=== PATIENT | male | born 1965 | race Caucasian/White ===

== ENCOUNTER 2017-04-18 23:50 | Observation (INO) | payer OTHER ==
[~2017-04-18] VITALS: Ht 180.3 cm; Wt 86.5 kg
[~2017-04-18 23:50] MED LIST: ATEN-173 PO; ATOR-54 PO; BUSPAR PO; CLON1TAB3 PO; CYCL10TA6 PO; FERR325T51 PO; FLUO40CA8 PO; LAMO100T PO; LDDP5 TD; MRP15 PO; MRPSR15 PO; NRN/600 PO; RST/30 PO
[2017-04-19] VITALS (13 sets, daily range): BP systolic 116–189; BP diastolic 71–126; PULSE 64–81; TEMP 36.4–36.6; O2SAT 97–99; Ht 180.3 cm; Wt 86.5 kg
--- NOTE | 2017-04-19 00:30 | EMERGENCY ROOM VISIT NOTE ---
History Report prepared by Ronibren: Nieves Gonzales Under the Supervision of: Dr. Jett Benson M.D. First contact with patient: 00:09 Chief Complaint: CHEST PAIN Stated Complaint: CHEST PAIN/ [facility] Nursing Triage Summary: Pt arrives via ALS litter from [place] for eval of substernal cp into right arm that began at 2030. Pt states he initially thought it was an anxiety attack. Pt reports he was sob, lightheaded and nauseated. Pt given 3 NTG by staff at [place] Pt given 2 additional NTG by EMS, along with 4mg Morphine and 324 ASA. Pt reports that he is at [place] because he recently OD by taking 90 Atenolol. History of Present Illness The patient is a 51 year old male who presents to the Emergency Room from the [facility] via EMS with complaints of persistent mid-chest pain starting about 7 hours ago. He has pain radiation to the right arm. The patient initially thought he was having a panic attack. He has a history of panic attacks. He was given 3 Nitro at the [facility] and 2 Nitro in route to the Emergency Room by EMS without relief. He was also given 4 mg Morphine which brought his pain down to 5 /10. He currently rates a pain intensity of 6/10. He reports that his Klonopin was stopped today. He has a recent history of overdose by Atenolol. The patient also has a history of 2 heart catheterizations but did not have any stent placement. He denies fevers, chills, or any other complaints. Source of History: patient Onset: 7 hours ago Position: chest (mid) Symptom Intensity: 6/10 currently Timing: other (persistent) Modifying Factors (Relieving): other (Nitro without relief; Morphine with some relief) Associated Symptoms: No fevers, No chills Review of Systems See HPI for pertinent positives & negatives. A total of 10 systems reviewed and were otherwise negative. Past Medical & Surgical Medical Problems: (1) Anxiety (2) Cervical stenosis of spinal canal (3) Chest pain (4) Depression (5) Emphysema lung (6) Hypertension (7) Intractable pain (8) Neck pain (9) Osteoarthritis (10) Overdose Family History Patient reports no known family medical history. Social History Smoking Status: Current Every Day Smoker Marital Status: Occupation Status: disabled Current/Historical Medications Scheduled Atenolol (Tenormin), 50 MG PO QAM Atenolol (Tenormin), 25 MG PO HS Buspirone Hcl (Buspar), 15 MG PO QID Clonazepam (Klonopin), 0.5 MG PO QAM ON Clonazepam (Klonopin), 1 MG PO QAM ON 04/19/17 Divalproex Sodium (Depakote Delay Rel), 250 MG PO QAM Divalproex Sodium (Depakote Delay Rel), 500 MG PO HS Gabapentin (Neurontin), 800 MG PO TID Lamotrigine (Lamictal), 100 MG PO BID Nicotine (Hm Nicotine Transdermal S), 21 MG TD QAM Nitroglycerin (Nitrostat), 0.4 MG UT PRN Scheduled PRN Alum & Mag Hydrox-Simethicone (Mylanta), 30 ML PO QID PRN for GI Upset Ibuprofen (Motrin), 600 MG PO TID PRN for BACK PAIN Magnesium Hydroxide (Milk Of Magnesia), 30 ML PO DAILY PRN for Constipation Allergies Coded Allergies: Paroxetine (Verified Allergy, Mild, UNSURE, 05/25/14) Risperidone (Verified Allergy, Unknown, 05/25/14) Influenza Vaccines (Verified Adverse Reaction, Unknown, UNKNOWN, 05/25/14) Pneumococcal Vaccine (Verified Adverse Reaction, Unknown, 05/25/14) Physical Exam Vital Signs Date Time Temp Pulse Resp B/P (MAP) Pulse Ox O2 Delivery O2 Flow Rate FiO2 04/19/17 02:46 157/107 04/19/17 02:45 63 18 99 04/19/17 02:27 62 18 149/97 98 Room Air 04/19/17 01:45 60 18 149/101 95 Room Air 04/19/17 01:27 65 16 129/80 97 Room Air 04/19/17 01:22 63 16 147/101 97 Room Air 04/19/17 00:10 64 04/19/17 00:00 36.9 62 18 158/95 97 Room Air 04/19/17 00:00 99 Room Air Physical Exam GENERAL: Patient is well appearing and in no acute distress. HEENT: No acute trauma, normocephalic atraumatic, mucous membranes moist, no nasal congestion, no scleral icterus. NECK: No stridor, no adenopathy, no meningismus, trachea is midline. LUNGS: No dyspnea. Clear to auscultation and equal bilaterally. No wheeze, no rhonchi. HEART: Regular rate and rhythm. No murmurs, rubs, gallops appreciated. ABDOMEN: Soft, nontender, bowel sounds positive, no masses appreciated, no peritonitis. BACK: No midline tenderness, no CVA tenderness EXTREMITIES: Normal motion all extremities, no cyanosis, no edema. NEUROLOGIC: Alert and oriented, no acute motor or sensory deficits, no focal weakness, cranial nerves grossly intact. SKIN: No rash, no jaundice, no diaphoresis. Medical Decision & Procedures ER Provider Diagnostic Interpretation: X ray results are stated below per my interpretation: Chest: 1 view: No infiltrate, no effusion, normal cardiac border. Laboratory Results 04/18/17 23:40 Red Blood Count 4.02, Mean Corpuscular Volume 94.8, Mean Corpuscular Hemoglobin 32.8, Mean Corpuscular Hemoglobin Concent 34.6, Mean Platelet Volume 10.1, Neutrophils (%) (Auto) 54.1, Lymphocytes (%) (Auto) 33.1, Monocytes (%) (Auto) 7.0, Eosinophils (%) (Auto) 5.1, Basophils (%) (Auto) 0.6, Neutrophils # (Auto) 3.62, Lymphocytes # (Auto) 2.22, Monocytes # (Auto) 0.47, Eosinophils # (Auto) 0.34, Basophils # (Auto) 0.04 04/18/17 23:40 Test 04/18/17 23:40 White Blood Count 6.70 K/uL (4.8-10.8) Red Blood Count 4.02 M/uL (4.7-6.1) Hemoglobin 13.2 g/dL (14.0-18.0) Hematocrit 38.1 % (42-52) Mean Corpuscular Volume 94.8 fL (80-100) Mean Corpuscular Hemoglobin 32.8 pg (25-34) Mean Corpuscular Hemoglobin Concent 34.6 g/dl (32-36) Platelet Count 300 K/uL (130-400) Mean Platelet Volume 10.1 fL (7.4-10.4) Neutrophils (%) (Auto) 54.1 % Lymphocytes (%) (Auto) 33.1 % Monocytes (%) (Auto) 7.0 % Eosinophils (%) (Auto) 5.1 % Basophils (%) (Auto) 0.6 % Neutrophils # (Auto) 3.62 K/uL (1.4-6.5) Lymphocytes # (Auto) 2.22 K/uL (1.2-3.4) Monocytes # (Auto) 0.47 K/uL (0.11-0.59) Eosinophils # (Auto) 0.34 K/uL (0-0.5) Basophils # (Auto) 0.04 K/uL (0-0.2) RDW Standard Deviation 42.5 fL (36.4-46.3) RDW Coefficient of Variation 12.4 % (11.5-14.5) Immature Granulocyte % (Auto) 0.1 % Immature Granulocyte # (Auto) 0.01 K/uL (0.00-0.02) D-Dimer 220 ug/L FEU (0-500) Anion Gap 5.0 mmol/L (3-11) Est Creatinine Clear Calc Drug Dose 118.3 ml/min Estimated GFR () 117.2 Estimated GFR (Non- 101.1 BUN/Creatinine Ratio 12.2 (10-20) Calcium Level 8.8 mg/dl (8.5-10.1) Total Creatine Kinase 89 U/L (39-308) Creatine Kinase MB 1.2 ng/ml (0.5-3.6) Creatine Kinase MB Ratio 1.3 (0-3.0) Troponin I < 0.015 ng/ml (0-0.045) Laboratory results as reviewed by me. Medications Administered Medications (Trade) Dose Ordered Sig/Ngoc Route Start Time Stop Time Status Last Admin Dose Admin Nitroglycerin (Nitrostat Tab) 0.4 mg Q5M PRN SL 04/19/17 01:15 05/19/17 01:14 04/19/17 01:22 0.4 MG ECG Indication: chest pain Rate (beats per minute): 61 Rhythm: normal sinus Findings: no acute ischemic change, no ectopy ED Course 0009: The patient was evaluated in room A03. A complete history and physical exam was performed. 0114: Upon reevaluation, the patient is complaining of increasing chest pain which is now located on the left side. Discussed results and treatment plan with the patient. He verbalized understanding and agreement with the treatment plan. The patient will be evaluated for further management. 0115: Nitroglycerin 0.4 mg SL 0147: I discussed the patient's case with Dr. Berger[facility] Medical Decision Differential: Cardiac Ischemia (STEMI, NSTEMI, Unstable Angina, etc), Aortic Dissection, Arrhythmia, Pulmonary Embolism, Pneumonia, Pneumothorax, MSK, Infectious, Pericarditis/Myocarditis, Esophageal Rupture, Gastrointestinal, amongst other pathologies entertained. 51 yr old male arrives with complaint of substernal CP radiating to right shoulder. 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 EKG, Trop, CXR unremarkable. Labs otherwise unremarkable. Given ASA by EMS. He developed substernal CP now with radiation to left chest while in department. EKG repeat negative. With reported history felt that hospitalist evaluation warranted. Stable throughout ED stay. Medication Reconcilliation Current Medication List: was personally reviewed by me Blood Pressure Screening Patient's blood pressure: Elevated blood pressure Blood pressure disposition: Did not require urgent referral (Will be monitored by hospitalist) Consults Time Called: 0124 Consulting Physician: Dr. Berger, resident physician with [facility] Returned Call: [phone] I discussed the patient's case with Dr. Berger, resident physician with [facility]. Impression Primary Impression: Substernal chest pain Scribe Attestation The scribe's documentation has been prepared under my direction and personally reviewed by me in its entirety. I confirm that the note above accurately reflects all work, treatment, procedures, and medical decision making performed by me. Departure Information Dispostion Being Evaluated By Hospitalist Referrals No Doctor, Assigned (PCP) Patient Instructions My [facility]
[2017-04-19 00:39] LABS: BASO % 0.6 %; BASO ABS # 0.04 K/uL (0-0.2); COMPLETE YES; EOS % 5.1 %; HEMATOCRIT 38.1 % (42-52); IG% 0.1 %; LYMPH % 33.1 %; LYMPH ABS # 2.22 K/uL (1.2-3.4); MEAN CELL VOLUME 94.8 fL (80-100); MEAN CORPUSCULAR HEMOGLOBIN 32.8 pg (25-34); MEAN CORPUSCULAR HGB CONC 34.6 g/dl (32-36); MEAN PLATELET VOLUME 10.1 fL (7.4-10.4); NEUT % 54.1 %; PLATELET COUNT 300 K/uL (130-400); RED BLOOD COUNT 4.02 M/uL (4.7-6.1)
[2017-04-19 00:57] LABS: BLOOD UREA NITROGEN 11 mg/dl (7-18); BUN/CREATININE RATIO 12.2 (10-20); CALCIUM 8.8 mg/dl (8.5-10.1); CARBON DIOXIDE 29 mmol/L (21-32); CHLORIDE 110 mmol/L (98-107); CREATININE 0.86 mg/dl (0.60-1.40); GLUCOSE 108 mg/dl (70-99); SODIUM 144 mmol/L (136-145)
[2017-04-19 01:02] LABS: CKMB/CK RATIO 1.3 (0-3.0)
[2017-04-19] MEDS ORDERED: NITROGLYCERIN 0.4 MG SL PER TAB CHARGE SL PRN (01:15)
[2017-04-19] MEDS ORDERED: LAMO200T PO (01:20)
[2017-04-19] MEDS ORDERED: BUSP15TA70 PO (01:21)
[2017-04-19] MEDS ORDERED: GABA800T PO (01:22)
[2017-04-19] MEDS ORDERED: LAMO100T16 PO (01:27)
[2017-04-19] MEDS ORDERED: CLON0.5T3 PO ×2 (01:29→01:32)
[2017-04-19] MEDS ORDERED: DIVA250T4 PO (01:35)
[2017-04-19] MEDS ORDERED: DIVA500T5 PO (01:36)
[2017-04-19] MEDS ORDERED: NICO1DIS TD (01:38)
[2017-04-19] MEDS ORDERED: ATEN-173 PO (01:42)
[2017-04-19] MEDS ORDERED: IBUP600T44 PO (01:43)
[2017-04-19] MEDS ORDERED: MOML PO (01:44)
[2017-04-19] MEDS ORDERED: NTRGSL/4 UT (01:46)
[2017-04-19] MEDS ORDERED: ALUM-30 PO (01:46)
[2017-04-19] MEDS ORDERED: CLON1TAB3 PO (01:50)
[2017-04-19] MEDS ORDERED: ALUMINUM/MAGNESIUM/SIMETH (MAALOX MAX) 30 ML UDC PO PRN ×2 (02:45)
[2017-04-19] MEDS ORDERED: IBUPROFEN 600 MG TAB PO PRN (02:45)
[2017-04-19] MEDS ORDERED: NITROGLYCERIN 0.4 MG SL PER TAB CHARGE UT SCH (02:45)
[2017-04-19] MEDS ORDERED: MAGNESIUM HYDROXIDE SUSP 30 ML UDC PO PRN ×2 (02:45)
[2017-04-19] MEDS ORDERED: ONDANSETRON INJ 2 MG/ML 2 ML VIAL IV PRN (02:45)
[2017-04-19] MEDS ORDERED: ONDANSETRON INJ 2 MG/ML 2 ML VIAL ONE (02:59)
[2017-04-19] MEDS ORDERED: MoRPHine SULFATE 2 MG/ML CARP ONE (02:59)
--- NOTE | 2017-04-19 03:23 | History and Physical ---
History & Physical Date & Time of Service: Apr 19, 2017 at 02:32 Chief Complaint: Chest Pain/ [place] Primary Care Physician: Jass Madrigal M.D. History of Present Illness Source: patient chest pain -notes onset around 5p today - was after dinner. started with feeling numbness and tingling all over head and then down body. after that got chest pain. chest pain substernal. doesn't define quality. lasted for a long time, then when the numbness went away but chest pain persisted he decided he should come to ER for further eval. pain gone now. not clear what made it go away, but gone and feels OK now. thinks it was probably all anxiety - has bad anxiety and [place] to help take care of something with his mom - but notes that generally that is a bad experience. manuel lost all his luggage and he notes without being at his mom's he's relatively homeless, thinks this whole situation prompted the [place] that [place] [facility] [place] notes though that he's feeling better now. notes that he's got steady income from [employer] so he will be alright, [place] things [place]. relates that in his 30's (during a time when he was working 17hrs a day, only sleeping 2, eating terribly, and not taking care of himself at all) he had chest pain, was taken to cath (not clear where) and was told that he had stenoses - they ballooned them open per his hx, then he had no troubles. several years later had cath again (he thought it was [place] or [place], no records available here) that showed blockages but nothing tight enough to need intervention. Past Medical/Surgical History Medical Problems: (1) Anxiety Status: Chronic (2) Cervical stenosis of spinal canal Status: Resolved (3) Depression Status: Chronic (4) Emphysema lung Status: Chronic (5) Hypertension Status: Chronic (6) Intractable pain Status: Resolved (7) Neck pain Status: Resolved (8) Osteoarthritis Status: Chronic (9) Overdose Status: Resolved Family History Patient reports no known family medical history. notes no fam hx of early CAD Social History Smoking Status: Current Every Day Smoker (2ppd, wants to quit eventually) Alcohol Use: rarely, used to drink heavily but now maybe a few beers once a month Marital Status: Occupational Status: disabled Immunizations History of Influenza Vaccine: N/A History of Tetanus Vaccine?: yes approx 2 years ago History of Pneumococcal: No History of Hepatitis B Vaccine: No Multi-Drug Resistant Organisms History of MDRO: No Allergies Coded Allergies: Paroxetine (Verified Allergy, Mild, UNSURE, 05/25/14) Risperidone (Verified Allergy, Unknown, 05/25/14) Influenza Vaccines (Verified Adverse Reaction, Unknown, UNKNOWN, 05/25/14) Pneumococcal Vaccine (Verified Adverse Reaction, Unknown, 05/25/14) Home Medications Scheduled Atenolol (Tenormin), 50 MG PO QAM Atenolol (Tenormin), 25 MG PO HS Buspirone Hcl (Buspar), 15 MG PO QID Clonazepam (Klonopin), 0.5 MG PO QAM ON Clonazepam (Klonopin), 1 MG PO QAM ON 04/19/17 Divalproex Sodium (Depakote Delay Rel), 250 MG PO QAM Divalproex Sodium (Depakote Delay Rel), 500 MG PO HS Gabapentin (Neurontin), 800 MG PO TID Lamotrigine (Lamictal), 100 MG PO BID Nicotine (Hm Nicotine Transdermal S), 21 MG TD QAM Nitroglycerin (Nitrostat), 0.4 MG UT PRN Scheduled PRN Alum & Mag Hydrox-Simethicone (Mylanta), 30 ML PO QID PRN for GI Upset Ibuprofen (Motrin), 600 MG PO TID PRN for BACK PAIN Magnesium Hydroxide (Milk Of Magnesia), 30 ML PO DAILY PRN for Constipation Review of Systems all other ROS otherwise negative except for as above Physical Exam Vital Signs Date Time Temp Pulse Resp B/P (MAP) Pulse Ox O2 Delivery O2 Flow Rate FiO2 04/19/17 02:27 62 18 149/97 98 Room Air 04/19/17 01:45 60 18 149/101 95 Room Air 04/19/17 01:27 65 16 129/80 97 Room Air 04/19/17 01:22 63 16 147/101 97 Room Air 04/19/17 00:10 64 04/19/17 00:00 36.9 62 18 158/95 97 Room Air 04/19/17 00:00 99 Room Air General Appearance: no apparent distress Head: atraumatic Eyes: EOMI ENT: hearing grossly normal Neck: trachea midline Respiratory/Chest: lungs clear, normal breath sounds, no respiratory distress, no accessory muscle use Abdomen/GI: non tender, soft, no organomegaly Extremities/Musculoskelatal: normal inspection, no calf tenderness, normal capillary refill, no pedal edema, normal range of motion 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, no motor/sensory deficits, alert, normal mood/affect, oriented x 3 Skin: normal color, warm/dry Diagnostics Laboratory Results Results Past 24 Hours Test 04/18/17 23:40 Range/Units White Blood Count 6.70 4.8-10.8 K/uL Red Blood Count 4.02 4.7-6.1 M/uL Hemoglobin 13.2 14.0-18.0 g/dL Hematocrit 38.1 42-52 % Mean Corpuscular Volume 94.8 80-100 fL Mean Corpuscular Hemoglobin 32.8 25-34 pg Mean Corpuscular Hemoglobin Concent 34.6 32-36 g/dl Platelet Count 300 130-400 K/uL Mean Platelet Volume 10.1 7.4-10.4 fL Neutrophils (%) (Auto) 54.1 % Lymphocytes (%) (Auto) 33.1 % Monocytes (%) (Auto) 7.0 % Eosinophils (%) (Auto) 5.1 % Basophils (%) (Auto) 0.6 % Neutrophils # (Auto) 3.62 1.4-6.5 K/uL Lymphocytes # (Auto) 2.22 1.2-3.4 K/uL Monocytes # (Auto) 0.47 0.11-0.59 K/uL Eosinophils # (Auto) 0.34 0-0.5 K/uL Basophils # (Auto) 0.04 0-0.2 K/uL RDW Standard Deviation 42.5 36.4-46.3 fL RDW Coefficient of Variation 12.4 11.5-14.5 % Immature Granulocyte % (Auto) 0.1 % Immature Granulocyte # (Auto) 0.01 0.00-0.02 K/uL D-Dimer 220 0-500 ug/L FEU Sodium Level 144 136-145 mmol/L Potassium Level 4.0 3.5-5.1 mmol/L Chloride Level 110 98-107 mmol/L Carbon Dioxide Level 29 21-32 mmol/L Anion Gap 5.0 3-11 mmol/L Blood Urea Nitrogen 11 7-18 mg/dl Creatinine 0.86 0.60-1.40 mg/dl Est Creatinine Clear Calc Drug Dose 118.3 ml/min Estimated GFR () 117.2 Estimated GFR (Non- 101.1 BUN/Creatinine Ratio 12.2 10-20 Random Glucose 108 70-99 mg/dl Calcium Level 8.8 8.5-10.1 mg/dl Total Creatine Kinase 89 39-308 U/L Creatine Kinase MB 1.2 0.5-3.6 ng/ml Creatine Kinase MB Ratio 1.3 0-3.0 Troponin I < 0.015 0-0.045 ng/ml Diagnostic Radiology EKG NSR no ischemia Impression Assessment and Plan chest pain -very likely was anxiety, but with concerning prior cardiac hx - r/o ACS -serial cardiac enzymes, if negative then stress echo -check lipids and A1c to further risk stratify anxiety -[place] [facility] [place] weaning benzos, he wonders if this contributed to panic -continue meds per psych -he relates he was thinking about [place] [facility] [place] and just following with his primary psychiatrist (will have aids social worker aware in case he's under restriction) chronic neck pain -notes that he stopped narcotics and ibuprofen does well -continue HTN -continue atenolol DVT proph -lovenox
[2017-04-19] MEDS: NITROGLYCERIN 0.4 MG SL PER TAB CHARGE SL PRN ×5 (05:55→17:15)
[2017-04-19] MEDS ORDERED: IV FLUIDS COMPLETED PRN (06:00)
[2017-04-19] MEDS: MoRPHine SULFATE 2 MG/ML CARP IV PRN ×2 (06:20→13:11)
[2017-04-19 06:23] LABS: CHOLESTEROL/HDL RATIO 2.7
[2017-04-19 08:01] LABS: PROTHROMBIN TIME (PATIENT) 10.7 SECONDS (9.0-12.0)
--- NOTE | 2017-04-19 08:15 | DIAGNOSTIC IMAGING REPORT ---
CHEST ONE VIEW PORTABLE CLINICAL HISTORY: Chest pain. COMPARISON STUDY: Chest radiograph January 25, [address] February 01, 2014. FINDINGS: Incidental note is made of an anterior cervical spine fusion. No pneumothorax or pleural effusion is present. There is no consolidation or evidence of pulmonary edema. Cardiomediastinal silhouette is normal. An old left-sided rib fracture is noted. IMPRESSION: No acute cardiopulmonary findings. Electronically signed by: Keith Guzman M.D. 04/19/2017 8:13 AM Dictated Date/Time: 04/19/2017 8:13 AM
[2017-04-19 08:19] LABS: ESTIMATED AVERAGE GLUCOSE 88 mg/dl; HA1C FLAG Normal (Normal)
[2017-04-19] MEDS: ENOXAPARIN 40 MG/0.4 ML SYR SC SCH (08:47)
[2017-04-19] MEDS: GABAPENTIN 800 MG TAB PO SCH ×3 (08:49→20:49)
[2017-04-19] MEDS: NICOTINE 21 MG/24 HR TDSY TD SCH (08:49)
[2017-04-19] MEDS: DIVALPROEX SODIUM 250 MG DELAY REL TAB PO SCH (08:49)
[2017-04-19] MEDS: ASPIRIN 81 MG ECTAB PO SCH (08:49)
[2017-04-19] MEDS: BusPIRone 15 MG TAB PO SCH ×4 (08:50→20:48)
[2017-04-19] MEDS: ACETAMINOPHEN 325 MG TAB PO PRN (08:54)
[2017-04-19] MEDS ORDERED: CLONAZEPAM 1 MG TAB PO SCH (09:00)
--- NOTE | 2017-04-19 11:06 | DIAGNOSTIC IMAGING REPORT ---
CHEST ONE VIEW PORTABLE CLINICAL HISTORY: Chest Pain COMPARISON STUDY: Chest radiograph April 19, 2017 at 12:21 AM. FINDINGS: Incidental note is made of an anterior cervical spine fusion. There is no pneumothorax or pleural effusion. There are old bilateral rib fractures. There is no evidence of pulmonary edema. Cardiomediastinal silhouette is normal. No consolidation is identified to suggest pneumonia. IMPRESSION: No acute cardiopulmonary findings. Electronically signed by: Keith Guzman M.D. 04/19/2017 11:04 AM Dictated Date/Time: 04/19/2017 11:04 AM
[2017-04-19] MEDS ORDERED: LISINOPRIL 5 MG TAB PO ONE (15:00)
--- NOTE | 2017-04-19 15:11 | Progress Note ---
Subjective Date of Service: Apr 19, 2017. Subjective Pt evaluation today including: conversation w/ patient, physical exam, chart review, lab review, review of studies, conversation w/ health and safety consultant, review of inpatient medication list Per nurse, patient has been requesting pain medicine and Klonopin, there was several episodes of chest pain per pt since admission, which was help by nitroglycerin or morphine, EKG and lab were checked were not remarkable, Patient is conversational, a little hyper, active/a little speech Problem List Medical Problems: (1) Substernal chest pain Status: Acute Review of Systems Constitutional: No fever, No chills, No sweats, No weight loss, No weakness, No fatigue, No problem reported Eyes: No worsening of vision, No eye pain, No redness, No discharge, No diplopia ENT: No hearing loss, No unusual epistaxis, No nasal symptoms, No sore throat, No tinnitus, No dental problems, No trouble swallowing Respiratory: No cough, No sputum, No wheezing, No shortness of breath, No dyspnea on exertion, No dyspnea at rest, No hemoptysis Cardiac: No chest pain, No orthopnea, No PND, No edema, No claudication, No palpitations Abdomen: No pain, No nausea, No vomiting, No diarrhea, No constipation Musculoskeletal: + joint pain, + problem reported (neck pain because history of neck surgery), No muscle pain, No swelling, No calf pain Male : No dysuria, No urinary frequency, No incontinence, No nocturia more than once/night, No slowing stream, No hematuria Neurologic: No memory loss, No paralysis, No weakness, No numbness/tingling, No vertigo, No balance problems Psychiatric: No depression symptoms, No anhedonism, No anxiety, No insomnia, No substance abuse Heme: No abnormal bleeding/bruising, No clotting problems, No swollen lymph nodes, No night sweats Endo: No fatigue, No excessive thirst, No excessive urination Skin: No rash, No itch, No new/changing skin lesions, No color change, No bleeding Objective Vital Signs Date Time Temp Pulse Resp B/P (MAP) Pulse Ox O2 Delivery O2 Flow Rate FiO2 04/19/17 13:03 36.5 68 20 165/101 (122) 99 Room Air 04/19/17 12:00 Room Air 04/19/17 09:52 69 143/81 (101) 04/19/17 09:39 36.5 68 177/107 (130) 98 Room Air 04/19/17 08:04 36.4 65 18 159/100 (119) 98 04/19/17 08:00 Room Air 04/19/17 06:06 65 171/113 (132) 04/19/17 06:05 64 167/112 (130) 04/19/17 03:49 Room Air 04/19/17 03:02 56 18 166/104 98 Room Air 04/19/17 03:02 166/104 04/19/17 03:01 175/112 04/19/17 03:00 59 18 99 04/19/17 02:46 157/107 04/19/17 02:45 63 18 99 04/19/17 02:27 62 18 149/97 98 Room Air 04/19/17 01:45 60 18 149/101 95 Room Air 04/19/17 01:27 65 16 129/80 97 Room Air 04/19/17 01:22 63 16 147/101 97 Room Air 04/19/17 00:10 64 04/19/17 00:00 36.9 62 18 158/95 97 Room Air 04/19/17 00:00 99 Room Air Physical Exam General Appearance: WD/WN, no apparent distress, + pertinent finding (looks older than his age, awake and alert and conversational) Eyes: normal inspection, PERRL, EOMI, sclerae normal ENT: normal ENT inspection, hearing grossly normal, pharynx normal Neck: supple, no adenopathy, thyroid normal, no JVD, no carotid bruits, trachea midline Respiratory/Chest: chest non-tender, lungs clear, normal breath sounds, no respiratory distress, no accessory muscle use Cardiovascular: regular rate, rhythm, no edema, no gallop, no JVD, no murmur Abdomen: normal bowel sounds, non tender, soft, no organomegaly, no pulsatile mass Extremities: normal range of motion, non-tender, normal inspection, no pedal edema, no calf tenderness, normal capillary refill, pelvis stable Neurologic/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, no motor/sensory deficits, alert, normal mood/affect, oriented x 3 Skin: normal color, warm/dry, no rash Lymphatic: no adenopathy Laboratory Results Last 24 Hours Test 04/18/17 23:40 7/22/17 05:25 04/19/17 07:14 04/19/17 10:02 White Blood Count 6.70 K/uL Red Blood Count 4.02 M/uL Hemoglobin 13.2 g/dL Hematocrit 38.1 % Mean Corpuscular Volume 94.8 fL Mean Corpuscular Hemoglobin 32.8 pg Mean Corpuscular Hemoglobin Concent 34.6 g/dl Platelet Count 300 K/uL Mean Platelet Volume 10.1 fL Neutrophils (%) (Auto) 54.1 % Lymphocytes (%) (Auto) 33.1 % Monocytes (%) (Auto) 7.0 % Eosinophils (%) (Auto) 5.1 % Basophils (%) (Auto) 0.6 % Neutrophils # (Auto) 3.62 K/uL Lymphocytes # (Auto) 2.22 K/uL Monocytes # (Auto) 0.47 K/uL Eosinophils # (Auto) 0.34 K/uL Basophils # (Auto) 0.04 K/uL RDW Standard Deviation 42.5 fL RDW Coefficient of Variation 12.4 % Immature Granulocyte % (Auto) 0.1 % Immature Granulocyte # (Auto) 0.01 K/uL D-Dimer 220 ug/L FEU Sodium Level 144 mmol/L Potassium Level 4.0 mmol/L Chloride Level 110 mmol/L Carbon Dioxide Level 29 mmol/L Anion Gap 5.0 mmol/L Blood Urea Nitrogen 11 mg/dl Creatinine 0.86 mg/dl Est Creatinine Clear Calc Drug Dose 118.3 ml/min Estimated GFR () 117.2 Estimated GFR (Non- 101.1 BUN/Creatinine Ratio 12.2 Random Glucose 108 mg/dl Calcium Level 8.8 mg/dl Total Creatine Kinase 89 U/L Creatine Kinase MB 1.2 ng/ml Creatine Kinase MB Ratio 1.3 Troponin I < 0.015 ng/ml Estimated Average Glucose 88 mg/dl Hemoglobin A1c 4.7 % Triglycerides Level 60 mg/dl Cholesterol Level 171 mg/dl HDL Cholesterol 64 mg/dl LDL Cholesterol, Calculated 95 mg/dl VLDL Cholesterol, Calculated 12 mg/dl Cholesterol/HDL Ratio 2.7 Prothrombin Time 10.7 SECONDS Prothromb Time International Ratio 1.0 Test 04/19/17 10:20 04/19/17 14:32 Creatine Kinase MB 0.8 ng/ml Troponin I < 0.015 ng/ml Assessment and Plan 51-year-old In the observation because of chest pain on 04/18/2017 Per H&P , chest pain -notes onset around 5p yesterday - was after dinner. started with feeling numbness and tingling all over head and then down body. after that got chest pain. chest pain substernal. pt has bad anxiety and [place] from [place] about 4 months ago to help take care of something with his mom, he overdosed blood pressure medicine was in the [facility] prior to this admission. Per report , patient relates that in his 30's (during a time when he was working 17hrs a day, only sleeping 2, eating terribly, and not taking care of himself at all) he had chest pain, was taken to cath (not clear where) and was told that he had stenoses - they ballooned them open per his hx, then he had no troubles. several years later had cath again (he thought it was here or [facility] , no records available here) that showed blockages but nothing tight enough to need intervention. chest pain, very likely was anxiety, but with concerning prior cardiac hx, associated with tobacco abuse disorder - r/o ACS serial cardiac enzymes, tress echo planned for tomorrow, HbA1c 5.6 and LDL 97 Continue aspirin, pain management, stress test tomorrow anxiety -continue meds as ordered per the [facility] -was weaning benzos, he wonders if this contributed to panic -continue meds per psych chronic neck pain continue current care -lovenox for DVT prophylaxis Discussed with patient about a care plan answer all questions Continued [facility] stay due to: multiple IV medications needed Discharge planning: home
[2017-04-19] MEDS ORDERED: NURSING VERBAL MED ORDER ONE (17:30)
[2017-04-19 17:31] LABS: CKMB/CK RATIO 1.4 (0-3.0)
[2017-04-19] MEDS ORDERED: OPTIRAY 320 IV PRN (17:45)
[2017-04-19] MEDS ORDERED: MoRPHine SULFATE 4 MG/ML 1 ML CARP\\VIAL IV ONE (17:45)
[2017-04-19] MEDS ORDERED: HydrALAZINE HCL 20 MG/ML VIAL IV. PRN (17:45)
[2017-04-19 18:44] LABS: BENZODIAZEPINE, URINE NEG (NEG); COCAINE,URINE NEG (NEG); PHENCYCLIDINE, URINE NEG (NEG)
--- NOTE | 2017-04-19 20:43 | DIAGNOSTIC IMAGING REPORT ---
CHEST COMBO ANGIO DISSECTION CLINICAL HISTORY: Chest pain. Evaluate for dissection. COMPARISON STUDY: Chest radiograph performed earlier today and chest CT in February 01, 2014. TECHNIQUE: Unenhanced and arterial phase imaging of the chest was performed. Injection of 94 cc Optiray 320 IV was uneventful. Sagittal and coronal reconstructions were viewed as well as maximal intensity projections on an independent 3-D workstation. FINDINGS: The caliber of the thoracic aorta is normal. There is no evidence of dissection or intramural hematoma. The size of the heart is normal. There is no pericardial effusion. A few mildly enlarged thoracic lymph nodes are noted, including a right hilar lymph node that measures 1.4 cm in short axis diameter and a subcarinal lymph node that measures 1.2 cm. These are unchanged since chest CT of February 01, 2014. There is no consolidation to suggest pneumonia. There is mild upper lobe predominant paraseptal emphysema. Central airways are patent. There are a few tiny low suspicion pulmonary nodules, including a 5 mm left lower lobe nodule shown image 229 of 336, a 4 mm left lower lobe nodule shown image 210. Unchanged since chest CT February 01, 2014. There are several healing left-sided rib fractures. There is no pneumothorax. Upper abdomen is unremarkable. IMPRESSION: 1. No evidence of thoracic aortic dissection. 2. No acute intrathoracic findings. 3. Mild upper lobe predominant paraseptal emphysema. 4. Several small pulmonary nodules which are unchanged since CT of February 01, 2014 and are therefore benign. 5. Mild mediastinal and right hilar lymphadenopathy which is unchanged since prior exam. These nodes are likely benign. Electronically signed by: Keith Guzman M.D. 04/19/2017 7:05 PM Dictated Date/Time: 04/19/2017 6:49 PM
[2017-04-19] MEDS: CLONAZEPAM 0.5 MG TAB PO PRN (20:47)
[2017-04-19] MEDS: DIVALPROEX SODIUM 500 MG DELAY RELEASE TAB PO SCH (20:48)
[2017-04-20] VITALS (10 sets, daily range): BP systolic 124–153; BP diastolic 80–97; PULSE 65–77; TEMP 36.3–36.7; O2SAT 97–99
[2017-04-20] MEDS: MoRPHine SULFATE 2 MG/ML CARP IV PRN (02:34)
[2017-04-20] MEDS: NITROGLYCERIN 0.4 MG SL PER TAB CHARGE SL PRN ×2 (04:17→09:59)
[2017-04-20 07:09] LABS: BUN/CREATININE RATIO 10.4 (10-20); CALCIUM 9.3 mg/dl (8.5-10.1); CREATININE 0.9 mg/dl (0.60-1.40); MAGNESIUM 2.1 mg/dl (1.8-2.4); POTASSIUM 3.9 mmol/L (3.5-5.1)
[2017-04-20] MEDS: CLONAZEPAM 0.5 MG TAB PO PRN (08:00)
[2017-04-20] MEDS: ASPIRIN 81 MG ECTAB PO SCH (08:01)
[2017-04-20] MEDS: GABAPENTIN 800 MG TAB PO SCH ×3 (08:01→21:16)
[2017-04-20] MEDS: LISINOPRIL 5 MG TAB PO SCH (08:01)
[2017-04-20] MEDS: BusPIRone 15 MG TAB PO SCH ×4 (08:02→21:16)
[2017-04-20] MEDS: ENOXAPARIN 40 MG/0.4 ML SYR SC SCH (08:02)
[2017-04-20] MEDS: NICOTINE 21 MG/24 HR TDSY TD SCH (08:02)
[2017-04-20] MEDS: DIVALPROEX SODIUM 250 MG DELAY REL TAB PO SCH (08:02)
--- NOTE | 2017-04-20 08:25 | DIAGNOSTIC IMAGING REPORT ---
RENAL ARTERY DUPLEX EVALUATION CLINICAL HISTORY: Severe hypertension. Possible renal artery stenosis. COMPARISON STUDY: No previous studies for comparison. FINDINGS: Grayscale, color scale, and spectral analysis was performed. The right kidney measures 11.6 cm in length. The left kidney measures 13.2 cm in length. The lower pole the left kidney was not well demonstrated on the current images. There is lower pole right renal cortical scarring. The peak systolic velocity within the aorta was 153 cm/s. The peak systolic velocity within the right renal artery was 147 cm/s. Peak systolic velocity within the left renal artery was 130 cm/s. IMPRESSION: 1. No evidence of renal artery stenosis by velocity criteria 2. Lower pole right renal cortical scarring Electronically signed by: Graham Torres M.D. 04/20/2017 8:24 AM Dictated Date/Time: 04/20/2017 8:21 AM
[2017-04-20] MEDS ORDERED: CLONAZEPAM 0.5 MG TAB PO SCH (09:00)
[2017-04-20] MEDS: ACETAMINOPHEN 325 MG TAB PO PRN (09:18)
--- NOTE | 2017-04-20 12:14 | Psychiatric Progress Notes ---
Psychiatric Progress Note Date of Service Apr 20, 2017. Notes consult dictated. Dx: BPAD 2, MRE mixed; h/o PTSD; h/o poly substance abuse Plan - will resume klonopin at 0.5mg qid and [facility] or outpatient psychiatrist can more slowly taper from that point - psychotropics otherwise reviewed and no changes indicated at present - pt should be dispositioned back to [facility] when medically cleared
[2017-04-20] MEDS: CLONAZEPAM 0.5 MG TAB PO SCH ×3 (13:34→21:14)
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
--- NOTE | 2017-04-20 14:26 | Progress Note ---
Subjective Date of Service: Apr 20, 2017. Subjective Pt evaluation today including: conversation w/ patient, physical exam, chart review, lab review, review of studies, conversation w/ case consultant, review of inpatient medication list Cardiology report, patient not able to do any exercise during exercise stress echo studies He continued reported chest pain when I walk into the room, and he reported a lot of anxiety Problem List Medical Problems: (1) Substernal chest pain Status: Acute Review of Systems Constitutional: No fever, No chills, No sweats, No weight loss, No weakness, No fatigue, No problem reported Eyes: No worsening of vision, No eye pain, No redness, No discharge, No diplopia ENT: No hearing loss, No unusual epistaxis, No nasal symptoms, No sore throat, No tinnitus, No dental problems, No trouble swallowing Respiratory: No cough, No sputum, No wheezing, No shortness of breath, No dyspnea on exertion, No dyspnea at rest, No hemoptysis Cardiac: + chest pain, No orthopnea, No PND, No edema, No claudication, No palpitations Abdomen: No pain, No nausea, No vomiting, No diarrhea, No constipation Musculoskeletal: No joint pain, No muscle pain, No swelling, No calf pain Male : No dysuria, No urinary frequency, No incontinence, No nocturia more than once/night, No slowing stream, No hematuria Neurologic: No memory loss, No paralysis, No weakness, No numbness/tingling, No vertigo, No balance problems Psychiatric: No depression symptoms, No anhedonism, No anxiety, No insomnia, No substance abuse Heme: No abnormal bleeding/bruising, No clotting problems, No swollen lymph nodes, No night sweats Endo: No fatigue, No excessive thirst, No excessive urination Skin: No rash, No itch, No new/changing skin lesions, No color change, No bleeding Objective Vital Signs Date Time Temp Pulse Resp B/P (MAP) Pulse Ox O2 Delivery O2 Flow Rate FiO2 04/20/17 12:32 36.7 72 18 137/97 (110) 99 Room Air 04/20/17 12:00 Room Air 04/20/17 09:58 69 153/87 (109) 04/20/17 09:19 68 139/90 (106) 04/20/17 08:00 Room Air 04/20/17 07:21 36.4 71 18 136/87 (103) 97 Room Air 04/20/17 04:00 Room Air 04/20/17 03:00 36.3 65 16 150/91 (110) 97 Room Air 04/20/17 00:00 Room Air 04/19/17 23:17 36.6 81 20 116/71 (86) 97 Room Air 04/19/17 21:20 163/82 (109) 04/19/17 20:05 99 Room Air 04/19/17 19:58 36.5 71 20 189/110 (136) 98 Room Air 04/19/17 17:17 71 189/105 (133) 04/19/17 16:12 99 Room Air 04/19/17 15:50 36.4 66 18 169/126 (140) 99 Room Air 167/104 (125) Physical Exam General Appearance: WD/WN, no apparent distress, + thin Eyes: normal inspection, PERRL, EOMI, sclerae normal ENT: normal ENT inspection, hearing grossly normal, pharynx normal Neck: supple, no adenopathy, thyroid normal, no JVD, no carotid bruits, trachea midline Respiratory/Chest: chest non-tender, lungs clear, normal breath sounds, no respiratory distress, no accessory muscle use Cardiovascular: regular rate, rhythm, no edema, no gallop, no JVD, no murmur Abdomen: normal bowel sounds, non tender, soft, no organomegaly, no pulsatile mass Extremities: normal range of motion, non-tender, normal inspection, no pedal edema, no calf tenderness, normal capillary refill, pelvis stable Neurologic/Psychiatric: production sanitizer II-XII nml as tested, no motor/sensory deficits, alert, normal mood/affect, oriented x 3, + pertinent finding (anxious) Skin: normal color, warm/dry, no rash Lymphatic: no adenopathy Laboratory Results Last 24 Hours Test 04/19/17 15:19 04/19/17 16:35 04/19/17 18:05 04/19/17 18:41 Thyroid Stimulating Hormone (TSH) 3.640 uIu/ml Random Cortisol 4.75 mcg/dl Total Creatine Kinase 80 U/L Creatine Kinase MB 1.1 ng/ml Creatine Kinase MB Ratio 1.4 Troponin I < 0.015 ng/ml Urine Opiates Screen POS Urine Methadone, Qualitative NEG Urine Barbiturates NEG Urine Phencyclidine (PCP) Level NEG Ur Amphetamine/Methamphetamine NEG MDMA (Ecstasy) Screen NEG Urine Benzodiazepines Screen NEG Urine Cocaine Metabolite NEG Urine Marijuana (THC) NEG Test 04/20/17 05:55 Sodium Level 141 mmol/L Potassium Level 3.9 mmol/L Chloride Level 106 mmol/L Carbon Dioxide Level 29 mmol/L Anion Gap 6.0 mmol/L Blood Urea Nitrogen 9 mg/dl Creatinine 0.90 mg/dl Est Creatinine Clear Calc Drug Dose 104.5 ml/min Estimated GFR () 115.0 Estimated GFR (Non- 99.2 BUN/Creatinine Ratio 10.4 Random Glucose 90 mg/dl Calcium Level 9.3 mg/dl Magnesium Level 2.1 mg/dl Total Bilirubin 0.3 mg/dl Direct Bilirubin 0.1 mg/dl Aspartate Amino Transf (AST/SGOT) 12 U/L Alanine Aminotransferase (ALT/SGPT) 16 U/L Alkaline Phosphatase 69 U/L Total Protein 7.2 gm/dl Albumin 3.5 gm/dl Assessment and Plan 51-year-old In the observation because of chest pain on 04/18/2017 Per H&P , chest pain -notes onset around 5p yesterday - was after dinner. started with feeling numbness and tingling all over head and then down body. after that got chest pain. chest pain substernal. pt has bad anxiety and came back north from [place] about 4 months ago to help take care of something with his mom, he overdosed blood pressure medicine was [facility] prior to this admission. Per report , patient relates that in his 30's (during a time when he was working 17hrs a day, only sleeping 2, eating terribly, and not taking care of himself at all) he had chest pain, was taken to cath (not clear where) and was told that he had stenoses - they ballooned them open per his hx, then he had no troubles. several years later had cath again (he thought it was [facility] , no records available here) that showed blockages but nothing tight enough to need intervention. chest pain, very likely was anxiety, or possible drug-seeking behavior but missed to rule out ACS because concerning prior cardiac hx, associated with tobacco abuse disorder, and substance abuse disorder serial cardiac enzymes has been negative stress echo not able to complete because not able to do any exercise HbA1c 5.6 and LDL 97 Order nuclear medicine stress test tomorrow Continue aspirin, pain management, stress test tomorrow anxiety or may be some drug related, he has a history of using illicit drug -continue meds as ordered per the [facility] -was weaning benzos, -continue meds per psych - Klonopin 0.5 mg by mouth 4 times a day , which can be more slowly taper - psychotropics otherwise reviewed and no changes indicated at present - pt should be dispositioned back to [facility] when medically cleared Accelerated hypertension, has add lisinopril to beta galileo yesterday, is better controlled chronic neck pain continue current care -lovenox for DVT prophylaxis Discussed with patient about a care plan answer all questions Discharge from [facility] if medically. Continued [facility] stay due to: multiple IV medications needed Discharge planning: home
[2017-04-20 15:52] LABS: BUN/CREATININE RATIO 8.8 (10-20); CREATININE 1.1 mg/dl (0.60-1.40); POTASSIUM 4.1 mmol/L (3.5-5.1)
[2017-04-20] MEDS: DIVALPROEX SODIUM 500 MG DELAY RELEASE TAB PO SCH (21:16)
[2017-04-21 04:03] VITALS: BP 133/85; PULSE 69; TEMP 36.5; O2SAT 94
[2017-04-21 07:24] VITALS: BP 142/89; PULSE 86; TEMP 36.7; O2SAT 94
[2017-04-21] MEDS: NICOTINE 21 MG/24 HR TDSY TD SCH (08:01)
[2017-04-21] MEDS: ENOXAPARIN 40 MG/0.4 ML SYR SC SCH (08:01)
[2017-04-21] MEDS: GABAPENTIN 800 MG TAB PO SCH ×2 (08:02→13:25)
[2017-04-21] MEDS: ASPIRIN 81 MG ECTAB PO SCH (08:02)
[2017-04-21] MEDS: LISINOPRIL 5 MG TAB PO SCH (08:02)
[2017-04-21] MEDS: CLONAZEPAM 0.5 MG TAB PO SCH ×2 (08:02→13:25)
[2017-04-21] MEDS: BusPIRone 15 MG TAB PO SCH ×2 (08:02→13:25)
[2017-04-21] MEDS: DIVALPROEX SODIUM 250 MG DELAY REL TAB PO SCH (08:03)
[2017-04-21] MEDS ORDERED: ATROPINE SULFATE 0.1 MG/ML 5ML SYR ONE (08:25)
[2017-04-21] MEDS ORDERED: DOBUTamine HCL 12.5 MG/ML 20 ML VIAL ONE (08:26)
[2017-04-21] MEDS ORDERED: METOPROLOL TARTRATE 1 MG/ML VIAL ONE ×2 (08:26→09:05)
--- NOTE | 2017-04-21 08:47 | Psych Management Progress Note ---
Psychiatry Miscellaneous Date of Service: Apr 21, 2017. Patient reviewed with liaison nurse. Initial consult by Dr. Chairez reviewed. Patient currently out of room for stress test. Should return to [facility] when medically cleared even if denying SI as patient has significant history and ongoing med cross tapers.
[2017-04-21 11:06] VITALS: BP 102/64; PULSE 79; TEMP 36.5; O2SAT 99
[2017-04-21] MEDS ORDERED: LISI-461 PO (12:19)
--- NOTE | 2017-04-21 12:23 | Discharge Instructions ---
Discharge Instructions Date of Service Apr 21, 2017. Admission Reason for Admission: Chest Pain Discharge Discharge Diagnosis / Problem: Chest pain, non-cardiac, likely related to anxiety Discharge Goals Goal(s): Improve function, Improve disease control Activity Recommendations Activity Level: Up Ad Joanna Lifting Limitations: none Exercise/Sports Limitations: as tolerated Shower/Bathe: no limitations . Additional Information Patient informed of condition: Yes Advance Directives: No DNR: No Level of Care: Other (inpatient mental health) Communicable Disease: No Prognosis: Stable Oxygen at (LPM): no Cornejo Catheter: No Instructions / Follow-Up Instructions / Follow-Up Medications: LISINOPRIL: added for better blood pressure control, started at 10mg daily, tolerating well KLONOPIN: defer Klonopin dosing to psychiatry at [place], patient would like to continue taking, he was previously on a taper to plan to stop Chest pain: EKG normal and cardiac enzymes negative, he underwent a dobutamine stress echocardiogram on 04/21 that was negative for cardiac ischemia, cleared by cardiology for discharge back to the [facility] FOLLOW UP - physician at [place] this week Current Hospital Diet Patient's current hospital diet: Regular Diet Discharge Diet Recommended Diet: Regular Diet Procedures Procedures Performed: Dobutamine stress echocardiogram, normal Pending Studies Studies pending at discharge: no Physician Orders On Transfer POLST Discussion: Not Applicable Laboratory Results Hemoglobin A1c Test 04/19/17 05:25 Range/Units Estimated Average Glucose 88 mg/dl Hemoglobin A1c 4.7 4.5-5.6 % Lipid Panel Test 04/19/17 05:25 Range/Units Triglycerides Level 60 0-150 mg/dl Cholesterol Level 171 0-200 mg/dl HDL Cholesterol 64 mg/dl Cholesterol/HDL Ratio 2.7 LDL Cholesterol, Calculated 95 mg/dl Medical Emergencies . Who to Call and When: Medical Emergencies: If at any time you feel your situation is an emergency, please call 911 immediately. . Non-Emergent Contact Non-Emergency issues call your: Primary Care Provider Call Non-Emergent contact if: you have any medication questions . . "Provider Documentation" section prepared by Merrill Zapata. . Core Measure Problem Core Measures: None [place] Drug Monitoring Program Search Results: no issues identified
[2017-04-21 13:08] VITALS: BP 102/64; PULSE 79; TEMP 36.5; O2SAT 99
--- NOTE | 2017-04-21 14:42 | DOBUTAMINE ECHO ---
*NOTICE TO RECEIVING CONSTITUTION PARTY AGENCY This information is strictly Confidential and protected under [place] law. [place] law prohibits you from making any further disclosure of this information unless further disclosure is expressly permitted by the written consent of the person to whom it pertains or is authorized by law. A general authorization for the release of medical or other information is not sufficient for this purpose. Hospital accepts no responsibility if the information is made available to any other person, INCLUDING THE PATIENT. Interpretation Summary * Name: OMARI MORRIS Study Date: 04/21/2017 07:53 AM BP: 138/87 mmHg * Patient Location: [facility]\S\N283\S\2 HR: 72 * : 1965 (M/d/yyyy) Gender: Male Height: 71 in * Age: 51 yrs Ethnicity: CA Weight: 189 lb * Ordering Physician: Jett Landa * Referring Physician: Laura, [facility] * Performed By: Mariana Aguilar RDCS * * Reason For Study: Chest pain * BSA: 2.1 m2 * -- Conclusions -- * Negative dobutamine stress echocardiogram for myocardial ischemia at 75% of the maximum predicted heart rate. * No dobutamine induced chest pain. * No EKG changes * Baseline echocardiogram notes normal left ventricular systolic function with been no significant valvular pathology. Procedure Details * DOBUTAMINE ECHO, CPT#[id number] * ECHO DOPPLER, CPT #[id number] * ECHO COLOR FLOW, CPT #[id number] Left Ventricle * The left ventricle is normal in size. * There is borderline concentric left ventricular hypertrophy. * Ejection Fraction = 60-65%. * Left ventricular systolic function is normal. * Resting wall motion: Normal. Stress wall motion: Appropriate increase in Left ventricular systolic function and decrease in cavity size. No stress induced segmental wall motion abnormalities. Right Ventricle * The right ventricle is grossly normal size. * The right ventricular systolic function is normal as assessed by tricuspid annular plane systolic excursion (TAPSE) (normal >1.5 cm). Atria * The left atrial size is normal. * Right atrial size is normal. * There is no evidence of atrial septal defect, but resolution does not allow assessment for a patent foramen ovale. Mitral Valve * The mitral valve is normal in structure and function. * There is no mitral valve stenosis. * There is trace mitral regurgitation. Tricuspid Valve * The tricuspid valve is normal in structure and function. * There is no tricuspid stenosis. * Significant tricuspid regurgitation is absent. Aortic Valve * The aortic valve is normal in structure and function. * Aortic stenosis is absent. * No aortic regurgitation is present. Pulmonic Valve * The pulmonary valve is not well seen, but the Doppler examination is normal without significant regurgitation or stenosis. Great Vessels * The aortic root is normal size. * The pulmonary is not well visualized. Pericardium * There is no pericardial effusion. Stress Parameters * The baseline ECG displays normal sinus rhythm. * Stress ECG: No ST changes. No arrhythmias. * The stress portion of this study was personally supervised by the undersigned interpreting physician. * Rest heart rate was '72' BPM. * Rest blood pressure was '138/87' * Maximum heart rate achieved was 126 bpm. * Maximum heart rate was 74 % of maximum age-predicted heart rate. * Maximum blood pressure was '220/118' * Maximum Dobutamine infusion rate was '50' mcg/kg/min. * A total of 1 mg of intravenous Atropine was used to supplement Dobutamine for heart rate response. * Dobutamine infusion was terminated due to symptoms * A total of 15 mg of IV Metoprolol was administered to reverse Dobutamine-induced tachycardia. * The patient exhibited chest pain during the drug infusion. MMode 2D Measurements and Calculations IVSd 0.91 cm LVIDd 4.3 cm LVIDs 2.7 cm LVPWd 1.1 cm IVS/LVPW 0.85 FS 36.3 % EDV(Teich) 82.7 ml ESV(Teich) 27.9 ml EF(Teich) 66.3 % EDV(cubed) 79.1 ml ESV(cubed) 20.5 ml EF(cubed) 74.1 % LV mass(C)d 139.9 grams LV mass(C)dI 68.0 grams/m\S\2 SV(Teich) 54.8 ml SI(Teich) 26.6 ml/m\S\2 SV(cubed) 58.6 ml SI(cubed) 28.5 ml/m\S\2 Ao root diam 3.1 cm Ao root area 7.6 cm\S\2 ACS 2.0 cm LA dimension 2.9 cm asc Aorta Diam 3.1 cm LA/Ao 0.92 LVOT diam 2.0 cm LVOT area 3.2 cm\S\2 LVAd ap4 24.7 cm\S\2 LVLd ap4 6.8 cm EDV(MOD-sp4) 73.2 ml EDV(sp4-el) 75.5 ml LVAs ap4 13.3 cm\S\2 LVLs ap4 4.9 cm ESV(MOD-sp4) 30.3 ml ESV(sp4-el) 30.3 ml EF(MOD-sp4) 58.5 % EF(sp4-el) 59.9 % LVAd ap2 28.6 cm\S\2 LVLd ap2 8.1 cm EDV(MOD-sp2) 83.3 ml EDV(sp2-el) 85.6 ml LVAs ap2 15.7 cm\S\2 LVLs ap2 6.7 cm ESV(MOD-sp2) 33.4 ml ESV(sp2-el) 31.3 ml EF(MOD-sp2) 60.0 % EF(sp2-el) 63.4 % LVLd %diff 15.7 % EDV(MOD-bp) 84.9 ml LVLs %diff 26.7 % ESV(MOD-bp) 36.8 ml EF(MOD-bp) 56.7 % SV(MOD-sp4) 42.8 ml SI(MOD-sp4) 20.8 ml/m\S\2 SV(MOD-sp2) 50.0 ml SI(MOD-sp2) 24.3 ml/m\S\2 SV(MOD-bp) 48.1 ml SI(MOD-bp) 23.4 ml/m\S\2 SV(sp4-el) 45.2 ml SI(sp4-el) 22.0 ml/m\S\2 SV(sp2-el) 54.3 ml SI(sp2-el) 26.4 ml/m\S\2 Doppler Measurements and Calculations MV E max jag 99.9 cm/sec MV A max jag 82.0 cm/sec MV E/A 1.2 MV dec time 0.14 sec Ao V2 max 122.2 cm/sec Ao max PG 6.0 mmHg Ao max PG (full) 2.4 mmHg MANSI(V,A) 2.5 cm\S\2 MANSI(V,D) 2.5 cm\S\2 LV V1 max PG 3.6 mmHg LV V1 max 94.6 cm/sec PA V2 max 103.2 cm/sec PA max PG 4.3 mmHg PA acc slope 312.6 cm/sec\S\2 PA acc time 0.18 sec PA pr(Accel) -3.39 mmHg
--- NOTE | 2017-04-22 07:17 | Discharge Summary ---
Discharge Summary Date of Service Apr 21, 2017. Discharge Summary Admission Date: Apr 19, 2017 at 02:46 Discharge Date: Apr 21, 2017 Discharge Disposition: Acute care mental health Principal Diagnosis: Chest pain Problems/Secondary Diagnoses: Generalized anxiety disorder Immunizations: Have You Had Influenza Vaccine: N/A History of Tetanus Vaccine?: yes approx 2 years ago History of Pneumococcal: No History of Hepatitis B Vaccine: No Procedures: Dobutamine stress echocardiogram Consultations: Psychiatry Medication Reconciliation New Medications: Lisinopril (Lisinopril) 10 Mg Tab 10 MG PO DAILY for 30 Days, #30 TABS 2 Refills Continued Medications: Alum & Mag Hydrox-Simethicone (Mylanta) 1 Carmenza Carmenza 30 ML PO QID PRN for GI Upset Atenolol (Tenormin) 25 Mg Tab 50 MG PO QAM, TAB TWO TABLET DOSE Atenolol (Tenormin) 25 Mg Tab 25 MG PO HS, TAB Buspirone Hcl (Buspar) 15 Mg Tab 15 MG PO QID, TAB Clonazepam (Klonopin) 0.5 Mg Tab 0.5 MG PO QAM ON , TAB ONE DAY ONLY -04/20/17, THEN DC. Clonazepam (Klonopin) 1 Mg Tab 1 MG PO QAM ON 04/19/17, TAB ONE DAY ONLY- 04/19/17. Divalproex Sodium (Depakote Delay Rel) 250 Mg Tab 250 MG PO QAM, TAB Divalproex Sodium (Depakote Delay Rel) 500 Mg Tab 500 MG PO HS, TAB Gabapentin (Neurontin) 800 Mg Tab 800 MG PO TID, TAB Ibuprofen (Motrin) 600 Mg Tab 600 MG PO TID PRN for BACK PAIN, #15 TAB PRN Lamotrigine (Lamictal) 100 Mg Tab 100 MG PO BID, TAB Magnesium Hydroxide (Milk Of Magnesia) 30 Ml Susp 30 ML PO DAILY PRN for Constipation, ML Nicotine (Hm Nicotine Transdermal S) 21 Mg/24 Hr Dis 21 MG TD QAM ON IN AM , OFF IN PM Nitroglycerin (Nitrostat) 0.4 Mg Tab 0.4 MG UT PRN, BTL NEEDED FOR CHEST PAIN : ONE TABLET UNDER THE TONGUE EVERY 5 MINUTES UP TO 3 DOSES. Discharge Exam Patient tolerated dobutamine stress echo in the morning, had some mild chest pain but no EKG changes. Normal echo findings. Patient was feeling anxious during the test, described his pain as similar to what he experiences during panic attacks. Review of Systems: Constitutional: No fever, No chills, No sweats, No weight loss, No weakness , No fatigue, No problem reported Eyes: No worsening of vision, No eye pain, No redness, No discharge, No diplopia, No problem reported ENT: No hearing loss, No unusual epistaxis, No nasal symptoms, No sore throat, No tinnitus, No dental problems, No trouble swallowing, No problem reported Respiratory: No cough, No sputum, No wheezing, No shortness of breath, No dyspnea on exertion, No dyspnea at rest, No hemoptysis, No problem reported Cardiovascular: No chest pain, No orthopnea, No PND, No edema, No claudication, No palpitations, No problem reported Abdomen: No pain, No nausea, No vomiting, No diarrhea, No constipation, No GI bleeding, No problem reported Musculoskeletal: No joint pain, No muscle pain, No swelling, No calf pain, No problem reported Genitourinary - Male: No hematuria, No dysuria, No urinary frequency, No urinary urgency Neurologic: No memory loss, No paralysis, No weakness, No numbness/tingling , No vertigo, No balance problems, No problem reported Psychiatric: + depression symptoms, + anxiety, No anhedonism, No insomnia, No substance abuse, No problem reported Endocrine: No fatigue, No excessive thirst, No excessive urination, No problem reported Hematologic / Lymphatic: No abnormal bleeding/bruising, No clotting problems , No swollen lymph nodes, No night sweats, No problem reported Integumentary: No rash, No itch, No new/changing skin lesions, No color change, No bleeding, No problem reported Physical Exam: General Appearance: no apparent distress, + thin Eyes: normal inspection, EOMI, sclerae normal ENT: normal ENT inspection, hearing grossly normal, pharynx normal Neck: supple, no adenopathy, no JVD, trachea midline Respiratory/Chest: chest non-tender, lungs clear, normal breath sounds, no respiratory distress, no accessory muscle use Cardiovascular: regular rate, rhythm, no edema, no gallop, no JVD, no murmur , normal peripheral pulses Abdomen / GI: normal bowel sounds, non tender, soft, no organomegaly Extremities: normal inspection, no calf tenderness, normal capillary refill , no pedal edema, normal range of motion, pelvis stable Neurologic/Psychiatric: planning aide II-XII nml as tested, no motor/sensory deficits , alert, normal reflexes, oriented x 3, + pertinent finding (visibly anxious) Skin: normal color, warm/dry, no rash Hospital Course 51-year-old In the observation because of chest pain on 04/18/2017 Per H&P , chest pain -notes onset around 5pm the day prior to admissiojn - was after dinner. started with feeling numbness and tingling all over head and then down body. after that got chest pain. chest pain substernal. pt has bad anxiety and came [place] north from [place] about 4 months ago to help take care of something with his mom, he overdosed blood pressure medicine was in the [facility] prior to this admission. Per report , patient relates that in his 30's (during a time when he was working 17hrs a day, only sleeping 2, eating terribly, and not taking care of himself at all) he had chest pain, was taken to cath (not clear where) and was told that he had stenoses - they ballooned them open per his hx, then he had no troubles. several years later had cath again (he thought it was [facility] , no records available [facility]) that showed blockages but nothing tight enough to need intervention. - Chest pain: enzymes negative, normal EKG dobutamine stress echo on 04/21, achieved only 75% of max HR due to elevated BP no EKG changes, normal echo results minimal chest pain but occurred after the test and he attributed to anxiety cleared by cardiology for discharge, felt chest pain more likely anxiety related HbA1c 5.6 and LDL 97 continue aspirin - HTN: poorly controlled BP, Lisinopril 10mg PO daily added during hospitalization, tolerated well will d/c on Lisinopril in addition to his Atenolol that he was taking previously - Anxiety disorder: will d/c back to [place] patient very concerned because he wants to continue taking Klonopin told him to discuss with psychiatry at the [facility] because there had been plans to taper him off benzodiazepines chronic neck pain continue current care, ibuprofen -lovenox for DVT prophylaxis d/c back to [place] Total Time Spent: Greater than 30 minutes This includes examination of the patient, discharge planning, medication reconciliation, and communication with other providers. Discharge Instructions Please refer to the electronic Patient Visit Report (Discharge Instructions) for additional information. Follow-Up Psychiatry at [place] [facility]
[2017-04-23 10:36] LABS: COD UR NEGATIVE NG/ML (CUTOFF=50); HYDROCOD UR NEGATIVE NG/ML (CUTOFF=50); HYDROMOR UR NEGATIVE NG/ML (CUTOFF=50); MORPHINE UR 575 NG/ML (CUTOFF=50); NORHYDROCODONE CONF UR NEGATIVE NG/ML (CUTOFF=50); OXYMORPH UR NEGATIVE NG/ML (CUTOFF=50)
[2017-04-24 10:52] LABS: METANEPHRINE 216 mcg/24 h (90-315); NORMETANEPHRINE UR 316 mcg/24 h (122-676); TOTAL METANEPHRINE 532 mcg/24 h (224-832)
[2017-04-26 02:18] LABS: NORMETANEPHRINE PLASMA 78 pg/mL (<=148); TOTAL METANEPHRINE PLASMA 78 pg/mL (<=205)
[2017-04-27 18:50] LABS: ALDOSTERONE 24 HR URINE <4.0 mcg/24 h
== END 2017-04-21 14:27 ==
LOC: EDBD 23:50 → C.EDA 23:52 → C.MED 04-19 02:46 → ENRESERV 04-19 03:03
PROVIDERS: ADMIT Family Medicine; ATTEND Internal Medicine
DX: R07.89 Other chest pain (principal); F41.1 Generalized anxiety disorder; I10 Essential (primary) hypertension; J43.9 Emphysema, unspecified; M48.02 Spinal stenosis, cervical region; F32.9 Major depressive disorder, single episode, unspecified; M19.90 Unspecified osteoarthritis, unspecified site; F17.210 Nicotine dependence, cigarettes, uncomplicated; Z79.899 Other long term (current) drug therapy

== ENCOUNTER 2022-01-09 20:24 | Inpatient (IN) ==
[2022-01-09 21:01] LABS: iSTAT Creatinine 1.2 mg/dl (0.6-1.3); iSTAT Hemoglobin 13.6 g/dl (14.0-18.0); iSTAT Ionized Calcium 1.23 mmol/l (1.12-1.32); iSTAT Potassium 4.3 mmol/L (3.3-5.0)
--- NOTE | 2022-01-09 21:22 | Emergency Department Note ---
Impression & Plan Weakness of right lower extremity, Multiple falls, CHI (closed head injury) ED Provider Note NAME: OMARI MORRIS AGE: 56 SEX: M : 1965 ARRIVES VIA: Ambulance INFORMANT: Patient, ED PROVIDER(S): Marck Newsome MD Chief Complaint: Falls, leg weakness HPI: Patient does present due to concern for right lower extremity weakness which began yesterday. The patient denies any fevers or chills. The patient h as related his had 2 recent falls where he struck the top of his head as well as the left jainism. The patient has tried ibuprofen as well as Tylenol. The patient denies any prior history of stroke. The patient does not take any blood thinning medications. The patient does have a chronic back pain but does not think that this has been an issue contributing to his right lower extremity weakness. Patient denies any urinary symptoms. Patient does have some mild neck discomfort. ROS: See HPI for pertinent positives and negatives. A total of 10 systems were reviewed and otherwise negative. Past medical history: See below Surgical history: See below Social history: See below Physical Exam: GENERAL: NAD, wearing a mask, non-toxic. C-collar in place. EYE EXAM: Normal conjunctiva. PERRL, no anisocoria and EOM's grossly intact w/o pain. OROPHARYNX: Moist mucus membranes. Grossly normal dentition. NECK: Supple, no nuchal rigidity, no adenopathy. Mild midline neck discomfort. LUNGS: Clear to auscultation. Normal chest wall mechanics. HEART: NSR, no MRG. ABDOMEN: Abdomen soft, non-tender, normo-active bowel sounds, no masses, no rebound or guarding. BACK: No CVA TTP. SKIN: No rashes and no bruising. UPPER EXTREMITIES: Upper extremities are grossly normal. No TTP or obvious deformity. LOWER EXTREMITIES: Grossly normal, no edema. No TTP or obvious deformity NEURO EXAM: A&O x3, cranial nerves II-XII grossly intact, normal speech, or lower extremity weakness compared to left lower extremity. Normal 5 out of 5 strength in the bilateral upper extremities, no sensory deficits. Differential diagnoses: Infection, dehydration, metabolic abnormality, hypo/hyperglycemia, electrolyte disturbance, anemia, hypoxia, cardiac sources, intracerebral event, toxicologic, neurologic, as well as other pathologies. Course: Patient was seen and evaluated the bedside. Full history physical exam was performed. Imaging Studies: See Below Cardiac monitoring: An order was placed for continuous cardiac monitoring. The monitor shows a rate of 85 with sinus rhythm. MDM: Patient does present with concern for right lower extremity weakness. Patient did have a stroke work-up initiated with CT of the head CT cervical spine given the fall as well as CT angiography of the head neck. Blood work also obtained. The patient's blood work fairly unremarkable with a normal white count. The patient's hemoglobin of 13.8 and normal platelet count. Kidney function is unremarkable. The patient's LFTs unremarkable. Patient CT head CT cervical spine CT angiography of the head and neck do not show any acute findings. Given the patient's persistent right lower extremity weakness believe the patient would benefit from inpatient treatment and further monitoring and evaluation. Patient is well outside any window for TPA. I did speak with the on-call hospitalist Dr. Zuñiga and the patient was admitted to the medicine service. MR brain and MR lumbar spine ordered and pending at the time of admission. Past Med/Surg History Medical History Anxiety with depression Degenerative joint disease (DJD) of lumbar spine Peripheral arterial disease Social History Smoking Status: Current every day smoker Cigarettes Per Day: 1/2 pack per day; Do You Dip or Chew Tobacco: No; Hx Alcohol Use: Yes Alcohol type: hard liquor Hx Substance Use: Yes Last Used Substance: Hours (ago) Preferred Language: Cameroonian Communication Ability: Effective Inward Toll Operator Required: No Beliefs That Will Affect Care: None marital status: Current Living Situation: Significant Other Other Information That Helps Us Care for You: No Feels Safe at Home: Yes Assistive Devices: Cane Allergies Allergies Allergy/AdvReac Type Severity Reaction Status Date / Time paroxetine Allergy Mild UNSURE Verified 01/09/22 22:29 risperidone Allergy Unknown Unknown Verified 01/09/22 22:29 Influenza Virus Vaccines AdvReac Unknown UNKNOWN Verified 01/09/22 22:29 pneumococcal vaccine AdvReac Unknown Unknown Verified 01/09/22 22:29 Home Meds Home Medications Medication Instructions Recorded Confirmed ibuprofen 200 mg tablet 800 mg PO TID PRN 01/09/22 01/09/22 Results & Data (ED) Vital Signs Vital Signs - 24 hr 01/09/22 20:31 01/09/22 20:36 01/09/22 20:40 Temperature 37.0 C Temperature Source Oral Pulse Rate 74 76 74 Pulse Rate [Left Radial] 73 Pulse Rate from SpO2 Sensor 74 74 Pulse Rhythm [Left Radial] Regular Respiratory Rate 19 20 21 Respiratory Effort / Characteristics Non-Labored Respiratory Depth Normal Respiratory Pattern Regular Blood Pressure 136/90 Blood Pressure [Left Arm] 136/90 Blood Pressure Mean 105 Blood Pressure Mean [Left Arm] 105 Blood Pressure Position Lying Blood Pressure Position [Left Arm] Lying Pulse Oximetry 100 100 100 Pulse Oximetry [Left Index Finger] Oxygen Delivery Method Room Air Oxygen Delivery Method [Left Index Finger] Sepsis Recent Fever Within 48 Hours No Sepsis New/Unexplained Change in Mental Status No Sepsis Action Taken by Nursing No Action Required 01/09/22 20:50 01/09/22 20:56 01/09/22 21:00 Temperature Temperature Source Pulse Rate 70 71 Pulse Rate [Left Radial] Pulse Rate from SpO2 Sensor 70 Pulse Rhythm [Left Radial] Respiratory Rate 16 20 16 Respiratory Effort / Characteristics Respiratory Depth Respiratory Pattern Blood Pressure Blood Pressure [Left Arm] Blood Pressure Mean Blood Pressure Mean [Left Arm] Blood Pressure Position Blood Pressure Position [Left Arm] Pulse Oximetry 99 99 Pulse Oximetry [Left Index Finger] Oxygen Delivery Method Room Air Oxygen Delivery Method [Left Index Finger] Sepsis Recent Fever Within 48 Hours Sepsis New/Unexplained Change in Mental Status Sepsis Action Taken by Nursing 01/09/22 21:10 01/09/22 21:20 01/09/22 21:30 Temperature Temperature Source Pulse Rate 68 65 73 Pulse Rate [Left Radial] Pulse Rate from SpO2 Sensor Pulse Rhythm [Left Radial] Respiratory Rate 15 13 18 Respiratory Effort / Characteristics Respiratory Depth Respiratory Pattern Blood Pressure Blood Pressure [Left Arm] Blood Pressure Mean Blood Pressure Mean [Left Arm] Blood Pressure Position Blood Pressure Position [Left Arm] Pulse Oximetry Pulse Oximetry [Left Index Finger] Oxygen Delivery Method Oxygen Delivery Method [Left Index Finger] Sepsis Recent Fever Within 48 Hours Sepsis New/Unexplained Change in Mental Status Sepsis Action Taken by Nursing 01/09/22 21:40 01/09/22 21:50 01/09/22 22:00 Temperature Temperature Source Pulse Rate 69 69 67 Pulse Rate [Left Radial] Pulse Rate from SpO2 Sensor Pulse Rhythm [Left Radial] Respiratory Rate 20 23 16 Respiratory Effort / Characteristics Respiratory Depth Respiratory Pattern Blood Pressure Blood Pressure [Left Arm] Blood Pressure Mean Blood Pressure Mean [Left Arm] Blood Pressure Position Blood Pressure Position [Left Arm] Pulse Oximetry Pulse Oximetry [Left Index Finger] Oxygen Delivery Method Oxygen Delivery Method [Left Index Finger] Sepsis Recent Fever Within 48 Hours Sepsis New/Unexplained Change in Mental Status Sepsis Action Taken by Nursing 01/09/22 22:10 01/09/22 22:23 01/09/22 22:30 Temperature Temperature Source Pulse Rate 67 68 65 Pulse Rate [Left Radial] Pulse Rate from SpO2 Sensor 68 65 Pulse Rhythm [Left Radial] Respiratory Rate 15 16 15 Respiratory Effort / Characteristics Respiratory Depth Respiratory Pattern Blood Pressure 150/99 H 141/96 H Blood Pressure [Left Arm] Blood Pressure Mean 116 111 Blood Pressure Mean [Left Arm] Blood Pressure Position Blood Pressure Position [Left Arm] Pulse Oximetry 100 100 Pulse Oximetry [Left Index Finger] Oxygen Delivery Method Oxygen Delivery Method [Left Index Finger] Sepsis Recent Fever Within 48 Hours Sepsis New/Unexplained Change in Mental Status Sepsis Action Taken by Nursing 01/09/22 22:36 01/09/22 22:40 01/10/22 00:00 Temperature Temperature Source Pulse Rate 65 Pulse Rate [Left Radial] 64 Pulse Rate from SpO2 Sensor 65 Pulse Rhythm [Left Radial] Regular Respiratory Rate 20 12 Respiratory Effort / Characteristics Non-Labored Non-Labored Respiratory Depth Normal Normal Respiratory Pattern Blood Pressure Blood Pressure [Left Arm] 141/96 H Blood Pressure Mean Blood Pressure Mean [Left Arm] 111 Blood Pressure Position Blood Pressure Position [Left Arm] Lying Pulse Oximetry 97 100 Pulse Oximetry [Left Index Finger] Oxygen Delivery Method Room Air Oxygen Delivery Method [Left Index Finger] Sepsis Recent Fever Within 48 Hours Sepsis New/Unexplained Change in Mental Status Sepsis Action Taken by Nursing 01/10/22 03:31 01/10/22 03:52 01/10/22 04:01 Temperature 36.4 C L 36.4 C L Temperature Source Oral Oral Pulse Rate Pulse Rate [Left Radial] 68 68 Pulse Rate from SpO2 Sensor Pulse Rhythm [Left Radial] Regular Respiratory Rate 18 18 Respiratory Effort / Characteristics Non-Labored Non-Labored Respiratory Depth Normal Normal Respiratory Pattern Blood Pressure Blood Pressure [Left Arm] 152/94 H 152/94 H Blood Pressure Mean Blood Pressure Mean [Left Arm] 113 113 Blood Pressure Position Blood Pressure Position [Left Arm] Sitting Sitting Pulse Oximetry 100 100 Pulse Oximetry [Left Index Finger] 100 Oxygen Delivery Method Room Air Room Air Room Air Oxygen Delivery Method [Left Index Finger] Room Air Sepsis Recent Fever Within 48 Hours Sepsis New/Unexplained Change in Mental Status Sepsis Action Taken by Nursing 01/10/22 07:15 01/10/22 07:23 01/10/22 11:05 Temperature 36.7 C 36.4 C L Temperature Source Oral Oral Pulse Rate 81 Pulse Rate [Left Radial] 84 59 L Pulse Rate from SpO2 Sensor Pulse Rhythm [Left Radial] Respiratory Rate 21 18 Respiratory Effort / Characteristics Respiratory Depth Respiratory Pattern Blood Pressure Blood Pressure [Left Arm] 107/68 148/90 H Blood Pressure Mean Blood Pressure Mean [Left Arm] 81 109 Blood Pressure Position Blood Pressure Position [Left Arm] Lying Lying Pulse Oximetry 99 96 Pulse Oximetry [Left Index Finger] Oxygen Delivery Method Room Air Room Air Oxygen Delivery Method [Left Index Finger] Sepsis Recent Fever Within 48 Hours Sepsis New/Unexplained Change in Mental Status Sepsis Action Taken by Residential Medications Current Medication List: was personally reviewed by me Laboratory Data Attestation: I reviewed the patient's lab results. Result diagrams: 01/09/22 Unknown 01/09/22 Unknown Lab Results 01/09/22 01/09/22 01/09/22 Range/Units 20:49 21:55 22:58 WBC (4.8-10.8) K/uL RBC (4.7-6.1) M/uL Hgb (14.0-18.0) g/dL POC Hgb 13.6 L (14.0-18.0) g/dl Hct (42-52) % POC Hct 40 L (42-52) % MCV (80-100) fL MCH (25-34) pg MCHC (32-36) g/dL RDW Std Deviation (36.4-46.3) fL RDW Coeff of Artemio (11.5-14.5) % Plt Count (130-400) K/uL MPV (7.4-10.4) fL Immature Gran % (Auto) % Neut % (Auto) % Lymph % (Auto) % Bradford % (Auto) % Eos % (Auto) % Baso % (Auto) % Neut # (Auto) (1.4-6.5) K/uL Lymph # (Auto) (1.2-3.4) K/uL Bradford # (Auto) (0.11-0.59) K/uL Eos # (Auto) (0-0.5) K/uL Baso # (Auto) (0-0.2) K/uL Immature Gran # (Auto) (0.00-0.02) K/uL PT (9.0-12.0) Seconds INR (0.9-1.1) APTT (21.0-31.0) Seconds PTT Ratio POC Sodium 138 (135-144) mmol/L Sodium POC Potassium 4.3 (3.3-5.0) mmol/L Potassium POC Chloride 100 L (101-112) mmol/L Chloride Carbon Dioxide POC Total CO2 25 (24-31) mmol/L Anion Gap POC Anion Gap 18.0 (16-25) mmol/L POC BUN 20 H (7-18) mg/dl BUN Creatinine POC Creatinine 1.2 (0.6-1.3) mg/dl Est Cr Clr Drug Dosing Est GFR ( Amer) Est GFR (Non-Af Amer) BUN/Creatinine Ratio Glucose POC Glucose (other) 95 (70-99) mg/dl Calcium POC Ioniz Calcium Mark 1.23 (1.12-1.32) mmol/l Magnesium (1.7-2.4) mg/dl Total Bilirubin AST ALT Alkaline Phosphatase Troponin I High Sens (0-20) pg/ml Total Protein Albumin Globulin Albumin/Globulin Ratio TSH 2.073 (0.300-4.500) uIu/ml Urine Color Urine Appearance (Clear) Urine pH (4.5-7.5) Ur Specific Giltner (1.000-1.030) Urine Protein (Negative) Urine Glucose (UA) (Negative) Urine Ketones (Negative) Urine Blood (Negative) Urine Nitrite (Negative) Urine Bilirubin (Negative) Urine Urobilinogen (Negative) Ur Leukocyte Esterase (Negative) Urine WBC (Auto) (0-5) /hpf Urine RBC (Auto) (0-4) /hpf U Hyaline Cast (Auto) (0-5) /lpf U Epithel Cells (Auto) (0-5) /lpf Urine Bacteria (Auto) (Negative) Salicylates (3.0-30) mg/dl Urine Opiates Screen (Neg) Ur Methadone, Qual (Neg) Acetaminophen (10-30) ug/ml Urine Barbiturates (Neg) Ur Phencyclidine (PCP) (Neg) U Amphetamin/Meth Scrn (Neg) MDMA (Ecstasy) Screen (Neg) U Benzodiazepines Scrn (Neg) Ur Cocaine Metabolite (Neg) U Marijuana (THC) Screen (Neg) Ethyl Alcohol mg/dL (<10.0) mg/dl SARS-CoV-2, RNA, NAAT NEGATIVE (NEGATIVE) 01/09/22 01/09/22 01/09/22 Range/Units 22:58 22:58 22:58 WBC (4.8-10.8) K/uL RBC (4.7-6.1) M/uL Hgb (14.0-18.0) g/dL POC Hgb (14.0-18.0) g/dl Hct (42-52) % POC Hct (42-52) % MCV (80-100) fL MCH (25-34) pg MCHC (32-36) g/dL RDW Std Deviation (36.4-46.3) fL RDW Coeff of Artemio (11.5-14.5) % Plt Count (130-400) K/uL MPV (7.4-10.4) fL Immature Gran % (Auto) % Neut % (Auto) % Lymph % (Auto) % Bradford % (Auto) % Eos % (Auto) % Baso % (Auto) % Neut # (Auto) (1.4-6.5) K/uL Lymph # (Auto) (1.2-3.4) K/uL Bradford # (Auto) (0.11-0.59) K/uL Eos # (Auto) (0-0.5) K/uL Baso # (Auto) (0-0.2) K/uL Immature Gran # (Auto) (0.00-0.02) K/uL PT 10.9 (9.0-12.0) Seconds INR 1.0 (0.9-1.1) APTT 28.7 (21.0-31.0) Seconds PTT Ratio 1.0 POC Sodium (135-144) mmol/L Sodium POC Potassium (3.3-5.0) mmol/L Potassium POC Chloride (101-112) mmol/L Chloride Carbon Dioxide POC Total CO2 (24-31) mmol/L Anion Gap POC Anion Gap (16-25) mmol/L POC BUN (7-18) mg/dl BUN Creatinine POC Creatinine (0.6-1.3) mg/dl Est Cr Clr Drug Dosing Est GFR ( Amer) Est GFR (Non-Af Amer) BUN/Creatinine Ratio Glucose POC Glucose (other) (70-99) mg/dl Calcium POC Ioniz Calcium Mark (1.12-1.32) mmol/l Magnesium (1.7-2.4) mg/dl Total Bilirubin AST ALT Alkaline Phosphatase Troponin I High Sens (0-20) pg/ml Total Protein Albumin Globulin Albumin/Globulin Ratio TSH (0.300-4.500) uIu/ml Urine Color Urine Appearance (Clear) Urine pH (4.5-7.5) Ur Specific Giltner (1.000-1.030) Urine Protein (Negative) Urine Glucose (UA) (Negative) Urine Ketones (Negative) Urine Blood (Negative) Urine Nitrite (Negative) Urine Bilirubin (Negative) Urine Urobilinogen (Negative) Ur Leukocyte Esterase (Negative) Urine WBC (Auto) (0-5) /hpf Urine RBC (Auto) (0-4) /hpf U Hyaline Cast (Auto) (0-5) /lpf U Epithel Cells (Auto) (0-5) /lpf Urine Bacteria (Auto) (Negative) Salicylates < 3.0 L (3.0-30) mg/dl Urine Opiates Screen (Neg) Ur Methadone, Qual (Neg) Acetaminophen < 3 L (10-30) ug/ml Urine Barbiturates (Neg) Ur Phencyclidine (PCP) (Neg) U Amphetamin/Meth Scrn (Neg) MDMA (Ecstasy) Screen (Neg) U Benzodiazepines Scrn (Neg) Ur Cocaine Metabolite (Neg) U Marijuana (THC) Screen (Neg) Ethyl Alcohol mg/dL < 10.0 (<10.0) mg/dl SARS-CoV-2, RNA, NAAT (NEGATIVE) 01/09/22 01/09/22 01/09/22 Range/Units Unknown Unknown Unknown WBC 5.11 (4.8-10.8) K/uL RBC 4.15 L (4.7-6.1) M/uL Hgb 13.8 L (14.0-18.0) g/dL POC Hgb (14.0-18.0) g/dl Hct 39.1 L (42-52) % POC Hct (42-52) % MCV 94.2 (80-100) fL MCH 33.3 (25-34) pg MCHC 35.3 (32-36) g/dL RDW Std Deviation 45.8 (36.4-46.3) fL RDW Coeff of Artemio 13.5 (11.5-14.5) % Plt Count 284 (130-400) K/uL MPV 10.3 (7.4-10.4) fL Immature Gran % (Auto) 0.2 % Neut % (Auto) 54.8 % Lymph % (Auto) 31.1 % Bradford % (Auto) 11.0 % Eos % (Auto) 2.3 % Baso % (Auto) 0.6 % Neut # (Auto) 2.80 (1.4-6.5) K/uL Lymph # (Auto) 1.59 (1.2-3.4) K/uL Bradford # (Auto) 0.56 (0.11-0.59) K/uL Eos # (Auto) 0.12 (0-0.5) K/uL Baso # (Auto) 0.03 (0-0.2) K/uL Immature Gran # (Auto) 0.01 (0.00-0.02) K/uL PT (9.0-12.0) Seconds INR (0.9-1.1) APTT (21.0-31.0) Seconds PTT Ratio POC Sodium (135-144) mmol/L Sodium Cancelled 135 L POC Potassium (3.3-5.0) mmol/L Potassium Cancelled 4.2 POC Chloride (101-112) mmol/L Chloride Cancelled 102 Carbon Dioxide Cancelled 27 POC Total CO2 (24-31) mmol/L Anion Gap Cancelled 6 POC Anion Gap (16-25) mmol/L POC BUN (7-18) mg/dl BUN Cancelled 18 Creatinine Cancelled 1.09 POC Creatinine (0.6-1.3) mg/dl Est Cr Clr Drug Dosing Cancelled 95.9 Est GFR ( Amer) Cancelled 88.1 Est GFR (Non-Af Amer) Cancelled 76.0 BUN/Creatinine Ratio Cancelled 16.5 Glucose Cancelled 90 POC Glucose (other) (70-99) mg/dl Calcium Cancelled 9.1 POC Ioniz Calcium Mark (1.12-1.32) mmol/l Magnesium 1.8 (1.7-2.4) mg/dl Total Bilirubin Cancelled 0.4 AST Cancelled 17 ALT Cancelled 16 Alkaline Phosphatase Cancelled 62 Troponin I High Sens 8.7 (0-20) pg/ml Total Protein Cancelled 7.1 Albumin Cancelled 4.0 Globulin Cancelled 3.1 Albumin/Globulin Ratio Cancelled 1.3 TSH (0.300-4.500) uIu/ml Urine Color Urine Appearance (Clear) Urine pH (4.5-7.5) Ur Specific Giltner (1.000-1.030) Urine Protein (Negative) Urine Glucose (UA) (Negative) Urine Ketones (Negative) Urine Blood (Negative) Urine Nitrite (Negative) Urine Bilirubin (Negative) Urine Urobilinogen (Negative) Ur Leukocyte Esterase (Negative) Urine WBC (Auto) (0-5) /hpf Urine RBC (Auto) (0-4) /hpf U Hyaline Cast (Auto) (0-5) /lpf U Epithel Cells (Auto) (0-5) /lpf Urine Bacteria (Auto) (Negative) Salicylates (3.0-30) mg/dl Urine Opiates Screen (Neg) Ur Methadone, Qual (Neg) Acetaminophen (10-30) ug/ml Urine Barbiturates (Neg) Ur Phencyclidine (PCP) (Neg) U Amphetamin/Meth Scrn (Neg) MDMA (Ecstasy) Screen (Neg) U Benzodiazepines Scrn (Neg) Ur Cocaine Metabolite (Neg) U Marijuana (THC) Screen (Neg) Ethyl Alcohol mg/dL (<10.0) mg/dl SARS-CoV-2, RNA, NAAT (NEGATIVE) 01/10/22 01/10/22 Range/Units 01:10 01:10 WBC (4.8-10.8) K/uL RBC (4.7-6.1) M/uL Hgb (14.0-18.0) g/dL POC Hgb (14.0-18.0) g/dl Hct (42-52) % POC Hct (42-52) % MCV (80-100) fL MCH (25-34) pg MCHC (32-36) g/dL RDW Std Deviation (36.4-46.3) fL RDW Coeff of Artemio (11.5-14.5) % Plt Count (130-400) K/uL MPV (7.4-10.4) fL Immature Gran % (Auto) % Neut % (Auto) % Lymph % (Auto) % Bradford % (Auto) % Eos % (Auto) % Baso % (Auto) % Neut # (Auto) (1.4-6.5) K/uL Lymph # (Auto) (1.2-3.4) K/uL Bradford # (Auto) (0.11-0.59) K/uL Eos # (Auto) (0-0.5) K/uL Baso # (Auto) (0-0.2) K/uL Immature Gran # (Auto) (0.00-0.02) K/uL PT (9.0-12.0) Seconds INR (0.9-1.1) APTT (21.0-31.0) Seconds PTT Ratio POC Sodium (135-144) mmol/L Sodium POC Potassium (3.3-5.0) mmol/L Potassium POC Chloride (101-112) mmol/L Chloride Carbon Dioxide POC Total CO2 (24-31) mmol/L Anion Gap POC Anion Gap (16-25) mmol/L POC BUN (7-18) mg/dl BUN Creatinine POC Creatinine (0.6-1.3) mg/dl Est Cr Clr Drug Dosing Est GFR ( Amer) Est GFR (Non-Af Amer) BUN/Creatinine Ratio Glucose POC Glucose (other) (70-99) mg/dl Calcium POC Ioniz Calcium Mark (1.12-1.32) mmol/l Magnesium (1.7-2.4) mg/dl Total Bilirubin AST ALT Alkaline Phosphatase Troponin I High Sens (0-20) pg/ml Total Protein Albumin Globulin Albumin/Globulin Ratio TSH (0.300-4.500) uIu/ml Urine Color Yellow Urine Appearance Clear (Clear) Urine pH 7.5 (4.5-7.5) Ur Specific Giltner 1.042 H (1.000-1.030) Urine Protein Negative (Negative) Urine Glucose (UA) Negative (Negative) Urine Ketones Negative (Negative) Urine Blood Negative (Negative) Urine Nitrite Positive A (Negative) Urine Bilirubin Negative (Negative) Urine Urobilinogen Negative (Negative) Ur Leukocyte Esterase 1+ H (Negative) Urine WBC (Auto) 10-30 H (0-5) /hpf Urine RBC (Auto) 0-4 (0-4) /hpf U Hyaline Cast (Auto) 1-5 (0-5) /lpf U Epithel Cells (Auto) 5-10 H (0-5) /lpf Urine Bacteria (Auto) 1+ H (Negative) Salicylates (3.0-30) mg/dl Urine Opiates Screen Neg (Neg) Ur Methadone, Qual Neg (Neg) Acetaminophen (10-30) ug/ml Urine Barbiturates Neg (Neg) Ur Phencyclidine (PCP) Neg (Neg) U Amphetamin/Meth Scrn Neg (Neg) MDMA (Ecstasy) Screen Neg (Neg) U Benzodiazepines Scrn Neg (Neg) Ur Cocaine Metabolite Neg (Neg) U Marijuana (THC) Screen Pos H (Neg) Ethyl Alcohol mg/dL (<10.0) mg/dl SARS-CoV-2, RNA, NAAT (NEGATIVE) Administered Medications Acetaminophen (Acetaminophen 325 Mg Tab) 650 mg PO Q4H PRN PRN Reason: Pain or Fever Stop: 02/09/22 03:51 Last Admin: 01/10/22 20:04 Dose: 650 mg Documented by: [id number] Admin: 01/10/22 10:44 Dose: 650 mg Documented by: [id number] Admin: 01/10/22 04:17 Dose: 650 mg Documented by: [id number] Tramadol HCl (Tramadol Hcl 50 Mg Tablet) 50 mg PO Q4H PRN PRN Reason: Pain Stop: 02/09/22 14:36 Last Admin: 01/10/22 19:07 Dose: 50 mg Documented by: [id number] Admin: 01/10/22 14:51 Dose: 50 mg Documented by: [id number] Discontinued Medications Acetaminophen (Acetaminophen 500 Mg Tab) 1,000 mg PO NOW STA Stop: 01/09/22 22:33 Last Admin: 01/09/22 22:36 Dose: 1,000 mg Documented by: [id number] Potassium Chloride/Sodium Chloride (Normal Saline W/20 Meq Kcl) 20 meq in 1,000 mls @ 80 mls/hr IV .[id number] SHANA Stop: 01/10/22 16:21 Last Infusion: 01/10/22 16:22 Dose: 0 mls/hr Documented by: [id number] Admin: 01/10/22 04:59 Dose: 80 mls/hr Documented by: [id number] Ibuprofen (Ibuprofen 600 Mg Tab) 600 mg PO NOW STA Stop: 01/10/22 11:26 Last Admin: 01/10/22 11:29 Dose: 600 mg Documented by: [id number] Ioversol (Optiray 320 125ml) 119 ml IV ONCE ONE Stop: 01/09/22 22:19 Last Admin: 01/09/22 22:19 Dose: 119 ml Documented by: [id number] Ioversol (Optiray 320 125ml) 120 ml IV ONCE ONE Stop: 01/10/22 13:47 Last Admin: 01/10/22 13:47 Dose: 120 ml Documented by: [id number] Imaging Data Radiologist's Impression: Lumbar Spine MRI 01/10/22 01:00 MR lumbar spine wo con CLINICAL HISTORY: 56 years-old Male with chronic back pain; leg weakness. Chronic low back pain with lower extremity weakness COMPARISON: Lumbar spine radiographs of same day and also 10/22/2006 TECHNIQUE: Multiplanar, multi sequence MRI of the lumbar spine was performed without intravenous contrast. FINDINGS: The log hooker localizer images demonstrate no gross extra spinal abnormality. The urinary bladder is distended. No lymphadenopathy. 1.4 cm synovial cyst posterior to the right L4-L5 facet. Mild to moderate adjacent deep tissue edema. Mild Modic Type II endplate degeneration at L4-L5. Mild marrow edema of the L4-L5 pedicles bilaterally is likely reactive. No acute fracture, subluxation or endplate erosion. Conus medullaris terminates at L1. Signal within the imaged thoracic spinal cord appears normal. Unremarkable cauda equina. Mild multilevel spondylitic spurring. T12-L1: Mild facet arthrosis. No central canal or neural foraminal stenosis. L1-L2: Mild facet arthrosis. No central canal or neural foraminal stenosis. L2-L3: Tiny posterior annular disc bulge with mild facet arthrosis. No central canal or neural foraminal stenosis. L3-L4: Tiny circumferential annular disc bulge with mild facet arthrosis. Ligamentum flavum thickening with mild to moderate facet arthrosis. The central canal and left neural foramen are patent. Mild right foraminal narrowing. L4-L5: Moderate intervertebral disc space narrowing with spondylitic spurring and circumferential annular disc bulge. There is a posterior annular fissure with central/left paracentral disc extrusion measuring up to 1.4 cm in cran iocaudal dimension extending superiorly to the level of the mid L4 vertebral body (image 11 series 5). Ligamentum flavum thickening with severe facet arthrosis and moderate facet effusions. Mild to moderate central canal stenosis, AP dimension of the thecal sac measuring 8.5 mm. Moderate narrowing of the lateral recesses. Moderate bilateral foraminal stenosis. L5-S1: Mild to moderate intervertebral disc space narrowing with small circumferential annular disc bulge and spondylitic spurring. Ligamentum flavum thickening with moderate facet arthrosis and trace facet effusions. The central canal is patent. Mild to moderate right with mild left foraminal stenosis. IMPRESSION: 1. Moderate intervertebral disc space narrowing at L4-L5 with severe facet arthrosis. There is a circumferential annular disc bulge with acute versus subacute appearing central/left paracentral disc extrusion. Findings result in mild to moderate central canal stenosis with moderate bilateral foraminal narrowing. 2. Additional degenerative changes as above. 3. No acute fracture. 4. Distended urinary bladder. ACT 112: Negative or not required by law. The above report was generated using voice recognition software. It may contain grammatical, syntax or spelling errors. Dictated: 01/10/2022 10:22 AM Transcribed: 01/10/2022 10:36 AM Alisha [id number] [email or web address] Electronically signed by: Stef Hanks M.D. 01/10/2022 10:47 AM Duplex Scan Lower Extremity Artery 01/10/22 01:07 arterial duplex lower extremity CLINICAL HISTORY: history right arterial occlusion, frequent falls COMPARISON STUDY: None. FINDINGS: Ankle-brachial indices were not performed. There are normal biphasic to triphasic waveforms and velocities seen throughout the left lower extremity arterial system. Monophasic low velocity waveforms seen throughout the right low er extremity arterial system. The right intervertebral artery is difficult to visualize and may be occluded with an associated collateral. No elevated peak systolic velocities to suggest significant stenosis. IMPRESSION: 1. Monophasic low velocity waveforms seen throughout the right lower extremity arterial system. This suggests proximal stenosis. 2. The right anterior tibial artery is not well visualized and could be occluded. 3. No significant stenosis or occlusion within the left lower extremity. ACT 112: Negative or not required by law. Electronically signed by: Tim So M.D. 01/10/2022 11:30 AM Cervical Spine MRI 01/10/22 07:48 MRI OF THE CERVICAL SPINE WITHOUT IV CONTRAST CLINICAL HISTORY: Neck pain. COMPARISON STUDY: MRI of the cervical spine dated 05/25/2014. CT of the cervical spine dated 01/09/2022. TECHNIQUE: MRI of the cervical spine is performed utilizing various T1 and T2- weighted sequences in the axial and sagittal planes. IV contrast was not admin istered for this examination. The examination is compromised by motion artifact and susceptibility artifact from extensive metallic spinal hardware. Cervical spine: Vertebral body height appears maintained throughout the cervical spine. There is straightening of the cervical lordosis. There is minimal anterolisthesis at C7-T1. Alignment is otherwise preserved. There has been corpectomy at C5 with anterior spinal fusion seen at C4-C7. Susceptibility artifact from metallic hardware degrades evaluation of these levels. The atlantodental articulation appears maintained noting productive degenerative change. The spinous processes are intact. No destructive bony lesion is seen. Intervertebral discs: The C4-C5 through C6-C7 discs are not evaluated. Disc desiccation is seen at the remaining cervical levels. There is severe loss of height at C3-C4 and C7-T1. Moderate loss of height is noted at T1-T2. Spinal cord: The cervical spinal cord is normal in morphology. There is a small focus of myelomalacia within the cervical cord at C6. This was also seen in 2013. The remainder of the cervical cord is normal in signal intensity. C2-C3: The central canal is clear. Uncovertebral facet arthropathy contribute to at least mild bilateral neural foraminal stenosis. C3-C4: A posterior disc osteophyte complex effaces the ventral cord. Uncovertebral and facet arthropathy contribute to severe bilateral neural foraminal narrowing. This may impinge on the exiting bilateral C4 nerve roots. C4-C5: The central canal is grossly clear. Uncovertebral and facet arthropathy contribute to at least mild bilateral neural foraminal stenosis. This is not w ell assessed. C5-C6: The central canal is grossly clear. Uncovertebral and facet arthropathy contribute to at least mild bilateral neural foraminal stenosis. This is not well assessed. C6-C7: The central canal appears clear. Uncovertebral and facet arthropathy contribute to at least moderate bilateral neural foraminal stenosis. This is not well assessed. C7-T1: The central canal appears clear. The neural foramina are not well assessed. Soft tissues: The prevertebral soft tissues are not well-visualized due to metallic susceptibility artifact. The paraspinous soft tissues are normal as imaged. Brain parenchyma: The visualized brain parenchyma at the skull base is normal as imaged. IMPRESSION: 1. The examination is severely degraded by motion artifact and by metallic susceptibility artifact from extensive spinal hardware. 2. A small focus of myelomalacia of the cervical cord at C6 is unchanged from 2014. 3. Spondylotic change as above. See discussion for detailed [id number] analysis. Note that several levels are not well-visualized. 4. No destructive bony process is identified. Dictated: 01/10/2022 2:04 PM Transcribed: 01/10/2022 2:45 PM Brittney [id number] [email or web address] Electronically signed by: Ankit Juarez M.D. 01/10/2022 3:28 PM Lumbar Spine X-Ray 01/10/22 07:50 XR lumbar spine min 4V routine HISTORY: 56 years-old Male lbp; stenosis acute severe low back pain with lower extremity weakness COMPARISON: MRI lumbar spine 01/10/2022 TECHNIQUE: 4 views of the lumbar spine FINDINGS: Mild dextroscoliosis of the thoracolumbar junction. 5 lumbar type vertebral segments are present. Minimal spondylitic spurring with mostly mild multilevel intervertebral disc space narrowing and facet arthrosis. Moderate L4-L5 facet arthrosis. There is no acute fracture, subluxation or endplate erosion. 3 mm a nterolisthesis L4 on L5 is likely secondary to chronic facet arthrosis. Atherosclerosis of the aorta. Contrast noted within the urinary bladder. Moderate fecal retention. IMPRESSION: 1. No acute fracture. 2. Degenerative changes at L4-L5 and L5-S1 are better appreciated on the MRI lumbar spine study of same day ACT 112: Negative or not required by law. The above report was generated using voice recognition software. It may contain grammatical, syntax or spelling errors. Electronically signed by: Stef Hanks M.D. 01/10/2022 9:52 AM Aorta w/Runoff CTA 01/10/22 12:56 CT ANGIOGRAM OF THE ABDOMEN AND PELVIS WITH BILATERAL LOWER EXTREMITY RUNOFF CLINICAL HISTORY: Right lower extremity weakness. COMPARISON STUDY: Right lower extremity arterial ultrasound dated 01/10/2022. TECHNIQUE: Following the IV administration of 120 cc of Optiray 320, CT angiogram of the abdomen and pelvis with bilateral lower externally runoff was performed from the lung bases to the feet. Images are reviewed in the axial, sagittal, and coronal planes. 3-D MIPS images are created and assessed. IV c ontrast was administered without complication. A dose lowering technique was utilized adhering to the principles of ALARA. CT DOSE: 1359.84 mGy.cm FINDINGS: Lower chest: The heart is mildly enlarged and without pericardial effusion. Endplate edematous change is suggested. Scarring/atelectasis is noted at the lung bases. There is a small hiatal hernia. A tiny hiatal hernia is noted. Liver: The contrast-enhanced liver is normal in size, contour, and attenuation. There is no intrahepatic biliary ductal dilatation. Gallbladder: Unremarkable. Spleen: Normal in size and attenuation noting heterogeneous arterial phase enhancement. Pancreas: Unremarkable. Adrenal glands: There is mild nodular thickening of the adrenal glands. Kidneys: The contrast since kidneys are normal in size and without hydronephrosis. The kidneys enhance symmetrically. Foci of cortical scarring are noted in both kidneys. Abdominal aorta and iliac arteries: There is advanced atherosclerotic calcification of the abdominal aorta which is normal in caliber. No dissection is seen. The abdominal aorta is widely patent. There is advanced atherosclerotic calcification of the iliac arteries. The left common iliac artery is widely patent, as are the left internal and external iliac arteries. 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 This is reconstituted after approximately 1.5 cm. The right internal and external iliac arteries are patent. 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 There is poststenotic dilatation of the celiac artery which measures up to 9 mm in diameter. The superior mesenteric artery and inferior mesenteric artery are widely patent. An accessory left hepatic artery arises from the left gastric artery. The splenic artery is patent. Single bilateral renal arteries are widely patent. Right lower extremity runoff: Advanced atherosclerotic plaque and irregularity seen throughout the arteries of the right lower extremity. The right common femoral artery is patent, as is the right profunda femoris artery. The right superficial femoral artery and the right popliteal artery are widely patent. There is two-vessel runoff to the foot. The proximal anterior tibial artery is diminutive and there is a large peroneal artery. The intervertebral arteries occluded versus absent in the mid to distal calf, and the peroneal artery supplies the dorsalis pedis. Left lower extremity runoff: Atherosclerotic plaque and irregularity seen throughout the arteries of the left lower extremity. The common femoral artery and the profunda femoris artery are patent. The left superficial femoral artery and the left popliteal artery patent. There is three-vessel runoff to the foot. The calf arteries are patent., As is the dorsalis pedis Bowel: There is moderate constipation. No bowel obstruction is identified. The appendix is well-visualized and normal. Peritoneum: There is trace free fluid in the pelvis. No intraperitoneal free air is identified. There is a fat-containing umbilical hernia. Lymphadenopathy: None. Pelvic viscera: The prostate gland is enlarged and heterogeneous noting median lobe hypertrophy. The bladder is distended and filled with excreted IV contrast. Skeletal structures: No destructive bony lesions are seen. There are numerous healed bilateral rib fractures. Postoperative and mild spondylotic change is noted in the lumbar spine. Lower extremity soft tissues: Lower extremity soft tissues are normal as visualized. A small popliteal cyst is seen on the right. IMPRESSION: 1. Cardiomegaly and suspect emphysema. 2. Advanced atherosclerotic change is noted throughout the abdominal aorta, its major branches, and the lower extremities 3. The abdominal aorta is normal in caliber and widely patent. No dissection is seen. 4. 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 5. The superior mesenteric artery, the inferior mesenteric artery, and the renal arteries are widely patent. 6. 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 7. There is two-vessel runoff to the right foot. The anterior tibial artery is diminutive and terminates in the mid calf. A large peroneal artery courses anter iorly and supplies the dorsalis pedis, and this may represent an anatomic variant. 8. Otherwise normal bilateral lower extremity runoff. 9. Moderate constipation. 10. Trace free fluid in the pelvis is a nonspecific but abnormal finding. 11. Additional findings as above. ACT 112: Negative or not required by law. Electronically signed by: Ankit Juarez M.D. 01/10/2022 3:09 PM Chest X-Ray 01/09/22 20:56 XR chest 1V portable HISTORY: weakness COMPARISON: Chest 04/19/2017. FINDINGS: The lungs are hyperexpanded with apical predominant emphysematous changes. Increased markings at the lung bases persists and favors vascular crowding from the emphysema. Otherwise, no new focal lung consolidations to suggest pneumonia. No evidence for pulmonary edema. Cervical spinal fusion hardware is again noted. The cardiac silhouette is top normal in size. There are old, healed bilateral rib fractures. IMPRESSION: No significant change compared to the prior study. No acute process. Emphysema again noted. ACT 112: Negative or not required by law. Electronically signed by: Tim So M.D. 01/10/2022 7:[address] 01/09/22 21:35 CT cervical spine wo con CLINICAL HISTORY: 56 years-old Male with fall, [facility]. Acute head and neck injury status post fall COMPARISON: CTA neck same day, CT cervical spine 05/25/2014. TECHNIQUE: Multiple axial CT images of the cervical spine were obtained without contrast. A dose lowering technique was utilized adhering to the principles of ALARA. FINDINGS: Anterior plate and screw fusion and discectomy redemonstrated at C4-C7 with C5 corpectomy. There is mild lucency surrounding the C4 screws which is new from the prior study. No evidence of hardware fracture. Severe intervertebral disc space narrowing at C7-T1 with 5 mm anterolisthesis is new from prior. There is severe C7-T1 facet arthrosis. Severe T1-T2 and C3-C4 intervertebral disc space narrowing with spondylitic spurring is also new. There is no acute fracture or subluxation. The central canal and neuroforamina are better assessed by MRI. Multilevel Central canal and foraminal stenosis is noted. The cervical soft tissues appear unremarkable. Mild subpleural bleb formation. No pneumothorax. No prevertebral edema. Calcified plaque of the carotid bulbs. IMPRESSION: 1. No acute fracture or subluxation. 2. Anterior plate and screw fusion with discectomy at C4-C7 with C5 corpectomy. Mild lucency surrounding the C4 screws suggests hardware loosening. 3. Progressively worsened intervertebral disc space narrowing with grade 1 anterolisthesis C7 on T1, likely secondary to associated severe facet arthrosis. ACT 112: Negative or not required by law. The above report was generated using voice recognition software. It may contain grammatical, syntax or spelling errors. Electronically signed by: Setf Hanks M.D. 01/10/2022 6:[address] 01/09/22 21:36 CT head/brain wo con CLINICAL HISTORY: 56 years-old Male with Stroke Like Symptoms, R leg weak. Acute strokelike symptoms TECHNIQUE: Multiple axial CT images of the head were obtained without contrast. A dose lowering technique was utilized adhering to the principles of ALARA. COMPARISON: CTA head and neck of same day, brain MRI 01/10/2022 FINDINGS: No acute intracranial hemorrhage, midline shift, intracranial mass, hydrocephalus, territorial ischemia or abnormal extra-axial collection. Mild white matter hypodensities suggest chronic microvascular ischemic disease. Chronic appearing lacunar infarct of the left caudate nucleus. The calvarium is intact. The paranasal sinuses, mastoid air cells, and middle ear cavities are clear. IMPRESSION: No acute intracranial abnormality. ACT 112: Negative or not required by law. The above report was generated using voice recognition software. It may contain grammatical, syntax or spelling errors. Electronically signed by: Stef Hanks M.D. 01/10/2022 6:39 AM Head CTA 01/09/22 21:36 CT angio head w con CLINICAL HISTORY: 56 years-old Male with Stroke Like Symptoms, R leg weak. Acute strokelike symptoms COMPARISON STUDY: Head CT of same day TECHNIQUE: Following the IV administration of 119 cc of Optiray, CT angiogram of the brain was performed from the skull base to the vertex. Images are reviewed in the axial, sagittal, and coronal planes. 3-D MIPS images are created and assessed. IV contrast was administered without complication. All measurements were obtained according to NASCET criteria. A dose lowering technique was utilized adhering to the principles of ALARA. CT DOSE: 1918.45 mGy.cm FINDINGS: CT ANGIOGRAM OF THE BRAIN: The imaged bilateral internal carotid arteries are patent. Atherosclerosis of the cavernous and supraclinoid segments. The bilateral anterior and middle cerebral arteries are also patent. The vertebrobasilar system and posterior cerebral arteries are patent. Fenestrated basilar artery. Mild luminal narrowing of the P1 segment of the left posterior cerebral artery. There is no aneurysm, high-grade stenosis, or proximal branch occlusion identified. Dural sinuses appear patent. IMPRESSION: 1. No aneurysm, dissection, high-grade stenosis or arterial occlusion. 2. Fenestrated basilar artery. ACT 112: Negative or not required by law. The above report was generated using voice recognition software. It may contain grammatical, syntax or spelling errors. Electronically signed by: Stef Hanks M.D. 01/10/2022 7:37 AM Neck CTA 01/09/22 21:36 NECK CTA HISTORY: Stroke Like Symptoms, R leg weak TECHNIQUE: Multiaxial CT images of the neck were performed following the intravenous administration of contrast to evaluate the major cervical vessels. Maximum intensity projection images were also obtained. All measurements were calculated based on NASCET criteria. A dose lowering technique was utilized adhering to the principles of ALARA. COMPARISON STUDY: None. FINDINGS: The aortic arch and proximal great vessels are widely patent. Mild focal narrowing within the mid right common carotid artery of approximately 40% due to the noncalcified atherosclerotic plaque. There is moderate calcified plaque within the right carotid bifurcation and mild calcified plaque within the left carotid bifurcation without significant stenosis. No occlusion or dissection identified within the carotid or vertebral arteries. The bilateral vertebral arteries are widely patent. Cervical spinal fusion hardware is noted. IMPRESSION: 1. Approximately 40% focal stenosis within the mid right common carotid artery due to the noncalcified atherosclerotic plaque. 2. No significant stenosis, occlusion, or dissection within the bilateral internal carotid arteries or vertebral arteries. ACT 112: Negative or not required by law. Electronically signed by: Tim So M.D. 01/10/2022 7:47 AM Brain MRI 01/10/22 00:38 Brain MRI WITHOUT CONTRAST HISTORY: Right lower extremity weakness. TECHNIQUE: Multiplanar multisequence MRI of the brain was performed without the use of contrast. COMPARISON STUDY: Head CT 01/09/2022. FINDINGS: There is no mass, hematoma, midline shift, or acute infarct. The paranasal sinuses are clear. The mastoid air cells are clear. The ventricles and sulci demonstrate mild age-related involutional changes. Scattered foci of T2 hyperintensity seen within the periventricular and subcortical white matter are nonspecific but suggestive of mild microvascular ischemic changes. The major vascular flow voids at the skull base are well-maintained. IMPRESSION: No acute intracranial abnormality. Scattered foci of T2 hyperintensity seen within the periventricular and subcortical white matter are nonspecific but favor microvascular ischemic change. A demyelinating disease, Lyme disease, or migraines can also have a similar appearance in the appropriate clinical setting. ACT 112: Negative or not required by law. Electronically signed by: Tim So M.D. 01/10/2022 7:44 AM Lumbar Spine MRI 01/10/22 01:00 MR lumbar spine wo con CLINICAL HISTORY: 56 years-old Male with chronic back pain; leg weakness. Chronic low back pain with lower extremity weakness COMPARISON: Lumbar spine radiographs of same day and also 10/22/2006 TECHNIQUE: Multiplanar, multi sequence MRI of the lumbar spine was performed without intravenous contrast. FINDINGS: The log hooker localizer images demonstrate no gross extra spinal abnormality. The urinary bladder is distended. No lymphadenopathy. 1.4 cm synovial cyst posterior to the right L4-L5 facet. Mild to moderate adjacent deep tissue edema. Mild Modic Type II endplate degeneration at L4-L5. Mild marrow edema of the L4-L5 pedicles bilaterally is likely reactive. No acute fracture, subluxation or endplate erosion. Conus medullaris terminates at L1. Signal within the imaged thoracic spinal cord appears normal. Unremarkable cauda equina. Mild multilevel spondylitic spurring. T12-L1: Mild facet arthrosis. No central canal or neural foraminal stenosis. L1-L2: Mild facet arthrosis. No central canal or neural foraminal stenosis. L2-L3: Tiny posterior annular disc bulge with mild facet arthrosis. No central canal or neural foraminal stenosis. L3-L4: Tiny circumferential annular disc bulge with mild facet arthrosis. Ligamentum flavum thickening with mild to moderate facet arthrosis. The central canal and left neural foramen are patent. Mild right foraminal narrowing. L4-L5: Moderate intervertebral disc space narrowing with spondylitic spurring and circumferential annular disc bulge. There is a posterior annular fissure with central/left paracentral disc extrusion measuring up to 1.4 cm in crani ocaudal dimension extending superiorly to the level of the mid L4 vertebral body (image 11 series 5). Ligamentum flavum thickening with severe facet arthrosis and moderate facet effusions. Mild to moderate central canal stenosis, AP dimension of the thecal sac measuring 8.5 mm. Moderate narrowing of the lateral recesses. Moderate bilateral foraminal stenosis. L5-S1: Mild to moderate intervertebral disc space narrowing with small circumferential annular disc bulge and spondylitic spurring. Ligamentum flavum thickening with moderate facet arthrosis and trace facet effusions. The central canal is patent. Mild to moderate right with mild left foraminal stenosis. IMPRESSION: 1. Moderate intervertebral disc space narrowing at L4-L5 with severe facet arthrosis. There is a circumferential annular disc bulge with acute versus subacute appearing central/left paracentral disc extrusion. Findings result in mild to moderate central canal stenosis with moderate bilateral foraminal narrowing. 2. Additional degenerative changes as above. 3. No acute fracture. 4. Distended urinary bladder. ACT 112: Negative or not required by law. The above report was generated using voice recognition software. It may contain grammatical, syntax or spelling errors. Dictated: 01/10/2022 10:22 AM Transcribed: 01/10/2022 10:36 AM Alisha [id number] [email or web address] Electronically signed by: Stef Hanks M.D. 01/10/2022 10:47 AM Duplex Scan Lower Extremity Artery 01/10/22 01:07 arterial duplex lower extremity CLINICAL HISTORY: history right arterial occlusion, frequent falls COMPARISON STUDY: None. FINDINGS: Ankle-brachial indices were not performed. There are normal biphasic to triphasic waveforms and velocities seen throughout the left lower extremity arterial system. Monophasic low velocity waveforms seen throughout the right lower extremity arterial system. The right intervertebral artery is difficult to visualize and may be occluded with an associated collateral. No elevated peak systolic velocities to suggest significant stenosis. IMPRESSION: 1. Monophasic low velocity waveforms seen throughout the right lower extremity arterial system. This suggests proximal stenosis. 2. The right anterior tibial artery is not well visualized and could be occluded. 3. No significant stenosis or occlusion within the left lower extremity. ACT 112: Negative or not required by law. Electronically signed by: Tim So M.D. 01/10/2022 11:30 AM Cervical Spine MRI 01/10/22 07:48 MRI OF THE CERVICAL SPINE WITHOUT IV CONTRAST CLINICAL HISTORY: Neck pain. COMPARISON STUDY: MRI of the cervical spine dated 05/25/2014. CT of the cervical spine dated 01/09/2022. TECHNIQUE: MRI of the cervical spine is performed utilizing various T1 and T2- weighted sequences in the axial and sagittal planes. IV contrast was not administered for this examination. The examination is compromised by motion artifact and susceptibility artifact from extensive metallic spinal hardware. Cervical spine: Vertebral body height appears maintained throughout the cervical spine. There is straightening of the cervical lordosis. There is minimal anterolisthesis at C7-T1. Alignment is otherwise preserved. There has been corpectomy at C5 with anterior spinal fusion seen at C4-C7. Susceptibility artifact from metallic hardware degrades evaluation of these levels. The atlantodental articulation appears maintained noting productive degenerative change. The spinous processes are intact. No destructive bony lesion is seen. Intervertebral discs: The C4-C5 through C6-C7 discs are not evaluated. Disc desiccation is seen at the remaining cervical levels. There is severe loss of height at C3-C4 and C7-T1. Moderate loss of height is noted at T1-T2. Spinal cord: The cervical spinal cord is normal in morphology. There is a small focus of myelomalacia within the cervical cord at C6. This was also seen in 2014 . The remainder of the cervical cord is normal in signal intensity. C2-C3: The central canal is clear. Uncovertebral facet arthropathy contribute to at least mild bilateral neural foraminal stenosis. C3-C4: A posterior disc osteophyte complex effaces the ventral cord. Uncovertebral and facet arthropathy contribute to severe bilateral neural foraminal narrowing. This may impinge on the exiting bilateral C4 nerve roots. C4-C5: The central canal is grossly clear. Uncovertebral and facet arthropathy contribute to at least mild bilateral neural foraminal stenosis. This is not well assessed. C5-C6: The central canal is grossly clear. Uncovertebral and facet arthropathy contribute to at least mild bilateral neural foraminal stenosis. This is not well assessed. C6-C7: The central canal appears clear. Uncovertebral and facet arthropathy contribute to at least moderate bilateral neural foraminal stenosis. This is not well assessed. C7-T1: The central canal appears clear. The neural foramina are not well assessed. Soft tissues: The prevertebral soft tissues are not well-visualized due to metallic susceptibility artifact. The paraspinous soft tissues are normal as imaged. Brain parenchyma: The visualized brain parenchyma at the skull base is normal as imaged. IMPRESSION: 1. The examination is severely degraded by motion artifact and by metallic susceptibility artifact from extensive spinal hardware. 2. A small focus of myelomalacia of the cervical cord at C6 is unchanged from 2014. 3. Spondylotic change as above. See discussion for detailed [id number] anal ysis. Note that several levels are not well-visualized. 4. No destructive bony process is identified. Dictated: 01/10/2022 2:04 PM Transcribed: 01/10/2022 2:45 PM Brittney [id number] [email or web address] Electronically signed by: Ankit Juarez M.D. 01/10/2022 3:28 PM Lumbar Spine X-Ray 01/10/22 07:50 XR lumbar spine min 4V routine HISTORY: 56 years-old Male lbp; stenosis acute severe low back pain with lower extremity weakness COMPARISON: MRI lumbar spine 01/10/2022 TECHNIQUE: 4 views of the lumbar spine FINDINGS: Mild dextroscoliosis of the thoracolumbar junction. 5 lumbar type vertebral segments are present. Minimal spondylitic spurring with mostly mild multilevel intervertebral disc space narrowing and facet arthrosis. Moderate L4-L5 facet arthrosis. There is no acute fracture, subluxation or endplate erosion. 3 mm anterolisthesis L4 on L5 is likely secondary to chronic facet arthrosis. Atherosclerosis of the aorta. Contrast noted within the urinary bladder. Moderate fecal retention. IMPRESSION: 1. No acute fracture. 2. Degenerative changes at L4-L5 and L5-S1 are better appreciated on the MRI lumbar spine study of same day ACT 112: Negative or not required by law. The above report was generated using voice recognition software. It may contain grammatical, syntax or spelling errors. Electronically signed by: Stef Hanks M.D. 01/10/2022 9:52 AM Aorta w/Runoff CTA 01/10/22 12:56 CT ANGIOGRAM OF THE ABDOMEN AND PELVIS WITH BILATERAL LOWER EXTREMITY RUNOFF CLINICAL HISTORY: Right lower extremity weakness. COMPARISON STUDY: Right lower extremity arterial ultrasound dated 01/10/2022. TECHNIQUE: Following the IV administration of 120 cc of Optiray 320, CT angiogram of the abdomen and pelvis with bilateral lower externally runoff was performed from the lung bases to the feet. Images are reviewed in the axial, sagittal, and coronal planes. 3-D MIPS images are created and assessed. IV contrast was administered without complication. A dose lowering technique was utilized adhering to the principles of ALARA. CT DOSE: 1359.84 mGy.cm FINDINGS: Lower chest: The heart is mildly enlarged and without pericardial effusion. Endplate edematous change is suggested. Scarring/atelectasis is noted at the lung bases. There is a small hiatal hernia. A tiny hiatal hernia is noted. Liver: The contrast-enhanced liver is normal in size, contour, and attenuation. There is no intrahepatic biliary ductal dilatation. Gallbladder: Unremarkable. Spleen: Normal in size and attenuation noting heterogeneous arterial phase enhancement. Pancreas: Unremarkable. Adrenal glands: There is mild nodular thickening of the adrenal glands. Kidneys: The contrast since kidneys are normal in size and without hydronephrosis. The kidneys enhance symmetrically. Foci of cortical scarring are noted in both kidneys. Abdominal aorta and iliac arteries: There is advanced atherosclerotic ca lcification of the abdominal aorta which is normal in caliber. No dissection is seen. The abdominal aorta is widely patent. There is advanced atherosclerotic calcification of the iliac arteries. The left common iliac artery is widely patent, as are the left internal and external iliac arteries. 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 This is reconstituted after approximately 1.5 cm. The right internal and external iliac arteries are patent. 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 There is poststenotic dilatation of the celiac artery which measures up to 9 mm in diameter. The superior mesenteric artery and inferior mesenteric artery are widely patent. An accessory left hepatic artery arises from the left gastric artery. The splenic artery is patent. Single bilateral renal arteries are widely patent. Right lower extremity runoff: Advanced atherosclerotic plaque and irregularity seen throughout the arteries of the right lower extremity. The right common femoral artery is patent, as is the right profunda femoris artery. The right superficial femoral artery and the right popliteal artery are widely patent. There is two-vessel runoff to the foot. The proximal anterior tibial artery is diminutive and there is a large peroneal artery. The intervertebral arteries occluded versus absent in the mid to distal calf, and the peroneal artery supplies the dorsalis pedis. Left lower extremity runoff: Atherosclerotic plaque and irregularity seen throughout the arteries of the left lower extremity. The common femoral artery and the profunda femoris artery are patent. The left superficial femoral artery and the left popliteal artery patent. There is three-vessel runoff to the foot. The calf arteries are patent., As is the dorsalis pedis Bowel: There is moderate constipation. No bowel obstruction is identified. The appendix is well-visualized and normal. Peritoneum: There is trace free fluid in the pelvis. No intraperitoneal free air is identified. There is a fat-containing umbilical hernia. Lymphadenopathy: None. Pelvic viscera: The prostate gland is enlarged and heterogeneous noting median lobe hypertrophy. The bladder is distended and filled with excreted IV contrast. Skeletal structures: No destructive bony lesions are seen. There are numerous healed bilateral rib fractures. Postoperative and mild spondylotic change is noted in the lumbar spine. Lower extremity soft tissues: Lower extremity soft tissues are normal as visualized. A small popliteal cyst is seen on the right. IMPRESSION: 1. Cardiomegaly and suspect emphysema. 2. Advanced atherosclerotic change is noted throughout the abdominal aorta, its major branches, and the lower extremities 3. The abdominal aorta is normal in caliber and widely patent. No dissection is seen. 4. 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 5. The superior mesenteric artery, the inferior mesenteric artery, and the renal arteries are widely patent. 6. 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 7. There is two-vessel runoff to the right foot. The anterior tibial artery is diminutive and terminates in the mid calf. A large peroneal artery courses anteriorly and supplies the dorsalis pedis, and this may represent an anatomic variant. 8. Otherwise normal bilateral lower extremity runoff. 9. Moderate constipation. 10. Trace free fluid in the pelvis is a nonspecific but abnormal finding. 11. Additional findings as above. ACT 112: Negative or not required by law. Electronically signed by: Ankit Juarez M.D. 01/10/2022 3:09 PM Discharge Plan Visit Data Chief Complaint: Weakness Stated Complaint: Neck Pain, Back Pain, Weakness, Fall ED Provider: Marck Newsome Discharge Problem: Weakness of right lower extremity, Multiple falls, CHI (closed head injury) Patient Disposition: Admitted As Inpatient Discharge Instructions Interventions: ED Discharge Assessment Last Done: 01/10/22 03:31
[2022-01-09 21:50] LABS: Basophils # (auto) 0.03 K/uL (0-0.2); Basophils % (auto) 0.6 %; Eosinophils # (auto) 0.12 K/uL (0-0.5); Eosinophils % (auto) 2.3 %; Hematocrit (blood only) 39.1 % (42-52); Hemoglobin 13.8 g/dL (14.0-18.0); Immature Granulocytes # (auto) 0.01 K/uL (0.00-0.02); Immature Granulocytes % (auto) 0.2 %; Lymphocytes # (auto) 1.59 K/uL (1.2-3.4); Lymphocytes % (auto) 31.1 %; Mean Corpuscular Hemoglobin 33.3 pg (25-34); Mean Corpuscular Hgb Conc 35.3 g/dL (32-36); Mean Corpuscular Volume 94.2 fL (80-100); Mean Platelet Volume 10.3 fL (7.4-10.4); Monocytes # (auto) 0.56 K/uL (0.11-0.59); Neutrophils % (auto) 54.8 %; Platelet Count 284 K/uL (130-400); RDW Coefficient of Variation 13.5 % (11.5-14.5); RDW Standard Deviation 45.8 fL (36.4-46.3); Red Blood Count 4.15 M/uL (4.7-6.1); White Blood Count 5.11 K/uL (4.8-10.8)
[2022-01-09 22:08] LABS: Albumin Globulin Ratio 1.3 (0.9-2); BUN Creatinine Ratio 16.5 (10-20); Bilirubin,Total 0.4 mg/dl (0.2-1.0); Calcium 9.1 mg/dl (8.5-10.1); Creatinine Clr Calc Pharmacy 95.9 ml/min; Est GFR (African American) 88.1 ml/min; Globulin 3.1 gm/dl (2.5-4.0); Magnesium 1.8 mg/dl (1.7-2.4); Potassium 4.2 mmol/L (3.5-5.1); Total Protein 7.1 gm/dl (6.0-8.3)
[2022-01-09 22:11] LABS: Troponin I High Sensitivity 8.7 pg/ml (0-20)
[2022-01-09] MEDS ORDERED: OPTIRAY 320 125ml IV ONE (22:18)
[2022-01-09] MEDS ORDERED: ACETAMINOPHEN 500 MG TAB PO STA (22:32)
[2022-01-09 23:24] LABS: Partial Thromboplastin Time 28.7 Seconds (21.0-31.0); Prothrombin Time 10.9 Seconds (9.0-12.0)
[2022-01-09 23:46] LABS: Acetaminophen < 3 ug/ml (10-30); Salicylate < 3.0 mg/dl (3.0-30)
[2022-01-10 01:33] LABS: Appearance Urine Clear (Clear); Bacteria Urine Automated 1+ (Negative); Bilirubin Urine Negative (Negative); Blood Urine Negative (Negative); Color Urine Yellow; Glucose Urine UA Negative (Negative); Ketones Urine Negative (Negative); Leukocyte Esterase Urine 1+ (Negative); Nitrite Urine Positive (Negative); Protein Urine Negative (Negative); RBC Urine Automated 0-4 /hpf (0-4); Specific Gravity Urine 1.042 (1.000-1.030); Urobilinogen Urine Negative (Negative); pH Urine 7.5 (4.5-7.5)
--- NOTE | 2022-01-10 02:00 | History & Physical Report ---
Date of Service January 10, 2022 Assessment & Plan (1) Weakness of right lower extremity: Plan: Weakness of right lower extremity- Initial concerns were regarding stroke, per family concerns. Thorough work-up including, CT head negative, CTA head neck negative, CT cervi suma spine showing previously stable surgery, MRI brain negative, MRI lumbar spine showing mild to moderate degenerative joint disease. Most significant finding is that of monophasic flow in the right lower extremity suggesting peripheral arterial disease Patient did already receive IV dye during the CTA studies We will order aortogram with bilateral runoff to further assess after 24 hours (2) Cervical stenosis of spinal canal: Plan: Patient underwent surgery with Dr. Herron in 2013, does complain of chronic neck pain. Consult Dr. 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 Herron, however, I could not find any records of such (5) Hypertension: Plan: Monitor on telemetry for now, no medications needed (6) Emphysema lung: Plan: Reports history of emphysema, however, he is 100% on room air (7) Anxiety with depression: Plan: On no specific treatment at this time History of Present Illness Chief Complaint: The patient presents to the emergency department due to concerns of his girlfriend regarding the possibility of a stroke, with symptoms of right lower extremity weakness and generalized fatigue that began about 5 days ago Primary Care Provider: Jass Madrigal The patient is a 56-year-old male with a past medical history including anxiety with depression, hypertension, COPD, cervical spine stenosis status post surgery 05/18/2014, low back pain and neck pain. He initially presented with concerns that he had a stroke, due to right lower extremity weakness, however, he later reported that he did have significant issues with low back pain, and describes surgery 10 years or so ago that cleaned out his lumbar spine. He has been having worse lower back pain recently as well, and noted the gradual onset of right lower extremity weakness that began about 5 days ago. He reports having fallen approximately 5 times in the last 5 days, having hit his head at least 1 time, but no discernible injury. He does walk with a cane at home. Allergies Allergy/AdvReac Type Severity Reaction Status Date / Time paroxetine Allergy Mild UNSURE Verified 01/09/22 22:29 risperidone Allergy Unknown Unknown Verified 01/09/22 22:29 Influenza Virus Vaccines AdvReac Unknown UNKNOWN Verified 01/09/22 22:29 pneumococcal vaccine AdvReac Unknown Unknown Verified 01/09/22 22:29 Home Medications Medication Instructions Recorded Confirmed Type ibuprofen 200 mg tablet 800 mg PO TID PRN 01/09/22 01/09/22 History Past Med/Surg History Medical History (Updated 01/10/22 @ 05:25 by Beau Torres MD) Anxiety with depression Degenerative joint disease (DJD) of lumbar spine Peripheral arterial disease Social History Smoking Status: Current every day smoker Cigarettes Per Day: 1/2 pack per day; Do You Dip or Chew Tobacco: No; Hx Alcohol Use: Yes Alcohol type: hard liquor Hx Substance Use: Yes Last Used Substance: Hours (ago) Preferred Language: Chadian Communication Ability: Effective Card Player Required: No Beliefs That Will Affect Care: None Current Living Situation: Significant Other Other Information That Helps Us Care for You: No Feels Safe at Home: Yes Assistive Devices: Cane Review of Systems Review of Systems: The patient denies chest pain, palpitations, shortness of breath, dyspnea on exertion, cough, lower extremity swelling, sore throat, fevers, chills, sweats, nausea, vomiting, diarrhea , constipation, abdominal pain, pelvic pain, blood in urine or stool, dysuria, urinary frequency or urgency, lightheadedness, dizziness, headache, memory loss, loss of consciousness, rash, abnormal bruising or bleeding, focal or generalized weakness, numbness or tingling in arms, or night sweats. The review of systems is otherwise negative other than for that already noted above, and at least 10 systems have been reviewed. Physical Exam Physical Exam: The patient is awake, alert and oriented 3, well developed and well nourished, normocephalic and atraumatic, lying in bed and in no acute distress. HEENT--PERRL, EOMI, mucous membranes and oropharynx dry. Neck--supple. No JVD. No bruits. Thyroid normal, trachea midline, no adenopathy. Heart--normal S1 and S2. No murmurs, rubs or gallops. Lungs--clear bilaterally, no respiratory distress, no accessory muscle use. Abdomen--normal bowel sounds and soft. Nontender. Nondistended. Extremities--no cyanosis or clubbing. No edema. Dermatologic--normal skin turgor, normal color, no abnormal lymph nodes, no rash. Neurologic--cranial nerves II through XII grossly intact. Rheumatologic--examination with normal strength bilaterally, upper and lower extremities Psychiatric--normal affect. Results & Data Results & Data ([facility]) Vital Signs (Past 12 Hours) Vital Signs Temp Pulse Pulse Resp BP BP Pulse Ox 01/09/22 22:40 65 12 100 01/09/22 22:36 64 20 141/96 H 97 01/09/22 22:30 65 15 141/96 H 100 01/09/22 22:23 68 16 150/99 H 100 01/09/22 22:10 67 15 01/09/22 22:00 67 16 01/09/22 21:50 69 23 01/09/22 21:40 69 20 01/09/22 21:30 73 18 01/09/22 21:20 65 13 01/09/22 21:10 68 15 01/09/22 21:00 71 16 01/09/22 20:56 20 99 01/09/22 20:50 70 16 99 01/09/22 20:40 74 21 100 01/09/22 20:36 37.0 C 76 73 20 136/90 136/90 100 01/09/22 20:31 74 19 100 Laboratory Results Laboratory Results WBC 5.11 K/uL (4.8-10.8) 01/09/22 Unknown RBC 4.15 M/uL (4.7-6.1) L 01/09/22 Unknown Hgb 13.8 g/dL (14.0-18.0) L 01/09/22 Unknown POC Hgb 13.6 g/dl (14.0-18.0) L 01/09/22 20:49 Hct 39.1 % (42-52) L 01/09/22 Unknown POC Hct 40 % (42-52) L 01/09/22 20:49 MCV 94.2 fL (80-100) 01/09/22 Unknown MCH 33.3 pg (25-34) 01/09/22 Unknown MCHC 35.3 g/dL (32-36) 01/09/22 Unknown RDW Std Deviation 45.8 fL (36.4-46.3) 01/09/22 Unknown RDW Coeff of Artemio 13.5 % (11.5-14.5) 01/09/22 Unknown Plt Count 284 K/uL (130-400) 01/09/22 Unknown MPV 10.3 fL (7.4-10.4) 01/09/22 Unknown Immature Gran % (Auto) 0.2 % 01/09/22 Unknown Neut % (Auto) 54.8 % 01/09/22 Unknown Lymph % (Auto) 31.1 % 01/09/22 Unknown Rabun % (Auto) 11.0 % 01/09/22 Unknown Eos % (Auto) 2.3 % 01/09/22 Unknown Baso % (Auto) 0.6 % 01/09/22 Unknown Neut # (Auto) 2.80 K/uL (1.4-6.5) 01/09/22 Unknown Lymph # (Auto) 1.59 K/uL (1.2-3.4) 01/09/22 Unknown Rabun # (Auto) 0.56 K/uL (0.11-0.59) 01/09/22 Unknown Eos # (Auto) 0.12 K/uL (0-0.5) 01/09/22 Unknown Baso # (Auto) 0.03 K/uL (0-0.2) 01/09/22 Unknown Immature Gran # (Auto) 0.01 K/uL (0.00-0.02) 01/09/22 Unknown PT 10.9 Seconds (9.0-12.0) 01/09/22 22:58 INR 1.0 (0.9-1.1) 01/09/22 22:58 APTT 28.7 Seconds (21.0-31.0) 01/09/22 22:58 PTT Ratio 1.0 01/09/22:58 POC Sodium 138 mmol/L (135-144) 01/09/22 20:49 Sodium 135 mmol/L (136-145) L 01/09/22 Unknown Sodium Cancelled 01/09/22 Unknown POC Potassium 4.3 mmol/L (3.3-5.0) 01/09/22 20:49 Potassium 4.2 mmol/L (3.5-5.1) 01/09/22 Unknown Potassium Cancelled 01/09/22 Unknown POC Chloride 100 mmol/L (101-112) L 01/09/22 20:49 Chloride 102 mmol/L (98-107) 01/09/22 Unknown Chloride Cancelled 01/09/22 Unknown Carbon Dioxide 27 mmol/L (21-32) 01/09/22 Unknown Carbon Dioxide Cancelled 01/09/22 Unknown POC Total CO2 25 mmol/L (24-31) 01/09/22 20:49 Anion Gap 6 (3-11) 01/09/22 Unknown Anion Gap Cancelled 01/09/22 Unknown POC Anion Gap 18.0 mmol/L (16-25) 01/09/22 20:49 POC BUN 20 mg/dl (7-18) H 01/09/22 20:49 BUN 18 mg/dl (6-23) 01/09/22 Unknown BUN Cancelled 01/09/22 Unknown Creatinine 1.09 mg/dl (0.6-1.4) 01/09/22 Unknown Creatinine Cancelled 01/09/22 Unknown POC Creatinine 1.2 mg/dl (0.6-1.3) 01/09/22 20:49 Est Cr Clr Drug Dosing 95.9 ml/min 01/09/22 Unknown Est Cr Clr Drug Dosing Cancelled 01/09/22 Unknown Est GFR ( Amer) 88.1 ml/min 01/09/22 Unknown Est GFR ( Amer) Cancelled 01/09/22 Unknown Est GFR (Non-Af Amer) 76.0 ml/min 01/09/22 Unknown Est GFR (Non-Af Amer) Cancelled 01/09/22 Unknown BUN/Creatinine Ratio 16.5 (10-20) 01/09/22 Unknown BUN/Creatinine Ratio Cancelled 01/09/22 Unknown Glucose 90 mg/dl (70-99(Fasting)) 01/09/22 Unknown Glucose Cancelled 01/09/22 Unknown POC Glucose (other) 95 mg/dl (70-99) 01/09/22 20:49 Calcium 9.1 mg/dl (8.5-10.1) 01/09/22 Unknown Calcium Cancelled 01/09/22 Unknown POC Ioniz Calcium Mark 1.23 mmol/l (1.12-1.32) 01/09/22 20:49 Magnesium 1.8 mg/dl (1.7-2.4) 01/09/22 Unknown Total Bilirubin 0.4 mg/dl (0.2-1.0) 01/09/22 Unknown Total Bilirubin Cancelled 01/09/22 Unknown AST 17 U/L (13-39) 01/09/22 Unknown AST Cancelled 01/09/22 Unknown ALT 16 U/L (7-52) 01/09/22 Unknown ALT Cancelled 01/09/22 Unknown Alkaline Phosphatase 62 U/L (34-104) 01/09/22 Unknown Alkaline Phosphatase Cancelled 01/09/22 Unknown Troponin I High Sens 8.7 pg/ml (0-20) 01/09/22 Unknown Total Protein 7.1 gm/dl (6.0-8.3) 01/09/22 Unknown Total Protein Cancelled 01/09/22 Unknown Albumin 4.0 gm/dl (3.4-5.0) 01/09/22 Unknown Albumin Cancelled 01/09/22 Unknown Globulin 3.1 gm/dl (2.5-4.0) 01/09/22 Unknown Globulin Cancelled 01/09/22 Unknown Albumin/Globulin Ratio 1.3 (0.9-2) 01/09/22 Unknown Albumin/Globulin Ratio Cancelled 01/09/22 Unknown TSH 2.073 uIu/ml (0.300-4.500) 01/09/22 22:58 Urine Color Yellow 01/10/22 01:10 Urine Appearance Clear (Clear) 01/10/22 01:10 Urine pH 7.5 (4.5-7.5) 01/10/22 01:10 Ur Specific [place] 1.042 (1.000-1.030) H 01/10/22 01:10 Urine Protein Negative (Negative) 01/10/22 01:10 Urine Glucose (UA) Negative (Negative) 01/10/22 01:10 Urine Ketones Negative (Negative) 01/10/22 01:10 Urine Blood Negative (Negative) 01/10/22 01:10 Urine Nitrite Positive (Negative) A 01/10/22 01:10 Urine Bilirubin Negative (Negative) 01/10/22 01:10 Urine Urobilinogen Negative (Negative) 01/10/22 01:10 Ur Leukocyte Esterase 1+ (Negative) H 01/10/22 01:10 Urine WBC (Auto) 10-30 /hpf (0-5) H 01/10/22 01:10 Urine RBC (Auto) 0-4 /hpf (0-4) 01/10/22 01:10 U Hyaline Cast (Auto) 1-5 /lpf (0-5) 01/10/22 01:10 U Epithel Cells (Auto) 5-10 /lpf (0-5) H 01/10/22 01:10 Urine Bacteria (Auto) 1+ (Negative) H 01/10/22 01:10 Salicylates < 3.0 mg/dl (3.0-30) L 01/09/22 22:58 Urine Opiates Screen Neg (Neg) 01/10/22 01:10 Ur Methadone, Qual Neg (Neg) 01/10/22 01:10 Acetaminophen < 3 ug/ml (10-30) L 01/09/22 22:58 Urine Barbiturates Neg (Neg) 01/10/22 01:10 Ur Phencyclidine (PCP) Neg (Neg) 01/10/22 01:10 U Amphetamin/Meth Scrn Neg (Neg) 01/10/22 01:10 MDMA (Ecstasy) Screen Neg (Neg) 01/10/22 01:10 U Benzodiazepines Scrn Neg (Neg) 01/10/22 01:10 Ur Cocaine Metabolite Neg (Neg) 01/10/22 01:10 U Marijuana (THC) Screen Pos (Neg) H 01/10/22 01:10 Ethyl Alcohol mg/dL < 10.0 mg/dl (<10.0) 01/09/22 22:58 SARS-CoV-2, RNA, NAAT NEGATIVE (NEGATIVE) 01/09/22 21:55 Diagnostic Findings [facility] Patient: OMARI MORRIS (Male) : 67 Status: ER Date: 01/09/22 22:29 Room #: History: fall chi Slices: 67 Priors: Souleymane: Ambrosio Veronica @ [phone] Exams: CT HEAD Contrast: Accession Numbers: [id number] Referring Physician: REFERRED SELF Preliminary Findings Only See Final Report For Complete Findings CT HEAD: No ICH, mass-effect, or edema. Involutional and chronic small vessel ischemic changes. No skull fracture. Sinuses and mastoid air cells are clear. Radiologist: Ave Caceres M.D. Study ready at 22:30 and initial results transmitted at 23:26 *This report constitutes a preliminary interpretation only. Non-acute findings felt to be unrelated to the clinical presentation may not be discussed in this report. The study will be interpreted and a final report will be generated by the local Radiologist the following shift. To reach the [facility] radiology department call [phone]. If a discrepancy is found between the preliminary and final interpretations of this study, please notify us via our Client Portal at [email or web address], under QA Exams. You can also fax this report with a description of the discrepancy, or include the final report, to our daytime fax number [phone]. If faxing, please indicate the severity of discrepancy using one of the following categories: [ ] 1 - Agree/Informational [ ] 2 - Unlikely to Affect Management [ ] 3 - Possible Eventual Change of Management [ ] 4 - Probable Immediate Change of Management For all other patient related information, please fax us at [phone]. [id number] [facility] Patient: OMARI MORRIS (Male) : 67 Status: ER Date: 01/09/22 22:29 Room #: History: FALL CHI Slices: 923 Priors: Souleymane: Ambrosio Veronica @ [phone] Exams: CT C SPINE Contrast: Accession Numbers: [id number] Referring Physician: REFERRED SELF Preliminary Findings Only See Final Report For Complete Findings CT C SPINE: ACDF C4-C7 with C5 corpectomy. Hardware intact. No acute fracture or subluxation. Degenerative changes. Radiologist: Ave Caceres M.D. Study ready at 22:32 and initial results transmitted at 23:28 *This report constitutes a preliminary interpretation only. Non-acute findings felt to be unrelated to the clinical presentation may not be discussed in this report. The study will be interpreted and a final report will be generated by the local Radiologist the following shift. To reach the [facility] radiology department call [phone]. If a discrepancy is found between the preliminary and final interpretations of this study, please notify us via our Client Portal at [email or web address], under QA Exams. You can also fax this report with a description of the discrepancy, or include the final report, to our daytime fax number [phone]. If faxing, please indicate the severity of discrepancy using one of the following categories: [ ] 1 - Agree/Informational [ ] 2 - Unlikely to Affect Management [ ] 3 - Possible Eventual Change of Management [ ] 4 - Probable Immediate Change of Management For all other patient related information, please fax us at [phone]. [id number] [facility] Patient: OMARI MORRIS (Male) : 67 Status: ER Date: 01/09/22 22:29 Room #: History: Stroke Like Symptoms, R leg weak Slices: 655 Priors: Souleymane: Ambrosio Veronica @ [phone] Exams: CTA HEAD Contrast: IV Amt: 119 Accession Numbers: [id number] Referring Physician: REFERRED SELF Preliminary Findings Only See Final Report For Complete Findings CTA HEAD: Intracranial atherosclerosis. Patent intracranial circulation. No large vessel occlusion. No aneurysm. Radiologist: Ave Caceres M.D. Study ready at 22:32 and initial results transmitted at 23:30 *This report constitutes a preliminary interpretation only. Non-acute findings felt to be unrelated to the clinical presentation may not be discussed in this report. The study will be interpreted and a final report will be generated by the local Radiologist the following shift. To reach the [facility] radiology department call [phone]. If a discrepancy is found between the preliminary and final interpreta tions of this study, please notify us via our Client Portal at [email or web address], under QA Exams. You can also fax this report with a description of the discrepancy, or include the final report, to our daytime fax number [phone]. If faxing, please indicate the severity of discrepancy using one of the following categories: [ ] 1 - Agree/Informational [ ] 2 - Unlikely to Affect Management [ ] 3 - Possible Eventual Change of Management [ ] 4 - Probable Immediate Change of Management For all other patient related information, please fax us at [phone]. [id number] [facility] Patient: OMARI MORRIS (Male) : 67 Status: ER Date: 01/09/22 22:35 Room #: History: Stroke Like Symptoms, R leg weak Slices: 804 Priors: Tech: mAbrosio Veronica @ [phone] Exams: CTA NECK Contrast: IV Amt: 119 Accession Numbers: [id number] Referring Physician: REFERRED SELF Preliminary Findings Only See Final Report For Complete Findings CTA NECK: Calcifications of the bilateral carotid bifurcations. Less than 50% stenosis in the proximal right ICA. No significant left ICA stenosis. Bilateral common carotid arteries and vertebral arteries are adequately patent. No dissection. Radiologist: Ave Caceres M.D. Study ready at 22:37 and initial results transmitted at 23:39 *This report constitutes a preliminary interpretation only. Non-acute findings felt to be unrelated to the clinical presentation may not be discussed in this report. The study will be interpreted and a final report will be generated by the local Radiologist the following shift. To reach the [facility] radiology department call [phone]. If a discrepancy is found between the preliminary and final interpretations of this study, please notify us via our Client Portal at [email or web address], under QA Exams. You can also fax this report with a description of the discrepancy, or include the final report, to our daytime fax number [phone]. If faxing, please indicate the severity of discrepancy using one of the following categories: [ ] 1 - Agree/Informational [ ] 2 - Unlikely to Affect Management [ ] 3 - Possible Eventual Change of Management [ ] 4 - Probable Immediate Change of Management For all other patient related information, please fax us at [phone]. [id number] [facility] Patient: OMARI MORRIS (Male) : 67 Status: ER Date: 01/10/22 01:57 Room #: A11B History: 2 weeks ago over dosed on lamictal. sinc e then confusion. right sided weakness. hallucinating. Slices: 272 Priors: CT HEAD. CTA HEAD AND NECK Tech: KeenanVickey @ [phone] Exams: MRI HEAD Contrast: Accession Numbers: [id number] Referring Physician: REFERRED SELF Preliminary Findings Only See Final Report For Complete Findings MRI HEAD : Mild brain volume loss. Mild chronic ischemic changes. No mass, hemorrhage or acute infarct. No extra-axial collections. The ventricles are intact. Impression: No acute findings. Radiologist: Julio Cesar Thompson M.D. Study ready at 02:02 and initial results transmitted at 02:34 *This report constitutes a preliminary interpretation only. Non-acute findings felt to be unrelated to the clinical presentation may not be discussed in this report. The study will be interpreted and a final report will be generated by the local Radiologist the following shift. To reach the [facility] radiology department call [phone]. If a discrepancy is found between the preliminary and final interpretations of this study, please notify us via our Client Portal at [email or web address], under QA Exams. You can also fax this report with a description of the discrepancy, or include the final report, to our daytime fax number [phone]. If faxing, please indicate the severity of discrepancy using one of the following categories: [ ] 1 - Agree/Informational [ ] 2 - Unlikely to Affect Management [ ] 3 - Possible Eventual Change of Management [ ] 4 - Probable Immediate Change of Management For all other patient related information, please fax us at [phone]. [id number] [facility] Patient: OMARI MORRIS (Male) : 67 MRN:[id number] Status: ER Date: 01/10/22 02:10 Room #: A11B History: 2 weeks ago over dosed on lamictal. sinc e then confusion. right sided weakness. hallucinating. chronic low back pain Slices: 119 Priors: Tech: Vickey Hussein @ [phone] Exams: MRI L SPINE Contrast: Accession Numbers: [id number] Referring Physician: REFERRED SELF Preliminary Findings Only See Final Report For Complete Findings MRI L SPINE : Mild to moderate degenerative changes of the spine. Osteophytes and facet arthropathy. Multilevel disc desiccation and disc space narrowing most prominent at L4-L5 and L5-S1. Conus intact. Moderate spinal canal narrowing at L4-L5. Small disc bulge at this level. Small disc bulge at L5-S1 with borderline canal stenosis. Soft tissue structures intact. Impression: DJD. Radiologist: Julio Cesar Thompson M.D. N Study ready at 02:21 and initial results transmitted at 02:44 *This report constitutes a preliminary interpretation only. Non-acute findings felt to be unrelated to the clinical presentation may not be discussed in this report. The study will be interpreted and a final report will be generated by the local Radiologist the following shift. To reach the hospital radiology department call [phone]. If a discrepancy is found between the preliminary and final interpretations of this study, please notify us via our Client Portal at [email or web address], under QA Exams. You can also fax this report with a description of the discrepancy, or include the final report, to our daytime fax number [phone]. If faxing, please indicate the severity of discrepancy using one of the following categories: [ ] 1 - Agree/Informational [ ] 2 - Unlikely to Affect Management [ ] 3 - Possible Eventual Change of Management [ ] 4 - Probable Immediate Change of Management For all other patient related information, please fax us at [phone]. [id number] [facility] Patient: OMARI MORRIS (Male) : 67 Status: ER Date: 01/10/22 03:03 Room #: History: hx of right arterial occlusion per pt. frequent falls Slices: 72 Priors: Tech: Carmina Vaughan @ [phone] Exams: US ARTERIAL BILATERAL LOWER EXTREMITIES Contrast: Accession Numbers: [id number] Referring Physician: REFERRED SELF Preliminary Findings Only See Final Report For Complete Findings US ARTERIAL BILATERAL LOWER EXTREMITIES: Within the left lower extremity there is triphasic flow seen from the common femoral artery through the popliteal artery. Biphasic flow in the trifurcation vessels. Within the right lower extremity there is diffuse monophasic flow with poor visualization of flow in the anterior tibial artery. Bilateral atherosclerotic disease. Impression: Atherosclerotic disease right greater than left. Poor visualization of flow in the anterior tibial artery which may be acute or chronic finding. Recommend clinical correlation and consider CT angiogram for further evaluation. Radiologist: Julio Cesar Thompson M.D. Study ready at 03:06 and initial results transmitted at 03:52 L *This report constitutes a preliminary interpretation only. Non-acute findings felt to be unrelated to the clinical presentation may not be discussed in this report. The study will be interpreted and a final report will be generated by the local Radiologist the following shift. To reach the hospital radiology department call [phone]. If a discrepancy is found between the preliminary and final interpretations of this study, please notify us via our Client Portal at [email or web address], under QA Exams. You can also fax this report with a description of the discrepancy, or include the final report, to our daytime fax number [phone]. If faxing, please indicate the severity of discrepancy using one of the following categories: G [ ] 1 - Agree/Informational [ ] 2 - Unlikely to Affect Management [ ] 3 - Possible Eventual Change of Management [ ] 4 - Probable Immediate Change of Management For all other patient related information, please fax us at [phone]. [id number] Code Status & VTE Plan Code Status Full code VTE Prophylaxis Plan VTE Prophylaxis will be ordered: Yes PG Care Time/CCT Total # of Minutes Spent Total Time Spent with Patient: Total time spent is greater than 50% in coordination of care (as documented) at patient's floor/unit and/or counseling patient: Coding Level of Care Code INT OBSERVATION CARE 70M LVL 3 Diagnoses Weakness of right lower extremity R29.898 Anxiety with depression F41.8 Hypertension I10 Emphysema lung J43.9 Cervical stenosis of spinal canal M48.02 Peripheral arterial disease I73.9 Degenerative joint disease (DJD) of lumbar spine M47.816
[2022-01-10 02:04] LABS: Amphetamines+Metham, Urine Neg (Neg); Barbiturates, Urine Neg (Neg); Benzodiazepine, Urine Neg (Neg); Cocaine, Urine Neg (Neg); MDMA (Ecstacy), Urine Neg (Neg); Methadone, Urine Neg (Neg); Opiate, Urine Neg (Neg); Phencyclidine, Urine Neg (Neg)
[2022-01-10] MEDS ORDERED: NSS + 20MEQ KCL 20 MEQ/1,000 ML BAG IV SCH (03:52)
[2022-01-10] MEDS ORDERED: ONDANSETRON INJ 2 MG/ML 2 ML VIAL IV PRN (03:52)
[2022-01-10] MEDS: ACETAMINOPHEN 325 MG TAB PO PRN ×3 (04:17→20:04)
--- NOTE | 2022-01-10 06:41 | CT Scan Report ---
CT head/brain wo con CLINICAL HISTORY: 56 years-old Male with Stroke Like Symptoms, R leg weak. Acute strokelike symptoms TECHNIQUE: Multiple axial CT images of the head were obtained without contrast. A dose lowering tech nique was utilized adhering to the principles of ALARA. COMPARISON: CTA head and neck of same day, brain MRI 01/10/2022 FINDINGS: No acute intracranial hemorrhage, midline shift, intracranial mass, hydrocephalus, territorial ischem ia or abnormal extra-axial collection. Mild white matter hypodensities suggest chronic microvascular ischemic disease. Chronic appearing lacunar infarct of the left caudate nucleus. The calvarium is intact. The paranasal sinuses, mastoid air cells, and middle ear cavities are clear . IMPRESSION: No acute intracranial abnormality. ACT 112: Negative or not required by law. The above report was generated using voice recognition software. It may contain grammatical, syntax o r spelling errors. Electronically signed by: Stef Hanks M.D. 01/10/2022 6:39 AM
--- NOTE | 2022-01-10 07:01 | CT Scan Report ---
CT cervical spine wo con CLINICAL HISTORY: 56 years-old Male with fall, [facility]. Acute head and neck injury status post fall COMPARISON: CTA neck same day, CT cervical spine 05/25/2014. TECHNIQUE: Multiple axial CT images of the cervical spine were obtained without contrast. A dose low ering technique was utilized adhering to the principles of ALARA. FINDINGS: Anterior plate and screw fusion and discectomy redemonstrated at C4-C7 with C5 corpectomy. There is mild lucency surrounding the C4 screws which is new from the prior study. No evidence of lasha dware fracture. Severe intervertebral disc space narrowing at C7-T1 with 5 mm anterolisthesis is new from prior. There is severe C7-T1 facet arthrosis. Severe T1-T2 and C3-C4 intervertebral disc space n arrowing with spondylitic spurring is also new. There is no acute fracture or subluxation. The centra l canal and neuroforamina are better assessed by MRI. Multilevel Central canal and foraminal stenosis is noted. The cervical soft tissues appear unremarkable. Mild subpleural bleb formation. No pneumothorax. No p revertebral edema. Calcified plaque of the carotid bulbs. IMPRESSION: 1. No acute fracture or subluxation. 2. Anterior plate and screw fusion with discectomy at C4-C7 with C5 corpectomy. Mild lucency surround ing the C4 screws suggests hardware loosening. 3. Progressively worsened intervertebral disc space narrowing with grade 1 anterolisthesis C7 on T1, likely secondary to associated severe facet arthrosis. ACT 112: Negative or not required by law. The above report was generated using voice recognition software. It may contain grammatical, syntax o r spelling errors. Electronically signed by: Stef Hanks M.D. 01/10/2022 6:59 AM
--- NOTE | 2022-01-10 07:40 | CT Scan Report ---
CT angio head w con CLINICAL HISTORY: 56 years-old Male with Stroke Like Symptoms, R leg weak. Acute strokelike sympto ms COMPARISON STUDY: Head CT of same day TECHNIQUE: Following the IV administration of 119 cc of Optiray, CT angiogram of the brain was perfor med from the skull base to the vertex. Images are reviewed in the axial, sagittal, and coronal planes . 3-D MIPS images are created and assessed. IV contrast was administered without complication. All me asurements were obtained according to NASCET criteria. A dose lowering technique was utilized adherin g to the principles of ALARA. CT DOSE: 1918.45 mGy.cm FINDINGS: CT ANGIOGRAM OF THE BRAIN: The imaged bilateral internal carotid arteries are patent. Atherosclerosis of the cavernous and supra clinoid segments. The bilateral anterior and middle cerebral arteries are also patent. The vertebroba silar system and posterior cerebral arteries are patent. Fenestrated basilar artery. Mild luminal farzad rowing of the P1 segment of the left posterior cerebral artery. There is no aneurysm, high-grade sten osis, or proximal branch occlusion identified. Dural sinuses appear patent. IMPRESSION: 1. No aneurysm, dissection, high-grade stenosis or arterial occlusion. 2. Fenestrated basilar artery. ACT 112: Negative or not required by law. The above report was generated using voice recognition software. It may contain grammatical, syntax o r spelling errors. Electronically signed by: Stef Hanks M.D. 01/10/2022 7:37 AM
--- NOTE | 2022-01-10 07:45 | Magnetic Resonance Report ---
Brain MRI WITHOUT CONTRAST HISTORY: Right lower extremity weakness. TECHNIQUE: Multiplanar multisequence MRI of the brain was performed without the use of contrast. COMPARISON STUDY: Head CT 01/09/2022. FINDINGS: There is no mass, hematoma, midline shift, or acute infarct. The paranasal sinuses are kari r. The mastoid air cells are clear. The ventricles and sulci demonstrate mild age-related involutiona l changes. Scattered foci of T2 hyperintensity seen within the periventricular and subcortical white matter are nonspecific but suggestive of mild microvascular ischemic changes. The major vascular flow voids at the skull base are well-maintained. IMPRESSION: No acute intracranial abnormality. Scattered foci of T2 hyperintensity seen within the periventricula r and subcortical white matter are nonspecific but favor microvascular ischemic change. A demyelinati ng disease, Lyme disease, or migraines can also have a similar appearance in the appropriate clinical setting. ACT 112: Negative or not required by law. Electronically signed by: Tim So M.D. 01/10/2022 7:44 AM
--- NOTE | 2022-01-10 07:49 | CT Scan Report ---
NECK CTA HISTORY: Stroke Like Symptoms, R leg weak TECHNIQUE: Multiaxial CT images of the neck were performed following the intravenous administration o f contrast to evaluate the major cervical vessels. Maximum intensity projection images were also obta ined. All measurements were calculated based on NASCET criteria. A dose lowering technique was utili zed adhering to the principles of ALARA. COMPARISON STUDY: None. FINDINGS: The aortic arch and proximal great vessels are widely patent. Mild focal narrowing within the mid right common carotid artery of approximately 40% due to the noncalcified atherosclerotic plaq ue. There is moderate calcified plaque within the right carotid bifurcation and mild calcified plaque within the left carotid bifurcation without significant stenosis. No occlusion or dissection identif ied within the carotid or vertebral arteries. The bilateral vertebral arteries are widely patent. Cer vical spinal fusion hardware is noted. IMPRESSION: 1. Approximately 40% focal stenosis within the mid right common carotid artery due to the noncalcifie d atherosclerotic plaque. 2. No significant stenosis, occlusion, or dissection within the bilateral internal carotid arteries o r vertebral arteries. ACT 112: Negative or not required by law. Electronically signed by: Tim So M.D. 01/10/2022 7:47 AM
--- NOTE | 2022-01-10 07:55 | XRay Report ---
XR chest 1V portable HISTORY: weakness COMPARISON: Chest 04/19/2017. FINDINGS: The lungs are hyperexpanded with apical predominant emphysematous changes. Increased markin gs at the lung bases persists and favors vascular crowding from the emphysema. Otherwise, no new foca l lung consolidations to suggest pneumonia. No evidence for pulmonary edema. Cervical spinal fusion h ardware is again noted. The cardiac silhouette is top normal in size. There are old, healed bilateral rib fractures. IMPRESSION: No significant change compared to the prior study. No acute process. Emphysema again noted. ACT 112: Negative or not required by law. Electronically signed by: Tim So M.D. 01/10/2022 7:53 AM
--- NOTE | 2022-01-10 08:01 | Communication Note ---
Date of Service: January 10, 2022 Seen at bedside rounds. Patient reporting continued LBP and BLE pain for years that has been worsening as of the past year. He has had multiple falls at home, especially over the last few days/week. He now notices right leg weakness and inability to lift much off the ground, leading to falls. Vitals stable, no hemodynamic instability. Exam shows RLE weakness to 3/5 with extension + flexion as compared to left. Sensation somewhat diminished. RLE weakness/LBP - Ortho c/s: consistent with L4-L5 stenosis -- plans to perform decompression when medically stable - At this point no concerns for medical instability otherwise so from our standpoint can proceed with surgical intervention - Patient did have BLE arterial duplex showing some proximal stenosis on right side, no stenosis on left - CTA aorta w/ bilateral runoff ordered and pending - If significant PAD identified would proceed with workup for secondary risk reduction of vasculopathy, i.e. lipid panel, A1c, smoking cessation education CODE: FULL Dispo: MedSurg Diet: DVT ppx: SCDs at this time seen in f/u from early AM admit. pain in leg c/w lumbar radiculopathy vitals noted nad heent nc at mmm breathing unlabored no accessory muscles good effort skin no rashes no pallor or icterus lumbar radiculopathy -L4-5 pattern -Germaine will operate soon -pain control for now PVD -no acute symptoms -vascular will see since tight -plan risk reduction otherwise as above Resident Activity Tracking Resident Involvement: Resident Care Provided Care Provided: Adult Hospital Medicine
--- NOTE | 2022-01-10 09:55 | XRay Report ---
XR lumbar spine min 4V routine HISTORY: 56 years-old Male lbp; stenosis acute severe low back pain with lower extremity weakness COMPARISON: MRI lumbar spine 01/10/2022 TECHNIQUE: 4 views of the lumbar spine FINDINGS: Mild dextroscoliosis of the thoracolumbar junction. 5 lumbar type vertebral segments are present. Min imal spondylitic spurring with mostly mild multilevel intervertebral disc space narrowing and facet a rthrosis. Moderate L4-L5 facet arthrosis. There is no acute fracture, subluxation or endplate erosion . 3 mm anterolisthesis L4 on L5 is likely secondary to chronic facet arthrosis. Atherosclerosis of th e aorta. Contrast noted within the urinary bladder. Moderate fecal retention. IMPRESSION: 1. No acute fracture. 2. Degenerative changes at L4-L5 and L5-S1 are better appreciated on the MRI lumbar spine study of ACT 112: Negative or not required by law. The above report was generated using voice recognition software. It may contain grammatical, syntax o r spelling errors. Electronically signed by: Stef Hanks M.D. 01/10/2022 9:52 AM
--- NOTE | 2022-01-10 10:49 | Magnetic Resonance Report ---
MR lumbar spine wo con CLINICAL HISTORY: 56 years-old Male with chronic back pain; leg weakness. Chronic low back pain with lower extremity weakness COMPARISON: Lumbar spine radiographs of same day and also 10/22/2006 TECHNIQUE: Multiplanar, multi sequence MRI of the lumbar spine was performed without intravenous cont rast. FINDINGS: The channel opener outsoles localizer images demonstrate no gross extra spinal abnormality. The urinary bladder is dist ended. No lymphadenopathy. 1.4 cm synovial cyst posterior to the right L4-L5 facet. Mild to moderate adjacent deep tissue edema. Mild Modic Type II endplate degeneration at L4-L5. Mild marrow edema of t he L4-L5 pedicles bilaterally is likely reactive. No acute fracture, subluxation or endplate erosion. Conus medullaris terminates at L1. Signal within the imaged thoracic spinal cord appears normal. Unr emarkable cauda equina. Mild multilevel spondylitic spurring. T12-L1: Mild facet arthrosis. No central canal or neural foraminal stenosis. L1-L2: Mild facet arthrosis. No central canal or neural foraminal stenosis. L2-L3: Tiny posterior annular disc bulge with mild facet arthrosis. No central canal or neural mery inal stenosis. L3-L4: Tiny circumferential annular disc bulge with mild facet arthrosis. Ligamentum flavum thickeni ng with mild to moderate facet arthrosis. The central canal and left neural foramen are patent. Mild right foraminal narrowing. L4-L5: Moderate intervertebral disc space narrowing with spondylitic spurring and circumferential an nular disc bulge. There is a posterior annular fissure with central/left paracentral disc extrusion m easuring up to 1.4 cm in craniocaudal dimension extending superiorly to the level of the mid L4 verte bral body (image 11 series 5). Ligamentum flavum thickening with severe facet arthrosis and moderate facet effusions. Mild to moderate central canal stenosis, AP dimension of the thecal sac measuring 8. 5 mm. Moderate narrowing of the lateral recesses. Moderate bilateral foraminal stenosis. L5-S1: Mild to moderate intervertebral disc space narrowing with small circumferential annular disc bulge and spondylitic spurring. Ligamentum flavum thickening with moderate facet arthrosis and trace facet effusions. The central canal is patent. Mild to moderate right with mild left foraminal stenosi s. IMPRESSION: 1. Moderate intervertebral disc space narrowing at L4-L5 with severe facet arthrosis. There is a circ umferential annular disc bulge with acute versus subacute appearing central/left paracentral disc ext rusion. Findings result in mild to moderate central canal stenosis with moderate bilateral foraminal narrowing. 2. Additional degenerative changes as above. 3. No acute fracture. 4. Distended urinary bladder. ACT 112: Negative or not required by law. The above report was generated using voice recognition software. It may contain grammatical, syntax o r spelling errors. Dictated: 01/10/2022 10:22 AM Transcribed: 01/10/2022 10:36 AM Alisha [id number] [email or web address] Electronically signed by: Stef Hanks M.D. 01/10/2022 10:47 AM
[2022-01-10] MEDS ORDERED: IBUPROFEN 600 MG TAB PO STA (11:25)
--- NOTE | 2022-01-10 11:31 | Ultrasound Report ---
US arterial duplex lower extremity CLINICAL HISTORY: history right arterial occlusion, frequent falls COMPARISON STUDY: None. FINDINGS: Ankle-brachial indices were not performed. There are normal biphasic to triphasic waveforms and velocities seen throughout the left lower extremity arterial system. Monophasic low velocity wav eforms seen throughout the right lower extremity arterial system. The right intervertebral artery is difficult to visualize and may be occluded with an associated collateral. No elevated peak systolic v elocities to suggest significant stenosis. IMPRESSION: 1. Monophasic low velocity waveforms seen throughout the right lower extremity arterial system. This suggests proximal stenosis. 2. The right anterior tibial artery is not well visualized and could be occluded. 3. No significant stenosis or occlusion within the left lower extremity. ACT 112: Negative or not required by law. Electronically signed by: Tim So M.D. 01/10/2022 11:30 AM
--- NOTE | 2022-01-10 12:40 | Orthopedic Consultation ---
Date of Consultation January 10, 2022 Assessment & Plan (1) Neurogenic claudication due to lumbar spinal stenosis: An opportunity review the patient's cervical and lumbar imaging. Regarding the cervical spine there is clearly adjacent level disease from the previous fusion with stenosis most impressive at C3-C4. I do not appreciate myelomalacia in the cord. There is however hence of motion artifact compromising the study. The lumbar spine however demonstrates severe spinal stenosis L4-5 with gross evidence of instability. There is previous decompression at L5-S1. Plan at length yesterday with this patient reviewing symptoms complex clinical presentation and treatment plan. At this time would recommend a lumbar decompression and fusion L4-L5 to address the severe spinal stenosis and stability. We may also have to address his cervical spine at a future date. We would be able to do this is soon as he is cleared medically. He understands and agrees. Risk-benefit pros cons of turns out in detail. History of Present Illness Reason for Consultation: Right leg weakness Attending Physician: Aramis Hanley DO History of Present Illness This is a 56-year-old male well-known to me from a surgery many years ago involving the cervical spine. He now presents with significant right leg weakness. Describes history of back and bilateral leg pain for the past year. It is been progressive in nature. He has been using oral cane to ambulate. Is quite debilitating. That is recently evolved over the past week to significant weakness in the right leg with developing foot drop and hip flexion quadricep limitations. He also describes numbness involving the bilateral upper extremities into his hands. Denies any loss of bowel bladder control. He tries avoid any pain medication other than anti-inflammatories. Allergies Allergy/AdvReac Type Severity Reaction Status Date / Time paroxetine Allergy Mild UNSURE Verified 01/09/22 22:29 risperidone Allergy Unknown Unknown Verified 01/09/22 22:29 Influenza Virus Vaccines AdvReac Unknown UNKNOWN Verified 01/09/22 22:29 pneumococcal vaccine AdvReac Unknown Unknown Verified 01/09/22 22:29 Home Medications Medication Instructions Recorded Confirmed Type ibuprofen 200 mg tablet 800 mg PO TID PRN 01/09/22 01/09/22 History Patient History Medical History (Updated 01/10/22 @ 12:38 by Michael Herron DO) Anxiety with depression Degenerative joint disease (DJD) of lumbar spine Peripheral arterial disease Social History Smoking Status: Current every day smoker Cigarettes Per Day: 1/2 pack per day; Do You Dip or Chew Tobacco: No; Hx Alcohol Use: Yes Alcohol type: hard liquor Hx Substance Use: Yes Last Used Substance: Hours (ago) Preferred Language: American Communication Ability: Effective Contact Center Specialist Required: No Beliefs That Will Affect Care: None Current Living Situation: Significant Other Other Information That Helps Us Care for You: No Feels Safe at Home: Yes Assistive Devices: Cane Physical Exam Physical Exam: On exam 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 There is evidence of a Lhermitte's phenomenon of cervical flexion. There is no clear Spurling sign. Biceps triceps deltoids are 4+/5. Right lower extremity demonstrates deficits to quadriceps hip flexors and dorsiflexion compared to 5 5 on the left. Sensory is diminished. Results & Data ([facility]) Vital Signs (Past 12 Hours) Vital Signs Temp Pulse Pulse Resp BP Pulse Ox Pulse Ox 01/10/22 11:05 36.4 C L 59 L 18 148/90 H 96 01/10/22 07:23 36.7 C 84 21 107/68 99 01/10/22 07:15 81 01/10/22 04:01 36.4 C L 68 18 152/94 H 100 01/10/22 03:52 36.4 C L 68 18 152/94 H 100 100
[2022-01-10] MEDS ORDERED: OPTIRAY 320 125ml IV ONE (13:46)
[2022-01-10] MEDS: traMADol HCL 50 MG TABLET PO PRN ×3 (14:51→23:07)
--- NOTE | 2022-01-10 15:11 | CT Scan Report ---
CT ANGIOGRAM OF THE ABDOMEN AND PELVIS WITH BILATERAL LOWER EXTREMITY RUNOFF CLINICAL HISTORY: Right lower extremity weakness. COMPARISON STUDY: Right lower extremity arterial ultrasound dated 01/10/2022. TECHNIQUE: Following the IV administration of 120 cc of Optiray 320, CT angiogram of the abdomen and pelvis with bilateral lower externally runoff was performed from the lung bases to the feet. Images a re reviewed in the axial, sagittal, and coronal planes. 3-D MIPS images are created and assessed. IV contrast was administered without complication. A dose lowering technique was utilized adhering to t he principles of ALARA. CT DOSE: 1359.84 mGy.cm FINDINGS: Lower chest: The heart is mildly enlarged and without pericardial effusion. Endplate edematous change is suggested. Scarring/atelectasis is noted at the lung bases. There is a small hiatal hernia. A tin y hiatal hernia is noted. Liver: The contrast-enhanced liver is normal in size, contour, and attenuation. There is no intrahepa tic biliary ductal dilatation. Gallbladder: Unremarkable. Spleen: Normal in size and attenuation noting heterogeneous arterial phase enhancement. Pancreas: Unremarkable. Adrenal glands: There is mild nodular thickening of the adrenal glands. Kidneys: The contrast since kidneys are normal in size and without hydronephrosis. The kidneys enhanc e symmetrically. Foci of cortical scarring are noted in both kidneys. Abdominal aorta and iliac arteries: There is advanced atherosclerotic calcification of the abdominal aorta which is normal in caliber. No dissection is seen. The abdominal aorta is widely patent. There is advanced atherosclerotic calcification of the iliac arteries. The left common iliac artery is wide ly patent, as are the left internal and external iliac arteries. There is complete short segment thro mbosis of the proximal right common iliac artery seen on axial image #265. This is reconstituted afte r approximately 1.5 cm. The right internal and external iliac arteries are patent. 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 There is poststenotic dilatation of the celiac artery which measures up to 9 mm in diameter. The superior mesenteric artery and inferior mesenteric artery are widely patent. A n accessory left hepatic artery arises from the left gastric artery. The splenic artery is patent. Si ngle bilateral renal arteries are widely patent. Right lower extremity runoff: Advanced atherosclerotic plaque and irregularity seen throughout the ar teries of the right lower extremity. The right common femoral artery is patent, as is the right profu nda femoris artery. The right superficial femoral artery and the right popliteal artery are widely pa tent. There is two-vessel runoff to the foot. The proximal anterior tibial artery is diminutive and t here is a large peroneal artery. The intervertebral arteries occluded versus absent in the mid to dis bo calf, and the peroneal artery supplies the dorsalis pedis. Left lower extremity runoff: Atherosclerotic plaque and irregularity seen throughout the arteries of the left lower extremity. The common femoral artery and the profunda femoris artery are patent. The l eft superficial femoral artery and the left popliteal artery patent. There is three-vessel runoff to the foot. The calf arteries are patent., As is the dorsalis pedis Bowel: There is moderate constipation. No bowel obstruction is identified. The appendix is well-visu alized and normal. Peritoneum: There is trace free fluid in the pelvis. No intraperitoneal free air is identified. There is a fat-containing umbilical hernia. Lymphadenopathy: None. Pelvic viscera: The prostate gland is enlarged and heterogeneous noting median lobe hypertrophy. The bladder is distended and filled with excreted IV contrast. Skeletal structures: No destructive bony lesions are seen. There are numerous healed bilateral rib fr actures. Postoperative and mild spondylotic change is noted in the lumbar spine. Lower extremity soft tissues: Lower extremity soft tissues are normal as visualized. A small poplitea l cyst is seen on the right. IMPRESSION: 1. Cardiomegaly and suspect emphysema. 2. Advanced atherosclerotic change is noted throughout the abdominal aorta, its major branches, and t he lower extremities 3. The abdominal aorta is normal in caliber and widely patent. No dissection is seen. 4. 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 5. The superior mesenteric artery, the inferior mesenteric artery, and the renal arteries are widely patent. 6. 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 7. There is two-vessel runoff to the right foot. The anterior tibial artery is diminutive and termina carlo in the mid calf. A large peroneal artery courses anteriorly and supplies the dorsalis pedis, and this may represent an anatomic variant. 8. Otherwise normal bilateral lower extremity runoff. 9. Moderate constipation. 10. Trace free fluid in the pelvis is a nonspecific but abnormal finding. 11. Additional findings as above. ACT 112: Negative or not required by law. Electronically signed by: Ankit Juarez M.D. 01/10/2022 3:09 PM
--- NOTE | 2022-01-10 15:30 | Magnetic Resonance Report ---
MRI OF THE CERVICAL SPINE WITHOUT IV CONTRAST CLINICAL HISTORY: Neck pain. COMPARISON STUDY: MRI of the cervical spine dated 05/25/2014. CT of the cervical spine dated 01/09/2022 . TECHNIQUE: MRI of the cervical spine is performed utilizing various T1 and T2-weighted sequences in t he axial and sagittal planes. IV contrast was not administered for this examination. The examination is compromised by motion artifact and susceptibility artifact from extensive metallic spinal hardware . Cervical spine: Vertebral body height appears maintained throughout the cervical spine. There is stra ightening of the cervical lordosis. There is minimal anterolisthesis at C7-T1. Alignment is otherwise preserved. There has been corpectomy at C5 with anterior spinal fusion seen at C4-C7. Susceptibility artifact from metallic hardware degrades evaluation of these levels. The atlantodental articulation appears maintained noting productive degenerative change. The spinous processes are intact. No destru ctive bony lesion is seen. Intervertebral discs: The C4-C5 through C6-C7 discs are not evaluated. Disc desiccation is seen at th e remaining cervical levels. There is severe loss of height at C3-C4 and C7-T1. Moderate loss of heig ht is noted at T1-T2. Spinal cord: The cervical spinal cord is normal in morphology. There is a small focus of myelomalacia within the cervical cord at C6. This was also seen in 2013. The remainder of the cervical cord is no rmal in signal intensity. C2-C3: The central canal is clear. Uncovertebral facet arthropathy contribute to at least mild bilate ral neural foraminal stenosis. C3-C4: A posterior disc osteophyte complex effaces the ventral cord. Uncovertebral and facet arthropa thy contribute to severe bilateral neural foraminal narrowing. This may impinge on the exiting bilate ral C4 nerve roots. C4-C5: The central canal is grossly clear. Uncovertebral and facet arthropathy contribute to at least mild bilateral neural foraminal stenosis. This is not well assessed. C5-C6: The central canal is grossly clear. Uncovertebral and facet arthropathy contribute to at least mild bilateral neural foraminal stenosis. This is not well assessed. C6-C7: The central canal appears clear. Uncovertebral and facet arthropathy contribute to at least mo derate bilateral neural foraminal stenosis. This is not well assessed. C7-T1: The central canal appears clear. The neural foramina are not well assessed. Soft tissues: The prevertebral soft tissues are not well-visualized due to metallic susceptibility ar tifact. The paraspinous soft tissues are normal as imaged. Brain parenchyma: The visualized brain parenchyma at the skull base is normal as imaged. IMPRESSION: 1. The examination is severely degraded by motion artifact and by metallic susceptibility artifact fr om extensive spinal hardware. 2. A small focus of myelomalacia of the cervical cord at C6 is unchanged from 2014. 3. Spondylotic change as above. See discussion for detailed [id number] analysis. Note that severa l levels are not well-visualized. 4. No destructive bony process is identified. Dictated: 01/10/2022 2:04 PM Transcribed: 01/10/2022 2:45 PM Brittney [id number] [email or web address] Electronically signed by: Ankit Juarez M.D. 01/10/2022 3:28 PM
--- NOTE | 2022-01-11 06:10 | Electrocardiogram Report ---
Test Reason : Blood Pressure : / mmHG Vent. Rate : 073 BPM Atrial Rate : 073 BPM P-R Int : 116 ms QRS Dur : 086 ms QT Int : 380 ms P-R-T Axes : 000 178 090 degrees QTc Int : 418 ms Normal sinus rhythm Limb lead reversal Abnormal ECG When compared with ECG of 19-APR-2017 10:27, Limb lead reversal is now present Confirmed by Thomas Marlow ([id number]) on 01/11/2022 6:10:04 AM Referred By: REFERRED SELF Confirmed By:Thomas Marlow
[2022-01-11] MEDS ORDERED: traMADol HCL 50 MG TABLET PO PRN (07:02)
[2022-01-11 07:45] LABS: Basophils # (auto) 0.02 K/uL (0-0.2); Basophils % (auto) 0.4 %; Eosinophils # (auto) 0.15 K/uL (0-0.5); Hemoglobin 14.1 g/dL (14.0-18.0); Immature Granulocytes # (auto) 0.01 K/uL (0.00-0.02); Immature Granulocytes % (auto) 0.2 %; Lymphocytes # (auto) 1.47 K/uL (1.2-3.4); Lymphocytes % (auto) 29.3 %; Mean Corpuscular Hemoglobin 33.4 pg (25-34); Mean Corpuscular Hgb Conc 35.3 g/dL (32-36); Mean Corpuscular Volume 94.8 fL (80-100); Mean Platelet Volume 10.2 fL (7.4-10.4); Monocytes # (auto) 0.66 K/uL (0.11-0.59); Monocytes % (auto) 13.2 %; Neutrophils % (auto) 53.9 %; Platelet Count 240 K/uL (130-400); RDW Coefficient of Variation 13.3 % (11.5-14.5); RDW Standard Deviation 45.7 fL (36.4-46.3); Red Blood Count 4.22 M/uL (4.7-6.1); White Blood Count 5.01 K/uL (4.8-10.8)
[2022-01-11] MEDS: ACETAMINOPHEN 500 MG TAB PO SCH ×3 (07:49→22:32)
--- NOTE | 2022-01-11 08:05 | Hospitalist Progress Note ---
Date of Service January 11, 2022 Assessment & Plan (1) Neurogenic claudication due to lumbar spinal stenosis: Plan: 56 yo M Hx HTN, HLD, Hx Hep C, chronic back pain with previous L spine surgery in the past admitted with neurogenic claudication 2/2 lumbar spinal stenosis. Neurogenic claudication: Presented with <RLE strength and numbness as compared to baseline. With worsening sensation of pelvic area such that he has developed bowel incontinence. MRI L-spine revealed L4-5 severe facet arthrosis, disc bulge, and mild/moderate central canal stenosis / moderate bilateral foraminal narrowing. Dr. Herron consulted and appreciate recommendations; for lumbar decompression and fusion surgery on 01/14/2022. No indication per Ortho Spine to perform procedure emergently. Tramadol 100mg as needed for moderate back pain; morphine as needed for severe pain. Tylenol scheduled q8h. PAD: This admission on bilateral LE arterial duplex showing right sided proximal stenosis. CTA aortogram with bilateral runoff revealed R-sided aortoiliac occlusive disease. Vascular Surgery consulted and appreciate recommendations; symptoms inconsistent with arterial claudication, no evidence of RLE ischemia; therefore for follow up outpatient. Ultimately will benefit from NOLAN/ARB, aspirin, and statin therapy for decreased mortality benefit. Lipid panel ordered; will need statin therapy initiated with level of intensity based on results. A1c not ordered; patient's BSG have not been elevated this admission. Smoking cessation counseling will need to be started this admission and continued on discharge by PCP. HTN: With elevated BP since admission; not on chronic regimen at home. Will need NOLAN/ARB therapy prior to discharge both for BP control and for PAD. Lopressor as needed for BP >180/110. Emphysema, smoking history: Hx of smoking currently 1/2 PPD, unknown length of time. Smoking cessation as above. Defer COPD workup/treatment with inhalers if indicated to PCP. Patient without cough, SOB. Will need AAA screening at age 66 given >100 cigarettes in life. Anxiety, depression: Not on medications at home. PCP follow up for such. Code Status: FULL CODE FEN: Regular diet; heart healthy ordered however patient refuses despite counseling DVT ppx: Heparin 5000u SQ BID Dispo: Med/Surg; for lumbar decompression and fusion surgery Friday (2) Peripheral arterial disease: (3) Anxiety with depression: (4) Hypertension: (5) Emphysema lung: Admission and Anticipated Discharge Date Admission Date: January 10, 2022 Supervising Physician Co-Signing Physician Notes I personally examined the patient and verified all mcdowell points of history and exam, discussed case, and agree with decision making with Dr Yancey Had a little bit of fecal incontinence earlier todaybut notes that he runs chronically constipated and thought that probably the potassium pills created a little bit of GI irritation leading to urgency to have a stool that he was not able to get to the bathroom in time for. Has no other concerning complaints. Wonders about getting his hepatitis C treated Vitals noted, in general he is awake and alert pleasant no distress. HEENT normocephalic atraumatic mucous membranes moist. Breathing unlabored no accessory muscle use good effort. Skin no rashes, pallor, icterus. Lumbar radiculopathyfor surgery Friday Peripheral vascular diseasesecondary risk reductionmost of which will be safer to start postop (aspirin, NOLAN) can start statin. Hep Cwe will try to facilitate outpatient treatment Subjective Patient seen this AM without acute complaints, however nursing staff report several episodes of incontinence of bowel overnight. Patient is not on any stool softeners or laxatives. He denies feeling that he has to go before he does, which is new for him. He endorses bladder continence, however. No change from his perspective in his pain, otherwise feeling generally well. Review of Systems Review of Systems: All systems reviewed & are unremarkable except as noted in Subjective Physical Exam Constitutional: WD/WN, vitals as above + disheveled and cooperative; no acute distress ENMT: Ears: no hearing impairment Respiratory: normal respiratory effort Auscultation: lungs clear to auscultation bilaterally Cardiovascular: RRR, no murmur, no edema Vessels: + abnormal peripheral pulses Extremities: normal capillary refill; no edema Femoral pulses: LLE 2+, RLE nonpalpable PT pulses: LLE 2+, RLE nonpalpable DP pulses: LLE 2+, RLE nonpalpable Shanda Landrum in room during interview; able to doppler RLE PT and DP pulses Gastrointestinal (Abdomen): normal bowel sounds, soft, nontender, no hepatosplenomegaly Musculoskeletal: Extremities: extremities normal to inspection and + abnormal strength (RLE 2/5) Skin: no rashes, warm and dry Neurologic: decreased strength 2/5 of RLE, otherwise normal sensation noted on exam normal speech, appropriate affect with good eye contact Psychiatric: A+Ox3, euthymic affect Results & Data Results & Data ([facility]) Vital Signs (Past 12 Hours) Vital Signs Temp Pulse Pulse Resp BP BP Pulse Ox 01/11/22 07:43 36.7 C 77 20 175/115 H 98 01/11/22 07:38 77 01/11/22 04:13 37.1 C 92 H 18 153/98 H 91 01/11/22 03:52 01/11/22 02:47 81 01/11/22 00:00 36.6 C 84 18 145/89 H 98 Pulse Ox 01/11/22 07:43 01/11/22 07:38 01/11/22 04:13 01/11/22 03:52 94 01/11/22 02:47 01/11/22 00:00 Resident Activity Tracking Resident Involvement: Resident Care Provided Care Provided: Adult Hospital Medicine
[2022-01-11 08:10] LABS: Albumin Level 3.7 gm/dl (3.4-5.0); BUN Creatinine Ratio 15.3 (10-20); Calcium 8.8 mg/dl (8.5-10.1); Creatinine Clr Calc Pharmacy 89.6 ml/min; Est GFR (African American) 86.2 ml/min; Est GFR (Non-African American) 74.4 ml/min; Magnesium 1.9 mg/dl (1.7-2.4); Phosphorus 3.8 mg/dl (2.5-4.9); Potassium 4.1 mmol/L (3.5-5.1)
--- NOTE | 2022-01-11 09:36 | Consultation ---
Date of Consultation January 11, 2022 Assessment & Plan (1) Peripheral arterial disease: Pt does have aortoiliac occlusive disease, however, his sx are inconsistent with arterial claudication or rest pain. RLE is not ischemic. Pt discussed with Dr Sheikh. Recommend pt be seen in f/u as outpt to reeval in 3 months. History of Present Illness Reason for Consultation: PAD Attending Physician: Aramis Hanley DO History of Present Illness 56 yo m with hx of HTN, PAD, DJD of spine, depression/anxiety, emphysema, osteoarthritis, admitted with chronic RLE weakness and back and leg pain and numbness, seen in consultation today after CTA demonstrated R iliac art occlusion. Pt states he has a long hx of back and neck pain, and noted weakness in RLE about 2 yr ago. States he was told he had an artery blocked in R leg about 8 months ago when he was emergently transferred to [facility]. States he never had surgery on it or followed up for this. States he has frequent falls d/t his leg won't support him. States his R foot is numb most of the time and he has constant pain in low back which sometimes radiates to his legs. When ambulating, states he develops pain in R hip/thigh, but it improves if he rubs the area and he can walk farther. States the distance he is able to walk is not consistent, and typically takes a while for it to resolve after he stops ambulating. He also has some weakness and pain in LLE, but to lesser extent. Denies ulcerations to R foot/toes, discoloration of foot or toes, and rest pain in R foot at night. Denies TERRELL, fever, chest pain, SOB, abd pain, N/V, other complaints. CTA demonstrates R iliac artery occlusion. Arterial US demonstrates diffuse disease otherwise, no COLLINS was performed. Allergies Allergy/AdvReac Type Severity Reaction Status Date / Time paroxetine Allergy Mild UNSURE Verified 01/09/22 22:29 risperidone Allergy Unknown Unknown Verified 01/09/22 22:29 Influenza Virus Vaccines AdvReac Unknown UNKNOWN Verified 01/09/22 22:29 pneumococcal vaccine AdvReac Unknown Unknown Verified 01/09/22 22:29 Home Medications Medication Instructions Recorded Confirmed Type ibuprofen 200 mg tablet 800 mg PO TID PRN 01/09/22 01/09/22 History Patient History Medical History Anxiety with depression Degenerative joint disease (DJD) of lumbar spine Peripheral arterial disease Social History Smoking Status: Current every day smoker Cigarettes Per Day: 1/2 pack per day; Do You Dip or Chew Tobacco: No; Hx Alcohol Use: Yes Alcohol type: hard liquor Hx Substance Use: Yes Last Used Substance: Hours (ago) Preferred Language: Welsh Communication Ability: Effective 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 Beliefs That Will Affect Care: None marital status: Current Living Situation: Significant Other Other Information That Helps Us Care for You: No Feels Safe at Home: Yes Assistive Devices: Cane Review of Systems Review of Systems: All systems reviewed & are unremarkable except as noted in HPI & below Physical Exam Constitutional: WD/WN, vitals as above + disheveled and cooperative; + not well groomed and not in distress ENMT: Ears: no hearing impairment Neck: trachea midline Respiratory: normal respiratory effort Auscultation: lungs clear to auscultation bilaterally and + diminished lung sounds Cardiovascular: Vessels: femoral pulses present (LLE +2, RLE nonpalpable), posterior tibial pulses present (LLE +2, RLE dopplerable), dorsalis pedis pulses present (LLE +2, RLE dopplerable) and radial pulses present; no carotid bruit and + abnormal peripheral pulses Extremities: normal capillary refill; no edema Gastrointestinal (Abdomen): Inspection/Auscultation: abdomen normal to inspection and normal bowel sounds Percussion/Palpation: abdomen soft; abdomen nontender Musculoskeletal: Extremities: extremities normal to inspection and + abnormal strength (RLE 2/5) Skin: no rashes, warm and dry Neurologic: moves all extremities and awake; no focal motor deficits and not confused Psychiatric: A+Ox3, euthymic affect Eye Contact: good eye contact Results & Data ([facility]) Vital Signs (Past 12 Hours) Vital Signs Temp Pulse Pulse Resp BP BP Pulse Ox 01/11/22 07:43 36.7 C 77 20 175/115 H 98 01/11/22 07:38 77 01/11/22 04:13 37.1 C 92 H 18 153/98 H 91 01/11/22 03:52 04/15/22 02:47 81 01/11/22 00:00 36.6 C 84 18 145/89 H 98 Pulse Ox 01/11/22 07:43 01/11/22 07:38 01/11/22 04:13 01/11/22 03:52 94 01/11/22 02:47 01/11/22 00:00
[2022-01-11] MEDS: traMADol HCL 50 MG TABLET PO PRN ×2 (11:12→20:00)
[2022-01-11] MEDS ORDERED: LABETALOL HCL IV 5 MG/ML 20ML IV STA (11:36)
--- NOTE | 2022-01-11 12:21 | Orthopedic Progress Note ---
Date of Service January 11, 2022 Assessment & Plan (1) Neurogenic claudication due to lumbar spinal stenosis: Plan: At this time we plan for possible lumbar decompression fusion L4-5 on Friday. We will await final results regarding his iliac stenosis to the right leg. Patient understands agrees with this plan. Admission and Anticipated Discharge Date Admission Date: January 10, 2022 Subjective Patient states he is comfortable in bed at this time. He denies any numbness and tingling in the perineal area or bilateral extremities. Still strength deficits to the right lower extremity. He did have an episode where he felt he lost control of his bowels last evening but this is resolved at the time. Physical Exam Physical Exam: On exam he sitting up in bed he appears comfortable. There is deficits to dorsiflexion on the right foot. Sensory is intact in the perineal area and upper thighs. Results & Data ([facility]) Vital Signs (Past 12 Hours) Vital Signs Temp Pulse Pulse Resp BP Pulse Ox Pulse Ox 01/11/22 11:26 36.7 C 85 20 198/116 H 99 01/11/22 07:43 36.7 C 77 20 175/115 H 98 01/11/22 07:38 77 01/11/22 04:13 37.1 C 92 H 18 153/98 H 91 01/11/22 03:52 94 01/11/22 02:47 81
[2022-01-11] MEDS ORDERED: MoRPHine SULFATE 4 MG/ML 1 ML CARP\\VIAL ONE (13:46)
[2022-01-11] MEDS: MoRPHine SULFATE 4 MG/ML 1 ML CARP\\VIAL IV PRN ×2 (13:47→17:58)
[2022-01-11] MEDS: METOPROLOL TARTRATE 1 MG/ML VIAL IV PRN ×2 (15:45→20:01)
--- NOTE | 2022-01-11 16:42 | Billing Data ---
Date of Service January 11, 2022 Coding Level of Care Code 85856 Subseq Hosp Care Lvl 3
[2022-01-11] MEDS: amLODIPine BESYLATE 5 MG TAB PO SCH (17:50)
[2022-01-11] MEDS: HEPARIN SOD 5,000 UNIT/0.5 ML VIAL SQ SCH (20:01)
[2022-01-12 00:35] LABS: Marijuana Quant, GCMS Urine 39 ng/mL (<5)
[2022-01-12] MEDS: MoRPHine SULFATE 4 MG/ML 1 ML CARP\\VIAL IV PRN ×4 (02:50→21:02)
[2022-01-12] MEDS: METOPROLOL TARTRATE 1 MG/ML VIAL IV PRN ×3 (04:48→16:37)
[2022-01-12] MEDS ORDERED: hydrALAZINE HCL 20 MG/ML VIAL IV STA ×2 (05:33→17:11)
[2022-01-12] MEDS: ACETAMINOPHEN 500 MG TAB PO SCH ×3 (06:23→23:21)
[2022-01-12 07:03] LABS: Basophils # (auto) 0.04 K/uL (0-0.2); Basophils % (auto) 0.6 %; Eosinophils # (auto) 0.21 K/uL (0-0.5); Eosinophils % (auto) 3.4 %; Hematocrit (blood only) 43.2 % (42-52); Lymphocytes # (auto) 1.26 K/uL (1.2-3.4); Lymphocytes % (auto) 20.3 %; Mean Corpuscular Hgb Conc 34.7 g/dL (32-36); Mean Corpuscular Volume 95.2 fL (80-100); Mean Platelet Volume 9.9 fL (7.4-10.4); Monocytes % (auto) 11.3 %; Neutrophils % (auto) 64.4 %; Platelet Count 291 K/uL (130-400); RDW Coefficient of Variation 13.4 % (11.5-14.5); RDW Standard Deviation 46.3 fL (36.4-46.3); Red Blood Count 4.54 M/uL (4.7-6.1); White Blood Count 6.21 K/uL (4.8-10.8)
--- NOTE | 2022-01-12 07:21 | Hospitalist Progress Note ---
Date of Service January 12, 2022 Assessment & Plan (1) Neurogenic claudication due to lumbar spinal stenosis: Plan: 56 yo M Hx HTN, HLD, Hx Hep C, chronic back pain with previous L spine surgery in the past admitted with neurogenic claudication 2/2 lumbar spinal stenosis. Neurogenic claudication: Presented with <RLE strength and numbness as compared to baseline. MRI L-spine revealed L4-5 severe facet arthrosis, disc bulge, and mild/moderate central canal stenosis / moderate bilateral foraminal narrowing. Scheduled for lumbar decompression and fusion surgery on 01/14/[address] Herron. No indication per Ortho Spine to perform procedure emergently. Tramadol 100mg scheduled for basal pain control; morphine 4mg Q3h as needed for severe pain. Tylenol scheduled q8h. PAD: bilateral LE arterial duplex showing right sided proximal stenosis. CTA aortogram with bilateral runoff revealed R-sided aortoiliac occlusive disease. Vascular Surgery to follow up outpatient given lack of acute RLE ischemia Ultimately will benefit from NOLAN/ARB, aspirin, and statin therapy for decreased mortality benefit. A1c not ordered; patient's BSG have not been elevated this admission. Smoking cessation counseling will need to be started this admission and continued on discharge by PCP. HTN: With elevated BP since admission; not on chronic regimen at home. Will need NOLAN/ARB therapy prior to discharge both for BP control and for PAD. Lopressor as needed for BP >180/110. Emphysema, smoking history: Hx of smoking currently 1/2 PPD, unknown length of time, emphysematous changes noted on Aorta runoff study. Smoking cessation as above. Defer COPD workup/treatment with inhalers if indicated to PCP. Patient without cough, SOB. Will need AAA screening at age 66 given >100 cigarettes in life as well as annual low dose CT Chest for lung cancer screening. Anxiety, depression: Not on medications at home. PCP follow up for such. Code Status: FULL CODE FEN: Regular diet; heart healthy ordered however patient refuses despite counseling DVT ppx: Heparin 5000u SQ BID Dispo: Med/Surg; for lumbar decompression and fusion surgery 01/14 (2) Peripheral arterial disease: (3) Anxiety with depression: (4) Hypertension: (5) Emphysema lung: Admission and Anticipated Discharge Date Admission Date: January 10, 2022 Supervising Physician Co-Signing Physician Notes I personally examined the patient and verified all mcdowell points of history and exam, discussed case, and agree with decision making with Dr Spivey Morphine helped with pain control. Was able to sleep. Pleased with care. Vitals noted, in general he is awake and alert pleasant no distress. HEENT normocephalic atraumatic mucous membranes moist. Breathing unlabored no accessory muscle use good effort. Skin no rashes, pallor, icterus. Lumbar radiculopathyfor surgery Friday. Continue pain control until then Peripheral vascular diseasesecondary risk reductionmost of which will be safer to start postop (aspirin, NOLAN) can start statin. Blood pressure control now due to marked elevations. Hypertensionwhile the literature, of course, favors not "treating the number" in the inpatient setting, he appears calm and comfortable with marked elevations in blood pressuresuggesting strongly that he has a baseline of hypertension that he was unaware of. Titrating amlodipine. Continue to follow. Adjust meds. Postop add NOLAN Hep Ctrying to facilitate outpatient treatment Subjective continues to be in pain this AM. states his pain is approximately a 9/10 with the tramadol and morphine every 4 hours, which is better pain control than he's had in the last 2 years. States that he normally has a bowel movement every 2-3 days and thinks his bowel incontinence episode was just being 'full' and unable to get to the bathroom on time. Denies any urinary or bowel incontinence at this time. Has not had another bowel movement since but has passed gas. Denies nausea/vomiting/fevers/chills/abdominal pain. Denies any numbness or tingling in his legs. Review of Systems Review of Systems: All systems reviewed & are unremarkable except as noted in Subjective Physical Exam Physical Exam: Constitutional: in no apparent distress, laying in bed in visible discomfort Eyes: EOMI, pupils equal and reactive bilaterally, no scleral icterus Cardiac: RRR, no murmurs, gallops or rubs. Normal S1, S2 Pulm: CTA BL, no wheezes, rhonchi, crackles or rubs, moving air well throughout both lungs Abd: soft, nontender, nondistended, normal bowel sounds, no rebound or guarding Extremities: poor peripheral pulses bilaterally, decreased function/ROM of right toes compared to left, decreased sensation in S1, L5 dermatomes on right leg compared to left Results & Data Results & Data ([facility]) Vital Signs (Past 12 Hours) Vital Signs Temp Pulse Pulse Resp BP BP BP 01/12/22 05:26 196/102 H 01/12/22 04:48 77 215/127 H 01/12/22 04:35 36.5 C 77 18 215/127 H 198/120 H 01/12/22 03:00 01/12/22 01:23 78 01/11/22 22:42 36.5 C 72 18 174/96 H 01/11/22 20:12 36.5 C 75 18 183/101 H Pulse Ox Pulse Ox 01/12/22 05:26 01/12/22 04:48 01/12/22 04:35 96 01/12/22 03:00 94 01/12/22 01:23 01/11/22 22:42 96 01/11/22 20:12 97 Resident Activity Tracking Resident Involvement: Resident Care Provided Care Provided: Adult Hospital Medicine
[2022-01-12 07:32] LABS: BUN Creatinine Ratio 12.2 (10-20); Calcium 9.3 mg/dl (8.5-10.1); Creatinine Clr Calc Pharmacy 110.4 ml/min; Est GFR (Non-African American) 95.8 ml/min; Magnesium 1.8 mg/dl (1.7-2.4); Phosphorus 4.1 mg/dl (2.5-4.9); Potassium 4.4 mmol/L (3.5-5.1)
[2022-01-12] MEDS: HEPARIN SOD 5,000 UNIT/0.5 ML VIAL SQ SCH ×2 (08:00→20:57)
[2022-01-12] MEDS: amLODIPine BESYLATE 5 MG TAB PO SCH ×2 (08:00→10:31)
[2022-01-12] MEDS: traMADol HCL 50 MG TABLET PO PRN (08:03)
[2022-01-12] MEDS: POLYETHYLENE (MIRALAX) 17 GM PACK PO SCH (10:31)
[2022-01-12] MEDS: traMADol HCL 50 MG TABLET PO SCH ×3 (12:49→20:56)
--- NOTE | 2022-01-12 15:47 | Billing Data ---
Date of Service January 12, 2022 Coding Level of Care Code 96429 Subseq Hosp Care Lvl 3
[2022-01-13] MEDS: traMADol HCL 50 MG TABLET PO SCH ×7 (01:06→23:05)
[2022-01-13] MEDS: ACETAMINOPHEN 500 MG TAB PO SCH ×4 (06:29→22:03)
--- NOTE | 2022-01-13 07:11 | Hospitalist Progress Note ---
Date of Service January 13, 2022 Assessment & Plan (1) Neurogenic claudication due to lumbar spinal stenosis: Plan: 56 yo M Hx HTN, HLD, Hx Hep C, chronic back pain with previous L spine surgery in the past admitted with neurogenic claudication 2/2 lumbar spinal stenosis. Neurogenic claudication: Presented with <RLE strength and numbness as compared to baseline. MRI L-spine revealed L4-5 severe facet arthrosis, disc bulge, and mild/moderate central canal stenosis / moderate bilateral foraminal narrowing. Scheduled for lumbar decompression and fusion surgery on 01/14/[address] Herron. No indication per Ortho Spine to perform procedure emergently. Tramadol 100mg scheduled for basal pain control. morphine 4mg Q3h as needed for severe pain, has been utilizing ~ Q4-6. Tylenol scheduled q8h. PAD: bilateral LE arterial duplex showing right sided proximal stenosis. CTA aortogram with bilateral runoff revealed R-sided aortoiliac occlusive disease. Vascular Surgery to follow up outpatient given lack of acute RLE ischemia Fasting AM sugar of 93. Smoking cessation counseling, continue on discharge by PCP. HTN: With elevated BP since admission; not on chronic regimen at home. Will need NOLAN/ARB therapy prior to discharge both for BP control and for PAD. Holding initiation at this time prior to surgery. Lopressor as needed for BP >180/110. Outpatient follow ups Emphysema: PFTs, initiation of inhalers if necessary. Nicotine Dependence: Smoking cessation counseling, AAA screen, annual low dose Chest CT for lung cancer screening Hepatitis C: outpatient follow up/monitoring/treatment Anxiety/Depression: outpatient medication initiation PAD: ASA, Statin, NOLAN/ARB on discharge Code Status: FULL CODE FEN: Regular diet DVT ppx: Heparin 5000u SQ BID Dispo: Med/Surg; for lumbar decompression and fusion surgery 01/14 (2) Peripheral arterial disease: (3) Anxiety with depression: (4) Hypertension: (5) Emphysema lung: Admission and Anticipated Discharge Date Admission Date: January 10, 2022 Supervising Physician Co-Signing Physician Notes I personally examined the patient and verified all mcdowell points of history and exam, discussed case, and agree with decision making with Dr Patric Wick doing better. For surgery tomorrow. Appreciative of care. Vitals noted, in general he is awake and alert pleasant no distress. HEENT normocephalic atraumatic mucous membranes moist. Breathing unlabored no accessory muscle use good effort. Skin no rashes, pallor, icterus. Lumbar radiculopathyfor surgery Friday. Continue current pain control until then Peripheral vascular diseasesecondary risk reductionmost of which will be safer to start postop (aspirin, NOLAN) can start statin. started blood pressure control now due to marked elevations. Hypertensionwhile the literature, of course, favors not "treating the number" in the inpatient setting, he appears calm and comfortable with marked elevations in blood pressuresuggesting strongly that he has a baseline of hypertension that he was unaware of. Titrating amlodipine. Continue to follow. Adjust meds. Postop add NOLAN Hep C- asked RN mecca to assist w facilitate outpatient treatment Subjective Feeling considerably improved with pain control compared to yesterday. rates pain at 03/08 compared to yesterday's 06/08. was able to ambulate using cane and assistance. states his pain is better controlled than it has in years. scheduled for OR with Dr. Herron tomorrow 01/14. decreased appetite today and mild nausea. Review of Systems Review of Systems: All systems reviewed & are unremarkable except as noted in Subjective Physical Exam Physical Exam: Constitutional: in no apparent distress, laying in bed visibly more comfortable than yesterday. Eyes: EOMI, pupils equal and reactive bilaterally, no scleral icterus Cardiac: RRR, no murmurs, gallops or rubs. Normal S1, S2 Pulm: CTA BL, no wheezes, rhonchi, crackles or rubs, moving air well throughout both lungs Abd: soft, nontender, nondistended, normal bowel sounds, no rebound or guarding Extremities: poor peripheral pulses bilaterally, right foot continues to have decreased sensation and ROM than left Results & Data Results & Data ([facility]) Vital Signs (Past 12 Hours) Vital Signs Temp Pulse Pulse Resp BP Pulse Ox 01/13/22 06:28 36.5 C 86 18 171/98 H 97 01/13/22 02:39 36.4 C L 95 H 18 168/99 H 95 01/12/22 22:43 98 H 01/12/22 21:45 36.6 C 83 18 160/96 H 93 Resident Activity Tracking Resident Involvement: Resident Care Provided Care Provided: Adult [facility]
[2022-01-13] MEDS: POLYETHYLENE (MIRALAX) 17 GM PACK PO SCH (07:19)
[2022-01-13] MEDS: amLODIPine BESYLATE 5 MG TAB PO SCH (07:19)
[2022-01-13] MEDS: HEPARIN SOD 5,000 UNIT/0.5 ML VIAL SQ SCH ×2 (07:24→20:34)
--- NOTE | 2022-01-13 11:06 | Orthopedic Progress Note ---
Date of Service January 13, 2022 Assessment & Plan (1) Neurogenic claudication due to lumbar spinal stenosis: Plan: At this time we will make the patient n.p.o. after midnight plan for surgery in the morning. I reviewed the surgery in detail all questions were addressed. Admission and Anticipated Discharge Date Admission Date: January 10, 2022 Subjective Patient continues to have back and leg pain with activity. Physical Exam Physical Exam: Patient is seen in bed. Comfort this time. Still evidence of strength deficits to the right lower extremity. Results & Data ([facility]) Vital Signs (Past 12 Hours) Vital Signs Temp Pulse Pulse Resp BP Pulse Ox 01/13/22 08:17 93 H 01/13/22 06:28 36.5 C 86 18 171/98 H 97 01/13/22 02:39 36.4 C L 95 H 18 168/99 H 95
[2022-01-13] MEDS: MoRPHine SULFATE 4 MG/ML 1 ML CARP\\VIAL IV PRN (16:36)
--- NOTE | 2022-01-13 16:48 | Billing Data ---
Date of Service January 13, 2022 Coding Level of Care Code 71316 Subseq Hosp Care Lvl 2
[2022-01-13] MEDS ORDERED: CETIRIZINE HCL 10 MG TABLET PO ONE (18:19)
[2022-01-14] MEDS: MoRPHine SULFATE 4 MG/ML 1 ML CARP\\VIAL IV PRN ×2 (01:55→20:31)
[2022-01-14] MEDS: traMADol HCL 50 MG TABLET PO SCH ×5 (04:12→20:23)
[2022-01-14] MEDS: ACETAMINOPHEN 500 MG TAB PO SCH ×3 (06:11→22:36)
--- NOTE | 2022-01-14 06:47 | Hospitalist Progress Note ---
Date of Service January 14, 2022 Assessment & Plan (1) Neurogenic claudication due to lumbar spinal stenosis: Plan: 56yo male with HTN, HLD, history of hepatitis C, and chronic back pain (s/p previous lumbar spine surgery) presents with neurogenic claudication secondary to lumbar spinal stenosis, with a lumbar decompression/fusion scheduled for 01/14. Neurogenic claudication Presented with <RLE strength and numbness as compared to baseline MRI L-spine revealed L4-5 severe facet arthrosis, disc bulge, and mild/moderate central canal stenosis / moderate bilateral foraminal narrowing Scheduled for lumbar decompression and fusion surgery on 01/14/[address] Herron Pain control: APAP scheduled q8h, tramadol 100mg scheduled, morphine 4mg q3h prn severe pain PAD Bilateral LE arterial duplex showing right sided proximal stenosis CTA aortogram with bilateral runoff revealed R-sided aortoiliac occlusive disease Vascular Surgery to follow up outpatient given lack of acute RLE ischemia Smoking cessation counseling, continue on discharge by PCP HTN With elevated BP since admission; not on chronic regimen at home Will need NOLAN/ARB therapy prior to discharge both for BP control and for PAD (holding initiation until patient is post-op) Lopressor as needed for BP >180/110 Hepatitis C Hep C serology ordered Will have to arrange outpatient follow-up pending serology results Chronic conditions Emphysema: PFTs, initiation of inhalers if necessary Nicotine dependence: smoking cessation counseling, AAA screen, annual low dose Chest CT for lung cancer screening Hepatitis C: serology ordered, recommend outpatient follow up/monitoring/treatment Anxiety/depression: outpatient medication initiation FEN: NPO pending operation (01/14), regular diet afterward Code status: full code DVT ppx: heparin 5000u sq bid Consults: orthopedic surgery PT/OT: ordered Case management: following Dispo: med/surg for lumbar decompression/fusion (01/14) (2) Peripheral arterial disease: (3) Anxiety with depression: (4) Hypertension: (5) Emphysema lung: Admission and Anticipated Discharge Date Admission Date: January 10, 2022 Supervising Physician Co-Signing Physician Notes Patient seen and examined with PGY-2 Dr. Goins. Agree with history, exam findings, assessment and plan of care as outlined. In brief, Mr. Callaway is a 56 year old male admitted worsening neurogenic claudication due to lumbar spinal stenosis, right leg symptoms worse than left. Today, does have some lower back pain. No bowel or bladder dysfunction. Using a cane to ambulate. Well appearing. No mid-line lumbar spine tenderness. Significant muscle spasm of the right lumbar paraspinals, tenderness over the left lumbar paraspinal musculature. 5- hip flexion, 5- ankle dorsiflexion and great toe extension on the right; decreased sensation to light touch over the L4, L5 and S1 on the right compared to the left. +2 Patellar DTRs bilaterally. 1. Neurogenic claudication 2/2 spinal stenosis. Plans for decompression and fusion with Dr. Herron tomorrow. 2. PAD. Right Aortoiliac occlusive disease. Plan to start ASA and statin post-operatively. Can follow up with vascular surgery as an outpatient. 3. HTN. Continue amlodipine 10mg, with continued elevated blood pressure, would consider adding ARB. 4. Hepatitis C. Hx of positive hepatitis C screening. RUQ US normal a ppearingno mass. Check hepatitis C RNA viral load, genotype, fibrosure. If positive viral load, can follow up with PCP or GI for treatment of active hepatitis C. Dispo: pending surgical intervention. Subjective Patient seen and evaluated at bedside this morning. No acute events overnight. Patient feels well today, only complaining of mild lower back pain. Patient is eager for his operation today. No new symptoms or concerns today including CP, SOB, abdominal pain, nausea, vomiting, lightheadedness, dizziness, and diarrhea. Physical Exam Physical Exam: Constitutional: well-appearing, no acute distress CV: regular rhythm, no murmur appreciated, extremities well-perfused, no LE edema Resp: CTABL, no wheezes/rales/rhonchi appreciated, no increased work of breathing Neuro: alert, oriented, no focal neurologic deficit appreciated Results & Data Results & Data ([facility]) Vital Signs (Past 12 Hours) Vital Signs Temp Pulse Pulse Resp BP BP Pulse Ox 01/14/22 03:06 36.4 C L 95 H 18 160/88 H 95 01/13/22 23:48 98 H 01/13/22 23:14 36.6 C 87 18 173/97 H 96 01/13/22 19:22 36.5 C 90 18 168/99 H 96 Resident Activity Tracking Resident Involvement: Resident Care Provided Care Provided: Adult [facility]
[2022-01-14] MEDS: amLODIPine BESYLATE 5 MG TAB PO SCH (09:08)
[2022-01-14] MEDS: HEPARIN SOD 5,000 UNIT/0.5 ML VIAL SQ SCH ×2 (09:08→20:31)
[2022-01-14] MEDS: POLYETHYLENE (MIRALAX) 17 GM PACK PO SCH (09:08)
--- NOTE | 2022-01-14 11:30 | Ultrasound Report ---
ABDOMINAL ULTRASOUND, RIGHT UPPER QUADRANT HISTORY: Hepatitis C. Evaluate liver.. COMPARISON: Abdomen and pelvis CTA 01/10/2022 FINDINGS: Pancreas: The pancreatic head and tail are obscured by overlying bowel gas. The remaining portions of the pancreas are within normal limits. Liver: Unremarkable. Gallbladder: No gallbladder wall thickening. No gallstones. CBD: 5 mm. Right kidney: No hydronephrosis. IMPRESSION: No significant abnormality identified within the right upper quadrant. ACT 112: Negative or not required by law. Electronically signed by: Tim So M.D. 01/14/2022 11:28 AM
--- NOTE | 2022-01-14 16:14 | Anesthesiology Consultation ---
Date of Service January 14, 2022 Assessment & Plan (1) Encounter for pre-operative examination: Chart Review Chart Review: Acceptable Risk for Surgery and Patient NOT seen in Pre Admission Testing Consults Requested none History Surgery Operation Date: 01/14/22 07:00 Proposed Procedures p L4-L5 Decompression and Fusion, Spinal Cord Monitoring - Michael Herron DO Operation Date: 01/15/22 07:00 Proposed Procedures p L4-L5 Decompression and Fusion, Spinal Cord Monitoring - Michael Herron DO Height/Weight Height: 6 ft Weight: 91.3 kg Allergies Allergy/AdvReac Type Severity Reaction Status Date / Time paroxetine Allergy Mild UNSURE Verified 01/09/22 22:29 risperidone Allergy Unknown Unknown Verified 01/09/22 22:29 Influenza Virus Vaccines AdvReac Unknown UNKNOWN Verified 01/09/22 22:29 pneumococcal vaccine AdvReac Unknown Unknown Verified 01/09/22 22:29 Medications Home Medications Medication Instructions Recorded Confirmed Last Taken ibuprofen 200 mg tablet 800 mg PO TID PRN 01/09/22 01/09/22 Unknown Active Medications Generic Name Dose Route Start Last Admin Trade Name Freq PRN Reason Stop Dose Admin Acetaminophen 1,000 mg 01/11/22 07:00 01/14/22 06:11 Acetaminophen 500 Mg Tab PO 02/10/22 06:59 1,000 mg Q8H SHANA Administration Amlodipine Besylate 10 mg 01/12/22 09:00 01/14/22 09:08 Amlodipine Besylate 5 Mg Tab PO 02/11/22 08:59 10 mg QAM SHANA Administration Heparin Sodium (Porcine) 5,000 units 01/11/22 21:00 01/14/22 09:08 Heparin Sod 5,000 Unit/0.5 Ml Vial SQ 02/10/22 20:59 5,000 units Q12 SHANA Administration Metoprolol Tartrate 5 mg 01/11/22 15:20 01/12/22 16:37 Metoprolol Tartrate 1 Mg/Ml Vial IV 02/10/22 15:59 5 mg Q4 PRN Administration SBP >180, DBP > 110 Protocol Morphine Sulfate 4 mg 01/12/22 09:54 01/14/22 01:55 Morphine Sulfate 4 Mg/Ml 1 Ml Carp\Vial IV 01/25/22 13:29 4 mg Q3H PRN Administration severe pain Ondansetron HCl 4 mg 01/10/22 03:52 01/11/22 15:43 Ondansetron Inj 2 Mg/Ml 2 Ml Vial IV 02/09/22 03:51 4 mg Q6H PRN Administration Nausea Polyethylene Glycol 17 gm 01/12/22 10:00 01/14/22 09:08 Polyethylene (Miralax) 17 Gm Pack PO 02/11/22 09:59 17 gm DAILY SHANA Administration Tramadol HCl 100 mg 01/12/22 12:00 01/14/22 12:25 Tramadol Hcl 50 Mg Tablet PO 02/11/22 09:59 100 mg Q4H SHANA Administration NPO Date Last Intake of Fluids: 01/13/22 Time Last Intake of Fluids: 23:50 Date Last Intake of Solids: 01/13/22 Time Last Intake of Solids: 22:00 Past Medical History Medical History Anxiety with depression Cervical stenosis of spinal canal (05/18/14) CHI (closed head injury) Degenerative joint disease (DJD) of lumbar spine Emphysema lung Hepatitis C Hypertension Peripheral arterial disease Smoker Social History Smoking Status: Current every day smoker tobacco type: cigarettes Smoking cigarettes per day: 1/2 pack per day Do You Dip or Chew Tobacco: No Hx Alcohol Use: Yes Alcohol type: hard liquor alcohol intake frequency: a few times a week Hx Substance Use: Yes substance use type: former substance user and marijuana Last Used Substance: Hours (ago) Physical Exam Vital Signs Last Vital Signs Temp 36.9 C 01/14/22 15:09 Pulse 91 H 01/14/22 15:19 Resp 18 01/14/22 15:09 BP 110/75 01/14/22 15:09 Pulse Ox 96 01/14/22 15:09 Testing Laboratory Results 01/12/22 06:53 01/12/22 06:53 PT 10.9 Seconds (9.0-12.0) 01/09/22 22:58 INR 1.0 (0.9-1.1) 01/09/22 22:58 APTT 28.7 Seconds (21.0-31.0) 01/09/22 22:58 Urine Color Yellow 01/10/22 01:10 Urine Appearance Clear (Clear) 01/10/22 01:10 Urine pH 7.5 (4.5-7.5) 01/10/22 01:10 Ur Specific [place] 1.042 (1.000-1.030) H 01/10/22 01:10 Urine Protein Negative (Negative) 01/10/22 01:10 Urine Glucose (UA) Negative (Negative) 01/10/22 01:10 Urine Ketones Negative (Negative) 01/10/22 01:10 Urine Nitrite Positive (Negative) A 01/10/22 01:10 Ur Leukocyte Esterase 1+ (Negative) H 01/10/22 01:10 Urine WBC (Auto) 10-30 /hpf (0-5) H 01/10/22 01:10 Urine RBC (Auto) 0-4 /hpf (0-4) 01/10/22 01:10 U Hyaline Cast (Auto) 1-5 /lpf (0-5) 01/10/22 01:10 U Epithel Cells (Auto) 5-10 /lpf (0-5) H 01/10/22 01:10 Urine Bacteria (Auto) 1+ (Negative) H 01/10/22 01:10 Blood Type A Positive 01/13/22 16:12 Antibody Screen NEGATIVE 01/13/22 16:12 01/10/22 01:10 Urine Culture - Final Urine,Clean Catch Gardnerella-like bacilli Electrocardiogram Date: 01/09/22 Test Reason : Blood Pressure : / mmHG Vent. Rate : 073 BPM Atrial Rate : 073 BPM P-R Int : 116 ms QRS Dur : 086 ms QT Int : 380 ms P-R-T Axes : 000 178 090 degrees QTc Int : 418 ms Normal sinus rhythm Limb lead reversal Abnormal ECG When compared with ECG of 19-APR-2017 10:27, Limb lead reversal is now present Confirmed by Thomas Marlow ([id number]) on 01/11/2022 6:10:04 AM Referred By: REFERRED SELF Confirmed By:Thomas Marlow Chest X-Ray Date: 01/09/22 XR chest 1V portable HISTORY: weakness COMPARISON: Chest 04/19/2017. FINDINGS: The lungs are hyperexpanded with apical predominant emphysematous duarte ges. Increased markings at the lung bases persists and favors vascular crowding from the emphysema. Otherwise, no new focal lung consolidations to suggest pneumonia. No evidence for pulmonary edema. Cervical spinal fusion hardware is again noted. The cardiac silhouette is top normal in size. There are old, healed bilateral rib fractures. IMPRESSION: No significant change compared to the prior study. No acute process. Emphysema again noted. ACT 112: Negative or not required by law. Cervical Spine Date: 01/10/22 MRI OF THE CERVICAL SPINE WITHOUT IV CONTRAST CLINICAL HISTORY: Neck pain. COMPARISON STUDY: MRI of the cervical spine dated 05/25/2014. CT of the cervical spine dated 01/09/2022. TECHNIQUE: MRI of the cervical spine is performed utilizing various T1 and T2- weighted sequences in the axial and sagittal planes. IV contrast was not administered for this examination. The examination is compromised by motion artifact and susceptibility artifact from extensive metallic spinal hardware. Cervical spine: Vertebral body height appears maintained throughout the cervical spine. There is straightening of the cervical lordosis. There is minimal anterolisthesis at C7-T1. Alignment is otherwise preserved. There has been corpectomy at C5 with anterior spinal fusion seen at C4-C7. Susceptibility artifact from metallic hardware degrades evaluation of these levels. The atlantodental articulation appears maintained noting productive degenerative change. The spinous processes are intact. No destructive bony lesion is seen. Intervertebral discs: The C4-C5 through C6-C7 discs are not evaluated. Disc desiccation is seen at the remaining cervical levels. There is severe loss of height at C3-C4 and C7-T1. Moderate loss of height is noted at T1-T2. Spinal cord: The cervical spinal cord is normal in morphology. There is a small focus of myelomalacia within the cervical cord at C6. This was also seen in 2013. The remainder of the cervical cord is normal in signal intensity. C2-C3: The central canal is clear. Uncovertebral facet arthropathy contribute to at least mild bilateral neural foraminal stenosis. C3-C4: A posterior disc osteophyte complex effaces the ventral cord. Uncovertebral and facet arthropathy contribute to severe bilateral neural foraminal narrowing. This may impinge on the exiting bilateral C4 nerve roots. C4-C5: The central canal is grossly clear. Uncovertebral and facet arthropathy contribute to at least mild bilateral neural foraminal stenosis. This is not well assessed. C5-C6: The central canal is grossly clear. Uncovertebral and facet arthropathy contribute to at least mild bilateral neural foraminal stenosis. This is not well assessed. C6-C7: The central canal appears clear. Uncovertebral and facet arthropathy contribute to at least moderate bilateral neural foraminal stenosis. This is not well assessed. C7-T1: The central canal appears clear. The neural foramina are not well assessed. Soft tissues: The prevertebral soft tissues are not well-visualized due to metallic susceptibility artifact. The paraspinous soft tissues are normal as imaged. Brain parenchyma: The visualized brain parenchyma at the skull base is normal as imaged. IMPRESSION: 1. The examination is severely degraded by motion artifact and by metallic susceptibility artifact from extensive spinal hardware. 2. A small focus of myelomalacia of the cervical cord at C6 is unchanged from 2014. 3. Spondylotic change as above. See discussion for detailed [id number] analysis. Note that several levels are not well-visualized. 4. No destructive bony process is identified. Dictated: 01/10/2022 2:04 PM Transcribed: 01/10/2022 2:45 PM Brittney [id number] [email or web address] Electronically signed by: Ankit Juarez M.D. 01/10/2022 3:28 PM Other Testing Brain MRI WITHOUT CONTRAST HISTORY: Right lower extremity weakness. TECHNIQUE: Multiplanar multisequence MRI of the brain was performed without the use of contrast. COMPARISON STUDY: Head CT 01/09/2022. FINDINGS: There is no mass, hematoma, midline shift, or acute infarct. The paranasal sinuses are clear. The mastoid air cells are clear. The ventricles and sulci demonstrate mild age-related involutional changes. Scattered foci of T2 hyperintensity seen within the periventricular and subcortical white matter are nonspecific but suggestive of mild microvascular ischemic changes. The major vascular flow voids at the skull base are well-maintained. IMPRESSION: No acute intracranial abnormality. Scattered foci of T2 hyperintensity seen within the periventricular and subcortical white matter are nonspecific but favor microvascular ischemic change. A demyelinating disease, Lyme disease, or migraines can also have a similar appearance in the appropriate clinical setting. ACT 112: Negative or not required by law. Electronically signed by: Tim So M.D. 01/10/2022 7:44 AM Dictated:01/10/22 0741
[2022-01-15] MEDS: traMADol HCL 50 MG TABLET PO SCH ×5 (00:06→17:16)
[2022-01-15] MEDS: MoRPHine SULFATE 4 MG/ML 1 ML CARP\\VIAL IV PRN ×2 (02:01→13:07)
[2022-01-15] MEDS: ACETAMINOPHEN 500 MG TAB PO SCH ×3 (06:32→22:32)
[2022-01-15 08:04] LABS: Basophils # (auto) 0.06 K/uL (0-0.2); Eosinophils # (auto) 0.26 K/uL (0-0.5); Eosinophils % (auto) 4.4 %; Hematocrit (blood only) 44.9 % (42-52); Hemoglobin 15.9 g/dL (14.0-18.0); Immature Granulocytes # (auto) 0.01 K/uL (0.00-0.02); Immature Granulocytes % (auto) 0.2 %; Lymphocytes # (auto) 1.68 K/uL (1.2-3.4); Lymphocytes % (auto) 28.7 %; Mean Corpuscular Hemoglobin 33.2 pg (25-34); Mean Corpuscular Hgb Conc 35.4 g/dL (32-36); Mean Corpuscular Volume 93.7 fL (80-100); Mean Platelet Volume 9.9 fL (7.4-10.4); Monocytes # (auto) 0.64 K/uL (0.11-0.59); Monocytes % (auto) 10.9 %; Neutrophils % (auto) 54.8 %; Platelet Count 317 K/uL (130-400); RDW Coefficient of Variation 13.3 % (11.5-14.5); RDW Standard Deviation 46.2 fL (36.4-46.3); Red Blood Count 4.79 M/uL (4.7-6.1); White Blood Count 5.85 K/uL (4.8-10.8)
--- NOTE | 2022-01-15 08:05 | Hospitalist Progress Note ---
Date of Service January 15, 2022 Assessment & Plan (1) Neurogenic claudication due to lumbar spinal stenosis: Plan: 56yo male with HTN, HLD, history of hepatitis C, and chronic back pain (s/p previous lumbar spine surgery) presents with neurogenic claudication secondary to lumbar spinal stenosis. Neurogenic claudication Presented with <RLE strength and numbness as compared to baseline MRI L-spine revealed L4-5 severe facet arthrosis, disc bulge, and mild/moderate central canal stenosis / moderate bilateral foraminal narrowing Scheduled for lumbar decompression and fusion surgery on 01/15/[address] Herron Pain control: APAP scheduled q8h, tramadol 100mg scheduled, morphine 4mg q3h prn severe pain PAD Bilateral LE arterial duplex showing right sided proximal stenosis CTA aortogram with bilateral runoff revealed R-sided aortoiliac occlusive disease Vascular surgery to follow up outpatient given lack of acute RLE ischemia Smoking cessation counseling, continue on discharge by PCP HTN With elevated BP since admission; not on chronic regimen at home Will need NOLAN/ARB therapy prior to discharge both for BP control and for PAD (holding initiation until patient is post-op) Lopressor as needed for BP >180/110 Hepatitis C, transaminitis RUQ ultrasound without significant abnormality Hep C Ab, HCV RNA tests pending Will have to arrange outpatient follow-up pending serology results Chronic conditions Emphysema: PFTs, initiation of inhalers if necessary Nicotine dependence: smoking cessation counseling, AAA screen, annual low dose Chest CT for lung cancer screening Hepatitis C: serology ordered, recommend outpatient follow up/monitoring/treat ment Anxiety/depression: outpatient medication initiation FEN: NPO pending operation (01/15), regular diet afterward Code status: full code DVT ppx: heparin 5000u sq bid Consults: orthopedic surgery PT/OT: ordered Case management: following Dispo: med/surg for lumbar decompression/fusion (2) Peripheral arterial disease: (3) Anxiety with depression: (4) Hypertension: (5) Emphysema lung: Admission and Anticipated Discharge Date Admission Date: January 10, 2022 Supervising Physician Co-Signing Physician Notes Patient seen and examined independently of PGY-2 Dr. Goins. Agree with history, exam findings, assessment and plan of care as outlined. In brief, Mr. Callaway is a 56 year old male admitted worsening neurogenic claudication due to lumbar spinal stenosis, right leg symptoms worse than left. Today, does have some lower back pain. No bowel or bladder dysfunction. Using a cane to ambulate. Vital signs and nursing notes reviewed. Well appearing. Heart with regular rate and rhythm. Lungs are clear to auscultation bilaterally. No mid-line lumbar spine tenderness. Significant muscle spasm of the right lumbar paraspinals, tenderness over the left lumbar paraspinal musculature. 5- hip flexion, 5- ankle dorsiflexion and great toe extension on the right; decreased sensation to light touch over the L4, L5 and S1 on the right compared to the left. +2 Patellar DTRs bilaterally. 1. Neurogenic claudication 2/2 spinal stenosis. Plans for decompression and fusion with Dr. Herron this afternoon. 2. PAD. Right Aortoiliac occlusive disease. Plan to start ASA and statin post-operatively. Can follow up with vascular surgery as an outpatient. 3. HTN. Continue amlodipine 10mg, with continued elevated blood pressure, would consider adding ARB. 4. Hepatitis C. Hx of positive hepatitis C screening. RUQ US normal appearingno mass. Positive hepatitis C viral load; genotype pending; can have fibrosure done as an outpatient. If positive viral load, can follow up with PCP or GI for treatment of active hepatitis C. Dispo: pending surgical intervention. Subjective Patient seen and evaluated at bedside this morning. No acute events overnight. This morning, patient feels well overall, noting his back pain is relatively unchanged from yesterday. No new symptoms or concerns at this time. Denies CP, SOB, abdominal pain, nausea, vomiting, and diarrhea. No change in bowel/bladder habits. Physical Exam Physical Exam: Constitutional: well-appearing, no acute distress CV: regular rhythm, no murmur appreciated, extremities well-perfused, no LE edema Resp: CTABL, no wheezes/rales/rhonchi appreciated, no increased work of breathing MSK: lumbar paraspinal musculature tenderness appreciated L>R, LE strength 5/5 bilaterally, sensation decreased over right anterior thigh Neuro: alert, oriented, no focal neurologic deficit appreciated, patellar tendon reflex 2+ bilaterally Results & Data Results & Data ([facility]) Vital Signs (Past 12 Hours) Vital Signs Temp Pulse Pulse Resp BP Pulse Ox 01/15/22 07:24 36.6 C 77 18 157/98 H 97 01/15/22 03:04 36.5 C 92 H 18 145/87 H 96 04/18/22 23:04 36.5 C 90 18 136/92 94 01/14/22 22:37 97 H Resident Activity Tracking Resident Involvement: Resident Care Provided Care Provided: Adult [facility]
[2022-01-15] MEDS: HEPARIN SOD 5,000 UNIT/0.5 ML VIAL SQ SCH ×2 (08:16→20:42)
[2022-01-15] MEDS: amLODIPine BESYLATE 5 MG TAB PO SCH (08:16)
[2022-01-15] MEDS: POLYETHYLENE (MIRALAX) 17 GM PACK PO SCH (08:17)
[2022-01-15 08:32] LABS: BUN Creatinine Ratio 19.1 (10-20); Calcium 9.7 mg/dl (8.5-10.1); Creatinine Clr Calc Pharmacy 79.7 ml/min; Est GFR (African American) 82.6 ml/min; Est GFR (Non-African American) 71.2 ml/min; Potassium 4.3 mmol/L (3.5-5.1)
[2022-01-15] MEDS ORDERED: LACTATED RINGER'S 1,000 ML IV SCH (10:00)
[2022-01-15] MEDS: LACTATED RINGER'S 1,000 ML IV SCH ×3 (10:35→23:34)
[2022-01-15 13:49] LABS: Hepatitis C Vira RNA (Log) PCR 5.76 Log IU/mL (NOT DETECTED); Hepatitis C Viral RNA by PCR 573000 IU/mL (NOT DETECTED)
[2022-01-15] MEDS ORDERED: MIDAZOLAM HCL 1 MG/ML 2ML VIAL ONE (14:25)
[2022-01-15] MEDS ORDERED: fentaNYL citrate 100 MCG/2 ML VIAL ONE (14:25)
--- NOTE | 2022-01-15 15:02 | History & Physical Bridge Note ---
Date of Service January 15, 2022 History & Physical Bridge Note I have examined the patient, reviewed the History & Physical and in the interval since the performance of the History & Physical I have noted the following changes of clinical significance: no changes noted Decompression fusion L4-L5
[2022-01-15] MEDS ORDERED: BUPIVACAINE 0.5 % 5 MG/1 ML MPF 30ML VIAL ONE (15:10)
[2022-01-15] MEDS ORDERED: ceFAZolin 330 MG/ML 1 GM VIAL ONE (15:10)
[2022-01-15] MEDS ORDERED: EPINEPHrine INJ 1 MG/ML AMP ONE (15:10)
[2022-01-15] MEDS ORDERED: ceFAZolin 2,000 MG/15 ML IV PUSH IV ONE (15:11)
[2022-01-15] MEDS ORDERED: ceFAZolin 2000MG 2,000 MG/15 ML SYR IV ONE (15:16)
[2022-01-15] MEDS ORDERED: fentaNYL citrate 100 MCG/2 ML VIAL IV PRN (15:53)
[2022-01-15] MEDS ORDERED: ONDANSETRON INJ 2 MG/ML 2 ML VIAL IV PRN ×2 (15:53→18:30)
[2022-01-15] MEDS ORDERED: ATROPINE SULFATE 0.1 MG/ML 10ML SYR IV PRN (15:53)
[2022-01-15] MEDS ORDERED: ePHEDrine sulfate 50 MG/ML AMP IV PRN (15:53)
[2022-01-15] MEDS ORDERED: ALBUMIN HUMAN 5% 12.5 GM/250 ML VIAL IV ONE (16:24)
[2022-01-15] MEDS ORDERED: FLOSEAL HEMOSTATIC MATRIX 10ML TOP ONE (17:29)
--- NOTE | 2022-01-15 17:36 | Fluoroscopy Report ---
FL lumbar spine 2-3V CLINICAL HISTORY: L4-L5 DECOMPRESSION/FUSION COMPARISON STUDY: Lumbar spine radiographs January 10, 2022. FLUOROSCOPY TIME: 19 seconds. FLUOROSCOPIC IMAGES: 2 FINDINGS: Fluoroscopy was provided during L4-L5 discectomy, posterior decompression and bilateral ped icle screw fusion. Hardware is intact. IMPRESSION: Fluoroscopy provided during L4-L5 discectomy, posterior decompression and bilateral pedi desiree screw fusion. ACT 112: Negative or not required by law. Electronically signed by: Keith Guzman M.D. 01/15/2022 5:34 PM
--- NOTE | 2022-01-15 17:37 | Operative Report ---
Post Operative Report Pre & Post Diagnosis Operation Date: 01/14/22 07:00 <No data on this case meets the specified criteria> Operation Date: 01/15/22 07:00 Pre-Op Diagnosis: Neurogenic Claudication due to Lumbar Spinal Stenosis L4-L5 Post-Op Diagnosis: Neurogenic Claudication due to Lumbar Spinal Stenosis L4-L5 I identified the patient and participated in the time-out.: Yes Procedure Operation Date: 01/14/22 07:00 <No data on this case meets the specified criteria> Operation Date: 01/15/22 07:00 Actual Procedures #1 revision decompression with bilateral medial facetectomies and foraminotomies L3-L4 L4-L5. #2 posterior spinal fusion L4-5. #3 placement of posterior instrumentation L4-5 per #4 interbody fusion L4-5. #5 placement of Spira 13 x 26 mm cage at L4-L5. #6 placement of locally harvested morselized autograft in the posterior gutters. #7 placement infuse collagen sponge, master graft in the posterior lateral gutters and I factor interbody space. Surgeon Michael Herron, [employer] None Estimated Blood Loss 100 Findings Consistent with Post-Op Diagnosis Specimens None Indications This is a 56-year-old male presents with above-mentioned diagnosis after failing course of nonoperative care and demonstrating progressive neuro deficit he is here for urgent decompression fusion. Description of Procedure Patient was met with identified informed consent obtained. Patient was then taken to the operative suite underwent a patient placed in a prone position on the Jered table on top of the Keenan frame. All bony prominences well-padded eyes inspected to ensure no external pressure placed upon the. This point the lumbar spine was prepped and draped in normal sterile fashion. Sharp dissection with the assistance of Bovie cautery performed down to and exposing the remaining lamina and transverse processes of L4-L5 bilaterally. Obvious facet hypertrophy and facet cysts noted bilaterally. Revision complete laminectomy of L4 partial laminectomy of L3 was performed including bilateral medial fac etectomies and foraminotomies addressing severe spinal stenosis. Pedicle screws were then placed in L4 on L5 bilaterally with assistance of fluoroscopy and the proper sized freddie placed. By way of a transverse foraminal approach on the right a complete discectomy of L4-L5 was performed endplates curetted to subcortical bleeding bone and a 13 x 26 mm Spira cage filled I factor tapped in position. The rods were then compressed locked in final position bilaterally. The transverse processes of L4 and L5 burred to subcortical bleeding bone. Infuse collagen sponge master graft and local autograft was placed in the posterior gutters. 15 round MORRO drain inserted. The incision was then closed with 1 Vicryl the fascia 2-0 Vicryl subcutaneously and 4 Monocryl for final skin closure. Steri-Strips dressings placed. Patient waken taken to PACU stable condition. Please note spinal cord monitoring was utilized at the procedure no changes noted. I attest to the content of the Intraoperative Record and any orders documented therein. Any exceptions are noted below.
[2022-01-15] MEDS ORDERED: LIDOCAINE 2% 2 ML VIAL/AMP(20MG/ML) INFIL ONE (18:03)
[2022-01-15] MEDS ORDERED: ONDANSETRON INJ 2 MG/ML 2 ML VIAL ONE (18:03)
[2022-01-15] MEDS ORDERED: NEOSTIGMINE METHYLSULFATE 1 MG/ML 10ML VIAL ONE (18:03)
[2022-01-15] MEDS ORDERED: PHENYLEPHRINE HCL 10 MG/ML VIAL ONE (18:03)
[2022-01-15] MEDS ORDERED: DEXAMETHASONE SOD INJ 4 MG/ML VIAL ONE (18:03)
[2022-01-15] MEDS ORDERED: ePHEDrine sulfate 50 MG/ML AMP ONE (18:03)
[2022-01-15] MEDS ORDERED: PROPOFOL IV EMULSION 10 MG/ML 20 ML VIAL IV ONE (18:03)
[2022-01-15] MEDS ORDERED: GLYCOPYRROLATE 0.2 MG/ML VIAL ONE (18:03)
--- NOTE | 2022-01-15 18:18 | Anesthesiology Progress Note ---
Date of Service January 15, 2022 Anesthesia Post Procedure Vital Signs Vital Signs: Temp Pulse Pulse Pulse Resp BP BP 01/15/22 18:10 36.4 C L 91 H 14 156/89 H 01/15/22 18:00 91 H 14 154/94 H 01/15/22 17:50 36.3 C L 93 H 14 158/95 H 01/15/22 14:41 36.6 C 86 18 165/96 H 01/15/22 11:04 36.6 C 86 18 158/96 H 01/15/22 07:24 36.6 C 77 18 157/98 H 01/15/22 03:04 36.5 C 92 H 18 145/87 H 01/14/22 23:04 36.5 C 90 18 136/92 01/14/22 22:37 97 H 01/14/22 18:35 36.7 C 93 H 18 148/96 H Pulse Ox 01/15/22 18:10 98 01/15/22 18:00 98 01/15/22 17:50 100 01/15/22 14:41 97 01/15/22 11:04 97 01/15/22 07:24 97 01/15/22 03:04 96 01/14/22 23:04 94 01/14/22 22:37 01/14/22 18:35 97 Pain Intensity Bilateral Lumbar: Pain Intensity: 9 Transfer of Care Handoff Completed per policy Notes Mental Status: alert / awake / arousable and participated in evaluation Patient Amnestic to Procedure: Yes Nausea / Vomiting: adequately controlled Pain: adequately controlled Airway Patency, RR, SpO2: stable & adequate BP & HR: stable & adequate Hydration State: stable & adequate Anesthetic Complications: no major complications apparent and Pt Satisfied with anesthetic care
[2022-01-15] MEDS ORDERED: SOD PHOSPHATE/SOD BIPHOSPHATE ENEMA 132 ML BTL PR PRN (18:30)
[2022-01-15] MEDS ORDERED: DO NOT ADMINISTER PNEUMOCOCCAL VACCINE PRN (18:30)
[2022-01-15] MEDS ORDERED: LORazepam 2 MG/1 ML VIAL IV PRN (18:30)
[2022-01-15] MEDS ORDERED: ACETAMINOPHEN 500 MG TAB PO PRN (18:30)
[2022-01-15] MEDS ORDERED: ALUMINUM/MAGNESIUM SUSP 30 ML UDC PO PRN (18:30)
[2022-01-15] MEDS ORDERED: diphenhydrAMINE Capsule 25 MG CAP PO PRN (18:30)
[2022-01-15] MEDS ORDERED: ACETAMINOPHEN 1,000 MG/100 ML VIAL IV PRN (18:30)
[2022-01-15] MEDS ORDERED: bisacodyL 10 MG SUPP PR PRN (18:30)
[2022-01-15] MEDS ORDERED: NALOXONE HCL 0.4 MG/1 ML VIAL/CARP IV PRN (18:30)
[2022-01-15] MEDS ORDERED: HYDROmorphone INJ 0.5 MG/0.5 ML SYR IV PRN (18:30)
[2022-01-15] MEDS ORDERED: hydrOXYzine HCl 25 MG TAB PO PRN (18:30)
[2022-01-15] MEDS ORDERED: PROMETHAZINE HCL 12.5 MG in SODIUM CHLORIDE 0.9% 50 ML IV PRN (18:30)
[2022-01-15] MEDS ORDERED: LORazepam 0.5 MG TAB PO PRN (18:30)
[2022-01-15] MEDS ORDERED: FAMOTIDINE 20 MG TAB PO PRN (18:30)
[2022-01-15] MEDS ORDERED: MAGNESIUM HYDROXIDE SUSP 30 ML UDC PO PRN (18:30)
[2022-01-15] MEDS ORDERED: DO NOT ADMINISTER FLU VACCINE PRN (18:30)
[2022-01-15] MEDS ORDERED: ONDANSETRON 4 MG OD TAB PO PRN (18:30)
[2022-01-15] MEDS ORDERED: METOCLOPRAMIDE HCL INJ 5 MG/ML 2 ML VIAL IV PRN (18:30)
[2022-01-15] MEDS: HYDROmorphone INJ 1 MG/ML SYRINGE IV PRN ×2 (19:33→22:32)
[2022-01-15] MEDS: oxyCODONE HCL IR 5 MG TAB (IMMEDIATE RELEASE) PO PRN (20:41)
[2022-01-15] MEDS: DOCUSATE SODIUM/SENNA 50/8.6MG TAB PO SCH (20:47)
[2022-01-15] MEDS: traMADol HCL 50 MG TABLET PO PRN (23:26)
--- NOTE | 2022-01-15 23:29 | Communication Note ---
Date of Service: January 15, 2022 Messaged about elevated HRs 120s-140s x 1 hour and elevated bp 179/110. Ordered ekg showing sinus tach 110s. BP 158/91 while laying down. HR 111. No prn antihypertensive or rate control at this time. Ordered 1 gram of IV Mg
[2022-01-15] MEDS: ceFAZolin 2000MG 2,000 MG/15 ML SYR IV SCH (23:30)
[2022-01-16] MEDS: LACTATED RINGER'S 1,000 ML IV SCH (00:59)
[2022-01-16] MEDS ORDERED: MAGNESIUM SULFATE / D5W 1 GM/100 ML BAG IV ONE (01:00)
[2022-01-16] MEDS: oxyCODONE HCL IR 5 MG TAB (IMMEDIATE RELEASE) PO PRN ×4 (01:22→19:39)
[2022-01-16] MEDS: HYDROmorphone INJ 1 MG/ML SYRINGE IV PRN ×5 (02:10→23:13)
[2022-01-16] MEDS: traMADol HCL 50 MG TABLET PO PRN ×3 (03:22→17:06)
[2022-01-16] MEDS: POLYETHYLENE (MIRALAX) 17 GM PACK PO SCH ×3 (06:18→17:05)
[2022-01-16] MEDS: ACETAMINOPHEN 500 MG TAB PO SCH ×3 (06:19→22:06)
--- NOTE | 2022-01-16 07:37 | Hospitalist Progress Note ---
Date of Service January 16, 2022 Assessment & Plan (1) Neurogenic claudication due to lumbar spinal stenosis: Plan: 56yo male with HTN, HLD, history of hepatitis C, and chronic back pain (s/p previous lumbar spine surgery) presents with neurogenic claudication secondary to lumbar spinal stenosis. Neurogenic claudication Presented with <RLE strength and numbness as compared to baseline MRI L-spine revealed L4-5 severe facet arthrosis, disc bulge, and mild/moderate central canal stenosis / moderate bilateral foraminal narrowing 01/15: underwent lumbar decompression and fusion surgery with Dr. Herron Pain control: APAP scheduled q8h, tramadol 100mg scheduled, morphine 4mg q3h prn severe pain Tachycardia Patient with tachycardia to the 120s on post-op day 1, suspect secondary to postsurgical pain EKG showing some inferolateral T-wave inversion; however, patient is without chest pain, and troponin (high sensitivity x2) were negative Continue lopressor IV 5mg prn HR>110 (also for SBP>180 and DBP>110) EKG in AM PAD Bilateral LE arterial duplex showing right sided proximal stenosis CTA aortogram with bilateral runoff revealed R-sided aortoiliac occlusive disease Vascular surgery to follow up outpatient given lack of acute RLE ischemia Smoking cessation counseling, continue on discharge by PCP HTN With elevated BP since admission; not on chronic regimen at home Continue amlodipine 10mg qd Will need NOLAN/ARB therapy prior to discharge both for BP control and for PAD (holding initiation until patient is post-op) 01/16: continuing to hold off on NOLAN/ARB initiation given patient's slightly elevated potassium Lopressor as needed for BP >180/110 Hepatitis C, transaminitis RUQ ultrasound without significant abnormality Hep C Ab, HCV RNA tests pending Will have to arrange outpatient follow-up pending serology results Chronic conditions Emphysema: PFTs, initiation of inhalers if necessary Nicotine dependence: smoking cessation counseling, AAA screen, annual low dose Chest CT for lung cancer screening Hepatitis C: serology ordered, recommend outpatient follow up/monitoring/treatment Anxiety/depression: outpatient medication initiation FEN: regular diet afterward Code status: full code DVT ppx: heparin 5000u sq bid Consults: orthopedic surgery PT/OT: ordered Case management: following Dispo: med/surg for lumbar decompression/fusion (2) Peripheral arterial disease: (3) Anxiety with depression: (4) Hypertension: (5) Emphysema lung: Admission and Anticipated Discharge Date Admission Date: January 10, 2022 Supervising Physician Co-Signing Physician Notes Patient seen and examined independently of PGY-2 Dr. Goins. Agree with histo ry, exam findings, assessment and plan of care as outlined. In brief, Mr. Callaway is a 56 year old male admitted worsening neurogenic claudication due to lumbar spinal stenosis, right leg symptoms worse than left. Today, does have some lower back pain. No bowel or bladder dysfunction. Using a cane to ambulate. Did have tachycardia and elevated BPs overnight. No chest pain or shortness of breath. Vital signs and nursing notes reviewed. Well appearing. Heart with regular rate and rhythm. Lungs are clear to auscultation bilaterally. 1. Neurogenic claudication 2/2 spinal stenosis. s/p decompression/fusion on 01/15. 2. PAD. Right Aortoiliac occlusive disease. Plan to start ASA and statin post-operatively. Can follow up with vascular surgery as an outpatient. 3. HTN. Continue amlodipine 10mg, Repeat BMP pending, if K is normalized will start 20mg Olmesartan given his continued elevated blood pressures (suspect this may be related to post-operative steroids). 4. Tachycardia. EKG with biphasic t waves in lateral leads, but not V1 V3. Troponin negative. No chest pain. Although he is post-op, no other signs or symptoms of PE. Hold off on CTA for now. 5. Hepatitis C. Hx of positive hepatitis C screening. RUQ US normal appearingno mass. Positive hepatitis C viral load; genotype pending; can have fibrosure done as an outpatient. If positive viral load, can follow up with PCP or GI for treatment of active hepatitis C. Dispo: pending clinical improvement. Subjective Patient seen and evaluated at bedside this morning. No acute events overnight. Patient is on post-op day 1 s/p lumbar decompression. Patient notes his pain is decently controlled at this time. Patient is without other concerns or complaints at this time. Denies CP, SOB, abdominal pain, nausea, vomiting, lightheadedness, dizziness, and diarrhea. Physical Exam Physical Exam: Constitutional: well-appearing, no acute distress, laying in bed CV: regular rhythm, no murmur appreciated, extremities well-perfused, no LE edema Resp: CTABL, no wheezes/rales/rhonchi appreciated, no increased work of breathing MSK: surgical site dressing CDI, LE strength 5/5 bilaterally Neuro: alert, oriented, no focal neurologic deficit appreciated Results & Data Results & Data ([facility]) Vital Signs (Past 12 Hours) Vital Signs Temp Pulse Pulse Resp BP BP Pulse Ox 01/16/22 03:05 36.4 C L 110 H 18 159/95 H 96 01/15/22 23:18 36.5 C 115 H 18 174/102 H 95 01/15/22 22:26 112 H 01/15/22 21:46 36.4 C L 122 H 18 179/110 H 97 01/15/22 20:45 36.9 C 94 H 18 152/88 H 94 01/15/22 20:34 109 H 18 138/96 97 01/15/22 20:00 36.5 C 97 H 18 162/85 H 97 Resident Activity Tracking Resident Involvement: Resident Care Provided Care Provided: Adult [facility] Medicine
[2022-01-16 07:49] LABS: Basophils # (auto) 0.01 K/uL (0-0.2); Basophils % (auto) 0.1 %; Hematocrit (blood only) 42.4 % (42-52); Hemoglobin 14.9 g/dL (14.0-18.0); Immature Granulocytes # (auto) 0.04 K/uL (0.00-0.02); Immature Granulocytes % (auto) 0.3 %; Lymphocytes # (auto) 0.53 K/uL (1.2-3.4); Lymphocytes % (auto) 3.9 %; Mean Corpuscular Hgb Conc 35.1 g/dL (32-36); Mean Platelet Volume 9.9 fL (7.4-10.4); Monocytes % (auto) 4.4 %; Neutrophils # (auto) 12.49 K/uL (1.4-6.5); Neutrophils % (auto) 91.3 %; Platelet Count 342 K/uL (130-400); RDW Coefficient of Variation 13.4 % (11.5-14.5); RDW Standard Deviation 46.3 fL (36.4-46.3); Red Blood Count 4.51 M/uL (4.7-6.1); White Blood Count 13.67 K/uL (4.8-10.8)
[2022-01-16] MEDS: dexAMETHasone 6 MG in SYRINGE 0 ML IV SCH (08:34)
[2022-01-16] MEDS: amLODIPine BESYLATE 5 MG TAB PO SCH (08:34)
[2022-01-16] MEDS: HEPARIN SOD 5,000 UNIT/0.5 ML VIAL SQ SCH ×2 (08:36→21:20)
[2022-01-16] MEDS: ceFAZolin 2000MG 2,000 MG/15 ML SYR IV SCH (08:39)
[2022-01-16] MEDS: METOPROLOL TARTRATE 1 MG/ML VIAL IV PRN ×3 (08:41→18:15)
[2022-01-16 08:44] LABS: BUN Creatinine Ratio 20.6 (10-20); Calcium 10.1 mg/dl (8.5-10.1); Creatinine Clr Calc Pharmacy 93.4 ml/min; Est GFR (African American) 90.1 ml/min; Est GFR (Non-African American) 77.7 ml/min; Potassium 5.3 mmol/L (3.5-5.1)
[2022-01-16] MEDS ORDERED: SODIUM CHLORIDE 0.9% 1000ML 1,000 ML IV SCH (09:00)
--- NOTE | 2022-01-16 09:14 | Electrocardiogram Report ---
Test Reason : Blood Pressure : / mmHG Vent. Rate : 116 BPM Atrial Rate : 116 BPM P-R Int : 138 ms QRS Dur : 074 ms QT Int : 302 ms P-R-T Axes : 070 054 119 degrees QTc Int : 419 ms Sinus tachycardia Right atrial enlargement T wave abnormality, consider inferior ischemia T wave abnormality, consider anterolateral ischemia Abnormal ECG Confirmed by Ag Miller ([id number]) on 01/16/2022 9:13:50 AM Referred By: REFERRED SELF Confirmed By:Edward Miller
--- NOTE | 2022-01-16 15:42 | Electrocardiogram Report ---
Test Reason : Blood Pressure : / mmHG Vent. Rate : 094 BPM Atrial Rate : 094 BPM P-R Int : 138 ms QRS Dur : 074 ms QT Int : 324 ms P-R-T Axes : 064 049 175 degrees QTc Int : 405 ms Normal sinus rhythm Possible Left atrial enlargement Nonspecific ST abnormality Abnormal ECG When compared with ECG of 16-JAN-2022 09:45, (unconfirmed) No significant change was found Confirmed by Ag Miller ([id number]) on 01/16/2022 3:42:28 PM Referred By: REFERRED SELF Confirmed By:Edward Miller
[2022-01-16] MEDS: DOCUSATE SODIUM/SENNA 50/8.6MG TAB PO SCH (21:20)
[2022-01-16 22:20] LABS: Calcium 9.6 mg/dl (8.5-10.1); Creatinine Clr Calc Pharmacy 90.1 ml/min; Est GFR (African American) 86.2 ml/min; Est GFR (Non-African American) 74.4 ml/min; Potassium 4.5 mmol/L (3.5-5.1)
[2022-01-17] MEDS: POLYETHYLENE (MIRALAX) 17 GM PACK PO SCH ×3 (00:32→11:36)
[2022-01-17] MEDS: oxyCODONE HCL IR 5 MG TAB (IMMEDIATE RELEASE) PO PRN ×2 (00:32→15:24)
[2022-01-17] MEDS: HYDROmorphone INJ 1 MG/ML SYRINGE IV PRN ×3 (05:14→12:29)
[2022-01-17] MEDS: METOPROLOL TARTRATE 1 MG/ML VIAL IV PRN (06:46)
[2022-01-17 07:48] LABS: Basophils # (auto) 0.01 K/uL (0-0.2); Basophils % (auto) 0.1 %; Eosinophils # (auto) 0.02 K/uL (0-0.5); Eosinophils % (auto) 0.1 %; Hematocrit (blood only) 38.5 % (42-52); Hemoglobin 13.2 g/dL (14.0-18.0); Immature Granulocytes # (auto) 0.03 K/uL (0.00-0.02); Immature Granulocytes % (auto) 0.2 %; Lymphocytes # (auto) 1.34 K/uL (1.2-3.4); Lymphocytes % (auto) 7.2 %; Mean Corpuscular Hemoglobin 33.1 pg (25-34); Mean Corpuscular Hgb Conc 34.3 g/dL (32-36); Mean Corpuscular Volume 96.5 fL (80-100); Mean Platelet Volume 10.5 fL (7.4-10.4); Monocytes # (auto) 2.15 K/uL (0.11-0.59); Monocytes % (auto) 11.5 %; Neutrophils # (auto) 15.17 K/uL (1.4-6.5); Neutrophils % (auto) 80.9 %; Platelet Count 370 K/uL (130-400); RDW Coefficient of Variation 13.7 % (11.5-14.5); RDW Standard Deviation 48.1 fL (36.4-46.3); Red Blood Count 3.99 M/uL (4.7-6.1); White Blood Count 18.72 K/uL (4.8-10.8)
[2022-01-17] MEDS ORDERED: METOPROLOL TARTRATE 1 MG/ML VIAL IV PRN (07:49)
--- NOTE | 2022-01-17 08:07 | Hospitalist Progress Note ---
Date of Service January 17, 2022 Assessment & Plan (1) Neurogenic claudication due to lumbar spinal stenosis: Plan: 56yo male with HTN, HLD, history of hepatitis C, and chronic back pain (s/p previous lumbar spine surgery) presents with neurogenic claudication secondary to lumbar spinal stenosis. Neurogenic claudication Presented with <RLE strength and numbness as compared to baseline MRI L-spine revealed L4-5 severe facet arthrosis, disc bulge, and mild/moderate central canal stenosis / moderate bilateral foraminal narrowing 01/15: underwent lumbar decompression and fusion surgery with Dr. Herron Continue dexamethasone Pain control: APAP scheduled q8h, tramadol 100mg scheduled, morphine 4mg q3h prn severe pain Tachycardia Patient with tachycardia to the 120s on post-op day 1, suspect secondary to postsurgical pain EKG showing some inferolateral T-wave inversion; however, patient is without chest pain, and troponin (high sensitivity x2) were negative Continue lopressor IV 5mg prn HR>110 (also for SBP>180 and DBP>110) EKG in AM PAD Bilateral LE arterial duplex showing right sided proximal stenosis CTA aortogram with bilateral runoff revealed R-sided aortoiliac occlusive disease Vascular surgery to follow up outpatient given lack of acute RLE ischemia Started ASA, rosuvastatin 40mg qd Smoking cessation counseling, continue on discharge by PCP HTN With elevated BP since admission; not on chronic regimen at home Continue amlodipine 10mg qd 01/17: started olmesartan 20mg qd, as patient is post-op, and his mild hyperkalemia has resolved Lopressor as needed for BP >180/110 Hepatitis C, transaminitis RUQ ultrasound without significant abnormality Hep C Ab, HCV RNA tests pending Will have to arrange outpatient follow-up pending serology results Chronic conditions Emphysema: PFTs, initiation of inhalers if necessary Nicotine dependence: smoking cessation counseling, AAA screen, annual low dose Chest CT for lung cancer screening Hepatitis C: serology ordered, recommend outpatient follow up/monito ring/treatment Anxiety/depression: outpatient medication initiation FEN: regular diet afterward Code status: full code DVT ppx: heparin 5000u sq bid Consults: orthopedic surgery PT/OT: ordered Case management: following Dispo: med/surg for lumbar decompression/fusion (2) Peripheral arterial disease: (3) Anxiety with depression: (4) Hypertension: (5) Emphysema lung: Admission and Anticipated Discharge Date Admission Date: January 10, 2022 Results & Data Results & Data ([facility]) Vital Signs (Past 12 Hours) Vital Signs Temp Pulse Pulse Resp BP BP BP 01/17/22 07:24 100 H 01/17/22 06:53 36.7 C 107 H 20 183/100 H 175/101 H 01/17/22 06:46 100 H 183/92 H 01/17/22 03:20 36.6 C 100 H 20 183/92 H 01/17/22 03:00 01/17/22 01:10 101 H 01/16/22 22:18 117 H 01/16/22 22:15 36.7 C 98 H 20 168/88 H Pulse Ox Pulse Ox 01/17/22 07:24 01/17/22 06:53 97 01/17/22 06:46 01/17/22 03:20 97 01/17/22 03:00 97 01/17/22 01:10 01/16/22 22:18 01/16/22 22:15 98
[2022-01-17 08:20] LABS: BUN Creatinine Ratio 18.7 (10-20); Calcium 9.5 mg/dl (8.5-10.1); Creatinine Clr Calc Pharmacy 111.4 ml/min; Est GFR (African American) 109.6 ml/min; Est GFR (Non-African American) 94.5 ml/min; Potassium 4.3 mmol/L (3.5-5.1)
[2022-01-17] MEDS: ACETAMINOPHEN 500 MG TAB PO SCH ×2 (08:27→15:22)
[2022-01-17] MEDS: amLODIPine BESYLATE 5 MG TAB PO SCH (08:27)
[2022-01-17] MEDS: dexAMETHasone 6 MG in SYRINGE 0 ML IV SCH (08:28)
[2022-01-17] MEDS: HEPARIN SOD 5,000 UNIT/0.5 ML VIAL SQ SCH (08:28)
--- NOTE | 2022-01-17 08:49 | Orthopedic Progress Note ---
Date of Service January 17, 2022 Assessment & Plan (1) Neurogenic claudication due to lumbar spinal stenosis: Plan: At this time patient will continue physical therapy. From a orthopedic standpoint I am comfortable with him being discharged home today. I did have him go home with his drain. We will follow-up tomorrow in our office for dressing change and removal. Admission and Anticipated Discharge Date Admission Date: January 10, 2022 Subjective Patient's back pain is controlled leg pain markedly improved Physical Exam Physical Exam: On exam he sitting up at bedside. Is good strength testing. Appears comfortable. Results & Data ([facility]) Vital Signs (Past 12 Hours) Vital Signs Temp Pulse Pulse Pulse Resp BP BP 01/17/22 08:38 99 H 177/98 H 01/17/22 08:36 99 H 01/17/22 07:24 100 H 01/17/22 06:53 36.7 C 107 H 20 183/100 H 01/17/22 06:46 100 H 183/92 H 01/17/22 03:20 36.6 C 100 H 20 183/92 H 01/17/22 03:00 01/17/22 01:10 101 H 01/16/22 22:18 117 H 01/16/22 22:15 36.7 C 98 H 20 168/88 H BP Pulse Ox Pulse Ox 01/17/22 08:38 01/17/22 08:36 177/98 H 01/17/22 07:24 01/17/22 06:53 175/101 H 97 01/17/22 06:46 01/17/22 03:20 97 01/17/22 03:00 97 01/17/22 01:10 01/16/22 22:18 01/16/22 22:15 98
[2022-01-17] MEDS ORDERED: OLMESARTAN MEDOXOMIL 20 MG TAB PO SCH (09:00)
[2022-01-17] MEDS ORDERED: ROSUVASTATIN CALCIUM 20 MG TAB PO SCH (09:00)
--- NOTE | 2022-01-17 14:40 | Discharge Summary ---
Date of Service January 17, 2022 Admission HPI Per Admitting Provider The patient is a 56-year-old male with a past medical history including anxiety with depression, hypertension, COPD, cervical spine stenosis status post surgery 05/18/2014, low back pain and neck pain. He initially presented with concerns that he had a stroke, due to right lower extremity weakness, however, he later reported that he did have significant issues with low back pain, and describes surgery 10 years or so ago that cleaned out his lumbar spine. He has been having worse lower back pain recently as well, and noted the gradual onset of right lower extremity weakness that began about 5 days ago. He reports having fallen approximately 5 times in the last 5 days, having hit his head at least 1 time, but no discernible injury. He does walk with a cane at home. Admission Exam Per Admitting Provider The patient is awake, alert and oriented 3, well developed and well nourished, normocephalic and atraumatic, lying in bed and in no acute distress. HEENT--PERRL, EOMI, mucous membranes and oropharynx dry. Neck--supple. No JVD. No bruits. Thyroid normal, trachea midline, no adenopathy. Heart--normal S1 and S2. No murmurs, rubs or gallops. Lungs--clear bilaterally, no respiratory distress, no accessory muscle use. Abdomen--normal bowel sounds and soft. Nontender. Nondistended. Extremities--no cyanosis or clubbing. No edema. Dermatologic--normal skin turgor, normal color, no abnormal lymph nodes, no rash. Neurologic--cranial nerves II through XII grossly intact. Rheumatologic--examination with normal strength bilaterally, upper and lower extremities Psychiatric--normal affect. Principal Diagnosis Neurogenic claudication, lumbar spinal stenosis, lumbar decompression and fusion Discharge Exam Constitutional: well-appearing, no acute distress, laying in bed CV: regular rhythm, no murmur appreciated, extremities well-perfused, no LE edema Resp: CTABL, no wheezes/rales/rhonchi appreciated, no increased work of breathing MSK: surgical site gauze soaked in dry blood, overlying dressing CDI, LE strength 5/5 bilaterally Neuro: alert, oriented, no focal neurologic deficit appreciated Discharge Data Allergies Allergy/AdvReac Type Severity Reaction Status Date / Time paroxetine Allergy Mild UNSURE Verified 01/09/22 22:29 risperidone Allergy Unknown Unknown Verified 01/09/22 22:29 Influenza Virus Vaccines AdvReac Unknown UNKNOWN Verified 01/09/22 22:29 pneumococcal vaccine AdvReac Unknown Unknown Verified 01/09/22 22:29 Consultations 01/10/22 00:38 ED Decision to Admit Stat 01/10/22 05:23 Consult Orthopedic Surgery Routine 01/11/22 06:00 Consult Vascular Surgery Routine 01/11/22 16:42 Consult [facility] hewer Routine Procedures Performed Operation Date: 01/14/22 07:00 <No data on this case meets the specified criteria> Operation Date: 01/15/22 07:00 Actual Procedures p L4-L5 Decompression and Fusion, Spinal Cord Monitoring(Not Applicable) - Michael Herron, Ordered Studies 01/09/22 21:35 CT cervical spine wo con Urgent 01/09/22 21:36 CT angio head w con Urgent CT angio neck with con Urgent CT head/brain wo con Urgent 01/10/22 00:38 MR brain wo con Stat 01/10/22 01:00 MR lumbar spine wo con Stat 01/10/22 01:07 US arterial duplex LE BI Urgent 01/10/22 07:48 MR cervical spine wo con Routine 01/10/22 12:56 CT ang AA runof w inc wo ifdon Routine 01/14/22 09:54 US liver Routine 01/15/22 13:00 FL lumbar spine 2-3V Routine Hospital Course (1) Neurogenic claudication due to lumbar spinal stenosis: Neurogenic claudication Presented with <RLE strength and numbness as compared to baseline MRI L-spine revealed L4-5 severe facet arthrosis, disc bulge, and mild/moderate central canal stenosis / moderate bilateral foraminal narrowing 01/15: underwent lumbar decompression and fusion surgery with Dr. Herron Dexamethasone administered while in hospital, discontinued upon discharge Patient discharged with tramadol 50mg q4h prn mild pain and oxycodone 5mg 1-2 tabs q4h prn moderate pain Patient also discharged with bowel regimen due to opioid analgesia requirement HTN With elevated BP since admission; not on chronic regimen at home While in hospital, patient was started on amlodipine 10mg and olemsartan 20mg; both were continued upon discharge PCP follow-up recommended Tachycardia Patient with tachycardia to the 120s on post-op day 1, suspect secondary to postsurgical pain EKG showing some inferolateral T-wave inversion; however, patient is without chest pain, and troponin (high sensitivity x2) were negative Tachycardia over 110 was treated in hospital with metoprolol IV; HR improved to the 90s prior to discharge PAD Bilateral LE arterial duplex showing right sided proximal stenosis CTA aortogram with bilateral runoff revealed R-sided aortoiliac occlusive disease Vascular surgery to follow up outpatient given lack of acute RLE ischemia Started ASA 81mg daily, rosuvastatin 40mg qd Smoking cessation counseling, continue on discharge by PCP Hepatitis C, transaminitis RUQ ultrasound without significant abnormality Hep C Ab, HCV RNA tests pending Will have to arrange outpatient follow-up pending serology results Chronic conditions Emphysema: PFTs, initiation of inhalers if deemed appropriate by PCP Nicotine dependence: smoking cessation counseling, AAA screen, annual low dose Chest CT for lung cancer screening recommended Hepatitis C: serology ordered, recommend outpatient follow up/monitoring/treatment Anxiety/depression: outpatient medication initiation Total Time Total Time Spent Total Time Spent (In Minutes): see attending documentation Discharge Plan Discharge Items Patient Disposition: Home - Self-Care Reason For Visit: RLE WEAKNESS, FREQUENT FALLS Discharge Diagnosis: Neurogenic claudication due to lumbar spinal stenosis s/p L4-L5 decompression/fusion Activity: Per Instructions section Non-emergency contact: Primary Care Provider and Surgeon Call non-emergency contact if: you have any medication questions, your symptoms worsen, your pain is worsening and you have a fever Follow-up/Referrals: Juliann Abbott PA-C [Physician Mental Health Specialist] - 01/29/22 10:20 am ([facility] in [place], for hospital follow up. Can become established with this office for primary care, instead of Dr. Madrigal.) Diet: Heart Healthy Addtl Attending Provider Instructions: You were admitted to the hospital for back/leg pain and difficulty walking, which was due to stenosis (narrowing) of part of your spine. You were treated with surgery, steroids, and other medicines. You have recovered well, and we feel it is safe for you to return home. A discharge summary will be sent to your primary care physician to ensure continuity of care. Please bring this discharge summary with you to your next office appointment so that your provider can review it at that time. FOLLOW UP VISIT: Make a follow-up appointment with a primary care physician within the next week. It is very important that you follow up with them shortly after discharge from the hospital. We looked up family medicine clinics in your area, and one option is [facility]. They are located at [facility] Keep your scheduled follow-up appointment with orthopedic surgery for Friday, 01/18. Any questions, please call the orthopedic surgery office at [phone]. MEDICATIONS: Your medication list has been reviewed and reconciled upon discharge to ensure accuracy and continuity of care. An updated list of all your medications is included with your hospital discharge paperwork. Please review this list closely, and make note of any changes. * We sent a new medication called amlodipine to your pharmacy. Take amlodipine (10mg) one tablet daily. * We sent a new medication called olmesartan to your pharmacy. Take olmesartan (20mg) one tablet daily. * We sent a new medication called rosuvastatin to your pharmacy. Take rosuv astatin (40mg) one tablet daily. * We sent a new medication called aspirin to your pharmacy. Take aspirin (81mg) one tablet daily. If you have any issues filling these prescriptions, please call [phone] and ask to leave a message for Dr. Marck Goins. Take your medications as instructed; do not skip a dose of your medicines. Make sure all of your doctors know every medicine you are taking (including pxrd-grt-yegpjro medicines, vitamins, and supplements). Call your primary care provider before taking any new medicines (including ehbe-kof-aoocaig medicines, vitamins, and supplements), because some of these may interact with your current medications, or may make your symptoms worse. Tell your primary care provider if you cannot afford your medications. ACTIVITY RECOMMENDATIONS: SELF CARE INSTRUCTIONS AFTER THORACIC/LUMBAR FUSIONS 1. You may walk to your tolerance. It is good exercise for your legs and back. Expect some back and intermittent leg aches and pains. 2. You may perform "counter-top" level activities (make a sandwich, osito with a project, etc.). 3. No bending or lifting of more than 10 pounds or back twisting of any nature (roll like a log when turning in bed). 4. You may ride in a car for 20-30 minutes at a time. No driving until after your first visit with your doctor. 5. Frequent changes of position and restricting sitting to 30 minutes at a time will help limit the amount of back spasms and stiffness you may experience. 6. You may discontinue the use of ambulatory aids (cane, crutches, etc.) once your strength and confidence allow. 7. You may kinesiologist the shower and let water strike your incision when you arrive home at least once daily. Do not take a tub bath, sit in a hot tub or go into a swimming pool until after your first recheck in the office. SPECIAL CARE INSTRUCTIONS: VERY IMPORTANT TO READ AND REVIEW A. Your surgical incision has been closed with a cosmetic suture under the skin that will dissolve in about 6 weeks. In 14 days, you can use a pair of clean scissors and cut the suture that is left outside of the skin at the ends of your incision. 1. The small skin tapes can be removed 7 days after surgery if they have not fallen off by that point. 2. You may keep the wound open to air as much as possible to promote healing after post-op day number 5 unless told otherwise by your doctor. 3. If you think the wound looks like it is becoming infected (redness or worsening drainage) and/or you are experiencing fever, chill or worsening back pain and muscle spasms, contact the office so that we may evaluate you as soon as possible. B. Complications are uncommon, but please contact us if you have any signs or symptoms of: 1. wound infection (fever higher than 102.5 degrees F, redness, separation of wound, drainage, or increasing pain from the incision) 2. blood clots in legs (pain, swelling, redness and warmth in legs) 3. urinary tract infection (fever higher than 102.5 degrees F, burning upon urination or increased frequency of urination) 4. nerve problems (inability to walk on your toes or heels, numbness, loss of bowel or bladder control) 5. any other symptoms that concern you C. Please call the office at if you have any concerns or questions about your operation or recovery. D. No smoking! Smoking drastically decreases the chance of a solid fusion. E. Do not take any anti-inflammatory medications (Indocin, Advil, Motrin, Aspirin, Naprosyn, etc.) as these may inhibit the chance of a solid fusion. Tylenol is okay to take for pain. MANAGING PAIN AFTER SPINAL SURGERY 1. Narcotic medication is intended for short-term use and will be provided for surgical pain. Surgical pain usually lasts for a period of 4-6 weeks. Narcotic medication includes Percocet, Vicodin, Darvocet, Tylenol #3 or Lortab. 2. Longer-term pain is more appropriately treated with non-narcotic medication such as Tylenol ES. 3. Muscle spasm is not appropriately treated with narcotics. Muscle relaxers such as Soma, Flexeril or Skelaxin can be used along with Tylenol ES. 4. Remember that we all live with some "aches and pains". This is not unusual or uncommon after an injury or as we get older. a. Back pain is expected and may include muscle spasms for 4 to 6 weeks after surgery. The pain should gradually improve. If the pain worsens for no apparent reason, please contact the office. b. Intermittent leg pain may also be experienced and should not be concerned about unless it worsens for no apparent reason. If so, please contact the office. 5. We will provide appropriate medication within the normal guidelines of their prescribed use. We will also be very cautious and aware of potential abuse and extended duration of patients' medication needs. a. Pain medications are for your comfort and to assist with sleep and rest so that the tissue can heal. They are not provided in order to return to normal activity and should not be used through the day. To do so or worsening pain at night can result from ongoing tissue damage and development of tolerance to the prescribed medicine. 6. Please allow 2-3 days to process refills. Prescriptions will not be mailed but must be picked up at the office. CONTACT YOUR PRIMARY CARE PROVIDER if you experience any of the following: Worsening back pain Difficulty walking Difficulty following your treatment plan, or difficulty taking medications CALL 911 OR GO TO THE EMERGENCY DEPARTMENT if you experience any of the following: Bowel or bladder incontinence Numbness around your lower back or buttocks area Sudden, severe abdominal pain or nausea/vomiting Severe chest pain, or chest pain that radiates (moves) to your jaw or arm Sudden, severe shortness of breath or difficulty breathing Thank you for allowing us to participate in your care. Addtl Bed Machine Operator Provider Instructions: You likely qualify for free transportation to medical appointments through your health insurance plan. To register for this, please call [facility] at #[phone] and ask to register for the [facility] using your Medicaid benefit. You will only need your name, address, and social security number to register. Pending Studies at Discharge: No Stand-Alone Forms: My [facility], Smoking Cessation Medications and DC Order Prescriptions: New Norvasc 5 mg Tablet 10 mg PO QAM 30 Days Qty: 60 RF: 0 olmesartan 20 mg Tablet 20 mg PO QAM 30 Days Qty: 30 RF: 0 Crestor 20 mg Tablet 40 mg PO QAM 30 Days Qty: 60 RF: 0 polyethylene glycol 3350 [Miralax] 17 gram Powder In Packet 17 g PO BID Qty: 14 RF: 0 sennosides-docusate sodium [Senokot-S] 8.6-50 mg Tablet 2 tab PO HS Qty: 10 RF: 0 tramadol 50 mg Tablet 50 mg PO Q4H PRN (Reason: moderate pain (scale score 5-6)) Qty: 10 RF: 0 oxycodone 5 mg Tablet 10 mg PO Q4H PRN (Reason: severe pain (scale score 7-10)) Qty: 14 RF: 0 aspirin 81 mg tablet,delayed release (DR/EC) 81 mg PO DAILY Qty: 30 RF: 0 Continued ibuprofen 200 mg Tablet 800 mg PO TID PRN (Reason: Pain) RF: 0 Discharge Orders: Discharge Order (Routine); Ordered 01/17/22 Ordered By: Marck Goins Admission Data Admit Date/Time: 01/10/22 14:06 Attending Provider: Sina Mead Admit Provider: Beau Torres Primary Care Provider: Cleveland Cortez Other Providers: Beau Torres ; Michael Herron ; Magdi Sheikh Other Interventions: Discharge Summary Assessment (RN) Last Done: 01/17/22 13:45 Supervising Physician Co-Signing Physician Notes Patient seen and examined with PGY-2 Dr. Goins. Agree with history, exam findings, assessment and plan of care as outlined. In brief, Mr. Callaway is a 56 year old male admitted worsening neurogenic claudication due to lumbar spinal stenosis, right leg symptoms worse than left. Feeling well. Does have post-operative pain and is using pain medications ordered by surgery. Did have tachycardia and elevated BPs overnight. No chest pain or shortness of breath. Vital signs and nursing notes reviewed. Well appearing. Heart with regular rate and rhythm. Lungs are clear to auscultation bilaterally. Surgical dressing is saturated with dried blood; drain with serosang drainage. 1.Neurogenic claudication 2/2 spinal stenosis. s/p decompression/fusion on 01/15. Small amount of oxycodone and tramadol + bowel regimen sent to [facility] for patient. Follow up with Dr. Herron tomorrow as scheduled. 2.PAD. Right Aortoiliac occlusive disease. Plan to start ASA and statin post-operatively. Can follow up with vascular surgery as an outpatient. 3.HTN. Continue amlodipine 10mg, started olmesartan for elevated blood pressures. Will need repeat BMP in 4-5 weeks. 4.Tachycardia. EKG with biphasic t waves in lateral leads, but not V1 V3. Troponin negative. No chest pain. Although he is post-op, no other signs or symptoms of PE. Hold off on CTA for now. 5.Hepatitis C. Hx of positive hepatitis C screening. RUQ US normal appearingno mass. Positive hepatitis C viral load; genotype pending; can have fibrosure done as an outpatient. If positive viral load, can follow up with PCP or GI for treatment of active hepatitis C. Dispo: Discharge home today. Follow up with PCP in 1-2 weeks. Follow up with Dr. Herron as scheduled tomorow. I personally spent 37 minutes discharge planning for this patient. Resident Activity Tracking Resident Involvement: Resident Care Provided Care Provided: Adult Hospital Medicine
--- NOTE | 2022-01-17 18:03 | Electrocardiogram Report ---
Test Reason : Blood Pressure : / mmHG Vent. Rate : 087 BPM Atrial Rate : 087 BPM P-R Int : 122 ms QRS Dur : 086 ms QT Int : 368 ms P-R-T Axes : 081 072 154 degrees QTc Int : 442 ms Normal sinus rhythm Nonspecific ST abnormality When compared with ECG of 16-JAN-2022 09:45, Criteria for Anteroseptal infarct are no longer Present Confirmed by Ag Miller ([id number]) on 01/17/2022 6:03:15 PM Referred By: REFERRED SELF Confirmed By:Edward Miller
== END 2022-01-17 16:11 | disposition home or self-care (01) | DRG 455 ==
LOC: 2N 20:24 → ED 20:24 → SUATTDRO 01-10 01:59 → 2N 01-10 03:31 → SUATTDRO 01-10 14:06

== ENCOUNTER 2022-03-15 00:56 | Inpatient (IN) ==
--- NOTE | 2022-03-15 01:06 | Emergency Department Note ---
Impression & Plan Feeling suicidal Hand off ED Provider Note HPI: The patient is a 56-year-old male with history of bipolar depression, presents emergency department chief complaint of worsening depression and suicidal thoughts. Patient states he has been drinking alcohol this evening, states that he has been feeling very depressed recently as he had a difficult break-up with his partner about 2 months ago and this was a 6-year relationship. Patient states that he is feeling like he does not want to live anymore. Patient states that he did have a plan to kill himself by overdosing on his antihypertensive medications. On arrival here to the ED the patient is hemodynamically stable, he is able to give me a coherent history but he is intoxicated appearing, states he was drinking alcohol earlier. ROS: - Psychiatric: Anxiety and depression, Suicidal thoughts *10 point review systems was conducted and is otherwise negative unless stated above *Outpatient medications and allergy history reviewed PE: General: Alert, NAD HEENT: Normocephalic, atraumatic Eyes: Extraocular eye movement is intact, no scleral erythema Pulmonary: Clear to auscultation bilaterally, no wheezing Cardio: Regular rate and rhythm GI: Abdomen is soft, nontender : No suprapubic tenderness MSK: No evidence of trauma or malformation of the extremities, no edema Skin: No evidence of rash Neuro: Alert, no focal deficits Psychiatric: Intoxicated but Cooperative EKG: Rate: 98 Rhythm: Normal sinus rhythm Intervals: Within normal limits ST changes: No ST elevation Time: 0117 Medical Decision Making: Patient presented to the emergency department with a chief complaint of suicidal thoughts, he is intoxicated on arrival, screening lab work was obtained that shows an alcohol level of 176,Otherwise no critical electrolyte abnormalities, blood counts are stable on CBC. Patient remained hemodynamically stable while here in the ED. His urinalysis does show evidence of infection, he does have a history of urinary retention for which he follows with urology and he does frequently have to straight catheter himself. He will be started on Keflex. Patient is pending case management assessment following sobriety. He will likely require admission for suicidal thoughts with a plan to overdose on his medications. Patient is voluntary at this point. Patient was signed out to my colleague, Dr. Benson, in stable condition for case management assessment and final disposition. Diagnosis: 1. Suicidal thoughts 2. Anxiety/depression 3. Urinary tract infection 4. Alcohol intoxication Disposition: Hand Off Dennys DO [facility] Past Med/Surg History Medical History Anxiety with depression Bipolar depression Carotid stenosis Cervical stenosis of spinal canal (05/18/14) Degenerative joint disease (DJD) of lumbar spine Emphysema lung Hepatitis C Hypertension Peripheral arterial disease Smoker Surgical History H/O neck surgery Dr. Herron - 2013 History of back surgery Dr. Herron - Lower back surgery - January 18. History of wisdom tooth extraction Family History Father Prostate cancer Denies family history of Ovarian cancer Myocardial infarction Breast cancer Colorectal cancer Social History Smoking Status: Current every day smoker Tobacco Type: Cigarettes Cigarettes Per Day: 1/2 pack per day; Second Hand Exposure: No; Hx Alcohol Use: Yes Alcohol type: hard liquor Hx Substance Use: Yes Non-Prescribed Medications: Former Misuse of Non- Prescribed Rx, IV Drugs, Marijuana and Methamphetamines Last Used Substance: Hours (ago) Preferred Language: P[place]in[place] Communication Ability: Effective Visual Impairment: No Limitations Hearing Ability: Normal Meat Packager Required: No Beliefs That Will Affect Care: None marital status: Current Living Situation: Alone current occupational status: disabled Feels Safe at Home: Yes Childhood Exposure to Second-Hand Smoke: Yes caffeine: Yes (coffee - two cups per day) during the past year weight has: remained stable Dental Care, Regularly: No Physical Activity Frequency: Does not Exercise Seatbelt Use: always Sunscreen Use: Yes Assistive Devices: Cane Allergies Allergies Allergy/AdvReac Type Severity Reaction Status Date / Time paroxetine Allergy Mild UNSURE Verified 03/15/22 01:47 risperidone Allergy Unknown Unknown Verified 03/15/22 01:47 Influenza Virus Vaccines AdvReac Unknown UNKNOWN Verified 03/15/22 01:47 pneumococcal vaccine AdvReac Unknown Unknown Verified 03/15/22 01:47 Home Meds Home Medications Medication Instructions Recorded Confirmed ibuprofen 800 mg tablet 800 mg PO Q8H 03/15/22 03/15/22 Previous Rx's Medication Instructions Recorded aspirin 81 mg tablet,delayed 81 mg PO DAILY #30 tab 01/17/22 release tamsulosin 0.4 mg capsule (Flomax) 0.4 mg PO DAILY #10 cap 02/01/22 rosuvastatin 40 mg tablet 40 mg PO QAM #90 tab 02/06/22 amlodipine 5 mg tablet (Norvasc) 10 mg PO QAM #180 tab 02/14/22 olmesartan 20 mg tablet 20 mg PO QAM #90 tab 02/14/22 Results & Data (ED) Vital Signs Vital Signs - 24 hr 03/15/22 00:44 Temperature 36.7 C Temperature Source Oral Pulse Rate 106 H Pulse Rhythm Regular Pulse Strength Normal Respiratory Rate 20 Respiratory Effort / Characteristics Non-Labored Respiratory Depth Normal Respiratory Pattern Regular Blood Pressure 141/87 H Blood Pressure Mean 105 Blood Pressure Position Lying Pulse Oximetry 97 Oxygen Delivery Method Room Air Sepsis Recent Fever Within 48 Hours No Sepsis New/Unexplained Change in Mental Status N/A Sepsis Action Taken by Nursing No Action Required Laboratory Data Result diagrams: 03/15/22 01:13 03/15/22 01:13 Lab Results 03/15/22 03/15/22 03/15/22 Range/Units 01:09 01:13 01:13 WBC 8.03 (4.8-10.8) K/uL RBC 3.66 L (4.7-6.1) M/uL Hgb 11.6 L (14.0-18.0) g/dL Hct 34.1 L (42-52) % MCV 93.2 (80-100) fL MCH 31.7 (25-34) pg MCHC 34.0 (32-36) g/dL RDW Std Deviation 44.8 (36.4-46.3) fL RDW Coeff of Artemio 13.2 (11.5-14.5) % Plt Count 459 H (130-400) K/uL MPV 8.8 (7.4-10.4) fL Immature Gran % (Auto) 0.1 % Neut % (Auto) 56.3 % Lymph % (Auto) 30.3 % Travis % (Auto) 9.8 % Eos % (Auto) 3.0 % Baso % (Auto) 0.5 % Neut # (Auto) 4.52 (1.4-6.5) K/uL Lymph # (Auto) 2.43 (1.2-3.4) K/uL Travis # (Auto) 0.79 H (0.11-0.59) K/uL Eos # (Auto) 0.24 (0-0.5) K/uL Baso # (Auto) 0.04 (0-0.2) K/uL Immature Gran # (Auto) 0.01 (0.00-0.02) K/uL Sodium 137 (136-145) mmol/L Potassium 3.8 (3.5-5.1) mmol/L Chloride 104 (98-107) mmol/L Carbon Dioxide 25 (21-32) mmol/L Anion Gap 8 (3-11) BUN 15 (6-23) mg/dl Creatinine 1.03 (0.6-1.4) mg/dl Est Cr Clr Drug Dosing Not Reportable Est GFR ( Amer) 94.3 ml/min Est GFR (Non-Af Amer) 81.4 ml/min BUN/Creatinine Ratio 14.6 (10-20) Glucose 108 H (70-99(Fasting)) mg/dl Calcium 8.6 (8.5-10.1) mg/dl Total Bilirubin 0.3 (0.2-1.0) mg/dl AST 21 (13-39) U/L ALT 31 (7-52) U/L Alkaline Phosphatase 82 (34-104) U/L Total Protein 7.5 (6.0-8.3) gm/dl Albumin 3.9 (3.4-5.0) gm/dl Globulin 3.6 (2.5-4.0) gm/dl Albumin/Globulin Ratio 1.1 (0.9-2) TSH (0.300-4.500) uIu/ml Urine Color Urine Appearance (Clear) Urine pH (4.5-7.5) Ur Specific Sinai (1.000-1.030) Urine Protein (Negative) Urine Glucose (UA) (Negative) Urine Ketones (Negative) Urine Blood (Negative) Urine Nitrite (Negative) Urine Bilirubin (Negative) Urine Urobilinogen (Negative) Ur Leukocyte Esterase (Negative) Urine WBC (Auto) (0-5) /hpf Urine RBC (Auto) (0-4) /hpf U Hyaline Cast (Auto) (0-5) /lpf U Epithel Cells (Auto) (0-5) /lpf Urine Bacteria (Auto) (Negative) Salicylates (3.0-30) mg/dl Urine Opiates Screen (Neg) Ur Methadone, Qual (Neg) Acetaminophen (10-30) ug/ml Urine Barbiturates (Neg) Ur Phencyclidine (PCP) (Neg) U Amphetamin/Meth Scrn (Neg) MDMA (Ecstasy) Screen (Neg) U Benzodiazepines Scrn (Neg) Ur Cocaine Metabolite (Neg) U Marijuana (THC) Screen (Neg) Ethyl Alcohol mg/dL (<10.0) mg/dl SARS-CoV-2, RNA, NAAT NEGATIVE (NEGATIVE) 03/15/22 03/15/22 03/15/22 Range/Units 01:13 01:13 01:13 WBC (4.8-10.8) K/uL RBC (4.7-6.1) M/uL Hgb (14.0-18.0) g/dL Hct (42-52) % MCV (80-100) fL MCH (25-34) pg MCHC (32-36) g/dL RDW Std Deviation (36.4-46.3) fL RDW Coeff of Artemio (11.5-14.5) % Plt Count (130-400) K/uL MPV (7.4-10.4) fL Immature Gran % (Auto) % Neut % (Auto) % Lymph % (Auto) % Travis % (Auto) % Eos % (Auto) % Baso % (Auto) % Neut # (Auto) (1.4-6.5) K/uL Lymph # (Auto) (1.2-3.4) K/uL Travis # (Auto) (0.11-0.59) K/uL Eos # (Auto) (0-0.5) K/uL Baso # (Auto) (0-0.2) K/uL Immature Gran # (Auto) (0.00-0.02) K/uL Sodium (136-145) mmol/L Potassium (3.5-5.1) mmol/L Chloride (98-107) mmol/L Carbon Dioxide (21-32) mmol/L Anion Gap (3-11) BUN (6-23) mg/dl Creatinine (0.6-1.4) mg/dl Est Cr Clr Drug Dosing Est GFR ( Amer) ml/min Est GFR (Non-Af Amer) ml/min BUN/Creatinine Ratio (10-20) Glucose (70-99(Fasting)) mg/dl Calcium (8.5-10.1) mg/dl Total Bilirubin (0.2-1.0) mg/dl AST (13-39) U/L ALT (7-52) U/L Alkaline Phosphatase (34-104) U/L Total Protein (6.0-8.3) gm/dl Albumin (3.4-5.0) gm/dl Globulin (2.5-4.0) gm/dl Albumin/Globulin Ratio (0.9-2) TSH 1.202 (0.300-4.500) uIu/ml Urine Color Urine Appearance (Clear) Urine pH (4.5-7.5) Ur Specific Sinai (1.000-1.030) Urine Protein (Negative) Urine Glucose (UA) (Negative) Urine Ketones (Negative) Urine Blood (Negative) Urine Nitrite (Negative) Urine Bilirubin (Negative) Urine Urobilinogen (Negative) Ur Leukocyte Esterase (Negative) Urine WBC (Auto) (0-5) /hpf Urine RBC (Auto) (0-4) /hpf U Hyaline Cast (Auto) (0-5) /lpf U Epithel Cells (Auto) (0-5) /lpf Urine Bacteria (Auto) (Negative) Salicylates < 3.0 L (3.0-30) mg/dl Urine Opiates Screen (Neg) Ur Methadone, Qual (Neg) Acetaminophen < 3 L (10-30) ug/ml Urine Barbiturates (Neg) Ur Phencyclidine (PCP) (Neg) U Amphetamin/Meth Scrn (Neg) MDMA (Ecstasy) Screen (Neg) U Benzodiazepines Scrn (Neg) Ur Cocaine Metabolite (Neg) U Marijuana (THC) Screen (Neg) Ethyl Alcohol mg/dL 175.7 H (<10.0) mg/dl SARS-CoV-2, RNA, NAAT (NEGATIVE) 03/15/22 03/15/22 Range/Units 01:24 01:24 WBC (4.8-10.8) K/uL RBC (4.7-6.1) M/uL Hgb (14.0-18.0) g/dL Hct (42-52) % MCV (80-100) fL MCH (25-34) pg MCHC (32-36) g/dL RDW Std Deviation (36.4-46.3) fL RDW Coeff of Artemio (11.5-14.5) % Plt Count (130-400) K/uL MPV (7.4-10.4) fL Immature Gran % (Auto) % Neut % (Auto) % Lymph % (Auto) % Travis % (Auto) % Eos % (Auto) % Baso % (Auto) % Neut # (Auto) (1.4-6.5) K/uL Lymph # (Auto) (1.2-3.4) K/uL Travis # (Auto) (0.11-0.59) K/uL Eos # (Auto) (0-0.5) K/uL Baso # (Auto) (0-0.2) K/uL Immature Gran # (Auto) (0.00-0.02) K/uL Sodium (136-145) mmol/L Potassium (3.5-5.1) mmol/L Chloride (98-107) mmol/L Carbon Dioxide (21-32) mmol/L Anion Gap (3-11) BUN (6-23) mg/dl Creatinine (0.6-1.4) mg/dl Est Cr Clr Drug Dosing Est GFR ( Amer) ml/min Est GFR (Non-Af Amer) ml/min BUN/Creatinine Ratio (10-20) Glucose (70-99(Fasting)) mg/dl Calcium (8.5-10.1) mg/dl Total Bilirubin (0.2-1.0) mg/dl AST (13-39) U/L ALT (7-52) U/L Alkaline Phosphatase (34-104) U/L Total Protein (6.0-8.3) gm/dl Albumin (3.4-5.0) gm/dl Globulin (2.5-4.0) gm/dl Albumin/Globulin Ratio (0.9-2) TSH (0.300-4.500) uIu/ml Urine Color Yellow Urine Appearance Cloudy A (Clear) Urine pH 6.5 (4.5-7.5) Ur Specific Sinai 1.016 (1.000-1.030) Urine Protein 1+ H (Negative) Urine Glucose (UA) Negative (Negative) Urine Ketones Negative (Negative) Urine Blood Trace H (Negative) Urine Nitrite Positive A (Negative) Urine Bilirubin Negative (Negative) Urine Urobilinogen Negative (Negative) Ur Leukocyte Esterase 3+ H (Negative) Urine WBC (Auto) >30 H (0-5) /hpf Urine RBC (Auto) 5-10 H (0-4) /hpf U Hyaline Cast (Auto) 1-5 (0-5) /lpf U Epithel Cells (Auto) 10-20 H (0-5) /lpf Urine Bacteria (Auto) 2+ H (Negative) Salicylates (3.0-30) mg/dl Urine Opiates Screen Neg (Neg) Ur Methadone, Qual Neg (Neg) Acetaminophen (10-30) ug/ml Urine Barbiturates Neg (Neg) Ur Phencyclidine (PCP) Neg (Neg) U Amphetamin/Meth Scrn Pos H (Neg) MDMA (Ecstasy) Screen Pos H (Neg) U Benzodiazepines Scrn Neg (Neg) Ur Cocaine Metabolite Neg (Neg) U Marijuana (THC) Screen Pos H (Neg) Ethyl Alcohol mg/dL (<10.0) mg/dl SARS-CoV-2, RNA, NAAT (NEGATIVE) Discharge Plan Visit Data Chief Complaint: Mental Health Evaluation ED Provider: Dennys Mcknight Discharge Problem: Feeling suicidal Forms Stand Alone Forms: My [facility], Suicide Prevention Resources Prescriptions Prescriptions: No Action rosuvastatin 40 mg tablet 40 mg PO QAM Qty: 90 RF: 0 amlodipine [Norvasc] 5 mg tablet 10 mg PO QAM Qty: 180 RF: 1 olmesartan 20 mg tablet 20 mg PO QAM Qty: 90 RF: 1 aspirin 81 mg tablet,delayed release (DR/EC) 81 mg PO DAILY Qty: 30 RF: 0 ibuprofen 800 mg Tablet 800 mg PO Q8H RF: 0 tamsulosin [Flomax] 0.4 mg capsule 0.4 mg PO DAILY Qty: 10 RF: 2 Referrals Referrals: Cleveland Cortez CRNP [Primary Care Provider] -
[2022-03-15 01:27] LABS: Basophils # (auto) 0.04 K/uL (0-0.2); Basophils % (auto) 0.5 %; Eosinophils # (auto) 0.24 K/uL (0-0.5); Hematocrit (blood only) 34.1 % (42-52); Hemoglobin 11.6 g/dL (14.0-18.0); Immature Granulocytes # (auto) 0.01 K/uL (0.00-0.02); Immature Granulocytes % (auto) 0.1 %; Lymphocytes # (auto) 2.43 K/uL (1.2-3.4); Lymphocytes % (auto) 30.3 %; Mean Corpuscular Hemoglobin 31.7 pg (25-34); Mean Corpuscular Volume 93.2 fL (80-100); Mean Platelet Volume 8.8 fL (7.4-10.4); Monocytes # (auto) 0.79 K/uL (0.11-0.59); Monocytes % (auto) 9.8 %; Neutrophils # (auto) 4.52 K/uL (1.4-6.5); Neutrophils % (auto) 56.3 %; Platelet Count 459 K/uL (130-400); RDW Coefficient of Variation 13.2 % (11.5-14.5); RDW Standard Deviation 44.8 fL (36.4-46.3); Red Blood Count 3.66 M/uL (4.7-6.1); White Blood Count 8.03 K/uL (4.8-10.8)
[2022-03-15 01:57] LABS: Alanine Aminotransferase 31 U/L (7-52); Albumin Globulin Ratio 1.1 (0.9-2); Albumin Level 3.9 gm/dl (3.4-5.0); Alkaline Phosphatase 82 U/L (34-104); Anion Gap 8 (3-11); Aspartate Aminotransferase 21 U/L (13-39); BUN Creatinine Ratio 14.6 (10-20); Bilirubin,Total 0.3 mg/dl (0.2-1.0); Blood Urea Nitrogen 15 mg/dl (6-23); Calcium 8.6 mg/dl (8.5-10.1); Carbon Dioxide 25 mmol/L (21-32); Chloride 104 mmol/L (98-107); Est GFR (African American) 94.3 ml/min; Est GFR (Non-African American) 81.4 ml/min; Globulin 3.6 gm/dl (2.5-4.0); Glucose 108 mg/dl (70-99(Fasting)); Potassium 3.8 mmol/L (3.5-5.1); Sodium 137 mmol/L (136-145); Total Protein 7.5 gm/dl (6.0-8.3)
[2022-03-15 01:58] LABS: Acetaminophen < 3 ug/ml (10-30); Salicylate < 3.0 mg/dl (3.0-30)
[2022-03-15 02:11] LABS: Appearance Urine Cloudy (Clear); Bacteria Urine Automated 2+ (Negative); Bilirubin Urine Negative (Negative); Blood Urine Trace (Negative); Color Urine Yellow; Glucose Urine UA Negative (Negative); Ketones Urine Negative (Negative); Leukocyte Esterase Urine 3+ (Negative); Nitrite Urine Positive (Negative); Protein Urine 1+ (Negative); Specific Gravity Urine 1.016 (1.000-1.030); Urobilinogen Urine Negative (Negative); WBC Urine Automated >30 /hpf (0-5); pH Urine 6.5 (4.5-7.5)
[2022-03-15 02:37] LABS: Amphetamines+Metham, Urine Pos (Neg); Barbiturates, Urine Neg (Neg); Benzodiazepine, Urine Neg (Neg); Cocaine, Urine Neg (Neg); MDMA (Ecstacy), Urine Pos (Neg); Methadone, Urine Neg (Neg); Opiate, Urine Neg (Neg); Phencyclidine, Urine Neg (Neg)
[2022-03-15] MEDS ORDERED: cephALEXin 250 MG CAP PO ONE (05:27)
--- NOTE | 2022-03-15 07:17 | Emergency Department Note ---
ED Visit Note ED Physician Sign Out Note: 56 yr old male with increasing depression due to social and medical issues. Increasing thoughts of suicide while intoxicated last evening. Wishes hospitalization, medically clear, started keflex for uti, and signed out to me by Dr Mcknight. Pending mental health evaluation. On evaluation patient with some discomfort though denies extreme pain. He does have some swelling of the lumbar area which appears to be seroma like without any erythema or warmth. He has no focal weakness but just says both legs feel weak which they have been since the surgery over a month ago. His urinary retention has been going on since the surgery as well and he straight caths. This is consistent with his urinalysis. I think it is reasonable to treat with antibiotics as already have been prescribed. Case was reviewed by psychiatry who feel given his multiple medical issues he requires further medical evaluation prior to hospitalization. I discussed this with the hospitalist however they are concerned that there is no spinal surgeon available at this facility this weekend. Thus decision was made to get the MRI with IV contrast while he is still in ER patient. As IV was obtained he was given an IV dose of Rocephin as well. Pain was controlled with some oral Motrin which he tolerated well. Patient afebrile and vitals normal throughout. MRI with and without contrast obtained. Fortunately this does not reveal any acute findings other than evidence of postsurgical expected inflammation and seroma. Discussed this with hospitalist who notes he is already got in touch with the patient's surgeon Dr. Herron who will be able to evaluate patient tomorrow in the hospital. Given the patient's multiple medical issues I do think it is reasonable to bring him in as a medical patient and let psych consult along with the medical work-up for his back pain, his UTI and monitoring for other medical issues at this time. Jett Benson MD
--- NOTE | 2022-03-15 11:36 | Electrocardiogram Report ---
Test Reason : Blood Pressure : / mmHG Vent. Rate : 098 BPM Atrial Rate : 098 BPM P-R Int : 128 ms QRS Dur : 086 ms QT Int : 340 ms P-R-T Axes : 064 035 090 degrees QTc Int : 434 ms Normal sinus rhythm Normal ECG When compared with ECG of 17-JAN-2022 07:28, T wave inversion no longer evident in Inferior leads Confirmed by Ag Miller ([id number]) on 03/15/2022 11:35:39 AM Referred By: REFERRED SELF Confirmed By:Edward Miller
[2022-03-15] MEDS ORDERED: cefTRIAXone SODIUM 2,000 MG/70 ML BAG IV STA (13:28)
[2022-03-15] MEDS ORDERED: IBUPROFEN 800 MG TAB PO STA (14:02)
--- NOTE | 2022-03-15 14:35 | Communication Note ---
Date of Service: March 15, 2022 Case reviewed with hospitalist service and Dr. Benson given ambulatory dysfunction and medical concerns following surgery. Patient will have a spinal MRI. If admitted medically, should be placed on 1-on-1 given suicidality with psychiatric consult.
[2022-03-15] MEDS ORDERED: GADOBUTROL 65ML VIAL IV ONE (15:08)
--- NOTE | 2022-03-15 15:58 | Magnetic Resonance Report ---
MRI LUMBAR SPINE COMBO CLINICAL HISTORY: Recent spine surgery. Low back pain. Swelling. Urinary incontinence. COMPARISON STUDY: MRI of the lumbar spine dated 01/10/2022. TECHNIQUE: MRI of the lumbar spine is performed utilizing various T1 and T2-weighted images in the ax ial and sagittal planes. Contrast-enhanced sequences are acquired following the IV administration of 9.5 cc of Gadavist. The examination is compromised by motion artifact and facility artifact from spin al hardware. FINDINGS: Lumbar spine: Vertebral body height and alignment are maintained throughout the lumbar spine. There i s postoperative change from laminectomy and posterior fusion at L4-L5. Interpedicular screws are in p lace and susceptibility artifact from spinal hardware degrades assessment at these levels. The transv erse processes appear intact. No destructive bony lesion is seen. Intervertebral discs: There has been discectomy at L4-L5. Disc desiccation and moderate loss of heigh t is seen at L5-S1. The remaining discs are normal in height and signal intensity. Spinal cord and central canal: Imaged portions of the spinal cord are normal in morphology and signal intensity. The conus medullaris terminates at the level of L1. A punctate enhancing focus within the conus medullaris is seen on sagittal image #10. This is of indeterminant etiology and significance. The nerve roots of the cauda equina are normal in morphology.Epidural lipomatosis is noted in the low er lumbar region. This is similar to previous. No epidural fluid collection is identified. L1-L2: Unremarkable. L2-L3: Unremarkable. L3-L4: There is minimal posterior disc bulge. This abuts the transiting nerve roots. In conjunction w ith hypertrophy of the ligamentum flavum there is minimal acquired compromise the central canal at th is level with a minimum AP diameter of 8 mm. There is mild bilateral subarticular stenosis. The neura l foramina are patent. L4-L5: This level is suboptimally assessed due to susceptibility artifact from spinal hardware. There is epidural lipomatosis seen anteriorly which effaces the ventral aspect of the thecal sac. There is also a small residual posterior disc osteophyte complex eccentric to the left. The thecal sac measur es up to 6 mm in AP diameter. The neural foramina are grossly clear. Enhancing granulation tissue candy rounds the thecal sac and is seen within the right neural foramen at this level. L5-S1: There is broad-based posterior disc bulge. This abuts the transiting nerve roots. There is epi dural lipomatosis which effaces the anterior thoracic of the thecal sac. There is no significant neur al foraminal narrowing at this level. Sacrum: The visualized sacrum is normal in morphology and signal intensity. Soft tissues: Postoperative change and edema is seen posterior to the thecal sac at the operative lev els. A peripherally enhancing fluid collection posterior to the thecal sac at L4-L5 measures 4.0 x 2. 0 x 3.5 cm. This causes minimal mass effect on the posterior aspect of the thecal sac and likely rese nts a seroma. No additional organized fluid collection is seen. The retroperitoneal structures are gr ossly unremarkable but incompletely evaluated. IMPRESSION: 1. Postoperative change is consistent with L4-L5 spinal fusion. 2. A postoperative fluid collection posterior the thecal sac at L4-L5 causes minimal mass effect on t he dorsal aspect of the thecal sac. This likely represents a seroma. The sterility of this fluid vivek ot be assessed by imaging. 3. There is anterior epidural lipomatosis in from L4 through S1 which effaces the anterior aspect of the thecal sac. There is also enhancing granulation tissue around the thecal sac at the operative lev el. The thecal sac measures a minimum of 6 mm in AP diameter at the operative level. 4. No epidural fluid collection is identified. 5. See discussion for detailed level analysis. Electronically signed by: Ankit Juarez M.D. 03/15/2022 3:57 PM
--- NOTE | 2022-03-15 16:10 | History & Physical Report ---
Date of Service March 15, 2022 Assessment & Plan (1) Neurogenic claudication due to lumbar spinal stenosis: Plan: S/p spinal fusion L4-[address] Herron on 01/15/2022. Subacute onset of urinary retention (not fully know if this is related) and RLE weakness. - Lumbar MRI in the ED without acute findings. - Discussed with Dr. Herron - Given hx, asks to admit and will consult tomorrow. - PT/OT/CM for possible rehab placement (2) Feeling suicidal: Plan: Due to medical struggles in last 2 months along with relationship issues with his girlfriend. - Psych consulted in the ER - 1:1 sitter - Suicide precauctions (3) UTI (urinary tract infection): Plan: Likely due to straight caths. - Ceftriaxone - Follow urine culture (4) Urinary retention: Plan: Began about 2 weeks after surgery. - Continue bladder scans and intermittent straight caths - Continue home tamsulosin (5) Hypertension: Plan: BP is stable in the ER at 135/90. - Continue home amlodipine & olmesartan (6) Bipolar depression: Plan: Not on meds at baseline. - As above (7) Substance Abuse: Plan: Utox positive on admission with amphetamines, MDMA, marijuana, and alcohol. 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 - Hold ASA until ortho spinal consult (9) DVT prophylaxis: Plan: SCDs - Low DVT risk per admission calculator History of Present Illness Primary Care Provider: BIJAN Berry 56yo M w/ hx of HTN, HLD who presents with subacute worsening back pain, urinary retention, LE weakness, and suicidal ideation. The patient was admitted in 12/2021 with worsening back pain and neurogenic claudication. He underwent lumbar surgery with Dr. Herron on 01/15/2022. He reports he left the hospital feeling fairly well. However, about 2 weeks after surgery, he started to having urinary retention issues requiring Cornejo and now intermittent self-cathing. It is unclear whether this is related to the back vs. enlarged prostate, and he has followed up with urology. Regarding his strength, he reports that over the last weeks, he has had increasing trouble with right leg strength. He reports he could walk lifting his leg. Now, he has to use a walker and his right leg drags behind him as he walks. He also has loss of dorsiflexion. He denies f/c/ns. Denies shortness of breath or chest pain. Allergies Allergy/AdvReac Type Severity Reaction Status Date / Time paroxetine Allergy Mild UNSURE Verified 03/15/22 01:47 risperidone Allergy Unknown Unknown Verified 03/15/22 01:47 Influenza Virus Vaccines AdvReac Unknown UNKNOWN Verified 03/15/22 01:47 pneumococcal vaccine AdvReac Unknown Unknown Verified 03/15/22 01:47 Home Medications Medication Instructions Recorded Confirmed Type aspirin 81 mg tablet,delayed 81 mg PO DAILY #30 tab 01/17/22 03/15/22 Rx release tamsulosin 0.4 mg capsule (Flomax) 0.4 mg PO DAILY #10 cap 02/01/22 03/15/22 Rx rosuvastatin 40 mg tablet 40 mg PO QAM #90 tab 02/06/22 03/15/22 Rx amlodipine 5 mg tablet (Norvasc) 10 mg PO QAM #180 tab 02/14/22 03/15/22 Rx olmesartan 20 mg tablet 20 mg PO QAM #90 tab 02/14/22 03/15/22 Rx cephalexin 500 mg capsule 500 mg PO BID 7 Days #14 cap 03/15/22 Rx ibuprofen 800 mg tablet 800 mg PO Q8H 03/15/22 03/15/22 History Past Med/Surg History Medical History (Updated 03/15/22 @ 16:23 by Rudy Glover MD) Anxiety with depression Bipolar depression Carotid stenosis Cervical stenosis of spinal canal (05/18/14) Degenerative joint disease (DJD) of lumbar spine Emphysema lung Hepatitis C Hypertension Peripheral arterial disease Smoker Urinary retention Surgical History H/O neck surgery Dr. Herron - 2013 History of back surgery Dr. Herron - Lower back surgery - January 18. History of wisdom tooth extraction Family History Father Prostate cancer Denies family history of Ovarian cancer Myocardial infarction Breast cancer Colorectal cancer Social History Smoking Status: Current every day smoker Tobacco Type: Cigarettes Cigarettes Per Day: 1/2 pack per day; Second Hand Exposure: No; Hx Alcohol Use: Yes Alcohol type: hard liquor Hx Substance Use: Yes Non-Prescribed Medications: Former Misuse of Non- Prescribed Rx, IV Drugs, Marijuana and Methamphetamines Last Used Substance: Hours (ago) Preferred Language: Thai Communication Ability: Effective Visual Impairment: No Limitations Hearing Ability: Normal Sap Pi Developer Required: No Beliefs That Will Affect Care: None marital status: Current Living Situation: Alone current occupational status: disabled Feels Safe at Home: Yes Childhood Exposure to Second-Hand Smoke: Yes caffeine: Yes (coffee - two cups per day) during the past year weight has: remained stable Dental Care, Regularly: No Physical Activity Frequency: Does not Exercise Seatbelt Use: always Sunscreen Use: Yes Assistive Devices: Cane Review of Systems Review of Systems: All systems reviewed & are unremarkable except as noted in HPI & below Physical Exam Constitutional: WD/WN, vitals as above Eyes: EOM intact bilaterally; no conjunctival abnormality ENMT: external ear and nose normal, oropharynx normal Neck: trachea midline, no thyromegaly normal visual inspection Respiratory: normal respiratory effort, lungs clear to auscultation no respiratory distress Cardiovascular: RRR, no murmur, no edema Gastrointestinal (Abdomen): Inspection/Auscultation: abdomen normal to inspection; abdomen not distended Musculoskeletal: Spine: + lumbar spine abnormal to inspection (Surgical incision midline in lumbar region. Some mild tenderness to palpati) RLE - 3/5 hip flexion, hip extension, & dorsiflexion Skin: no rashes, warm and dry Neurologic: moves all extremities and awake Psychiatric: Orientation: alert, oriented to person and cooperative Results & Data Results & Data ([facility]) Vital Signs (Past 12 Hours) Vital Signs Temp Pulse Resp BP Pulse Ox 03/15/22 08:15 89 18 135/88 96 03/15/22 06:55 36.9 C 86 16 138/77 100 Code Status & VTE Plan VTE Prophylaxis Plan VTE Prophylaxis will be ordered: Yes PG Care Time/CCT Total # of Minutes Spent Total Time Spent with Patient: Total time spent is greater than 50% in coordination of care (as documented) at patient's floor/unit and/or counseling patient: Coding Level of Care Code 27208 Initial Inpt Care Lvl 3 Diagnoses Neurogenic claudication due to lumbar spinal stenosis M48.062 Feeling suicidal R45.851 Urinary retention R33.9 Bipolar depression F31.9 Substance Abuse F19.10 Hypertension I10 Peripheral arterial disease I73.9 DVT prophylaxis Z29.9 UTI (urinary tract infection) N39.0
[2022-03-15] MEDS ORDERED: ONDANSETRON INJ 2 MG/ML 2 ML VIAL IV PRN (18:52)
[2022-03-16 06:41] LABS: Hematocrit (blood only) 35.6 % (42-52); Hemoglobin 12.3 g/dL (14.0-18.0); Mean Corpuscular Hemoglobin 32.5 pg (25-34); Mean Corpuscular Hgb Conc 34.6 g/dL (32-36); Mean Corpuscular Volume 93.9 fL (80-100); Mean Platelet Volume 9.1 fL (7.4-10.4); Platelet Count 418 K/uL (130-400); RDW Coefficient of Variation 12.8 % (11.5-14.5); RDW Standard Deviation 43.4 fL (36.4-46.3); Red Blood Count 3.79 M/uL (4.7-6.1)
[2022-03-16 07:19] LABS: Anion Gap 5 (3-11); BUN Creatinine Ratio 18.1 (10-20); Blood Urea Nitrogen 13 mg/dl (6-23); Calcium 6.5 mg/dl (8.5-10.1); Carbon Dioxide 23 mmol/L (21-32); Chloride 111 mmol/L (98-107); Est GFR (African American) 121.7 ml/min; Glucose 71 mg/dl (70-99(Fasting)); Magnesium 1.4 mg/dl (1.7-2.4); Potassium 3.3 mmol/L (3.5-5.1); Sodium 139 mmol/L (136-145)
[2022-03-16] MEDS: TAMSULOSIN HCL 0.4 MG CAP PO SCH (08:12)
[2022-03-16] MEDS: OLMESARTAN MEDOXOMIL 20 MG TAB PO SCH (08:12)
[2022-03-16] MEDS: amLODIPine BESYLATE 5 MG TAB PO SCH (08:12)
[2022-03-16] MEDS ORDERED: ROSUVASTATIN CALCIUM 20 MG TAB PO SCH (09:00)
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
[2022-03-16] MEDS: ACETAMINOPHEN 325 MG TAB PO PRN ×2 (10:24→19:51)
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
[2022-03-16] MEDS ORDERED: POTASSIUM CHLORIDE CRTAB 20 MEQ TABCR PO STA (11:27)
[2022-03-16] MEDS: MAGNESIUM SULFATE / D5W 1 GM/100 ML BAG IV SCH ×3 (11:48→16:15)
[2022-03-16] MEDS ORDERED: cefTRIAXone SODIUM 2,000 MG in DEXTROSE 5% 50 ML IV SCH (13:00)
[2022-03-16] MEDS: DAPTOmycin 325 MG in SYRINGE 0 ML IV SCH (13:27)
--- NOTE | 2022-03-16 14:14 | Hospitalist Progress Note ---
Date of Service March 16, 2022 Assessment & Plan (1) Neurogenic claudication due to lumbar spinal stenosis: Plan: S/p spinal fusion L4-[address] Herron on 01/15/2022. Subacute onset of urinary retention which is likely related to BPH and RLE weakness. With significant lower back pain - Lumbar MRI shows postoperative seroma and Dr. Herron thinks that this may be causing his symptoms Appreciate orthopedic spine surgery consultation-May need surgical drainage of seroma-await further input from orthospine -Add tramadol for moderate to severe pain Continue Tylenol as needed for mild to moderate pain (2) Hypomagnesemia: Plan: Replaced with 3 g of IV magnesium sulfate Follow level in the morning Likely secondary to dehydration from recent alcohol use (3) Hypokalemia: Plan: Replace with oral potassium chloride Follow BMP and magnesium levels in the morning (4) UTI (urinary tract infection): Plan: Likely due to straight caths. Urine culture growing Staphylococcus species greater than 100,000 CFU Discontinue ceftriaxone and start daptomycin Follow final urine culture (5) Feeling suicidal: Plan: Due to medical struggles in last 2 months along with relationship issues with his girlfriend. - Psych consulted in the ER-appreciated -Can discontinue 1:1 sitter as not actively suicidal -Psychiatry is restarting his Depakote 1000 mg at bedtime Will need outpatient psychiatric follow-up (6) Urinary retention: Plan: Began about 2 weeks after surgery. Seen by urology and etiology thought to be possibly related to enlarged prostate causing bladder outlet obstruction versus urinary retention related to previous lumbar surgery - Continue bladder scans and intermittent straight caths - Continue home tamsulosin -Follow-up with urology as an outpatient as they are considering cystoscopy to see if he would benefit from TURP (7) Hypertension: Plan: BP is controlled - Continue home amlodipine & olmesartan (8) Bipolar depression: Plan: Not on meds at baseline. - As above (9) Substance Abuse: Plan: Utox positive on admission with amphetamines, MDMA, marijuana, and alcohol. Noted primary care provider visit stated that he has a history of IV drug use, methamphetamine, and opiate misuse in the past as well as daily marijuana use Counseled on cessation of substance abuse - Monitor for withdrawal (10) Peripheral arterial disease: Plan: With a history of advanced atherosclerotic change throughout the abdominal aorta and lower extremities seen on CT angiogram aorta with runoff in 12/2021 Also with high-grade stenosis at the origin of the celiac trunk No evidence of ischemia - Hold ASA until ortho spinal consult to see if surgery will be performed Hold statin due to being on daptomycin now for UTI as above Encouraged smoking cessation Follow-up with vascular surgery as an outpatient (11) Emphysema lung: Plan: Encouraged to quit smoking No acute issues at this time, not hypoxic (12) Hepatitis C: Plan: Chronic, HCV RNA genotype Ia, titer elevated last admission Has outpatient referral to GI to consider treatment (13) Smoker: Plan: Encourage cessation He declines nicotine patch at this time (14) DVT prophylaxis: Plan: SCDs Plan: Disposition-continued stay, can remove one-to-one sitter. May end up needing drainage of seroma as per orthopedic surgery Admission and Anticipated Discharge Date Admission Date: March 15, 2022 Subjective Patient reports a lot of pain in his lower back. He has weakness down through his right lower extremity. Still having to self catheterize his bladder which he attributes to an enlarged prostate as per his visits with urology. Denies nausea or vomiting, no abdominal pains. No shortness of breath or chest pain. He is requesting something stronger than Tylenol but not as strong as oxycodone for pain. He is agreeable to tramadol which she has tried before. Received communication from psychiatry that he can come off of the one-to-one sitter and is not actively suicidal. The patient does also confirm to me that he is not actively suicidal but has been feeling depressed lately since his longtime girlfriend left him. Review of Systems Review of Systems: All systems reviewed & are unremarkable except as noted in HPI & below Physical Exam Constitutional: WD/WN, vitals as above Eyes: + anicteric sclerae ENMT: external ear and nose normal, oropharynx normal Neck: trachea midline, no thyromegaly Respiratory: normal respiratory effort, lungs clear to auscultation Cardiovascular: RRR, no murmur, no edema Chest (Breasts): Chest: normal inspection of chest Gastrointestinal (Abdomen): normal bowel sounds, soft, nontender, no hepa tosplenomegaly Musculoskeletal: Extremities: extremities normal to inspection; no cyanosis and no clubbing Skin incision and lower back is well-healed without erythema or drainage Mild fullness and tenderness to palpation over lower back Skin: no rashes, warm and dry Neurologic: moves all extremities, + focal motor deficit (4/5 strength with right lower extremity hip flexion, knee extension) and awake Psychiatric: A+Ox3, euthymic affect Lymphatic: no lymphedema Results & Data Results & Data ([facility]) Vital Signs (Past 12 Hours) Vital Signs Temp Pulse Resp BP Pulse Ox 03/16/22 08:23 86 16 150/98 H 96 03/16/22 04:15 36.9 C 96 H 22 136/101 H 98 Laboratory Results 03/16/22 03/16/22 Range/Units 06:13 06:13 WBC 10.50 (4.8-10.8) K/uL RBC 3.79 L (4.7-6.1) M/uL Hgb 12.3 L (14.0-18.0) g/dL Hct 35.6 L (42-52) % MCV 93.9 (80-100) fL MCH 32.5 (25-34) pg MCHC 34.6 (32-36) g/dL RDW Std Deviation 43.4 (36.4-46.3) fL RDW Coeff of Artemio 12.8 (11.5-14.5) % Plt Count 418 H (130-400) K/uL MPV 9.1 (7.4-10.4) fL Sodium 139 (136-145) mmol/L Potassium 3.3 L (3.5-5.1) mmol/L Chloride 111 H (98-107) mmol/L Carbon Dioxide 23 (21-32) mmol/L Anion Gap 5 (3-11) BUN 13 (6-23) mg/dl Creatinine 0.72 D (0.6-1.4) mg/dl Est Cr Clr Drug Dosing Not Reportable Est GFR ( Amer) 121.7 ml/min Est GFR (Non-Af Amer) 105.0 ml/min BUN/Creatinine Ratio 18.1 (10-20) Glucose 71 (70-99(Fasting)) mg/dl Calcium 6.5 L D (8.5-10.1) mg/dl Magnesium 1.4 L (1.7-2.4) mg/dl PG Care Time/CCT Total # of Minutes Spent Total Time Spent with Patient: Total time spent is greater than 50% in coordination of care (as documented) at patient's floor/unit and/or counseling patient: Coding Level of Care Code 37753 Subseq Hosp Care Lvl 3 Diagnoses Neurogenic claudication due to lumbar spinal stenosis M48.062 Feeling suicidal R45.851 UTI (urinary tract infection) N39.0 Urinary retention R33.9 Hypertension I10 Bipolar depression F31.9 Substance Abuse F19.10 Peripheral arterial disease I73.9 DVT prophylaxis Z29.9 Emphysema lung J43.9 Hepatitis C B19.20 Smoker F17.200 Hypomagnesemia E83.42 Hypokalemia E87.6
[2022-03-16] MEDS: traMADol HCL 50 MG TABLET PO PRN (17:11)
[2022-03-16] MEDS ORDERED: DIVALPROEX EXTENDED RELEASE 500 MG TAB PO ONE (21:00)
[2022-03-17] MEDS: traMADol HCL 50 MG TABLET PO PRN ×4 (01:07→19:59)
[2022-03-17 06:11] LABS: Basophils # (auto) 0.03 K/uL (0-0.2); Basophils % (auto) 0.3 %; Eosinophils # (auto) 0.25 K/uL (0-0.5); Eosinophils % (auto) 2.8 %; Hematocrit (blood only) 34.5 % (42-52); Hemoglobin 11.6 g/dL (14.0-18.0); Immature Granulocytes # (auto) 0.03 K/uL (0.00-0.02); Immature Granulocytes % (auto) 0.3 %; Lymphocytes % (auto) 19.1 %; Mean Corpuscular Hemoglobin 31.2 pg (25-34); Mean Corpuscular Hgb Conc 33.6 g/dL (32-36); Mean Corpuscular Volume 92.7 fL (80-100); Monocytes # (auto) 0.93 K/uL (0.11-0.59); Monocytes % (auto) 10.4 %; Neutrophils # (auto) 5.98 K/uL (1.4-6.5); Neutrophils % (auto) 67.1 %; Platelet Count 402 K/uL (130-400); RDW Coefficient of Variation 12.8 % (11.5-14.5); RDW Standard Deviation 43.2 fL (36.4-46.3); Red Blood Count 3.72 M/uL (4.7-6.1); White Blood Count 8.92 K/uL (4.8-10.8)
[2022-03-17 06:40] LABS: Albumin Globulin Ratio 1.1 (0.9-2); Albumin Level 3.7 gm/dl (3.4-5.0); BUN Creatinine Ratio 15.5 (10-20); Bilirubin,Total 0.5 mg/dl (0.2-1.0); Calcium 8.8 mg/dl (8.5-10.1); Creatinine Clr Calc Pharmacy 94.4 ml/min; Est GFR (African American) 101.4 ml/min; Est GFR (Non-African American) 87.5 ml/min; Globulin 3.5 gm/dl (2.5-4.0); Magnesium 2.1 mg/dl (1.7-2.4); Potassium 3.9 mmol/L (3.5-5.1); Total Protein 7.2 gm/dl (6.0-8.3)
[2022-03-17] MEDS: TAMSULOSIN HCL 0.4 MG CAP PO SCH (07:49)
[2022-03-17] MEDS: OLMESARTAN MEDOXOMIL 20 MG TAB PO SCH (07:49)
[2022-03-17] MEDS: amLODIPine BESYLATE 5 MG TAB PO SCH (07:49)
--- NOTE | 2022-03-17 09:22 | Orthopedic Progress Note ---
Date of Service March 17, 2022 Assessment & Plan (1) Neurogenic claudication due to lumbar spinal stenosis: Plan: Patient has a postoperative lumbar seroma. He is symptomatic from this. It is therefore been decided to proceed with I&D of the lumbar spine tomorrow by Dr. Herron. This has been reviewed with the patient. All questions have been answered. He is comfortable with proceeding with this. We will make him n.p.o. after midnight. We will hold on preoperative IV antibiotics. This can be given Intra-Op once cultures have been performed. Admission and Anticipated Discharge Date Admission Date: March 15, 2022 Subjective Patient complains of lower back pain and right leg weakness. He has had a recent MRI which shows postoperative seroma. No urinary retention but attributes this to an enlarged prostate that has been under the care of urology. Sometimes he has to self catheterize. Review of Systems Review of Systems: All systems reviewed & are unremarkable except as noted in HPI & below Physical Exam Physical Exam: Sitting in the bed eating breakfast Lumbar incisions healed but has significant edema Strength is intact bilateral lower extremities. Results & Data ([facility]) Vital Signs (Past 12 Hours) Vital Signs Temp Pulse Resp BP Pulse Ox 03/17/22 07:14 36.7 C 89 18 137/88 96 03/16/22 22:10 37 C 98 H 18 130/85 97 Diagnostic Findings [place], [place] [phone] Magnetic Resonance Report Patient:OMARI MORRIS Admit Date:03/15/22 MR#:[id number] Address1:[address] [place] [address] Acct ID:[id number] Address2:[address] Date:1965 [facility] Zip:[place] [address] Age:56 Location:ED Sex:M Room/Bed: Att Phy: Diagnosis:MHE Susanna Phy:Cleveland Cortez CRNP Service Date:03/15/22 Fam Phy: Interpreting Phy:Ankit Juarez MDAdmit Phy: Ordering Phy:Jett Benson M.D. cc: ~ MRI LUMBAR SPINE COMBO CLINICAL HISTORY: Recent spine surgery. Low back pain. Swelling. Urinary incontinence. COMPARISON STUDY: MRI of the lumbar spine dated 01/10/2022. TECHNIQUE: MRI of the lumbar spine is performed utilizing various T1 and T2- weighted images in the axial and sagittal planes. Contrast-enhanced sequences are acquired following the IV administration of 9.5 cc of Gadavist. The examinat ion is compromised by motion artifact and facility artifact from spinal hardware. FINDINGS: Lumbar spine: Vertebral body height and alignment are maintained throughout the lumbar spine. There is postoperative change from laminectomy and posterior fusion at L4-L5. Interpedicular screws are in place and susceptibility artifact from spinal hardware degrades assessment at these levels. The transverse processes appear intact. No destructive bony lesion is seen. Intervertebral discs: There has been discectomy at L4-L5. Disc desiccation and moderate loss of height is seen at L5-S1. The remaining discs are normal in height and signal intensity. Spinal cord and central canal: Imaged portions of the spinal cord are normal in morphology and signal intensity. The conus medullaris terminates at the level of L1. A punctate enhancing focus within the conus medullaris is seen on sagittal image #10. This is of indeterminant etiology and significance. The nerve roots of the cauda equina are normal in morphology.Epidural lipomatosis is noted in the lower lumbar region. This is similar to previous. No epidural fluid collection is identified. L1-L2: Unremarkable. L2-L3: Unremarkable. L3-L4: There is minimal posterior disc bulge. This abuts the transiting nerve roots. In conjunction with hypertrophy of the ligamentum flavum there is minimal acquired compromise the central canal at this level with a minimum AP diameter of 8 mm. There is mild bilateral subarticular stenosis. The neural foramina are patent. L4-L5: This level is suboptimally assessed due to susceptibility artifact from spinal hardware. There is epidural lipomatosis seen anteriorly which effaces the ventral aspect of the thecal sac. There is also a small residual posterior disc osteophyte complex eccentric to the left. The thecal sac measures up to 6 mm in AP diameter. The neural foramina are grossly clear. Enhancing granulation tissue surrounds the thecal sac and is seen within the right neural foramen at this level. L5-S1: There is broad-based posterior disc bulge. This abuts the transiting nerve roots. There is epidural lipomatosis which effaces the anterior thoracic of the thecal sac. There is no significant neural foraminal narrowing at this level. Sacrum: The visualized sacrum is normal in morphology and signal intensity. Soft tissues: Postoperative change and edema is seen posterior to the thecal sac at the operative levels. A peripherally enhancing fluid collection posterior to the thecal sac at L4-L5 measures 4.0 x 2.0 x 3.5 cm. This causes minimal mass effect on the posterior aspect of the thecal sac and likely resents a seroma. No additional organized fluid collection is seen. The retroperitoneal structures are grossly unremarkable but incompletely evaluated. IMPRESSION: 1. Postoperative change is consistent with L4-L5 spinal fusion. 2. A postoperative fluid collection posterior the thecal sac at L4-L5 causes minimal mass effect on the dorsal aspect of the thecal sac. This likely represents a seroma. The sterility of this fluid cannot be assessed by imaging. 3. There is anterior epidural lipomatosis in from L4 through S1 which effaces the anterior aspect of the thecal sac. There is also enhancing granulation tissue around the thecal sac at the operative level. The thecal sac measures a minimum of 6 mm in AP diameter at the operative level. 4. No epidural fluid collection is identified. 5. See discussion for detailed level analysis. Electronically signed by: Ankit Juarez M.D. 03/15/2022 3:57 PM Dictated:03/15/22 1522 Transcribed: 03/15/22 1522
[2022-03-17] MEDS: DAPTOmycin 325 MG in SYRINGE 0 ML IV SCH (12:06)
[2022-03-17] MEDS ORDERED: traMADol HCL 50 MG TABLET PO PRN (12:44)
--- NOTE | 2022-03-17 12:46 | Hospitalist Progress Note ---
Date of Service March 17, 2022 Assessment & Plan (1) Neurogenic claudication due to lumbar spinal stenosis: Plan: S/p spinal fusion L4-[address] Herron on 01/15/2022. Subacute onset of urinary retention which is likely related to BPH and RLE weakness. With significant lower back pain ongoing - Lumbar MRI shows postoperative seroma and Dr. Herron thinks that this may be causing his symptoms -Appreciate orthopedic spine surgery consultation-plan for surgical drainage of seroma on Friday, plan to collect intraoperative cultures -NPO after midnight -increase tramadol to 100mg po q4h prn severe pain, continue 50mg for moderate pain -Continue Tylenol as needed for mild to moderate pain (2) Hypomagnesemia: Plan: Replaced and now resolved Likely secondary to dehydration from recent alcohol use (3) Hypokalemia: Plan: Replaced and now resolved Follow BMP and magnesium levels in the morning (4) UTI (urinary tract infection): Plan: Likely due to straight caths. Urine culture growing MSSA -continue daptomycin for now but after surgery can convert walter abx leukocytosis now improving continue straight caths--> ordered standing order for bladder scan qshift and cath prn PVR>400mL (5) Feeling suicidal: Plan: Due to medical struggles in last 2 months along with relationship issues with his girlfriend. - Psych consulted in the ER-appreciated -have since discontinued 1:1 sitter as not actively suicidal -Psychiatry is restarting his Depakote 1000 mg at bedtime--> check valproic acid level 5 days after (ordered for 03/23 if still here) Will need outpatient psychiatric [id number] dx program recommended by Psych- touch base with Psych prior to discharge to help arrange -restart Prozac 20mg po daily 3 days after starting depakote as per Psych-wrote for this to start on 03/19 (6) Urinary retention: Plan: Began about 2 weeks after surgery. Seen by urology and etiology thought to be possibly related to enlarged prostate causing bladder outlet obstruction versus urinary retention related to previous lumbar surgery - Continue bladder scans and intermittent straight caths. He has been self cathing at home usually only in the evenings - Continue home tamsulosin -Follow-up with urology as an outpatient as they are considering cystoscopy to see if he would benefit from TURP (7) Hypertension: Plan: BP is controlled - Continue home amlodipine & olmesartan (8) Bipolar depression: Plan: restarting Depakote and Prozac needs outpt Psych f/u after discharge (9) Substance Abuse: Plan: Utox positive on admission with amphetamines, MDMA, marijuana, and alcohol. Noted primary care provider visit stated that he has a history of IV drug use, methamphetamine, and opiate misuse in the past as well as daily marijuana use Counseled on cessation of substance abuse - Monitor for withdrawal-none thus far -start thiamine, folic acid (10) Peripheral arterial disease: Plan: With a history of advanced atherosclerotic change throughout the abdominal aorta and lower extremities seen on CT angiogram aorta with runoff in 12/2021 Also with high-grade stenosis at the origin of the celiac trunk No evidence of ischemia - Hold ASA until after spine surgery Hold statin due to being on daptomycin now for UTI as above Encouraged smoking cessation Follow-up with vascular surgery as an outpatient (11) Emphysema lung: Plan: Encouraged to quit smoking No acute issues at this time, not hypoxic (12) Hepatitis C: Plan: Chronic, HCV RNA genotype Ia, titer elevated last admission LFTs here normal Has outpatient referral to GI to consider treatment (13) Smoker: Plan: Encourage cessation He declines nicotine patch at this time (14) DVT prophylaxis: Plan: SCDs Plan: Disposition-continued stay, plan for SPine surgery Friday Admission and Anticipated Discharge Date Admission Date: March 15, 2022 Subjective Pt having a lot of pain in lower back, tramadol 50mg not helping much. He only straight cathed himself once last night but not at all today so far. Reports that is how he does it at home. He is voiding some amounts here but has to push to get urine out. No other concerns. Review of Systems Review of Systems: All systems reviewed & are unremarkable except as noted in HPI & below Physical Exam Constitutional: WD/WN, vitals as above Eyes: + anicteric sclerae Neck: trachea midline, no thyromegaly Respiratory: normal respiratory effort, lungs clear to auscultation Cardiovascular: RRR, no murmur, no edema Chest (Breasts): Chest: normal inspection of chest Gastrointestinal (Abdomen): normal bowel sounds, soft, nontender, no hepatosplenomegaly Musculoskeletal: Extremities: extremities normal to inspection; no cyanosis and no clubbing Skin: no rashes, warm and dry Neurologic: moves all extremities, + focal motor deficit (4/5 strength with right lower extremity hip flexion, knee extension) and awake Psychiatric: A+Ox3, euthymic affect Lymphatic: no lymphedema Results & Data Results & Data ([facility]) Vital Signs (Past 12 Hours) Vital Signs Temp Pulse Resp BP Pulse Ox 03/17/22 07:14 36.7 C 89 18 137/88 96 Laboratory Results 03/17/22 03/17/22 Range/Units 05:55 05:55 WBC 8.92 (4.8-10.8) K/uL RBC 3.72 L (4.7-6.1) M/uL Hgb 11.6 L (14.0-18.0) g/dL Hct 34.5 L (42-52) % MCV 92.7 (80-100) fL MCH 31.2 (25-34) pg MCHC 33.6 (32-36) g/dL RDW Std Deviation 43.2 (36.4-46.3) fL RDW Coeff of Artemio 12.8 (11.5-14.5) % Plt Count 402 H (130-400) K/uL MPV 9.0 (7.4-10.4) fL Immature Gran % (Auto) 0.3 % Neut % (Auto) 67.1 % Lymph % (Auto) 19.1 % Weber % (Auto) 10.4 % Eos % (Auto) 2.8 % Baso % (Auto) 0.3 % Neut # (Auto) 5.98 (1.4-6.5) K/uL Lymph # (Auto) 1.70 (1.2-3.4) K/uL Weber # (Auto) 0.93 H (0.11-0.59) K/uL Eos # (Auto) 0.25 (0-0.5) K/uL Baso # (Auto) 0.03 (0-0.2) K/uL Immature Gran # (Auto) 0.03 H (0.00-0.02) K/uL Sodium 134 L (136-145) mmol/L Potassium 3.9 (3.5-5.1) mmol/L Chloride 99 (98-107) mmol/L Carbon Dioxide 28 (21-32) mmol/L Anion Gap 7 (3-11) BUN 15 (6-23) mg/dl Creatinine 0.97 (0.6-1.4) mg/dl Est Cr Clr Drug Dosing 94.4 ml/min Est GFR ( Amer) 101.4 ml/min Est GFR (Non-Af Amer) 87.5 ml/min BUN/Creatinine Ratio 15.5 (10-20) Glucose 112 H (70-99(Fasting)) mg/dl Calcium 8.8 D (8.5-10.1) mg/dl Magnesium 2.1 (1.7-2.4) mg/dl Total Bilirubin 0.5 (0.2-1.0) mg/dl AST 21 (13-39) U/L ALT 27 (7-52) U/L Alkaline Phosphatase 75 (34-104) U/L Total Creatine Kinase 82 (30-223) U/L Total Protein 7.2 (6.0-8.3) gm/dl Albumin 3.7 (3.4-5.0) gm/dl Globulin 3.5 (2.5-4.0) gm/dl Albumin/Globulin Ratio 1.1 (0.9-2) PG Care Time/CCT Total # of Minutes Spent Total Time Spent with Patient: Total time spent is greater than 50% in coordination of care (as documented) at patient's floor/unit and/or counseling patient: Coding Level of Care Code 86886 Subseq Hosp Care Lvl 2 Diagnoses Neurogenic claudication due to lumbar spinal stenosis M48.062 Hypomagnesemia E83.42 Hypokalemia E87.6 UTI (urinary tract infection) N39.0 Feeling suicidal R45.851 Urinary retention R33.9 Hypertension I10 Bipolar depression F31.9 Substance Abuse F19.10 Peripheral arterial disease I73.9 Emphysema lung J43.9 Hepatitis C B19.20 Smoker F17.200 DVT prophylaxis Z29.9
[2022-03-17] MEDS: THIAMINE HCL 100 MG TAB PO SCH (13:40)
[2022-03-17] MEDS: FOLIC ACID 1 MG TAB PO SCH (13:40)
[2022-03-17] MEDS: DIVALPROEX EXTENDED RELEASE 500 MG TAB PO SCH (20:26)
[2022-03-18 07:49] LABS: Hematocrit (blood only) 32.6 % (42-52); Mean Corpuscular Hemoglobin 31.5 pg (25-34); Mean Corpuscular Hgb Conc 33.7 g/dL (32-36); Mean Corpuscular Volume 93.4 fL (80-100); Platelet Count 424 K/uL (130-400); RDW Coefficient of Variation 12.8 % (11.5-14.5); RDW Standard Deviation 43.6 fL (36.4-46.3); Red Blood Count 3.49 M/uL (4.7-6.1); White Blood Count 7.48 K/uL (4.8-10.8)
[2022-03-18] MEDS: ACETAMINOPHEN 325 MG TAB PO PRN (07:54)
[2022-03-18 08:21] LABS: Basophils # (auto) 0.06 K/uL (0-0.2); Basophils % (auto) 0.8 %; Eosinophils # (auto) 0.34 K/uL (0-0.5); Eosinophils % (auto) 4.5 %; Immature Granulocytes # (auto) 0.02 K/uL (0.00-0.02); Immature Granulocytes % (auto) 0.3 %; Lymphocytes # (auto) 1.74 K/uL (1.2-3.4); Lymphocytes % (auto) 23.3 %; Monocytes # (auto) 0.62 K/uL (0.11-0.59); Monocytes % (auto) 8.3 %; Neutrophils % (auto) 62.8 %; RBC Morphology Unremarkable
[2022-03-18 08:30] LABS: BUN Creatinine Ratio 14.3 (10-20); Calcium 9.1 mg/dl (8.5-10.1); Est GFR (African American) 79.2 ml/min; Est GFR (Non-African American) 68.4 ml/min; Magnesium 1.9 mg/dl (1.7-2.4); Potassium 4.7 mmol/L (3.5-5.1)
[2022-03-18] MEDS: FOLIC ACID 1 MG TAB PO SCH (09:30)
[2022-03-18] MEDS: THIAMINE HCL 100 MG TAB PO SCH (09:30)
[2022-03-18] MEDS: TAMSULOSIN HCL 0.4 MG CAP PO SCH (10:44)
[2022-03-18] MEDS: amLODIPine BESYLATE 5 MG TAB PO SCH (10:44)
[2022-03-18] MEDS: OLMESARTAN MEDOXOMIL 20 MG TAB PO SCH (10:44)
--- NOTE | 2022-03-18 12:29 | Hospitalist Progress Note ---
Date of Service March 18, 2022 Assessment & Plan (1) Neurogenic claudication due to lumbar spinal stenosis: Plan: S/p spinal fusion L4-[address] Herron on 01/15/2022. Subacute onset of urinary retention which is likely related to BPH and RLE weakness. With significant lower back pain ongoing - Lumbar MRI shows postoperative seroma and Dr. Herron thinks that this may be causing his symptoms -Appreciate orthopedic spine surgery consultation-plan for surgical drainage of seroma 03/18, plan to collect intraoperative cultures -increase tramadol to 100mg po q4h prn severe pain, continue 50mg for moderate pain -Continue Tylenol as needed for mild to moderate pain -will need PT/OT post-op to assess safety/ability to go home (2) UTI (urinary tract infection): Plan: Likely due to straight caths. Urine culture growing MSSA -continue daptomycin for now but after surgery can convert to po abx for dsicharge leukocytosis now resolved continue straight caths--> ordered standing order for bladder scan qshift and cath prn PVR>400mL---> he has been requiring straight cath each shift advised he'll need to straigh cath at home tid after discharge (3) Hypomagnesemia: Plan: Replaced and now resolved Likely secondary to dehydration from recent alcohol use (4) Hypokalemia: Plan: Replaced and now resolved (5) Feeling suicidal: Plan: Due to medical struggles in last 2 months along with relationship issues with his girlfriend. - Psych consulted in the ER-appreciated -have since discontinued 1:1 sitter as not actively suicidal -Psychiatry is restarting his Depakote 1000 mg at bedtime--> check valproic acid level 5 days after (ordered for 03/23 if still here) Will need outpatient psychiatric [id number] dx program recommended by Psych- touch base with Psych prior to discharge to help arrange -restart Prozac 20mg po daily 3 days after starting depakote as per Psych-wrote for this to start on 03/19 (6) Urinary retention: Plan: Began about 2 weeks after surgery. Seen by urology and etiology thought to be possibly related to enlarged prostate causing bladder outlet obstruction versus urinary retention related to previous lumbar surgery - Continue bladder scans and intermittent straight caths. He has been self cathing at home usually only in the evenings -requiring straight cath qshift here for large PVRs in the 600-700s--> advised tid self-cath at home after discharge - Continue home tamsulosin -Follow-up with urology as an outpatient as they are considering cystoscopy to see if he would benefit from TURP (7) Hypertension: Plan: BP is controlled - Continue home amlodipine & olmesartan (8) Bipolar depression: Plan: restarting Depakote and Prozac needs outpt Psych f/u after discharge (9) Substance Abuse: Plan: Utox positive on admission with amphetamines, MDMA, marijuana, and alcohol. Noted primary care provider visit stated that he has a history of IV drug use, methamphetamine, and opiate misuse in the past as well as daily marijuana use Counseled on cessation of substance abuse - Monitor for withdrawal-none thus far -started thiamine, folic acid (10) Peripheral arterial disease: Plan: With a history of advanced atherosclerotic change throughout the abdominal aorta and lower extremities seen on CT angiogram aorta with runoff in 12/2021 Also with high-grade stenosis at the origin of the celiac trunk No evidence of ischemia - Hold ASA until after spine surgery Hold statin due to being on daptomycin now for UTI as above Encouraged smoking cessation Follow-up with vascular surgery as an outpatient (11) Emphysema lung: Plan: Encouraged to quit smoking No acute issues at this time, not hypoxic (12) Hepatitis C: Plan: Chronic, HCV RNA genotype Ia, titer elevated last admission LFTs here normal Has outpatient referral to GI to consider treatment (13) Smoker: Plan: Encourage cessation He declines nicotine patch at this time (14) DVT prophylaxis: Plan: SCDs Plan: Disposition-continued stay, plan for SPine surgerytoday and continued stay for post-op recovery. PT/OT eval ordered for post-op Admission and Anticipated Discharge Date Admission Date: March 15, 2022 Subjective Pt has soreness in his back, reports the higher dose of tramadol did help yesterday. Has required multiple straight caths No other concerns. No CP, SOB, abd pain, nausea. Is NPO for surgery today Review of Systems Review of Systems: All systems reviewed & are unremarkable except as noted in HPI & below Physical Exam Constitutional: WD/WN, vitals as above Eyes: + anicteric sclerae Neck: trachea midline, no thyromegaly Respiratory: normal respiratory effort, lungs clear to auscultation Cardiovascular: RRR, no murmur, no edema Chest (Breasts): Chest: normal inspection of chest Gastrointestinal (Abdomen): normal bowel sounds, soft, nontender, no hepatosplenomegaly Musculoskeletal: Extremities: extremities normal to inspection; no cyanosis and no clubbing Skin: no rashes, warm and dry Neurologic: moves all extremities, + focal motor deficit (4/5 strength with right lower extremity hip flexion, knee extension) and awake Psychiatric: A+Ox3, euthymic affect Lymphatic: no lymphedema Results & Data Results & Data ([facility]) Vital Signs (Past 12 Hours) Vital Signs Temp Pulse Resp BP Pulse Ox 03/18/22 07:16 36.6 C 82 16 118/78 97 PG Care Time/CCT Total # of Minutes Spent Total Time Spent with Patient: Total time spent is greater than 50% in coordination of care (as documented) at patient's floor/unit and/or counseling patient: Coding Level of Care Code 91707 Subseq Hosp Care Lvl 2 Diagnoses Neurogenic claudication due to lumbar spinal stenosis M48.062 Hypomagnesemia E83.42 Hypokalemia E87.6 UTI (urinary tract infection) N39.0 Feeling suicidal R45.851 Urinary retention R33.9 Hypertension I10 Bipolar depression F31.9 Substance Abuse F19.10 Peripheral arterial disease I73.9 Emphysema lung J43.9 Hepatitis C B19.20 Smoker F17.200 DVT prophylaxis Z29.9
[2022-03-18] MEDS: DAPTOmycin 325 MG in SYRINGE 0 ML IV SCH (13:11)
[2022-03-18] MEDS ORDERED: fentaNYL citrate 100 MCG/2 ML VIAL ONE (14:55)
[2022-03-18] MEDS ORDERED: MIDAZOLAM HCL 1 MG/ML 2ML VIAL ONE (14:55)
--- NOTE | 2022-03-18 14:56 | History & Physical Bridge Note ---
Date of Service March 18, 2022 History & Physical Bridge Note I have examined the patient, reviewed the History & Physical and in the interval since the performance of the History & Physical I have noted the following changes of clinical significance: no changes noted Irrigation and debridement lumbar spine
[2022-03-18] MEDS ORDERED: PROMETHAZINE HCL 12.5 MG in SODIUM CHLORIDE 0.9% 50 ML IV PRN ×2 (15:07→17:37)
[2022-03-18] MEDS ORDERED: ONDANSETRON INJ 2 MG/ML 2 ML VIAL IV PRN ×2 (15:07→17:37)
[2022-03-18] MEDS ORDERED: HYDROmorphone INJ 1 MG/ML SYRINGE IV PRN (15:07)
[2022-03-18] MEDS ORDERED: ATROPINE SULFATE 0.1 MG/ML 10ML SYR IV PRN (15:07)
--- NOTE | 2022-03-18 15:07 | Anesthesiology Consultation ---
Date of Service March 18, 2022 Assessment & Plan (1) Encounter for pre-operative examination: Chart Review Chart Review: Acceptable Risk for Surgery History Surgery Operation Date: 03/18/22 07:00 Proposed Procedures p Incision and Drainage Lumbar with Cultures - Michael Herron DO Height/Weight Height: 6 ft Weight: 90.8 kg Allergies Allergy/AdvReac Type Severity Reaction Status Date / Time paroxetine Allergy Mild UNSURE Verified 03/15/22 01:47 risperidone Allergy Unknown Unknown Verified 03/15/22 01:47 Influenza Virus Vaccines AdvReac Unknown UNKNOWN Verified 03/15/22 01:47 pneumococcal vaccine AdvReac Unknown Unknown Verified 03/15/22 01:47 Medications Home Medications Medication Instructions Recorded Confirmed Last Taken aspirin 81 mg tablet,delayed 81 mg PO DAILY #30 tab 01/17/22 03/15/22 02/01/22 release tamsulosin 0.4 mg capsule (Flomax) 0.4 mg PO DAILY #10 cap 02/01/22 03/15/22 Unknown rosuvastatin 40 mg tablet 40 mg PO QAM #90 tab 02/06/22 03/15/22 Unknown amlodipine 5 mg tablet (Norvasc) 10 mg PO QAM #180 tab 02/14/22 03/15/22 Unknown olmesartan 20 mg tablet 20 mg PO QAM #90 tab 02/14/22 03/15/22 Unknown cephalexin 500 mg capsule 500 mg PO BID 7 Days #14 cap 03/15/22 Unknown ibuprofen 800 mg tablet 800 mg PO Q8H 03/15/22 03/15/22 Unknown Active Medications Generic Name Dose Route Start Last Admin Trade Name Raymondq PRN Reason Stop Dose Admin Acetaminophen 650 mg 03/15/22 18:52 03/18/22 07:54 Acetaminophen 325 Mg Tab PO 04/14/22 18:51 650 mg Q4H PRN Administration pain/fever Amlodipine Besylate 10 mg 03/16/22 09:00 03/18/22 10:44 Amlodipine Besylate 5 Mg Tab PO 04/15/22 08:59 10 mg QAM SHANA Administration Divalproex Sodium 1,000 mg 03/17/22 21:00 03/17/22 20:26 Divalproex Extended Release 500 Mg Tab PO 04/16/22 20:59 1,000 mg HS SHANA Administration Folic Acid 1 mg 03/17/22 13:15 03/18/22 09:30 Folic Acid 1 Mg Tab PO 04/16/22 13:14 1 mg QAM SHANA Administration Daptomycin 325 mg/ Syringe 6.5 mls @ 3.25 mls/min 03/16/22 13:00 03/18/22 13:11 IV 03/26/22 12:59 3.25 mls/min Q24H SHANA Administration Protocol Olmesartan 20 mg 03/16/22 09:00 03/18/22 10:44 Olmesartan Medoxomil 20 Mg Tab PO 04/15/22 08:59 20 mg QAM SHANA Administration Rosuvastatin Calcium 40 mg 03/16/22 09:00 03/16/22 08:12 Rosuvastatin Calcium 20 Mg Tab PO 04/15/22 08:59 40 mg QAM SHANA Administration Tamsulosin HCl 0.4 mg 03/16/22 09:00 03/18/22 10:44 Tamsulosin Hcl 0.4 Mg Cap PO 04/15/22 08:59 0.4 mg DAILY SHANA Administration Thiamine HCl 100 mg 03/17/22 13:15 03/18/22 09:30 Thiamine Hcl 100 Mg Tab PO 04/16/22 13:14 100 mg QAM SHANA Administration Tramadol HCl 50 mg 03/17/22 12:44 03/18/22 10:47 Tramadol Hcl 50 Mg Tablet PO 04/15/22 14:01 50 mg Q4H PRN Administration moderate Pain (scale 4-7) Tramadol HCl 100 mg 03/17/22 12:43 03/17/22 19:59 Tramadol Hcl 50 Mg Tablet PO 04/16/22 12:42 100 mg Q4H PRN Administration severe Pain (scale 8-10) NPO Date Last Intake of Fluids: 03/17/22 Time Last Intake of Fluids: 23:00 Date Last Intake of Solids: 03/17/22 Time Last Intake of Solids: 22:30 Past Medical History Medical History Anxiety with depression Bipolar depression Carotid stenosis Cervical stenosis of spinal canal (05/18/14) Degenerative joint disease (DJD) of lumbar spine Emphysema lung Hepatitis C Hypertension Peripheral arterial disease Smoker Urinary retention Past Family History Family History Father Prostate cancer Denies family history of Ovarian cancer Myocardial infarction Breast cancer Colorectal cancer Past Surgical History Surgical History H/O neck surgery Dr. Herron - 2013 History of back surgery Dr. Herron - Lower back surgery - January 18. History of wisdom tooth extraction Social History Smoking Status: Current every day smoker tobacco type: cigarettes Smoking cigarettes per day: 1/2 pack per day Hx Alcohol Use: Yes Alcohol type: hard liquor alcohol intake frequency: a few times a week Hx Substance Use: Yes substance use type: former substance user and marijuana Last Used Substance: Hours (ago) Physical Exam Vital Signs Last Vital Signs Temp 36.8 C 03/18/22 14:20 Pulse 72 03/18/22 14:20 Resp 20 03/18/22 14:20 BP 110/65 03/18/22 14:20 Pulse Ox 98 03/18/22 14:20 Testing Laboratory Results 03/18/22 07:19 03/18/22 07:19 Urine Color Yellow 03/15/22 01:24 Urine Appearance Cloudy (Clear) A 03/15/22 01:24 Urine pH 6.5 (4.5-7.5) 03/15/22 01:24 Ur Specific [place] 1.016 (1.000-1.030) 03/15/22 01:24 Urine Protein 1+ (Negative) H 03/15/22 01:24 Urine Glucose (UA) Negative (Negative) 03/15/22 01:24 Urine Ketones Negative (Negative) 03/15/22 01:24 Urine Nitrite Positive (Negative) A 03/15/22 01:24 Ur Leukocyte Esterase 3+ (Negative) H 03/15/22 01:24 Urine WBC (Auto) >30 /hpf (0-5) H 03/15/22 01:24 Urine RBC (Auto) 5-10 /hpf (0-4) H 03/15/22 01:24 U Hyaline Cast (Auto) 1-5 /lpf (0-5) 03/15/22 01:24 U Epithel Cells (Auto) 10-20 /lpf (0-5) H 03/15/22 01:24 Urine Bacteria (Auto) 2+ (Negative) H 03/15/22 01:24 03/15/22 01:24 Urine Culture - Final Urine,Clean Catch Staphylococcus aureus Electrocardiogram Date: 03/15/22 Findings: + NSR @ (85)
[2022-03-18] MEDS ORDERED: PROPOFOL IV EMULSION 10 MG/ML 20 ML VIAL IV ONE (15:21)
[2022-03-18] MEDS ORDERED: DEXAMETHASONE SOD INJ 4 MG/ML VIAL ONE (15:21)
[2022-03-18] MEDS ORDERED: LIDOCAINE 2% 2 ML VIAL/AMP(20MG/ML) INFIL ONE (15:21)
[2022-03-18] MEDS ORDERED: ONDANSETRON INJ 2 MG/ML 2 ML VIAL ONE (15:21)
[2022-03-18] MEDS ORDERED: ROCURONIUM BROMIDE 10 MG/ML 5 ML VIAL IV ONE (15:22)
[2022-03-18] MEDS ORDERED: GLYCOPYRROLATE 0.2 MG/ML VIAL ONE (15:22)
[2022-03-18] MEDS ORDERED: NEOSTIGMINE METHYLSULFATE 1 MG/ML 10ML VIAL ONE (15:22)
[2022-03-18] MEDS ORDERED: BUPIVACAINE/EPINEPHRINE 0.25% 1:200,000 30 ML VIAL ONE (15:34)
[2022-03-18] MEDS ORDERED: ceFAZolin 330 MG/ML 1 GM VIAL ONE (15:34)
[2022-03-18] MEDS ORDERED: VANCOMYCIN HCL 1000MG/20ML VIAL ONE (16:00)
[2022-03-18] MEDS ORDERED: GENTAMICIN SULFATE 40 MG/ML 2 ML VIAL ONE (16:00)
[2022-03-18] MEDS ORDERED: PHENYLEPHRINE 100MCG/ML 5ML SYR ONE (16:04)
[2022-03-18] MEDS ORDERED: ePHEDrine sulfate 50 MG/ML AMP ONE (16:15)
--- NOTE | 2022-03-18 16:18 | Operative Report ---
Post Operative Report Pre & Post Diagnosis Operation Date: 03/18/22 07:00 Preop diagnosis epidural seroma. Postop diagnosis same I identified the patient and participated in the time-out.: Yes Procedure Operation Date: 03/18/22 07:00 I&D lumbar spine Surgeon Michael Herron DO Naturopathic Doctor Yulisa Uribe Estimated Blood Loss 10 Findings Consistent with Post-Op Diagnosis Specimens Cultures and tissue obtained to rule out infection Indications This is a 56-year-old male who presents with decline in status over the past several days with numbness and tingling and a perception of weakness in his legs. MRI does demonstrate a seroma that may contribute to significant neural compression and subsequent symptom complex. Subsequently is here for I&D lumbar spine. Description of Procedure Patient was met with identified informed consent obtained. Patient was then taken to the operative suite underwent a patient placed in a prone position on the Jered table atop the Ke[place]an frame. All bony prominences well-padded eyes inspected to ensure no external pressure placed upon the. This point lumbar spine was prepped and draped in the normal sterile fashion. Sharp dissection with the assistance of Bovie cautery was performed down to expose in the epidural space. Large pocket of organized fluid was identified. There is no evidence of purulence or infection. Cultures were obtained as well as some tissue sent to the lab to rule out infection. Several liters of saline were then irrigated throughout the incision. A 15 round MORRO drain was then inserted. Did place approximately 10 cc of stimulant beads impregnated with gentamicin vancomycin within the incision. Was then closed with 1 Vicryl the fascia 2-0 Vicryl subcutaneously and 4 Monocryl for final skin closure. Steri-Strip sterile dressings placed. Patient waken taken to PACU stable condition. Please note Yulisa Uribe was present out the entire procedure and while the patient positioning complex portions of the surgery and final skin closure. I attest to the content of the Intraoperative Record and any orders documented therein. Any exceptions are noted below.
[2022-03-18] MEDS ORDERED: FLOSEAL HEMOSTATIC MATRIX 10ML TOP ONE (16:37)
--- NOTE | 2022-03-18 17:02 | Anesthesiology Progress Note ---
Date of Service March 18, 2022 Anesthesia Post Procedure Vital Signs Vital Signs: Temp Pulse Pulse Resp BP BP Pulse Ox 03/18/22 17:00 79 10 L 88/60 L 98 03/18/22 16:50 83 12 92/61 L 97 03/18/22 16:40 86 12 98/60 L 100 03/18/22 16:30 97.2 F L 77 12 96/69 L 100 03/18/22 14:20 98.2 F 72 20 110/65 98 03/18/22 07:16 97.9 F 82 16 118/78 97 03/17/22 22:06 97.8 F 79 16 124/76 98 Pain Intensity Lower Back: Pain Intensity: 4 Transfer of Care Handoff Completed per policy Notes Mental Status: alert / awake / arousable and participated in evaluation Patient Amnestic to Procedure: Yes Nausea / Vomiting: adequately controlled Pain: adequately controlled Airway Patency, RR, SpO2: stable & adequate BP & HR: stable & adequate Hydration State: stable & adequate Anesthetic Complications: no major complications apparent and Pt Satisfied with anesthetic care
[2022-03-18] MEDS ORDERED: FAMOTIDINE 20 MG TAB PO PRN (17:37)
[2022-03-18] MEDS ORDERED: METOCLOPRAMIDE HCL INJ 5 MG/ML 2 ML VIAL IV PRN (17:37)
[2022-03-18] MEDS ORDERED: DO NOT ADMINISTER PNEUMOCOCCAL VACCINE PRN (17:37)
[2022-03-18] MEDS ORDERED: bisacodyL 10 MG SUPP PR PRN (17:37)
[2022-03-18] MEDS ORDERED: MAGNESIUM HYDROXIDE SUSP 30 ML UDC PO PRN (17:37)
[2022-03-18] MEDS ORDERED: diphenhydrAMINE Capsule 25 MG CAP PO PRN (17:37)
[2022-03-18] MEDS ORDERED: ONDANSETRON 4 MG OD TAB PO PRN (17:37)
[2022-03-18] MEDS ORDERED: LORazepam 0.5 MG TAB PO PRN (17:37)
[2022-03-18] MEDS ORDERED: LORazepam 0.5 MG in SYRINGE 0.25 ML IV PRN (17:37)
[2022-03-18] MEDS ORDERED: ACETAMINOPHEN 1,000 MG/100 ML VIAL IV PRN (17:37)
[2022-03-18] MEDS ORDERED: ALUMINUM/MAGNESIUM SUSP 30 ML UDC PO PRN (17:37)
[2022-03-18] MEDS ORDERED: NALOXONE HCL 0.4 MG/1 ML VIAL/CARP IV PRN (17:37)
[2022-03-18] MEDS ORDERED: hydrOXYzine HCl 25 MG TAB PO PRN (17:37)
[2022-03-18] MEDS ORDERED: DO NOT ADMINISTER FLU VACCINE PRN (17:37)
[2022-03-18] MEDS ORDERED: SOD PHOSPHATE/SOD BIPHOSPHATE ENEMA 132 ML BTL PR PRN (17:37)
[2022-03-18] MEDS ORDERED: ACETAMINOPHEN 500 MG TAB PO PRN (17:37)
[2022-03-18] MEDS ORDERED: HYDROmorphone INJ 0.5 MG/0.5 ML SYR IV PRN (17:37)
[2022-03-18] MEDS: LACTATED RINGER'S 1,000 ML IV SCH (17:48)
[2022-03-18] MEDS: DIVALPROEX EXTENDED RELEASE 500 MG TAB PO SCH (20:32)
[2022-03-18] MEDS: DOCUSATE SODIUM/SENNA 50/8.6MG TAB PO SCH (20:33)
[2022-03-18] MEDS: HYDROmorphone INJ 1 MG/ML SYRINGE IV PRN (20:34)
[2022-03-19] MEDS: HYDROmorphone INJ 1 MG/ML SYRINGE IV PRN ×6 (02:19→23:15)
[2022-03-19] MEDS: LACTATED RINGER'S 1,000 ML IV SCH ×2 (02:19→14:44)
[2022-03-19] MEDS: POLYETHYLENE (MIRALAX) 17 GM PACK PO SCH ×4 (06:00→23:18)
[2022-03-19] MEDS: THIAMINE HCL 100 MG TAB PO SCH (08:37)
[2022-03-19] MEDS: OLMESARTAN MEDOXOMIL 20 MG TAB PO SCH (08:37)
[2022-03-19] MEDS: FOLIC ACID 1 MG TAB PO SCH (08:38)
[2022-03-19] MEDS: TAMSULOSIN HCL 0.4 MG CAP PO SCH (08:38)
[2022-03-19] MEDS: amLODIPine BESYLATE 5 MG TAB PO SCH (08:38)
[2022-03-19] MEDS: FLUoxetine HCL 20 MG CAP PO SCH (08:39)
--- NOTE | 2022-03-19 08:44 | Orthopedic Progress Note ---
Date of Service March 19, 2022 Assessment & Plan (1) Neurogenic claudication due to lumbar spinal stenosis: Plan: At this time initiate physical therapy. We will monitor his MORRO output. We await final cultures. Admission and Anticipated Discharge Date Admission Date: March 15, 2022 Subjective Patient's back pain is improved. Leg symptoms improved. Physical Exam Physical Exam: Patient is sitting up at the bedside. Is comfortable. Is good strength testing. Results & Data ([facility]) Vital Signs (Past 12 Hours) Vital Signs Temp Pulse Resp BP Pulse Ox 03/19/22 07:46 36.3 C L 94 H 16 144/76 H 96 03/19/22 02:23 36.7 C 95 H 16 125/75 95 03/18/22 22:55 36.4 C L 90 18 114/69 96
[2022-03-19 09:16] LABS: Eosinophils # (auto) 0.01 K/uL (0-0.5); Eosinophils % (auto) 0.1 %; Hematocrit (blood only) 34.7 % (42-52); Hemoglobin 11.7 g/dL (14.0-18.0); Immature Granulocytes # (auto) 0.04 K/uL (0.00-0.02); Immature Granulocytes % (auto) 0.3 %; Lymphocytes # (auto) 0.61 K/uL (1.2-3.4); Lymphocytes % (auto) 4.3 %; Mean Corpuscular Hemoglobin 31.2 pg (25-34); Mean Corpuscular Hgb Conc 33.7 g/dL (32-36); Mean Corpuscular Volume 92.5 fL (80-100); Mean Platelet Volume 9.4 fL (7.4-10.4); Monocytes # (auto) 0.32 K/uL (0.11-0.59); Monocytes % (auto) 2.3 %; Neutrophils # (auto) 13.23 K/uL (1.4-6.5); Platelet Count 481 K/uL (130-400); RDW Coefficient of Variation 12.7 % (11.5-14.5); RDW Standard Deviation 42.9 fL (36.4-46.3); Red Blood Count 3.75 M/uL (4.7-6.1); White Blood Count 14.21 K/uL (4.8-10.8)
[2022-03-19 09:44] LABS: BUN Creatinine Ratio 23.3 (10-20); Calcium 9.4 mg/dl (8.5-10.1); Creatinine Clr Calc Pharmacy 101.8 ml/min; Est GFR (Non-African American) 95.8 ml/min; Potassium 4.7 mmol/L (3.5-5.1)
[2022-03-19] MEDS: traMADol HCL 50 MG TABLET PO PRN (09:47)
[2022-03-19] MEDS: DAPTOmycin 325 MG in SYRINGE 0 ML IV SCH (14:08)
--- NOTE | 2022-03-19 17:22 | Communication Note ---
Date of Service: March 19, 2022 Interim progress reviewed. Is feeling much better post op per ortho. Prozac was started as recommended at 20 mg by hospitalist and a depakote level is ordered for 03/23/22 (day 5 depakote ER 1000 mg). Patient signed a release for [facility] in [place] and referral/appt to be made for aftercare by liaison.
[2022-03-19 20:06] LABS: Amphetamine Urine, Confirm 7300 ng/mL (<250); MDA negative; MDEA negative; MDMA (Ecstasy) Urine, Confirm negative; Marijuana Quant, GCMS Urine 47 ng/mL (<5); Methamphetamine, Ur Confirm >15000 ng/mL (<250)
[2022-03-19] MEDS: DIVALPROEX EXTENDED RELEASE 500 MG TAB PO SCH (20:41)
[2022-03-19] MEDS: DOCUSATE SODIUM/SENNA 50/8.6MG TAB PO SCH (20:41)
--- NOTE | 2022-03-19 21:20 | Hospitalist Progress Note ---
Date of Service March 19, 2022 Assessment & Plan (1) Seroma of musculoskeletal structure after musculoskeletal system procedure: Plan: POD #1 s/p incision/drainage of lumbar seroma. At time of the procedure the seroma did not appear grossly infected. Cultures x 2 thus far negative. Remains on daptomycin for UTI which will also cover the seroma if indeed there is infection. Follow cultures. (2) Neurogenic claudication due to lumbar spinal stenosis: Plan: S/p spinal fusion L4-[address] Herron on 01/15/2022. With development of seroma in the lumbar spine region. s/p I&D of seroma yesterday by Dr Herron. There had been concern the seroma was contributing to his neurological symptoms. Right foot drop is indeed better today. Appreciate ortho assistance. (3) UTI (urinary tract infection): Plan: Catheter-associated MSSA UTI. Remains on IV daptomycin. Can convert to PO antibiotics if cultures from the seroma remain negative. Continue straight caths. Likely to need at least TID every day. (4) Hypomagnesemia: Plan: Replaced and now resolved (5) Hypokalemia: Plan: Replaced and now resolved (6) Feeling suicidal: Plan: Due to medical struggles in last 2 months along with relationship issues with his girlfriend. 1:1 observation/sitter discontinued -- not actively suicidal at this time. Psychiatry restarted his Depakote 1000 mg at bedtime--> check valproic acid level 5 days after (ordered for 03/23/22). Will need outpatient psychiatric follow-up (dual diagnosis program as recommended by Psych). (7) Urinary retention: Plan: Began about 2 weeks after surgery. Seen by urology and etiology thought to be possibly related to BPH vs neurogenic. Continue alpha galileo. Continue self-cathing TID. Treat UTI. (8) Hypertension: Plan: Continue home amlodipine & olmesartan (9) Bipolar depression: Plan: restarted Depakote prozac resumption - will check with psych on this (10) Substance Abuse: Plan: UDS positive on admission with amphetamines, MDMA, marijuana, and alcohol. Also with past history of IV drug use, methamphetamine, and opiate misuse. Continue thiamine, folic acid supplementation. Outpatient f/u needed for this complex gentleman. 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 Holding both aspirin and statin at this time. Will check with ortho to see when asa can be resumed. Follow-up with vascular surgery as an outpatient. (12) Emphysema lung: Plan: Encouraged to quit smoking No flare at this time (13) Hepatitis C: Plan: Chronic, HCV RNA genotype Ia, titer elevated last admission LFTs here normal Has outpatient referral to GI to consider treatment (14) Smoker: Plan: Declines nicotine patch at this time (15) DVT prophylaxis: Plan: SCDs Chemical means contraindication due to spine surgery yesterday Plan: needs PT/OT and likely acute inpatient physical rehab post-discharge Admission and Anticipated Discharge Date Admission Date: March 15, 2022 Subjective patient reports that right foot drop is improved today able to ambulate better than pre-op back pain is fair - needing the morphine IV a considerable amount denies dyspnea passing flatus eating ok denies chest pain we discussed acute rehab post-discharge - he is interested in such Review of Systems Review of Systems: gen - no fevers cv - no cp pulm - no dyspnea GI - no bloating or pain Physical Exam Physical Exam: gen - NAD, comfortable, sitting at side of bed mouth - MMM neck - no JVD heart - RRR, s1 s2 lungs - CTA b/l back - dressings intact lower back; clean/dry abd - soft NT ND BS+ ext - no edema, pulses 2+ b/l neuro - strength dorsiflexion/plantarflexion right foot near 5/5; hip flexion 5/5 b/l hips; knee extension 5/5 b/l; left foot strength wnl Results & Data Results & Data ([facility]) Vital Signs (Past 12 Hours) Vital Signs Temp Pulse Resp BP Pulse Ox 03/19/22 14:46 36.6 C 105 H 16 133/75 96 03/19/22 11:36 36.6 C 101 H 16 132/67 94 Laboratory Results Laboratory Results - last 24 hr 03/15/22 03/19/22 03/19/22 01:24 08:33 08:33 WBC 14.21 H RBC 3.75 L Hgb 11.7 L Hct 34.7 L MCV 92.5 MCH 31.2 MCHC 33.7 RDW Std Deviation 42.9 RDW Coeff of Artemio 12.7 Plt Count 481 H MPV 9.4 Immature Gran % (Auto) 0.3 Neut % (Auto) 93.0 Lymph % (Auto) 4.3 [place] % (Auto) 2.3 Eos % (Auto) 0.1 Baso % (Auto) 0.0 Neut # (Auto) 13.23 H Lymph # (Auto) 0.61 L [place] # (Auto) 0.32 Eos # (Auto) 0.01 Baso # (Auto) 0.00 Immature Gran # (Auto) 0.04 H Sodium 132 L Potassium 4.7 Chloride 97 L Carbon Dioxide 26 Anion Gap 9 BUN 21 Creatinine 0.90 Est Cr Clr Drug Dosing 101.8 Est GFR ( Amer) 111.0 Est GFR (Non-Af Amer) 95.8 BUN/Creatinine Ratio 23.3 H Glucose 146 H Calcium 9.4 U Amphetamines Confirm 7300 H U Methamphetamin Confrm >99231 H Urine MDEA negative MDMA negative Urine MDMA negative U Marijuana THC Carboxy 47 H Drug Screen Comment SEE NOTE PG Care Time/CCT Total # of Minutes Spent Total Time Spent with Patient: Total time spent is greater than 50% in coordination of care (as documented) at patient's floor/unit and/or counseling patient: Coding Level of Care Code 51186 Subseq Hosp Care Lvl 2 Diagnoses Neurogenic claudication due to lumbar spinal stenosis M48.062 UTI (urinary tract infection) N39.0 Hypomagnesemia E83.42 Hypokalemia E87.6 Feeling suicidal R45.851 Urinary retention R33.9 Hypertension I10 Bipolar depression F31.9 Substance Abuse F19.10 Peripheral arterial disease I73.9 Emphysema lung J43.9 Hepatitis C B19.20 Smoker F17.200 DVT prophylaxis Z29.9 Seroma of musculoskeletal structure after musculoskeletal system procedure M96.842
[2022-03-20] MEDS: HYDROmorphone INJ 1 MG/ML SYRINGE IV PRN ×3 (03:00→12:42)
[2022-03-20] MEDS: POLYETHYLENE (MIRALAX) 17 GM PACK PO SCH ×4 (05:49→23:17)
[2022-03-20 08:23] LABS: Hematocrit (blood only) 34.5 % (42-52); Mean Corpuscular Hemoglobin 32.8 pg (25-34); Mean Corpuscular Hgb Conc 34.8 g/dL (32-36); Mean Corpuscular Volume 94.3 fL (80-100); Mean Platelet Volume 9.3 fL (7.4-10.4); Platelet Count 512 K/uL (130-400); RDW Coefficient of Variation 12.8 % (11.5-14.5); RDW Standard Deviation 44.2 fL (36.4-46.3); Red Blood Count 3.66 M/uL (4.7-6.1); White Blood Count 14.64 K/uL (4.8-10.8)
[2022-03-20 08:43] LABS: BUN Creatinine Ratio 17.8 (10-20); Creatinine Clr Calc Pharmacy 85.6 ml/min; Est GFR (African American) 90.1 ml/min; Est GFR (Non-African American) 77.7 ml/min; Potassium 4.6 mmol/L (3.5-5.1)
[2022-03-20] MEDS: FLUoxetine HCL 20 MG CAP PO SCH (09:03)
[2022-03-20] MEDS: amLODIPine BESYLATE 5 MG TAB PO SCH (09:03)
[2022-03-20] MEDS: TAMSULOSIN HCL 0.4 MG CAP PO SCH (09:04)
[2022-03-20] MEDS: OLMESARTAN MEDOXOMIL 20 MG TAB PO SCH (09:04)
[2022-03-20] MEDS: FOLIC ACID 1 MG TAB PO SCH (09:04)
[2022-03-20] MEDS: THIAMINE HCL 100 MG TAB PO SCH (09:05)
[2022-03-20] MEDS: DAPTOmycin 325 MG in SYRINGE 0 ML IV SCH (12:37)
--- NOTE | 2022-03-20 21:41 | Hospitalist Progress Note ---
Date of Service March 20, 2022 Assessment & Plan (1) Seroma of musculoskeletal structure after musculoskeletal system procedure: Plan: POD #2 s/p incision/drainage of lumbar seroma. At time of the procedure the seroma did not appear grossly infected. Cultures x 2 remain negative. Remains on daptomycin for UTI which will also cover the seroma if indeed there is infection. Follow cultures. If cultures stay negative d/c daptomycin after today's dose. (2) Neurogenic claudication due to lumbar spinal stenosis: Plan: S/p spinal fusion L4-[address] Herron on 01/15/2022. With development of seroma in the lumbar spine region. s/p I&D of seroma by Dr Herron - POD #2. There had been concern the seroma was contributing to his neurological symptoms. Right foot drop is indeed resolved on physical exam. Appreciate ortho assistance. Drain remains in place - defer to ortho about d/c of that. (3) UTI (urinary tract infection): Plan: Catheter-associated MSSA UTI. Remains on IV daptomycin. Can convert to PO antibiotics if cultures from the seroma remain negative. Would switch to keflex 500mg BID. Plan 14 days in total of IV/PO abx. Check blood cx's tomorrow am. Continue straight caths. Likely to need at least TID every day. (4) Hypomagnesemia: Plan: Replaced and now resolved (5) Hypokalemia: Plan: Replaced and now resolved (6) Feeling suicidal: Plan: Due to medical struggles in last 2 months along with relationship issues with his girlfriend. 1:1 observation/sitter discontinued -- not actively suicidal at this time. Psychiatry restarted his Depakote 1000 mg at bedtime--> check valproic acid level 5 days after (ordered for 03/23/22). Will need outpatient psychiatric follow-up (dual diagnosis program as anabel mmended by Psych). Prozac 20mg daily resumed 03/19/22. (7) Urinary retention: Plan: Began about 2 weeks after surgery. Seen by urology and etiology thought to be possibly related to BPH vs neurogenic. Continue alpha galileo. Continue self-cathing TID. Treat UTI. (8) Hypertension: Plan: Continue home amlodipine & olmesartan (9) Bipolar depression: Plan: restarted Depakote restarted Prozac (10) Substance Abuse: Plan: UDS positive on admission with amphetamines, MDMA, marijuana, and alcohol. Also with past history of IV drug use, methamphetamine, and opiate misuse. Continue thiamine, folic acid supplementation. Outpatient f/u needed for this complex gentleman. 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 Holding both aspirin and statin at this time. Will check with ortho to see when asa can be resumed. Follow-up with vascular surgery as an outpatient. (12) Emphysema lung: Plan: Encouraged to quit smoking No flare at this time (13) Hepatitis C: Plan: Chronic, HCV RNA genotype Ia, titer elevated last admission LFTs here normal Has outpatient referral to GI to consider treatment (14) Smoker: Plan: Declines nicotine patch at this time (15) DVT prophylaxis: Plan: SCDs Chemical means contraindication due to spine surgery this week Plan: needs PT/OT and likely acute inpatient physical rehab post-discharge constipation - if no BM by the am then enema x 1 Admission and Anticipated Discharge Date Admission Date: March 15, 2022 Subjective no events overnight straight cathing about twice daily c/o back pain but no leg pain right leg strength is good eating fair no BM in several days a little anxious about things going on outside the hospital Review of Systems Review of Systems: gen - no fevers or chills cv - no chest pain pulm - no dyspnea GI - no abd pain Physical Exam Physical Exam: gen - NAD, comfortable, sitting at side of bed, slurring his speech mouth - MMM neck - no JVD heart - RRR, s1 s2 lungs - CTA b/l abd - soft NT BS+; mildly distended ext - no edema, pulses 2+ b/l neuro - strength dorsiflexion/plantarflexion right foot 5/5; hip flexion 5/5 b/l hips; left foot strength 5/5 Results & Data Results & [facility] ([facility]) Vital Signs (Past 12 Hours) Vital Signs Temp Pulse Resp BP Pulse Ox 03/20/22 16:40 36.7 C 82 17 120/72 97 Laboratory Results Laboratory Results - last 24 hr 0603/20/22 03/20/22 07:57 07:57 07:57 WBC 14.64 H RBC 3.66 L Hgb 12.0 L Hct 34.5 L MCV 94.3 MCH 32.8 MCHC 34.8 RDW Std Deviation 44.2 RDW Coeff of Artemio 12.8 Plt Count 512 H MPV 9.3 Sodium 134 L Potassium 4.6 Chloride 97 L Carbon Dioxide 27 Anion Gap 10 BUN 19 Creatinine 1.07 Est Cr Clr Drug Dosing 85.6 Est GFR ( Amer) 90.1 Est GFR (Non-Af Amer) 77.7 BUN/Creatinine Ratio 17.8 Glucose 99 Osmolality 286 Calcium 10.0 Diagnostic Findings wound cx x 2 (intra-op from seroma) remain negative PG Care Time/CCT Total # of Minutes Spent Total Time Spent with Patient: Total time spent is greater than 50% in coordination of care (as documented) at patient's floor/unit and/or counseling patient: Coding Level of Care Code 00422 Subseq Hosp Care Lvl 2 Diagnoses Seroma of musculoskeletal structure after musculoskeletal system procedure M96.842 Neurogenic claudication due to lumbar spinal stenosis M48.062 UTI (urinary tract infection) N39.0 Hypomagnesemia E83.42 Hypokalemia E87.6 Feeling suicidal R45.851 Urinary retention R33.9 Hypertension I10 Bipolar depression F31.9 Substance Abuse F19.10 Peripheral arterial disease I73.9 Emphysema lung J43.9 Hepatitis C B19.20 Smoker F17.200 DVT prophylaxis Z29.9
[2022-03-20] MEDS: DIVALPROEX EXTENDED RELEASE 500 MG TAB PO SCH (21:42)
[2022-03-20] MEDS: DOCUSATE SODIUM/SENNA 50/8.6MG TAB PO SCH (21:42)
[2022-03-21] MEDS: HYDROmorphone INJ 1 MG/ML SYRINGE IV PRN ×2 (06:20→09:53)
[2022-03-21] MEDS: THIAMINE HCL 100 MG TAB PO SCH (08:05)
[2022-03-21] MEDS: OLMESARTAN MEDOXOMIL 20 MG TAB PO SCH (08:05)
[2022-03-21] MEDS: TAMSULOSIN HCL 0.4 MG CAP PO SCH (08:05)
[2022-03-21] MEDS: amLODIPine BESYLATE 5 MG TAB PO SCH (08:05)
[2022-03-21] MEDS: FOLIC ACID 1 MG TAB PO SCH (08:05)
[2022-03-21] MEDS: FLUoxetine HCL 20 MG CAP PO SCH (08:05)
[2022-03-21] MEDS: traMADol HCL 50 MG TABLET PO PRN (08:09)
--- NOTE | 2022-03-21 08:22 | Orthopedic Progress Note ---
Date of Service March 21, 2022 Assessment & Plan (1) Seroma of musculoskeletal structure after musculoskeletal system procedure: Plan: Mr. Callaway is postoperative day 3 status post I&D seroma lumbar spine. He is doing great. He is orthopedically stable for discharge. DC MORRO drain just prior to discharge. We will follow him up in the office in 2 weeks. Admission and Anticipated Discharge Date Admission Date: March 15, 2022 Gloria Chavarria is postoperative day 3 status post I&D seroma of lumbar spine. He is doing well. He has back soreness but overall feeling much better. He feels the strength in his right leg is improving as well. MORRO drain output last shift was 20 cc. Currently cultures are showing no growth to date. He is on daptomycin due to a urinary tract infection. Currently awaiting authorization for rehab. Review of Systems Review of Systems: All systems reviewed & are unremarkable except as noted in HPI & below Physical Exam Physical Exam: He is lying in bed in no acute distress Alert and oriented x3 lumbar dressing is clean dry and intact with functioning MORRO drain Strength is intact bilateral lower extremities Calves are soft nontender bilaterally Results & Data ([facility]) Vital Signs (Past 12 Hours) Vital Signs Temp Pulse Resp BP BP Pulse Ox 03/21/22 06:30 36.9 C 87 20 120/76 94 03/20/22 23:19 36.7 C 88 16 124/79 96
[2022-03-21 08:58] LABS: White Blood Count 9.44 K/uL (4.8-10.8)
[2022-03-21 08:59] LABS: Hematocrit (blood only) 36.5 % (42-52); Hemoglobin 12.1 g/dL (14.0-18.0); Mean Corpuscular Hemoglobin 31.5 pg (25-34); Mean Corpuscular Hgb Conc 33.2 g/dL (32-36); Mean Corpuscular Volume 95.1 fL (80-100); Mean Platelet Volume 9.4 fL (7.4-10.4); Platelet Count 448 K/uL (130-400); RDW Standard Deviation 44.7 fL (36.4-46.3); Red Blood Count 3.84 M/uL (4.7-6.1)
[2022-03-21 09:32] LABS: BUN Creatinine Ratio 19.8 (10-20); Calcium 9.8 mg/dl (8.5-10.1); Creatinine Clr Calc Pharmacy 90.7 ml/min; Est GFR (African American) 96.6 ml/min; Est GFR (Non-African American) 83.3 ml/min; Potassium 4.7 mmol/L (3.5-5.1)
[2022-03-21] MEDS: ASPIRIN 81 MG ECTAB PO SCH (11:39)
[2022-03-21] MEDS: ROSUVASTATIN CALCIUM 20 MG TAB PO SCH (11:39)
[2022-03-21] MEDS: cephALEXin 500 MG CAP PO SCH ×2 (11:39→20:15)
[2022-03-21] MEDS: HYDROCODONE/ACETAMINOPHEN 7.5/325MG TAB PO PRN ×2 (14:30→20:22)
[2022-03-21] MEDS: DIVALPROEX EXTENDED RELEASE 500 MG TAB PO SCH (20:15)
[2022-03-21] MEDS: DOCUSATE SODIUM/SENNA 50/8.6MG TAB PO SCH (20:16)
--- NOTE | 2022-03-21 21:18 | Hospitalist Progress Note ---
Date of Service March 21, 2022 Assessment & Plan (1) Seroma of musculoskeletal structure after musculoskeletal system procedure: Plan: POD #3 s/p incision/drainage of lumbar seroma. At time of the procedure the seroma did not appear grossly infected. Cultures x 2 again remain negative. Cont to follow cultures but plan to d/c daptomycin today. (2) Neurogenic claudication due to lumbar spinal stenosis: Plan: S/p spinal fusion L4-[address] Herron on 01/15/2022. With development of seroma in the lumbar spine region. s/p I&D of seroma by Dr Herron - POD #3. There had been concern the seroma was contributing to his neurological symptoms. Right foot drop is indeed resolved on physical exam. Appreciate ortho assistance. Drain remains in place - to be discontinued prior to discharge. stop dilaudid change to norco 7.5's prn (3) UTI (urinary tract infection): Plan: Catheter-associated MSSA UTI. Remains on IV daptomycin - stop today, change to keflex 500mg BID. Plan 14 days in total of IV/PO abx. Blood cx's sent today but suspect they will remain negative. Continue straight caths. Likely to need at least TID every day. (4) Hypomagnesemia: Plan: Replaced and now resolved (5) Hypokalemia: Plan: Replaced and now resolved (6) Feeling suicidal: Plan: Due to medical struggles in last 2 months along with relationship issues with his girlfriend. 1:1 observation/sitter discontinued -- not actively suicidal at this time. Psychiatry restarted his Depakote 1000 mg at bedtime--> check valproic acid level 5 days after (ordered for 03/23/22). Will need outpatient psychiatric follow-up (dual diagnosis program as recommended by Psych). Prozac 20mg daily resumed 03/19/22. (7) Urinary retention: Plan: Began about 2 weeks after surgery. Seen by urology and etiology thought to be possibly related to BPH vs neurogenic. Continue alpha galileo. Continue self-cathing TID. Treat UTI. (8) Hypertension: Plan: Continue home amlodipine & olmesartan (9) Bipolar depression: Plan: restarted Depakote restarted Prozac stable (10) Substance Abuse: Plan: UDS positive on admission with amphetamines, MDMA, marijuana, and alcohol. Also with past history of IV drug use, methamphetamine, and opiate misuse. Continue thiamine, folic acid supplementation. Outpatient f/u needed for this complex gentleman. 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 Holding both aspirin and statin at this time. Will check with ortho to see when asa can be resumed. Follow-up with vascular surgery as an outpatient. (12) Emphysema lung: Plan: Encouraged to quit smoking No flare at this time (13) Hepatitis C: Plan: Chronic, HCV RNA genotype Ia, titer elevated last admission LFTs here normal Has outpatient referral to GI to consider treatment (14) Smoker: Plan: Declines nicotine patch at this time (15) DVT prophylaxis: Plan: SCDs Chemical means contraindication due to spine surgery this week However, I corresponded with ortho and aspirin permissible to be resumed Plan: constipation resolved cont bowel regimen dispo - [facility], insurance auth pending Admission and Anticipated Discharge Date Admission Date: March 15, 2022 Subjective no events overnight doing decently with walking/therapy back pain largely controlled right leg weakness improved/resolved he spent much of the visit talking about his past significant other and the stress related to such (they are now ) Review of Systems Review of Systems: gen - no fevers cv - no cp pulm - no dyspnea GI - had large BM this am Physical Exam Physical Exam: gen - NAD, comfortable, sitting at side of bed mouth - MMM neck - no JVD heart - RRR, s1 s2 lungs - CTA b/l abd - soft NT BS+; distension resolved s/p BM this am ext - no edema, pulses 2+ b/l neuro - strength dorsiflexion/plantarflexion right foot 5/5; hip flexion 5/5 b/l hips; left foot strength 5/5 psych - awake/alert Results & Data Results & Data ([facility]) Vital Signs (Past 12 Hours) Vital Signs Temp Pulse Resp BP Pulse Ox 03/21/22 15:28 36.6 C 83 18 115/73 97 Laboratory Results Laboratory Results - last 24 hr 03/21/22 03/21/22 08:24 08:24 WBC 9.44 RBC 3.84 L Hgb 12.1 L Hct 36.5 L MCV 95.1 MCH 31.5 MCHC 33.2 RDW Std Deviation 44.7 RDW Coeff of Arteimo 13.0 Plt Count 448 H MPV 9.4 Sodium 137 Potassium 4.7 Chloride 98 Carbon Dioxide 31 Anion Gap 8 BUN 20 Creatinine 1.01 Est Cr Clr Drug Dosing 90.7 Est GFR ( Amer) 96.6 Est GFR (Non-Af Amer) 83.3 BUN/Creatinine Ratio 19.8 Glucose 91 Calcium 9.8 PG Care Time/CCT Total # of Minutes Spent Total Time Spent with Patient: Total time spent is greater than 50% in coordination of care (as documented) at patient's floor/unit and/or counseling patient: Coding Level of Care Code 92440 Subseq Hosp Care Lvl 2 Diagnoses Seroma of musculoskeletal structure after musculoskeletal system procedure M96.842 Neurogenic claudication due to lumbar spinal stenosis M48.062 UTI (urinary tract infection) N39.0 Hypomagnesemia E83.42 Hypokalemia E87.6 Feeling suicidal R45.851 Urinary retention R33.9 Hypertension I10 Bipolar depression F31.9 Substance Abuse F19.10 Peripheral arterial disease I73.9 Emphysema lung J43.9 Hepatitis C B19.20 Smoker F17.200 DVT prophylaxis Z29.9
[2022-03-22] MEDS: FOLIC ACID 1 MG TAB PO SCH (08:12)
[2022-03-22] MEDS: ASPIRIN 81 MG ECTAB PO SCH (08:12)
[2022-03-22] MEDS: ROSUVASTATIN CALCIUM 20 MG TAB PO SCH (08:12)
[2022-03-22] MEDS: FLUoxetine HCL 20 MG CAP PO SCH (08:12)
[2022-03-22] MEDS: TAMSULOSIN HCL 0.4 MG CAP PO SCH (08:12)
[2022-03-22] MEDS: THIAMINE HCL 100 MG TAB PO SCH (08:13)
[2022-03-22] MEDS: cephALEXin 500 MG CAP PO SCH (08:13)
[2022-03-22] MEDS: amLODIPine BESYLATE 5 MG TAB PO SCH (08:13)
[2022-03-22] MEDS: HYDROCODONE/ACETAMINOPHEN 7.5/325MG TAB PO PRN ×2 (08:23→12:49)
[2022-03-22] MEDS: OLMESARTAN MEDOXOMIL 20 MG TAB PO SCH (09:27)
--- NOTE | 2022-03-22 13:39 | Discharge Summary ---
Date of Service March 22, 2022 Admission HPI Per Admitting Provider 56yo M w/ hx of HTN, HLD who presents with subacute worsening back pain, urinary retention, LE weakness, and suicidal ideation. The patient was admitted in 12/2021 with worsening back pain and neurogenic claudication. He underwent lumbar surgery with Dr. Herron on 01/15/2022. He reports he left the hospital feeling fairly well. However, about 2 weeks after surgery, he started to having urinary retention issues requiring Cornejo and now intermittent self-cathing. It is unclear whether this is related to the back vs. enlarged prostate, and he has followed up with urology. Regarding his strength, he reports that over the last weeks, he has had increasing trouble with right leg strength. He reports he could walk lifting his leg. Now, he has to use a walker and his right leg drags behind him as he walks. He also has loss of dorsiflexion. He denies f/c/ns. Denies shortness of breath or chest pain. Discharge Exam gen - NAD, comfortable, sitting at side of bed mouth - MMM neck - no JVD heart - RRR, s1 s2 lungs - CTA b/l abd - soft NT BS+; distension resolved s/p BM this am ext - no edema, pulses 2+ b/l neuro - strength dorsiflexion/plantarflexion right foot 5/5; hip flexion 5/5 b/l hips; left foot strength 5/5 psych - awake/alert Discharge Data Allergies Allergy/AdvReac Type Severity Reaction Status Date / Time paroxetine Allergy Mild UNSURE Verified 03/15/22 01:47 risperidone Allergy Unknown Unknown Verified 03/15/22 01:47 Influenza Virus Vaccines AdvReac Unknown UNKNOWN Verified 03/15/22 01:47 pneumococcal vaccine AdvReac Unknown Unknown Verified 03/15/22 01:47 Consultations 03/15/22 12:40 ED Decision to Admit Stat 03/15/22 16:04 Consult Orthopedic Surgery Routine 03/15/22 18:52 Consult Behavioral Health Liaison Routine 03/16/22 11:25 Consult Psychiatry Routine Procedures Performed Operation Date: 03/18/22 07:00 Actual Procedures p Incision and Drainage Lumbar with Cultures(Not Applicable) - Michael Herron, Ordered Studies 03/15/22 13:28 MR lumbar spine wo/w con Stat Hospital Course (1) Seroma of musculoskeletal structure after musculoskeletal system procedure: POD #3 s/p incision/drainage of lumbar seroma. At time of the procedure the seroma did not appear grossly infected. Cultures x 2 again remain negative. Cont to follow cultures but plan to d/c daptomycin today. (2) Neurogenic claudication due to lumbar spinal stenosis: S/p spinal fusion L4-[address] Herron on 01/15/2022. With development of seroma in the lumbar spine region. s/p I&D of seroma by Dr Herron - POD #3. There had been concern the seroma was contributing to his neurological symptoms. Right foot drop is indeed resolved on physical exam. Appreciate ortho assistance. Drain remains in place - to be discontinued prior to discharge. stop dilaudid change to norco 7.5's prn (3) UTI (urinary tract infection): Catheter-associated MSSA UTI. Remains on IV daptomycin - stop today, change to keflex 500mg BID. Plan 14 days in total of IV/PO abx. Blood cx's sent today but suspect they will remain negative. Continue straight caths. Likely to need at least TID every day. (4) Hypomagnesemia: Replaced and now resolved (5) Hypokalemia: Replaced and now resolved (6) Feeling suicidal: Due to medical struggles in last 2 months along with relationship issues with his girlfriend. 1:1 observation/sitter discontinued -- not actively suicidal at this time. Psychiatry restarted his Depakote 1000 mg at bedtime--> check valproic acid level 5 days after (ordered for 03/23/22). Will need outpatient psychiatric follow-up (dual diagnosis program as recommended by Psych). Prozac 20mg daily resumed 03/19/22. (7) Urinary retention: Began about 2 weeks after surgery. Seen by urology and etiology thought t o be possibly related to BPH vs neurogenic. Continue alpha galileo. Continue self-cathing TID. Treat UTI. (8) Hypertension: Continue home amlodipine & olmesartan (9) Bipolar depression: restarted Depakote restarted Prozac stable (10) Substance Abuse: UDS positive on admission with amphetamines, MDMA, marijuana, and alcohol. Also with past history of IV drug use, methamphetamine, and opiate misuse. Continue thiamine, folic acid supplementation. Outpatient f/u needed for this complex gentleman. (11) Peripheral arterial disease: With a history of advanced atherosclerotic change throughout the abdominal aorta and lower extremities seen on CT angiogram aorta with runoff in 12/2021 Also with high-grade stenosis at the origin of the celiac trunk but fortunately no mesenteric ischemia symptoms. Holding both aspirin and statin at this time. Will check with ortho to see when asa can be resumed. Follow-up with vascular surgery as an outpatient. (12) Emphysema lung: Encouraged to quit smoking No flare at this time (13) Hepatitis C: Chronic, HCV RNA genotype Ia, titer elevated last admission LFTs here normal Has outpatient referral to GI to consider treatment (14) Smoker: Declines nicotine patch at this time (15) DVT prophylaxis: SCDs Chemical means contraindication due to spine surgery this week However, I corresponded with ortho and aspirin permissible to be resumed constipation resolved cont bowel regimen dispo - [facility], insurance auth pending Discharge Plan Discharge Items Patient Disposition: Transfer Inpatient Rehab Fac Reason For Visit: BACK PAIN, WEAKNESS, SUICIDAL IDEATION Discharge Diagnosis: 1. Right leg weakness likely due to lumbar seroma 2. Lumbar spine seroma s/p incision & drainage by Dr Albert Herron; cultures from fluid negative 3. Suicidal ideation - resolved 4. Bipolar disorder 5. BPH and Neurogenic Bladder 6. Cornejo-catheter associated UTI due to staph aureus Activity: Per Instructions section Lifting: No more than 5 pounds Bathing Comment: shower only Non-emergency contact: Primary Care Provider, Surgeon, Specialist and Psychiatrist Call non-emergency contact if: you have any medication questions, your symptoms worsen, your pain is not controlled, your pain is worsening, your pain is unusual for you, your pain is concerning for you, you have a fever, your wound has increased redness, your wound has increased drainage and your wound pain has increased Follow-up/Referrals: [facility] [Other] - 04/26/22 12:30 pm (Please take intake packet forms with you to appointment) Cleveland Cortez CRNP [Primary Care Provider] - (1 week after discharge from [facility] ) Michael Herron DO [Surgeon] - (1-2 weeks post-op check ) Magdi Sheikh MD [Physician] - (routine get-established visit; dx - PAD of legs based on CTA 12/2021. ) Vickey Guy MD [Physician] - (2-3 weeks for BPH and probable neurogenic bladder; needs cystoscopy) Diet: Regular Addtl Attending Provider Instructions: ACTIVITY RECOMMENDATIONS: SELF CARE INSTRUCTIONS AFTER THORACIC/LUMBAR FUSIONS 1. You may walk to your tolerance. It is good exercise for your legs and back. Expect some back and intermittent leg aches and pains. 2. You may perform "counter-top" level activities (make a sandwich, osito with a project, etc.). 3. No bending or lifting of more than 10 pounds or back twisting of any nature (roll like a log when turning in bed). 4. You may ride in a car for 20-30 minutes at a time. No driving until after your first visit with your doctor. 5. Frequent changes of position and restricting sitting to 30 minutes at a time will help limit the amount of back spasms and stiffness you may experience. 6. You may discontinue the use of ambulatory aids (cane, crutches, etc.) once your strength and confidence allow. 7. You may knockout machine operator the shower and let water strike your incision when you arrive home at least once daily. Do not take a tub bath, sit in a hot tub or go into a swimming pool until after your first recheck in the office. SPECIAL CARE INSTRUCTIONS: VERY IMPORTANT TO READ AND REVIEW A. Your surgical incision has been closed with a cosmetic suture under the skin that will dissolve in about 6 weeks. In 14 days, you can use a pair of clean scissors and cut the suture that is left outside of the skin at the ends of your incision. 1. The small skin tapes can be removed 7 days after surgery if they have not fallen off by that point. 2. You may keep the wound open to air as much as possible to promote healing after post-op day number 5 unless told otherwise by your doctor. 3. If you think the wound looks like it is becoming infected (redness or worsening drainage) and/or you are experiencing fever, chill or worsening back pain and muscle spasms, contact the office so that we may evaluate you as soon as possible. B. Complications are uncommon, but please contact us if you have any signs or symptoms of: 1. wound infection (fever higher than 102.5 degrees F, redness, separation of wound, drainage, or increasing pain from the incision) 2. blood clots in legs (pain, swelling, redness and warmth in legs) 3. urinary tract infection (fever higher than 102.5 degrees F, burning upon urination or increased frequency of urination) 4. nerve problems (inability to walk on your toes or heels, numbness, loss of bowel or bladder control) 5. any other symptoms that concern you C. Please call the office at if you have any concerns or questions about your operation or recovery. D. No smoking! Smoking drastically decreases the chance of a solid fusion. E. Do not take any anti-inflammatory medications (Indocin, Advil, Motrin, Aspirin, Naprosyn, etc.) as these may inhibit the chance of a solid fusion. Tylenol is okay to take for pain. MANAGING PAIN AFTER SPINAL SURGERY 1. Narcotic medication is intended for short-term use and will be provided for surgical pain. Surgical pain usually lasts for a period of 4-6 weeks. Narcotic medication includes Percocet, Vicodin, Darvocet, Tylenol #3 or Lortab. 2. Longer-term pain is more appropriately treated with non-narcotic medication such as Tylenol ES. 3. Muscle spasm is not appropriately treated with narcotics. Muscle relaxers such as Soma, Flexeril or Skelaxin can be used along with Tylenol ES. 4. Remember that we all live with some "aches and pains". This is not unusual or uncommon after an injury or as we get older. a. Back pain is expected and may include muscle spasms for 4 to 6 weeks after surgery. The pain should gradually improve. If the pain worsens for no apparent reason, please contact the office. b. Intermittent leg pain may also be experienced and should not be concerned about unless it worsens for no apparent reason. If so, please contact the office. 5. We will provide appropriate medication within the normal guidelines of their prescribed use. We will also be very cautious and aware of potential abuse and extended duration of patients' medication needs. a. Pain medications are for your comfort and to assist with sleep and rest so that the tissue can heal. They are not provided in order to return to normal activity and should not be used through the day. To do so or worsening pain at night can result from ongoing tissue damage and develop ment of tolerance to the prescribed medicine. 6. Please allow 2-3 days to process refills. Prescriptions will not be mailed but must be picked up at the office. FOLLOW UP VISIT: Keep your scheduled follow-up appointment. Any questions, please call the office at . Addtl Director Operating Provider Instructions: Additional recommendations - 1. Patient should perform intermittent urinary self-catheterization THREE TIMES DAILY every day. 2. Valproic Acid level AM of 03/23/22. 3. BMP AM of 03/23/22 for stability. 4. Follow-up appointments - see separate section. Pending Studies at Discharge: Yes Studies:: intra-op wound cultures from drainage of lumbar seroma (thus far negative); blood cultures, but thus far negative Stand-Alone Forms: My [facility] Skilled Items Patient informed of condition?: Yes DNR: No Discharge Level of Care: Acute rehab Communicable Disease: No Discharge Prognosis: Improving Lines: None Urinary Catheter: Yes (Intermittent self-catheterization TID. ) Medications and DC Order Prescriptions: New cephalexin 500 mg capsule 500 mg PO BID 7 Days Qty: 14 RF: 0 divalproex 500 mg Tablet Extended Release 24 Hr 1,000 mg PO HS Qty: 30 RF: 2 fluoxetine 20 mg Capsule 20 mg PO QAM Qty: 30 RF: 2 hydrocodone-acetaminophen 7.5-325 mg Tablet 1 tab PO Q6H PRN (Reason: pain) Qty: 30 RF: 0 hydroxyzine HCl 25 mg Tablet 25 mg PO Q8H PRN (Reason: anxiety) Qty: 10 RF: 0 folic acid 1 mg Tablet 1 mg PO QAM Qty: 30 RF: 0 thiamine HCl (vitamin B1) 100 mg Tablet 200 mg PO BID 30 Days Qty: 120 RF: 0 senna 8.6 mg capsule 17.2 mg PO DAILY Qty: 60 RF: 0 multivitamin Tablet 1 tab PO DAILY Qty: 90 RF: 3 polyethylene glycol 3350 [Miralax] 17 gram powder in packet 17 g PO DAILY Qty: 30 RF: 1 Continued rosuvastatin 40 mg tablet 40 mg PO QAM Qty: 90 RF: 0 amlodipine [Norvasc] 5 mg tablet 10 mg PO QAM Qty: 180 RF: 1 olmesartan 20 mg tablet 20 mg PO QAM Qty: 90 RF: 1 aspirin 81 mg tablet,delayed release (DR/EC) 81 mg PO DAILY Qty: 30 RF: 0 tamsulosin [Flomax] 0.4 mg capsule 0.4 mg PO DAILY Qty: 10 RF: 2 Discontinued ibuprofen 800 mg Tablet 800 mg PO Q8H RF: 0 Discharge Orders: Discharge Order (Routine); Ordered 03/22/22 Ordered By: Ronald Summers Admission Data Admit Date/Time: 03/15/22 16:04 Attending Provider: Ronald Summers Admit Provider: Rudy Glover Primary Care Provider: Cleveland Cortez Other Providers: Rudy Glover ; Michael Herron ; Mary Hyman ; Ivett Schulz ; Linda Braun ; [facility] Coding Diagnoses Seroma of musculoskeletal structure after musculoskeletal system procedure M96.842 Neurogenic claudication due to lumbar spinal stenosis M48.062 UTI (urinary tract infection) N39.0 Hypomagnesemia E83.42 Hypokalemia E87.6 Feeling suicidal R45.851 Urinary retention R33.9 Hypertension I10 Bipolar depression F31.9 Substance Abuse F19.10 Peripheral arterial disease I73.9 Emphysema lung J43.9 Hepatitis C B19.20 Smoker F17.200 DVT prophylaxis Z29.9
== END 2022-03-22 14:55 | DRG 908 ==
LOC: ED 00:56 → SUATTDRO 16:04 → EDINP 16:04 → 3N 18:54

== ENCOUNTER 2022-06-10 20:01 | Inpatient (IN) ==
--- NOTE | 2022-06-10 20:44 | Emergency Department Note ---
Impression & Plan Anxiety with depression, Substance abuse, Alcohol withdrawal, Alcohol abuse ED Provider Note NAME: OMARI MORRIS AGE: 56 SEX: M : 1965 ARRIVES VIA: Walk-In INFORMANT: Patient, ED PROVIDER(S): Marck Newsome MD Chief Complaint: Mental wellness concern HPI: Patient presents due to concern for mental wellness concern and states that he stopped self cathing in order to try to kill himself. The patient has had a prior history of self-harm including an overdose several years ago. The patient does feel safe at home. Patient denies any HI or AVH. The patient states he has had increased sleep and has resorted to drinking alcohol and using meth. The patient most recently used meth on Friday. The patient did drink last evening. Patient denies any chest pains or shortness of breath. The patient w as able to self cath here in the department without any issue. She denies any access to guns or weapons. The patient is currently not employed. The patient is supposed to be taking Depakote as well as fluoxetine but the patient has not taken this in 1 month because he just has not care to do so. ROS: See HPI for pertinent positives and negatives. A total of 10 systems were reviewed and otherwise negative. Past medical history: See below Surgical history: See below Social history: See below Physical Exam: GENERAL: NAD, non-toxic. EYE EXAM: Normal conjunctiva. PERRL, no anisocoria and EOM's grossly intact w/o pain. Oropharynx: Poor dentition. NECK: Supple, no nuchal rigidity, no adenopathy, non-tender. No signs of meningismus. FROM of the neck with good chin to chest and neck extension. No stridor. LUNGS: Clear to auscultation. Normal chest wall mechanics. HEART: NSR, no MRG. ABDOMEN: Abdomen soft, non-tender, normo-active bowel sounds, no masses, no rebound or guarding. BACK: No CVA TTP. SKIN: No rashes and no bruising. UPPER EXTREMITIES: Upper extremities are grossly normal. LOWER EXTREMITIES: Grossly normal, no edema. NEURO EXAM: A&O x3, cranial nerves II-XII grossly intact, normal speech, moves all 4 extremities. Psych: Positive SI, negative HI or AVH Differential diagnoses: Mood disorder, infection, hypoglycemia, electrolyte abnormalities, cardiac sources, intracerebral event, toxicologic, trauma, neurologic, as well as other pathologies. Course: Patient was seen and evaluated the bedside. Full history physical exam was performed. MDM: Patient was seen due to concern for mental wellness concern. Blood work was obtained along with a COVID swab. The patient also did have a bladder scan performed. The patient Has a white count of 12 with a normal H&H. Platelet count slightly elevated at 410. Kidney function is unremarkable. Urinalysis does not show evidence of obvious infection. There is blood noted. No urine bacteria. Patient does have an alcohol 167 positive for THC and meth. Patient did admit to smoking marijuana. Patient was not retaining any urine after a bladder scan was performed. There was concern that the patient had been more heavily drinking and concern for poss withdrawal related symptoms. The patient was hypertensive and tachycardic. I did speak the on-call hospitalist Dr. Celeste and the patient was admitted to the medicine service. Ativan was ordered in addition IV fluids banana bag and gabapentin. Past Med/Surg History Medical History Anxiety with depression Bipolar depression Carotid stenosis Cervical stenosis of spinal canal (05/18/14) Degenerative joint disease (DJD) of lumbar spine Emphysema lung Hepatitis C Hyperlipidemia Hypertension Peripheral arterial disease Smoker Urinary retention Surgical History H/O neck surgery Dr. Herron - 2013 History of back surgery Dr. Herron - Lower back surgery - January 18. History of back surgery lower back - to drain hematoma. History of wisdom tooth extraction Family History Father Prostate cancer Denies family history of Ovarian cancer Myocardial infarction Breast cancer Colorectal cancer Social History Smoking Status: Current every day smoker Tobacco Type: Cigarettes Cigarettes Per Day: 20; Second Hand Exposure: No; Hx Alcohol Use: Yes Alcohol type: hard liquor Hx Substance Use: Yes Non-Prescribed Medications: Former Misuse of Non- Prescribed Rx, IV Drugs, Marijuana and Methamphetamines Last Used Substance: Days (ago) Last Used Substance Other:: Yesterday Preferred Language: Latvian Communication Ability: Effective Visual Impairment: No Limitations Hearing Ability: Normal Assistant Unit Forester Required: No Beliefs That Will Affect Care: None marital status: Current Living Situation: Alone current occupational status: disabled Feels Safe at Home: Yes Childhood Exposure to Second-Hand Smoke: Yes caffeine: Yes (coffee - two cups per day) during the past year weight has: remained stable Dental Care, Regularly: No Physical Activity Frequency: Does not Exercise Seatbelt Use: always Sunscreen Use: Yes Assistive Devices: Walker Allergies Allergies Allergy/AdvReac Type Severity Reaction Status Date / Time paroxetine Allergy Mild UNSURE Verified 04/10/22 10:24 risperidone Allergy Unknown Unknown Verified 04/10/22 10:24 Influenza Virus Vaccines AdvReac Unknown UNKNOWN Verified 04/10/22 10:24 pneumococcal vaccine AdvReac Unknown Unknown Verified 04/10/22 10:24 Home Meds Previous Rx's Medication Instructions Recorded aspirin 81 mg tablet,delayed 81 mg PO DAILY #30 tabs 01/17/22 release tamsulosin 0.4 mg capsule (Flomax) 0.4 mg PO DAILY #10 caps 02/01/22 amlodipine 5 mg tablet (Norvasc) 10 mg PO QAM #180 tabs 02/14/22 olmesartan 20 mg tablet 20 mg PO QAM #90 tabs 02/14/22 fluoxetine 20 mg capsule 20 mg PO QAM #30 caps 03/22/22 folic acid 1 mg tablet 1 mg PO QAM #30 tabs 03/22/22 hydroxyzine HCl 25 mg tablet 25 mg PO Q8H PRN anxiety #10 tabs 03/22/22 multivitamin 1 tab PO DAILY #90 tabs 03/22/22 polyethylene glycol 3350 17 gram 17 g PO DAILY #30 ea 03/22/22 oral powder packet (Miralax) sennosides 8.6 mg capsule (senna) 17.2 mg PO DAILY #60 caps 03/22/22 hydrocodone 7.5 mg-acetaminophen 1 tab PO Q6H PRN pain #30 tabs 04/05/22 325 mg tablet ampicillin 500 mg capsule 500 mg PO QID 7 days #28 caps 04/10/22 divalproex 500 mg tablet,extended 1,000 mg PO HS #30 tabs 04/10/22 release 24 hr rosuvastatin 40 mg tablet 40 mg PO QAM #90 tabs 05/07/22 Results & Data (ED) Vital Signs Vital Signs - 24 hr 06/10/22 20:07 Temperature 36.5 C Temperature Source Temporal Artery Scan Pulse Rate 141 H Respiratory Rate 16 Respiratory Effort / Characteristics Non-Labored Spontaneous Respiratory Depth Normal Blood Pressure 133/90 Blood Pressure Mean 104 Pulse Oximetry 97 Oxygen Delivery Method Room Air Sepsis Recent Fever Within 48 Hours No Sepsis New/Unexplained Change in Mental Status No Sepsis Action Taken by Nursing No Action Required Home Medications Current Medication List: was personally reviewed by me Laboratory Data Attestation: I reviewed the patient's lab results. Result diagrams: 06/13/22 05:47 06/13/22 05:47 Lab Results 06/10/22 06/10/22 06/10/22 Range/Units 20:20 20:20 20:25 WBC 12.84 H (4.8-10.8) K/ul RBC 4.80 (4.63-6.08) M/uL Hgb 15.2 (14.0-18.0) g/dl Hct 42.7 (40.1-51.0) % MCV 89.0 (80.0-100.0) fL MCH 31.7 (25.0-34.0) pg MCHC 35.6 (32.0-36.0) g/dL RDW Std Deviation 42.7 (36.4-46.3) fL RDW Coeff of Artemio 13.3 (11.5-14.5) % Plt Count 410 H (130-400) K/uL MPV 9.7 (9.4-12.4) fL Immature Gran % (Auto) 0.4 % Neut % (Auto) 77.4 % Lymph % (Auto) 15.0 % Howard % (Auto) 6.4 % Eos % (Auto) 0.3 % Baso % (Auto) 0.5 % Neut # (Auto) 9.95 H (1.4-6.5) K/uL Lymph # (Auto) 1.92 (1.2-3.4) K/uL Howard # (Auto) 0.82 (0.24-0.82) K/uL Eos # (Auto) 0.04 (0-0.50) K/uL Baso # (Auto) 0.06 (0-0.2) K/uL Immature Gran # (Auto) 0.05 H (0.00-0.02) K/uL Sodium (136-145) mmol/L Potassium (3.5-5.1) mmol/L Chloride (98-107) mmol/L Carbon Dioxide (21-32) mmol/L Anion Gap (3-11) BUN (6-23) mg/dl Creatinine (0.6-1.4) mg/dl Est Cr Clr Drug Dosing Est GFR ( Amer) ml/min Est GFR (Non-Af Amer) ml/min BUN/Creatinine Ratio (10-20) Glucose (70-99(Fasting)) mg/dl Calcium (8.5-10.1) mg/dl Total Bilirubin (0.2-1.0) mg/dl AST (13-39) U/L ALT (7-52) U/L Alkaline Phosphatase (34-104) U/L Total Protein (6.0-8.3) gm/dl Albumin (3.4-5.0) gm/dl Globulin (2.5-4.0) gm/dl Albumin/Globulin Ratio (0.9-2) TSH (0.300-4.500) uIu/ml Urine Color Yellow Urine Appearance Cloudy A (Clear) Urine pH 5.5 (4.5-7.5) Ur Specific [place] 1.016 (1.000-1.030) Urine Protein 3+ H (Negative) Urine Glucose (UA) Negative (Negative) Urine Ketones Negative (Negative) Urine Blood 3+ H (Negative) Urine Nitrite Negative (Negative) Urine Bilirubin Negative (Negative) Urine Urobilinogen Negative (Negative) Ur Leukocyte Esterase 2+ H (Negative) Urine WBC (Auto) >30 H (0-5) /hpf Urine RBC (Auto) >30 H (0-4) /hpf U Hyaline Cast (Auto) 1-5 (0-5) /lpf U Epithel Cells (Auto) 5-10 H (0-5) /lpf Urine Bacteria (Auto) Negative (Negative) Salicylates (3.0-30) mg/dl Urine Opiates Screen Neg (Neg) Ur Methadone, Qual Neg (Neg) Acetaminophen (10-30) ug/ml Urine Barbiturates Neg (Neg) Ur Phencyclidine (PCP) Neg (Neg) U Amphetamin/Meth Scrn Pos H (Neg) MDMA (Ecstasy) Screen Pos H (Neg) U Benzodiazepines Scrn Neg (Neg) Ur Cocaine Metabolite Neg (Neg) U Marijuana (THC) Screen Pos H (Neg) Ethyl Alcohol mg/dL (<10.0) mg/dl SARS-CoV-2, RNA, NAAT (NEGATIVE) 06/10/22 06/10/22 06/10/22 Range/Units 20:25 20:25 20:25 WBC (4.8-10.8) K/ul RBC (4.63-6.08) M/uL Hgb (14.0-18.0) g/dl Hct (40.1-51.0) % MCV (80.0-100.0) fL MCH (25.0-34.0) pg MCHC (32.0-36.0) g/dL RDW Std Deviation (36.4-46.3) fL RDW Coeff of Artemio (11.5-14.5) % Plt Count (130-400) K/uL MPV (9.4-12.4) fL Immature Gran % (Auto) % Neut % (Auto) % Lymph % (Auto) % Howard % (Auto) % Eos % (Auto) % Baso % (Auto) % Neut # (Auto) (1.4-6.5) K/uL Lymph # (Auto) (1.2-3.4) K/uL Howard # (Auto) (0.24-0.82) K/uL Eos # (Auto) (0-0.50) K/uL Baso # (Auto) (0-0.2) K/uL Immature Gran # (Auto) (0.00-0.02) K/uL Sodium 140 (136-145) mmol/L Potassium 3.8 (3.5-5.1) mmol/L Chloride 103 (98-107) mmol/L Carbon Dioxide 26 (21-32) mmol/L Anion Gap 11 (3-11) BUN 16 (6-23) mg/dl Creatinine 1.27 (0.6-1.4) mg/dl Est Cr Clr Drug Dosing Not Reportable Est GFR ( Amer) 73.2 ml/min Est GFR (Non-Af Amer) 63.2 ml/min BUN/Creatinine Ratio 12.6 (10-20) Glucose 115 H (70-99(Fasting)) mg/dl Calcium 8.8 (8.5-10.1) mg/dl Total Bilirubin 0.3 (0.2-1.0) mg/dl AST 38 (13-39) U/L ALT 42 (7-52) U/L Alkaline Phosphatase 100 (34-104) U/L Total Protein 7.4 (6.0-8.3) gm/dl Albumin 4.1 (3.4-5.0) gm/dl Globulin 3.3 (2.5-4.0) gm/dl Albumin/Globulin Ratio 1.2 (0.9-2) TSH 1.187 (0.300-4.500) uIu/ml Urine Color Urine Appearance (Clear) Urine pH (4.5-7.5) Ur Specific [place] (1.000-1.030) Urine Protein (Negative) Urine Glucose (UA) (Negative) Urine Ketones (Negative) Urine Blood (Negative) Urine Nitrite (Negative) Urine Bilirubin (Negative) Urine Urobilinogen (Negative) Ur Leukocyte Esterase (Negative) Urine WBC (Auto) (0-5) /hpf Urine RBC (Auto) (0-4) /hpf U Hyaline Cast (Auto) (0-5) /lpf U Epithel Cells (Auto) (0-5) /lpf Urine Bacteria (Auto) (Negative) Salicylates < 3.0 L (3.0-30) mg/dl Urine Opiates Screen (Neg) Ur Methadone, Qual (Neg) Acetaminophen < 3 L (10-30) ug/ml Urine Barbiturates (Neg) Ur Phencyclidine (PCP) (Neg) U Amphetamin/Meth Scrn (Neg) MDMA (Ecstasy) Screen (Neg) U Benzodiazepines Scrn (Neg) Ur Cocaine Metabolite (Neg) U Marijuana (THC) Screen (Neg) Ethyl Alcohol mg/dL (<10.0) mg/dl SARS-CoV-2, RNA, NAAT (NEGATIVE) 06/10/22 06/10/22 Range/Units 20:25 23:48 WBC (4.8-10.8) K/ul RBC (4.63-6.08) M/uL Hgb (14.0-18.0) g/dl Hct (40.1-51.0) % MCV (80.0-100.0) fL MCH (25.0-34.0) pg MCHC (32.0-36.0) g/dL RDW Std Deviation (36.4-46.3) fL RDW Coeff of Artemio (11.5-14.5) % Plt Count (130-400) K/uL MPV (9.4-12.4) fL Immature Gran % (Auto) % Neut % (Auto) % Lymph % (Auto) % Howard % (Auto) % Eos % (Auto) % Baso % (Auto) % Neut # (Auto) (1.4-6.5) K/uL Lymph # (Auto) (1.2-3.4) K/uL Howard # (Auto) (0.24-0.82) K/uL Eos # (Auto) (0-0.50) K/uL Baso # (Auto) (0-0.2) K/uL Immature Gran # (Auto) (0.00-0.02) K/uL Sodium (136-145) mmol/L Potassium (3.5-5.1) mmol/L Chloride (98-107) mmol/L Carbon Dioxide (21-32) mmol/L Anion Gap (3-11) BUN (6-23) mg/dl Creatinine (0.6-1.4) mg/dl Est Cr Clr Drug Dosing Est GFR ( Amer) ml/min Est GFR (Non-Af Amer) ml/min BUN/Creatinine Ratio (10-20) Glucose (70-99(Fasting)) mg/dl Calcium (8.5-10.1) mg/dl Total Bilirubin (0.2-1.0) mg/dl AST (13-39) U/L ALT (7-52) U/L Alkaline Phosphatase (34-104) U/L Total Protein (6.0-8.3) gm/dl Albumin (3.4-5.0) gm/dl Globulin (2.5-4.0) gm/dl Albumin/Globulin Ratio (0.9-2) TSH (0.300-4.500) uIu/ml Urine Color Urine Appearance (Clear) Urine pH (4.5-7.5) Ur Specific [place] (1.000-1.030) Urine Protein (Negative) Urine Glucose (UA) (Negative) Urine Ketones (Negative) Urine Blood (Negative) Urine Nitrite (Negative) Urine Bilirubin (Negative) Urine Urobilinogen (Negative) Ur Leukocyte Esterase (Negative) Urine WBC (Auto) (0-5) /hpf Urine RBC (Auto) (0-4) /hpf U Hyaline Cast (Auto) (0-5) /lpf U Epithel Cells (Auto) (0-5) /lpf Urine Bacteria (Auto) (Negative) Salicylates (3.0-30) mg/dl Urine Opiates Screen (Neg) Ur Methadone, Qual (Neg) Acetaminophen (10-30) ug/ml Urine Barbiturates (Neg) Ur Phencyclidine (PCP) (Neg) U Amphetamin/Meth Scrn (Neg) MDMA (Ecstasy) Screen (Neg) U Benzodiazepines Scrn (Neg) Ur Cocaine Metabolite (Neg) U Marijuana (THC) Screen (Neg) Ethyl Alcohol mg/dL 167.6 H (<10.0) mg/dl SARS-CoV-2, RNA, NAAT NEGATIVE (NEGATIVE) Administered Medications Acetaminophen (Acetaminophen 325 Mg Tab) 650 mg PO Q4H PRN PRN Reason: Pain or Fever Stop: 07/11/22 01:56 Last Admin: 06/11/22 12:51 Dose: 650 mg Documented By: Admin: 06/11/22 02:39 Dose: 650 mg Documented By: GEOFFREY Amlodipine Besylate (Amlodipine Besylate 5 Mg Tab) [facility] [place] Stop: 07/11/22 15:59 Last Admin: 06/13/22 08:17 Dose: 5 mg Documented By: Admin: 06/12/22 08:26 Dose: 5 mg Documented By: Admin: 06/11/22 16:31 Dose: 5 mg Documented By: RUPALI Aripiprazole (Aripiprazole 5 Mg Tab) 5 [facility] [place] Stop: 07/13/22 08:59 Last Admin: 06/13/22 09:11 Dose: 5 mg Documented By: RUPALI Aspirin (Aspirin 81 Mg Ectab) 81 mg PO DAILY [facility] Stop: 07/11/22 08:59 Last Admin: 06/13/22 08:17 Dose: 81 mg Documented By: Admin: 06/12/22 08:27 Dose: 81 mg Documented By: Admin: 06/11/22 08:38 Dose: 81 mg Documented By: RUPALI Enoxaparin Sodium (Enoxaparin Inj 40 Mg/0.4 Ml Syr) 40 mg SQ QAM SHANA Stop: 07/12/22 08:59 Last Admin: 06/13/22 08:16 Dose: 40 mg Documented By: Admin: 06/12/22 08:27 Dose: 40 mg Documented By: RUPALI Folic Acid (Folic Acid 1 Mg Tab) 1 mg PO QAM SHANA Stop: 07/11/22 08:59 Last Admin: 06/13/22 08:17 Dose: 1 mg Documented By: Admin: 06/12/22 08:27 Dose: 1 mg Documented By: Admin: 06/11/22 08:38 Dose: 1 mg Documented By: RUPALI Lorazepam 1 mg/ Syringe 1 mls @ 2 mls/min IV UD PRN; Protocol PRN Reason: EtOH Withdrawal AWSS Score 6,7 Stop: 07/11/22 01:56 Last Admin: 06/13/22 09:48 Dose: 2 mls/min Documented By: Admin: 06/13/22 06:20 Dose: 2 mls/min Documented By: Admin: 06/13/22 02:20 Dose: 2 mls/min Documented By: Admin: 06/12/22 20:19 Dose: 2 mls/min Documented By: Admin: 06/12/22 15:11 Dose: 2 mls/min Documented By: Admin: 06/12/22 09:28 Dose: 2 mls/min Documented By: Admin: 06/11/22 21:19 Dose: 2 mls/min Documented By: Admin: 06/11/22 16:32 Dose: 2 mls/min Documented By: Admin: 06/11/22 09:18 Dose: 2 mls/min Documented By: Admin: 06/11/22 06:14 Dose: 2 mls/min Documented By: Admin: 06/11/22 02:41 Dose: 2 mls/min Documented By: GEOFFREY Metoprolol Tartrate (Metoprolol Tartrate 1 Mg/Ml Vial) 5 mg IV Q4 PRN PRN Reason: Hypertension Stop: 07/11/22 07:59 Last Admin: 06/11/22 12:44 Dose: 5 mg Documented By: RUPALI Multivitamins (Multivitamin Tab) 1 tab PO DAILY [facility] Stop: 07/11/22 08:59 Last Admin: 06/13/22 08:17 Dose: 1 tab Documented By: Admin: 06/12/22 08:27 Dose: 1 tab Documented By: Admin: 06/11/22 08:38 Dose: 1 tab Documented By: RUPALI Olmesartan (Olmesartan Medoxomil 20 Mg Tab) 20 mg [facility] [place] Stop: 07/12/22 08:59 Last Admin: 06/13/22 08:17 Dose: 20 mg Documented By: Admin: 06/12/22 08:27 Dose: 20 mg Documented By: RUPALI Rosuvastatin Calcium (Rosuvastatin Calcium 20 Mg Tab) 40 mg PO [facility] Stop: 07/11/22 08:59 Last Admin: 06/13/22 08:17 Dose: 40 mg Documented By: Admin: 06/12/22 08:27 Dose: 40 mg Documented By: Admin: 06/11/22 08:38 Dose: 40 mg Documented By: RUPALI Tamsulosin HCl (Tamsulosin Hcl 0.4 Mg Cap) 0.4 mg PO [facility] Stop: 07/11/22 20:59 Last Admin: 06/12/22 20:21 Dose: 0.4 mg Documented By: Admin: 06/11/22 20:46 Dose: 0.4 mg Documented By: KAMILAH Thiamine HCl (Thiamine Hcl 100 Mg Tab) 100 mg [facility] [place] Stop: 07/11/22 08:59 Last Admin: 06/13/22 08:17 Dose: 100 mg Documented By: Admin: 06/12/22 08:27 Dose: 100 mg Documented By: Admin: 06/11/22 08:38 Dose: 100 mg Documented By: RUPALI Discontinued Medications Chlordiazepoxide HCl (Chlordiazepoxide Hcl 25 Mg Cap) 50 mg PO NOW ONE Stop: 06/11/22 00:08 Last Admin: 06/11/22 00:27 Dose: Not Given Documented By: JANA Clonidine HCl (Clonidine Hcl 0.1 Mg Tab) 0.2 mg PO NOW ONE Stop: 06/11/22 00:41 Last Admin: 06/11/22 01:33 Dose: 0.2 mg Documented By: JANA Clonidine HCl (Clonidine Hcl 0.1 Mg Tab) 0.2 mg PO BID [facility] Stop: 07/11/22 08:59 Last Admin: 06/11/22 08:38 Dose: 0.2 mg Documented By: RUPALI Gabapentin (Gabapentin 1200mg Alcohol Withdrawal Load) 1 each PO NOW STA; Pro tocol Stop: 06/11/22 00:19 Last Admin: 06/11/22 03:53 Dose: Not Given Documented By: GEOFFREY Gabapentin (Gabapentin 600 Mg Tab) 1,200 mg PO NOW ONE Stop: 06/11/22 00:19 Last Admin: 06/11/22 01:33 Dose: 1,200 mg Documented By: JANA Gabapentin (Gabapentin 600 Mg Tab) 600 mg PO Q6H SHANA Stop: 06/11/22 12:31 Last Admin: 06/11/22 12:45 Dose: 600 mg Documented By: Admin: 06/11/22 06:14 Dose: 600 mg Documented By: GEOFFREY Multivitamins 10 ml/ Thiamine HCl 100 mg/ Folic Acid 1 mg/Sodium Chloride 1,011.2 mls @ 1,011.2 mls/hr IV .Q1H ONE Stop: 06/11/22 01:06 Last Infusion: 06/11/22 01:32 Dose: 0 mls/hr Documented By: Admin: 06/11/22 00:29 Dose: 1,011.2 mls/hr Documented By: JANA Potassium Chloride/Sodium Chloride (Normal Saline W/20 Meq Kcl) 20 meq in 1,000 mls @ 100 mls/hr IV .Q10H SHANA Stop: 07/12/22 00:00 Last Infusion: 06/12/22 08:46 Dose: 0 mls/hr Documented By: Admin: 06/11/22 23:34 Dose: 100 mls/hr Documented By: Infusion: 06/11/22 23:34 Dose: 0 mls/hr Documented By: Admin: 06/11/22 13:45 Dose: 100 mls/hr Documented By: Infusion: 06/11/22 12:48 Dose: 100 mls/hr Documented By: Admin: 06/11/22 02:48 Dose: 100 mls/hr Documented By: GEOFFREY Magnesium Sulfate/Dextrose (Magnesium Sulfate / D5w) 1 gm in 100 mls @ 50 mls/hr IV Q2H SHANA Stop: 06/12/22 19:14 Last Infusion: 06/12/22 19:27 Dose: 0 mls/hr Documented By: Admin: 06/12/22 17:10 Dose: 50 mls/hr Documented By: Infusion: 06/12/22 17:10 Dose: 50 mls/hr Documented By: Admin: 06/12/22 15:22 Dose: 50 mls/hr Documented By: RUPALI Lorazepam (Lorazepam 2 Mg/1 Ml Vial) 1 mg IV NOW STA; Protocol Stop: 06/11/22 00:08 Last Admin: 06/11/22 00:29 Dose: 1 mg Documented By: JANA Miscellaneous (Remove Nicoderm Patch) 1 each N/A DAILY@0859 [facility] Stop: 06/11/22 09:00 Last Admin: 06/11/22 08:37 Dose: 1 each Documented By: RUPALI Nicotine (Nicotine 21 Mg/24 Hr Tdsy) 21 mg TD NOW STA Stop: 06/11/22 00:09 Last Admin: 06/11/22 00:29 Dose: 21 mg Documented By: JANA Discharge Plan Visit Data Chief Complaint: Mental Health Evaluation Stated Complaint: MENTAL HEALTH EVALUATION ED Provider: Marck Newsome Discharge Problem: Anxiety with depression, Substance abuse, Alcohol withdrawal, Alcohol abuse Patient Disposition: Admitted As Inpatient Discharge Instructions Interventions: ED Discharge Assessment Last Done: 06/11/22 01:41
[2022-06-10 21:11] LABS: Alanine Aminotransferase 42 U/L (7-52); Albumin Globulin Ratio 1.2 (0.9-2); Albumin Level 4.1 gm/dl (3.4-5.0); Alkaline Phosphatase 100 U/L (34-104); Anion Gap 11 (3-11); Aspartate Aminotransferase 38 U/L (13-39); BUN Creatinine Ratio 12.6 (10-20); Bilirubin,Total 0.3 mg/dl (0.2-1.0); Blood Urea Nitrogen 16 mg/dl (6-23); Calcium 8.8 mg/dl (8.5-10.1); Carbon Dioxide 26 mmol/L (21-32); Chloride 103 mmol/L (98-107); Est GFR (African American) 73.2 ml/min; Est GFR (Non-African American) 63.2 ml/min; Globulin 3.3 gm/dl (2.5-4.0); Glucose 115 mg/dl (70-99(Fasting)); Potassium 3.8 mmol/L (3.5-5.1); Sodium 140 mmol/L (136-145); Total Protein 7.4 gm/dl (6.0-8.3)
[2022-06-10 21:15] LABS: Acetaminophen < 3 ug/ml (10-30); Salicylate < 3.0 mg/dl (3.0-30)
[2022-06-10 21:29] LABS: Basophils # (auto) 0.06 K/uL (0-0.2); Basophils % (auto) 0.5 %; Eosinophils # (auto) 0.04 K/uL (0-0.50); Eosinophils % (auto) 0.3 %; Hematocrit (blood only) 42.7 % (40.1-51.0); Hemoglobin 15.2 g/dl (14.0-18.0); Immature Granulocytes # (auto) 0.05 K/uL (0.00-0.02); Immature Granulocytes % (auto) 0.4 %; Lymphocytes # (auto) 1.92 K/uL (1.2-3.4); Mean Corpuscular Hemoglobin 31.7 pg (25.0-34.0); Mean Corpuscular Hgb Conc 35.6 g/dL (32.0-36.0); Mean Platelet Volume 9.7 fL (9.4-12.4); Monocytes # (auto) 0.82 K/uL (0.24-0.82); Monocytes % (auto) 6.4 %; Neutrophils # (auto) 9.95 K/uL (1.4-6.5); Neutrophils % (auto) 77.4 %; Platelet Count 410 K/uL (130-400); RDW Coefficient of Variation 13.3 % (11.5-14.5); RDW Standard Deviation 42.7 fL (36.4-46.3); White Blood Count 12.84 K/ul (4.8-10.8)
[2022-06-10 21:33] LABS: Appearance Urine Cloudy (Clear); Bacteria Urine Automated Negative (Negative); Bilirubin Urine Negative (Negative); Blood Urine 3+ (Negative); Color Urine Yellow; Glucose Urine UA Negative (Negative); Ketones Urine Negative (Negative); Leukocyte Esterase Urine 2+ (Negative); Nitrite Urine Negative (Negative); Protein Urine 3+ (Negative); RBC Urine Automated >30 /hpf (0-4); Specific Gravity Urine 1.016 (1.000-1.030); Urobilinogen Urine Negative (Negative); WBC Urine Automated >30 /hpf (0-5); pH Urine 5.5 (4.5-7.5)
[2022-06-10 22:06] LABS: Amphetamines+Metham, Urine Pos (Neg); Barbiturates, Urine Neg (Neg); Benzodiazepine, Urine Neg (Neg); Cocaine, Urine Neg (Neg); MDMA (Ecstacy), Urine Pos (Neg); Methadone, Urine Neg (Neg); Opiate, Urine Neg (Neg); Phencyclidine, Urine Neg (Neg)
[2022-06-11] MEDS ORDERED: MULTI-VITAMIN INFUSION 10 ML, THIAMINE HCL 100 MG, FOLIC ACID 1 MG in SODIUM CHLORIDE 0... IV ONE (00:07)
[2022-06-11] MEDS ORDERED: LORazepam 2 MG/1 ML VIAL IV STA (00:07)
[2022-06-11] MEDS ORDERED: chlordiazePOXIDE HCl 25 MG CAP PO ONE (00:07)
[2022-06-11] MEDS ORDERED: NICOTINE 21 MG/24 HR TDSY TD STA (00:08)
[2022-06-11] MEDS ORDERED: LORazepam 1 MG in SYRINGE 0.5 ML IV PRN (00:18)
[2022-06-11] MEDS ORDERED: GABAPENTIN 1200MG ALCOHOL WITHDRAWAL LOAD PO STA (00:18)
[2022-06-11] MEDS ORDERED: GABAPENTIN 600 MG TAB PO ONE (00:18)
[2022-06-11] MEDS ORDERED: cloNIDine HCL 0.1 MG TAB PO ONE (00:40)
--- NOTE | 2022-06-11 00:48 | History & Physical Report ---
Date of Service June 11, 2022 Assessment & Plan (1) Alcohol intoxication: Plan: Alcohol intoxication/alcohol withdrawal- Placed on [facility] protocol Alcohol level 167.6 on admission NSS + KCl 20 equivalents 100 mils per hour Thiamine 100 mg p.o. every morning Folic acid 1 mg p.o. every morning Multivitamin tablet p.o. daily (2) Alcohol withdrawal: Plan: See above (3) Hypertension: Plan: Hold amlodipine, and olmesartan Place on clonidine 0.2 mg p.o. twice daily, with first dose now Lopressor 5 mg IV every 4 hours as needed systolic blood pressure greater than 160 (4) Feeling suicidal: Plan: Suicidal ideation/bipolar depression/anxiety with depression- Continue to hold current medications: Divalproex, fluoxetine, as patient reports he has not taking any of his medications for at least a month Consult psychiatry (5) Neurogenic claudication due to lumbar spinal stenosis: Plan: Status post L4-[address] Herron on 01/15/2022, during hospitalization from 01/10-01/17/2022. Patient was readmitted from 03/15-03/22/2022 with neurogenic claudication, and was then transferred to [facility], where he stayed from 03/22-03/30/2022. (6) Urinary retention: Plan: Patient will straight cath 3 times daily, or as needed Tamsulosin 0.4 mg daily at bedtime (7) Bipolar depression: Plan: See above (8) Substance Abuse: Plan: UDS positive for marijuana, amphetamine-methamphetamine and MDMA ecstasy (9) Peripheral arterial disease: Plan: Aspirin daily (10) Anxiety with depression: Plan: See above (11) Hyperlipidemia: Plan: Continue rosuvastatin 40 mg daily (12) Cervical stenosis of spinal canal: Plan: 05/18/2014 ACDF C4-C7 with C5 corpectomy. Hardware intact History of Present Illness Chief Complaint: The patient presents to the emergency department due to concerns regarding excessive alcohol intake over the past 2 weeks due to depression, alcohol withdrawal, previous episodes of attempted self-harm, and has stopped self cathing. Primary Care Provider: BIJAN Berry The patient is a 56-year-old male with a past medical history including seroma of musculoskeletal structures, UTI, urinary retention with need for self cathing, suicidal ideation, carotid stenosis, bipolar depression, substance abuse, tobacco abuse, hepatitis C, hypertension, neurogenic claudication due to lumbar spinal stenosis, peripheral arterial disease, anxiety with depression and osteoarthritis. He presents as noted above. Allergies Allergy/AdvReac Type Severity Reaction Status Date / Time paroxetine Allergy Mild UNSURE Verified 04/10/22 10:24 risperidone Allergy Unknown Unknown Verified 04/10/22 10:24 Influenza Virus Vaccines AdvReac Unknown UNKNOWN Verified 04/10/22 10:24 pneumococcal vaccine AdvReac Unknown Unknown Verified 04/10/22 10:24 Home Medications Medication Instructions Recorded Confirmed Type aspirin 81 mg tablet,delayed 81 mg PO DAILY #30 tabs 01/17/22 03/15/22 Rx release tamsulosin 0.4 mg capsule (Flomax) 0.4 mg PO DAILY #10 caps 02/01/22 03/15/22 Rx amlodipine 5 mg tablet (Norvasc) 10 mg PO QAM #180 tabs 02/14/22 03/15/22 Rx olmesartan 20 mg tablet 20 mg PO QAM #90 tabs 02/14/22 03/15/22 Rx fluoxetine 20 mg capsule 20 mg PO QAM #30 caps 03/22/22 Rx folic acid 1 mg tablet 1 mg PO QAM #30 tabs 03/22/22 Rx hydroxyzine HCl 25 mg tablet 25 mg PO Q8H PRN anxiety #10 tabs 03/22/22 Rx multivitamin 1 tab PO DAILY #90 tabs 03/22/22 Rx polyethylene glycol 3350 17 gram 17 g PO DAILY #30 ea 03/22/22 Rx oral powder packet (Miralax) sennosides 8.6 mg capsule (senna) 17.2 mg PO DAILY #60 caps 03/22/22 Rx hydrocodone 7.5 mg-acetaminophen 1 tab PO Q6H PRN pain #30 tabs 04/05/22 Rx 325 mg tablet ampicillin 500 mg capsule 500 mg PO QID 7 days #28 caps 04/10/22 04/10/22 Rx divalproex 500 mg tablet,extended 1,000 mg PO HS #30 tabs 04/10/22 04/10/22 Rx release 24 hr rosuvastatin 40 mg tablet 40 mg PO QAM #90 tabs 05/07/22 Rx Past Med/Surg History Medical History (Updated 06/11/22 @ 04:08 by Beau Torres MD) Anxiety with depression Bipolar depression Carotid stenosis Cervical stenosis of spinal canal (05/18/14) Degenerative joint disease (DJD) of lumbar spine Emphysema lung Hepatitis C Hyperlipidemia Hypertension Peripheral arterial disease Smoker Urinary retention Surgical History H/O neck surgery Dr. Herron - 2013 History of back surgery Dr. Herron - Lower back surgery - January 18. History of back surgery lower back - to drain hematoma. History of wisdom tooth extraction Family History Father Prostate cancer Denies family history of Ovarian cancer Myocardial infarction Breast cancer Colorectal cancer Social History Smoking Status: Current every day smoker Tobacco Type: Cigarettes Cigarettes Per Day: 20; Second Hand Exposure: No; Hx Alcohol Use: Yes Alcohol type: hard liquor Hx Substance Use: Yes Non-Prescribed Medications: Former Misuse of Non- Prescribed Rx, IV Drugs, Marijuana and Methamphetamines Last Used Substance: Days (ago) Last Used Substance Other:: Yesterday Preferred Language: Vietnamese Communication Ability: Effective Visual Impairment: No Limitations Hearing Ability: Normal Broadcaster Required: No Beliefs That Will Affect Care: None marital status: Current Living Situation: Alone current occupational status: disabled Feels Safe at Home: Yes Safety Concerns: Feels Safe At This Time Childhood Exposure to Second-Hand Smoke: Yes caffeine: Yes (coffee - two cups per day) during the past year weight has: remained stable Dental Care, Regularly: No Physical Activity Frequency: Does not Exercise Seatbelt Use: always Sunscreen Use: Yes Assistive Devices: Walker Review of Systems Review of Systems: The patient denies chest pain, palpitations, shortness of breath, dyspnea on exertion, cough, lower extremity swelling, sore throat, fevers, chills, sweats, nausea, vomiting, diarrhea , constipation, blood in urine or stool, dysuria, urinary frequency or urgency, lightheadedness, dizziness, headache, memory loss, loss of consciousness, rash, abnormal bruising or bleeding, imbalance, focal or generalized weakness, numbness or tingling in arms or legs, or night sweats. The review of systems is otherwise negative other than for that already noted above, and at least 10 systems have been reviewed. Physical Exam Physical Exam: The patient is awake, alert and oriented 3, well developed and well nourished, normocephalic and atraumatic, lying in bed and in no acute distress. HEENT--PERRL, EOMI, mucous membranes and oropharynx dry. Neck--supple. No JVD. No bruits. Thyroid normal, trachea midline, no adenopathy. Heart--normal S1 and S2. No murmurs, rubs or gallops. Lungs--clear bilaterally, no respiratory distress, no accessory muscle use. Abdomen--normal bowel sounds and soft. Nontender. Nondistended, no hernias or masses, no organomegaly. Extremities--no cyanosis or clubbing. No edema. There are good distal pulses b/l. Dermatologic--normal skin turgor, normal color, no abnormal lymph nodes, no rash. Neurologic--cranial nerves II through XII grossly intact. Rheumatologic--normal range of motion. Psychiatric--depressed Results & Data Results & Data ([facility]) Vital Signs (Past 12 Hours) Vital Signs Temp Pulse Pulse Resp BP BP Pulse Ox 06/10/22 23:48 124 H 18 174/121 H 99 06/10/22 20:07 36.5 C 141 H 16 133/90 97 O2 Del Method 06/10/22 23:48 Room Air 06/10/22 20:07 Room Air Laboratory Results Laboratory Results WBC 12.84 K/ul (4.8-10.8) H 06/10/22 20:25 RBC 4.80 M/uL (4.63-6.08) 06/10/22 20:25 Hgb 15.2 g/dl (14.0-18.0) 06/10/22 20:25 Hct 42.7 % (40.1-51.0) 06/10/22 20:25 MCV 89.0 fL (80.0-100.0) 06/10/22 20:25 MCH 31.7 pg (25.0-34.0) 06/10/22 20:25 MCHC 35.6 g/dL (32.0-36.0) 06/10/22 20:25 RDW Std Deviation 42.7 fL (36.4-46.3) 06/10/22 20:25 RDW Coeff of Artemio 13.3 % (11.5-14.5) 06/10/22 20:25 Plt Count 410 K/uL (130-400) H 06/10/22 20:25 MPV 9.7 fL (9.4-12.4) 06/10/22 20:25 Immature Gran % (Auto) 0.4 % 06/10/22 20:25 Neut % (Auto) 77.4 % 06/10/22 20: Lymph % (Auto) 15.0 % 06/10/22 20:25 Ralls % (Auto) 6.4 % 06/10/22 20:25 Eos % (Auto) 0.3 % 06/10/22:25 Baso % (Auto) 0.5 % 06/10/22:25 Neut # (Auto) 9.95 K/uL (1.4-6.5) H 06/10/22 20:25 Lymph # (Auto) 1.92 K/uL (1.2-3.4) 06/10/22 20:25 Ralls # (Auto) 0.82 K/uL (0.24-0.82) 06/10/22 20:25 Eos # (Auto) 0.04 K/uL (0-0.50) 06/10/22 20:25 Baso # (Auto) 0.06 K/uL (0-0.2) 06/10/22 20:25 Immature Gran # (Auto) 0.05 K/uL (0.00-0.02) H 06/10/22 20:25 Sodium 140 mmol/L (136-145) 06/10/22 20:25 Potassium 3.8 mmol/L (3.5-5.1) 06/10/22 20:25 Chloride 103 mmol/L (98-107) 06/10/22 20:25 Carbon Dioxide 26 mmol/L (21-32) 06/10/22 20:25 Anion Gap 11 (3-11) 06/10/22 20:25 BUN 16 mg/dl (6-23) 06/10/22 20:25 Creatinine 1.27 mg/dl (0.6-1.4) 06/10/22 20:25 Est Cr Clr Drug Dosing Not Reportable 06/10/22 20:25 Est GFR ( Amer) 73.2 ml/min 06/10/22 20:25 Est GFR (Non-Af Amer) 63.2 ml/min 06/10/22 20:25 BUN/Creatinine Ratio 12.6 (10-20) 06/10/22 20:25 Glucose 115 mg/dl (70-99(Fasting)) H 06/10/22 20:25 Calcium 8.8 mg/dl (8.5-10.1) 06/10/22 20:25 Total Bilirubin 0.3 mg/dl (0.2-1.0) 06/10/22 20:25 AST 38 U/L (13-39) 06/10/22 20:25 ALT 42 U/L (7-52) 06/10/22 20:25 Alkaline Phosphatase 100 U/L (34-104) 06/10/22 20:25 Total Protein 7.4 gm/dl (6.0-8.3) 06/10/22 20:25 Albumin 4.1 gm/dl (3.4-5.0) 06/10/22 20:25 Globulin 3.3 gm/dl (2.5-4.0) 06/10/22 20:25 Albumin/Globulin Ratio 1.2 (0.9-2) 06/10/22 20: TSH 1.187 uIu/ml (0.300-4.500) 06/10/22 20:25 Urine Color Yellow 06/10/22 20:20 Urine Appearance Cloudy (Clear) A 06/10/22 20:20 Urine pH 5.5 (4.5-7.5) 06/10/22 20:20 Ur Specific [place] 1.016 (1.000-1.030) 06/10/22 20:20 Urine Protein 3+ (Negative) H 06/10/22 20:20 Urine Glucose (UA) Negative (Negative) 06/10/22 20:20 Urine Ketones Negative (Negative) 06/10/22 20:20 Urine Blood 3+ (Negative) H 06/10/22 20:20 Urine Nitrite Negative (Negative) 06/10/22 20:20 Urine Bilirubin Negative (Negative) 06/10/22 20:20 Urine Urobilinogen Negative (Negative) 06/10/22 20:20 Ur Leukocyte Esterase 2+ (Negative) H 06/10/22 20:20 Urine WBC (Auto) >30 /hpf (0-5) H 06/10/22 20:20 Urine RBC (Auto) >30 /hpf (0-4) H 06/10/22 20:20 U Hyaline Cast (Auto) 1-5 /lpf (0-5) 06/10/22 20:20 U Epithel Cells (Auto) 5-10 /lpf (0-5) H 06/10/22 20:20 Urine Bacteria (Auto) Negative (Negative) 06/10/22 20:20 Salicylates < 3.0 mg/dl (3.0-30) L 06/10/22 20:25 Urine Opiates Screen Neg (Neg) 06/10/22 20:20 Ur Methadone, Qual Neg (Neg) 06/10/22 20:20 Acetaminophen < 3 ug/ml (10-30) L 06/10/22 20:25 Urine Barbiturates Neg (Neg) 06/10/22 20:20 Ur Phencyclidine (PCP) Neg (Neg) 06/10/22 20:20 U Amphetamin/Meth Scrn Pos (Neg) H 06/10/22 20:20 MDMA (Ecstasy) Screen Pos (Neg) H 06/10/22 20:20 U Benzodiazepines Scrn Neg (Neg) 06/10/22 20:20 Ur Cocaine Metabolite Neg (Neg) 06/10/22 20:20 U Marijuana (THC) Screen Pos (Neg) H 06/10/22 20:20 Ethyl Alcohol mg/dL 167.6 mg/dl (<10.0) H 06/10/22 20:25 SARS-CoV-2, RNA, NAAT NEGATIVE (NEGATIVE) 06/10/22 23:48 Code Status & VTE Plan Code Status Full code PG Care Time/CCT Total # of Minutes Spent Total Time Spent with Patient: Total time spent is greater than 50% in coordination of care (as documented) at patient's floor/unit and/or counseling patient: Coding Level of Care Code 01486 Initial Inpt Care Lvl 3 Diagnoses Alcohol intoxication F10.929 Alcohol withdrawal F10.939 Hypertension I10 Feeling suicidal R45.851 Neurogenic claudication due to lumbar spinal stenosis M48.062 Urinary retention R33.9 Bipolar depression F31.9 Substance Abuse F19.10 Peripheral arterial disease I73.9 Anxiety with depression F41.8 Hyperlipidemia E78.5 Cervical stenosis of spinal canal M48.02
[2022-06-11] MEDS ORDERED: Ativan IV Alcohol Withdrawal--Active Protocol IV PRN (01:57)
[2022-06-11] MEDS ORDERED: LORazepam 2 MG in SYRINGE 1 ML IV PRN (01:57)
[2022-06-11] MEDS ORDERED: LORazepam 3 MG in SYRINGE 1.5 ML IV PRN (01:57)
[2022-06-11] MEDS ORDERED: ONDANSETRON INJ 2 MG/ML 2 ML VIAL IV PRN (01:57)
[2022-06-11] MEDS ORDERED: POLYETHYLENE (MIRALAX) 17 GM PACK PO PRN (01:57)
[2022-06-11] MEDS: ACETAMINOPHEN 325 MG TAB PO PRN ×2 (02:39→12:51)
[2022-06-11] MEDS: LORazepam 1 MG in SYRINGE 0.5 ML IV PRN ×5 (02:41→21:19)
[2022-06-11] MEDS: NSS + 20MEQ KCL 20 MEQ/1,000 ML BAG IV SCH ×3 (02:48→23:34)
[2022-06-11] MEDS ORDERED: METOPROLOL TARTRATE 1 MG/ML VIAL IV PRN (04:16)
[2022-06-11] MEDS: GABAPENTIN 600 MG TAB PO SCH ×2 (06:14→12:45)
[2022-06-11 06:48] LABS: Basophils # (auto) 0.04 K/uL (0-0.2); Basophils % (auto) 0.6 %; Eosinophils # (auto) 0.08 K/uL (0-0.50); Eosinophils % (auto) 1.2 %; Hematocrit (blood only) 35.4 % (40.1-51.0); Hemoglobin 12.3 g/dl (14.0-18.0); Immature Granulocytes # (auto) 0.01 K/uL (0.00-0.02); Immature Granulocytes % (auto) 0.2 %; Lymphocytes # (auto) 1.71 K/uL (1.2-3.4); Lymphocytes % (auto) 25.7 %; Mean Corpuscular Hemoglobin 31.1 pg (25.0-34.0); Mean Corpuscular Hgb Conc 34.7 g/dL (32.0-36.0); Mean Corpuscular Volume 89.6 fL (80.0-100.0); Mean Platelet Volume 9.7 fL (9.4-12.4); Monocytes # (auto) 0.62 K/uL (0.24-0.82); Monocytes % (auto) 9.3 %; Platelet Count 282 K/uL (130-400); RDW Coefficient of Variation 13.2 % (11.5-14.5); RDW Standard Deviation 42.8 fL (36.4-46.3); Red Blood Count 3.95 M/uL (4.63-6.08); White Blood Count 6.66 K/ul (4.8-10.8)
[2022-06-11 07:17] LABS: Albumin Globulin Ratio 1.3 (0.9-2); Albumin Level 3.5 gm/dl (3.4-5.0); BUN Creatinine Ratio 17.3 (10-20); Bilirubin,Total 0.6 mg/dl (0.2-1.0); Calcium 8.4 mg/dl (8.5-10.1); Creatinine Clr Calc Pharmacy 88.1 ml/min; Est GFR (African American) 93.2 ml/min; Est GFR (Non-African American) 80.5 ml/min; Globulin 2.7 gm/dl (2.5-4.0); Potassium 4.1 mmol/L (3.5-5.1); Total Protein 6.2 gm/dl (6.0-8.3)
--- NOTE | 2022-06-11 07:37 | Progress Note ---
Date of Service June 11, 2022 Assessment & Plan (1) Alcohol intoxication: Plan: 56 yo M Hx substance use disorder, HLD, bipolar disorder, Hepatitis C, PAD admitted for acute alcohol intoxication with patient goal of alcohol cessation, as well as suicidal ideation. Alcohol intoxication/alcohol withdrawal: -Alcohol level 167.6 on admission. -Patient desires to quit using alcohol. He intends to follow up with counseling and with outpatient services. -AWSS protocol for alcohol withdrawal. Gabapentin discontinued. -NSS + KCl 20 equivalents 100ml/hr to complete this evening. -Thiamine 100 mg p.o. daily. -Folic acid 1 mg p.o. daily. -Multivitamin tablet p.o. daily. (2) Alcohol withdrawal: Plan: See above (3) Feeling suicidal: Plan: -History of bipolar disorder, anxiety. -Presented with suicidal ideation on this admission. Behavioral Health liaison to follow. -Patient has been unsuccessful with getting counseling, which he desires; he is on a waitlist at [facility]. He also follows through them for medications, but admits non-compliance for about a month. -Continue to hold current medications: Divalproex, fluoxetine, as patient reports he has not taking any of his medications for at least a month. -Suicide precautions. (4) Anemia: Plan: -Chronic, with baseline Hgb ~12.5. -Admission Hgb of 15.2, with drop to 12.3 today. -As this value is closer to his baseline and all cell lines dropped, I suspect initial Hgb was due to volume contraction and is back to baseline at this time. -Daily CBC while admitted. -Unknown etiology, possibly sequelae of poor nutrition and alcohol use. -Iron studies, B12, folate ordered with AM labs to rule out nutritional deficiency as cause. (5) Hypertension: Plan: -BP 160s/90s. -Resume amlodipine and olmesartan. D/c clonidine. -Lopressor 5 mg IV every 4 hours as needed systolic blood pressure greater than 160. (6) Substance Abuse: Plan: -UDS positive for marijuana, amphetamine-methamphetamine and MDMA ecstasy. (7) Neurogenic claudication due to lumbar spinal stenosis: Plan: -Status post L4-[address] Herron on 01/15/2022, during hospitalization from 01/10-01/17/2022. -Patient was readmitted from 03/15-03/22/2022 with neurogenic claudication, and was then transferred to [facility], where he stayed from 03/22-03/30/2022. -Mild back pain, otherwise no acute concerns. (8) Urinary retention: Plan: -Straight cath 3 times daily, or as needed. -Tamsulosin 0.4 mg daily at bedtime. (9) Bipolar depression: Plan: See above (10) Peripheral arterial disease: Plan: - Continue aspirin, statin. (11) Anxiety with depression: Plan: See above (12) Hyperlipidemia: Plan: -Continue rosuvastatin 40 mg daily. (13) Cervical stenosis of spinal canal: Plan: -S/p anterior cervical discectomy and fusion of C4-C7 with C5 corpectomy [place] [address] Herron. Plan Code Status: FULL CODE FEN: Heart healthy diet DVT ppx: Lovenox Dispo: Telemetry Admission and Anticipated Discharge Date Admission Date: June 11, 2022 Subjective Patient without acute events overnight. States that he feels depressed, but otherwise has no stated complaints at this time. At times is receiving Ativan per AWSS protocol. No cardiac events on tele overnight. Review of Systems Constitutional: + malaise; no fever and no chills Respiratory: no cough and no dyspnea Cardiovascular: no chest pain, no palpitations and no edema Gastrointestinal: no abdominal pain, no constipation and no diarrhea/loose stools Genitourinary: no dysuria or no hematuria Psychiatric: + depression Physical Exam Constitutional: well developed and well nourished; no acute distress Respiratory: normal respiratory effort, lungs clear to auscultation Cardiovascular: RRR, no murmur, no edema Gastrointestinal (Abdomen): normal bowel sounds, soft, nontender, no hepatosplenomegaly Skin: no rashes, warm and dry Neurologic: AAOx3, normal speech. Mild resting tremor in bilateral hands Psychiatric: Orientation: alert and oriented x 3 Affect: + depressed affect Results & Data ([facility]) Vital Signs (Past 12 Hours) Vital Signs Temp Pulse Pulse Pulse Resp BP BP 06/11/22 06:58 36.4 C L 100 H 20 06/11/22 04:57 36.5 C 96 H 18 158/91 H 06/11/22 02:03 06/11/22 02:00 120 H 06/11/22 01:50 36.4 C L 123 H 20 189/105 H 06/11/22 01:28 36.8 C 114 H 18 156/96 H 06/10/22 23:48 124 H 18 174/121 H 06/10/22 20:07 36.5 C 141 H 16 133/90 BP Pulse Ox O2 Del Method 06/11/22 06:58 169/102 H 98 Room Air 06/11/22 04:57 06/11/22 02:03 Room Air 06/11/22 02:00 06/11/22 01:50 97 Room Air 06/11/22 01:28 96 Room Air 06/10/22 23:48 99 Room Air 06/10/22 20:07 97 Room Air Coding Level of Care Code 52837 Subseq Hosp Care Lvl 3 Diagnoses Alcohol intoxication F10.929 Alcohol withdrawal F10.939 Feeling suicidal R45.851 Anemia D64.9 Hypertension I10 Substance Abuse F19.10 Neurogenic claudication due to lumbar spinal stenosis M48.062 Urinary retention R33.9 Bipolar depression F31.9 Peripheral arterial disease I73.9 Anxiety with depression F41.8 Hyperlipidemia E78.5 Cervical stenosis of spinal canal M48.02
[2022-06-11] MEDS: ASPIRIN 81 MG ECTAB PO SCH (08:38)
[2022-06-11] MEDS: ROSUVASTATIN CALCIUM 20 MG TAB PO SCH (08:38)
[2022-06-11] MEDS: THIAMINE HCL 100 MG TAB PO SCH (08:38)
[2022-06-11] MEDS: MULTIVITAMIN TAB PO SCH (08:38)
[2022-06-11] MEDS: FOLIC ACID 1 MG TAB PO SCH (08:38)
[2022-06-11] MEDS ORDERED: FOLIC ACID 1 MG TAB PO SCH (09:00)
[2022-06-11] MEDS ORDERED: cloNIDine HCL 0.1 MG TAB PO SCH (09:00)
[2022-06-11] MEDS: amLODIPine BESYLATE 5 MG TAB PO SCH (16:31)
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
[2022-06-11] MEDS ORDERED: GABAPENTIN 600 MG TAB PO SCH (20:30)
[2022-06-11] MEDS: TAMSULOSIN HCL 0.4 MG CAP PO SCH (20:46)
[2022-06-11 21:55] LABS: Appearance Urine Clear (Clear); Bacteria Urine Automated Negative (Negative); Bilirubin Urine Negative (Negative); Blood Urine Trace (Negative); Cast Urine Automated 0 /lpf (0-5); Color Urine Yellow; Epithelial Cell Urine Auto 0-5 /lpf (0-5); Glucose Urine UA Negative (Negative); Ketones Urine Negative (Negative); Leukocyte Esterase Urine 2+ (Negative); Nitrite Urine Negative (Negative); Protein Urine Negative (Negative); RBC Urine Automated 0-4 /hpf (0-4); Urobilinogen Urine Negative (Negative); WBC Urine Automated >30 /hpf (0-5); pH Urine 7.5 (4.5-7.5)
[2022-06-12 05:53] LABS: Basophils # (auto) 0.04 K/uL (0-0.2); Basophils % (auto) 0.7 %; Eosinophils # (auto) 0.22 K/uL (0-0.50); Hematocrit (blood only) 32.2 % (40.1-51.0); Hemoglobin 11.3 g/dl (14.0-18.0); Immature Granulocytes # (auto) 0.01 K/uL (0.00-0.02); Immature Granulocytes % (auto) 0.2 %; Lymphocytes # (auto) 1.43 K/uL (1.2-3.4); Mean Corpuscular Hemoglobin 31.2 pg (25.0-34.0); Mean Corpuscular Hgb Conc 35.1 g/dL (32.0-36.0); Mean Platelet Volume 9.7 fL (9.4-12.4); Monocytes # (auto) 0.56 K/uL (0.24-0.82); Monocytes % (auto) 10.2 %; Neutrophils # (auto) 3.24 K/uL (1.4-6.5); Neutrophils % (auto) 58.9 %; Platelet Count 231 K/uL (130-400); RDW Coefficient of Variation 13.1 % (11.5-14.5); RDW Standard Deviation 42.1 fL (36.4-46.3); Red Blood Count 3.62 M/uL (4.63-6.08)
[2022-06-12 06:24] LABS: Albumin Globulin Ratio 1.3 (0.9-2); Albumin Level 3.3 gm/dl (3.4-5.0); BUN Creatinine Ratio 14.8 (10-20); Bilirubin,Total 0.5 mg/dl (0.2-1.0); Calcium 8.3 mg/dl (8.5-10.1); Creatinine Clr Calc Pharmacy 122.8 ml/min; Est GFR (Non-African American) 100.1 ml/min; Globulin 2.6 gm/dl (2.5-4.0); Magnesium 1.5 mg/dl (1.7-2.4); Potassium 3.7 mmol/L (3.5-5.1); Total Protein 5.9 gm/dl (6.0-8.3)
[2022-06-12 06:36] LABS: Ferritin 45.3 ng/ml (8-388)
[2022-06-12 06:42] LABS: Folate (Folic Acid) 6.93 ng/ml (>5.38)
[2022-06-12] MEDS: amLODIPine BESYLATE 5 MG TAB PO SCH (08:26)
[2022-06-12] MEDS: ENOXAPARIN INJ 40 MG/0.4 ML SYR SQ SCH (08:27)
[2022-06-12] MEDS: OLMESARTAN MEDOXOMIL 20 MG TAB PO SCH (08:27)
[2022-06-12] MEDS: MULTIVITAMIN TAB PO SCH (08:27)
[2022-06-12] MEDS: FOLIC ACID 1 MG TAB PO SCH (08:27)
[2022-06-12] MEDS: THIAMINE HCL 100 MG TAB PO SCH (08:27)
[2022-06-12] MEDS: ASPIRIN 81 MG ECTAB PO SCH (08:27)
[2022-06-12] MEDS: ROSUVASTATIN CALCIUM 20 MG TAB PO SCH (08:27)
[2022-06-12] MEDS: LORazepam 1 MG in SYRINGE 0.5 ML IV PRN ×3 (09:28→20:19)
--- NOTE | 2022-06-12 11:15 | Hospitalist Progress Note ---
Date of Service June 12, 2022 Assessment & Plan (1) Alcohol intoxication: Plan: 56 yo M Hx substance use disorder, HLD, bipolar disorder, Hepatitis C, PAD admitted for acute alcohol intoxication with patient goal of alcohol cessation, as well as suicidal ideation. Alcohol intoxication/alcohol withdrawal: -Alcohol level 167.6 on admission. -Patient desires to quit using alcohol. He intends to follow up with counseling and with outpatient services. -AW protocol for alcohol withdrawal; patient's symptoms continue to improve and anticipate will no longer require Ativan tomorrow. -Encourage PO fluid intake. -Thiamine 100 mg p.o. daily. -Folic acid 1 mg p.o. daily. -Multivitamin tablet p.o. daily. (2) Alcohol withdrawal: Plan: See above (3) Feeling suicidal: Plan: -History of bipolar disorder, anxiety. -Presented with suicidal ideation on this admission. Behavioral Health liaison and Psychiatry to follow. -Patient has been unsuccessful with getting counseling, which he desires; he is on a waitlist at [facility]. He also follows through them for medications, but admits non-compliance for about a month. -Continue to hold current medications: Divalproex, fluoxetine, as patient reports he has not taking any of his medications for at least a month. -Suicide precautions. -Anticipate transfer to Psychiatric care on discharge. (4) Anemia: Plan: -Chronic, with baseline Hgb ~12.5; normocytic anemia. -Hgb 11.3 today without evidence of bleeding. -Daily CBC while admitted to medical floor. -Iron studies, B12, folate normal. No history of CKD. -Possible secondary to chronic alcohol use causing bone marrow suppression. No evidence of liver abnormality on RUQ US in December 2021. (5) Hypertension: Plan: -Continue amlodipine and olmesartan. -Lopressor 5 mg IV every 4 hours as needed systolic blood pressure greater than 160. (6) Substance Abuse: Plan: -UDS positive for marijuana, amphetamine-methamphetamine and MDMA ecstasy. (7) Neurogenic claudication due to lumbar spinal stenosis: Plan: -Status post L4-[address] Herron on 01/15/2022, during hospitalization from 01/10-01/17/2022. -Patient was readmitted from 03/15-03/22/2022 with neurogenic claudication, and was then transferred to [facility], where he stayed from 03/22-03/30/2022. -Mild back pain, otherwise no acute concerns. (8) Urinary retention: Plan: -Straight cath 3 times daily, or as needed. -Tamsulosin 0.4 mg daily at bedtime. (9) Bipolar depression: Plan: See above (10) Peripheral arterial disease: Plan: - Continue aspirin, statin. (11) Anxiety with depression: Plan: See above (12) Hyperlipidemia: Plan: -Continue rosuvastatin 40 mg daily. (13) Cervical stenosis of spinal canal: Plan: -S/p anterior cervical discectomy and fusion of C4-C7 with C5 corpectomy [place] [address] Herron. Plan Code Status: FULL CODE FEN: Heart healthy diet DVT ppx: Lovenox Dispo: Telemetry Admission and Anticipated Discharge Date Admission Date: June 11, 2022 Subjective Patient without acute events overnight. Received Ativan 1mg IV overnight, as well as 1mg IV this AM for withdrawal symptoms. Generally feeling more well today, less sweaty and tremulous than yesterday. Review of Systems Constitutional: + malaise; no fever and no chills Respiratory: no cough and no dyspnea Cardiovascular: no chest pain, no palpitations and no edema Gastrointestinal: no abdominal pain, no constipation and no diarrhea/loose stools Genitourinary: no dysuria or no hematuria Psychiatric: + depression Physical Exam Constitutional: well developed and well nourished; no acute distress Respiratory: normal respiratory effort, lungs clear to auscultation Cardiovascular: RRR, no murmur, no edema Gastrointestinal (Abdomen): normal bowel sounds, soft, nontender, no hepatosplenomegaly Skin: no rashes, warm and dry Neurologic: AAOx3, normal speech. No tremor on my exam Psychiatric: Orientation: alert and oriented x 3 Affect: + depressed affect Results & Data Results & Data ([facility]) Vital Signs (Past 12 Hours) Vital Signs Temp Pulse Pulse Pulse Resp BP Pulse Ox 06/12/22 09:00 82 06/12/22 07:15 36.6 C 78 20 140/67 97 06/12/22 02:39 36.6 C 82 18 146/88 H 95 06/11/22 23:38 85 06/11/22 23:38 O2 Del Method 06/12/22 09:00 06/12/22 07:15 06/12/22 02:39 Room Air 06/11/22 23:38 06/11/22 23:38 Room Air PG Care Time/CCT Total # of Minutes Spent Total Time Spent with Patient: Total time spent is greater than 50% in coordination of care (as documented) at patient's floor/unit and/or counseling patient: Coding Level of Care Code 94955 Subseq Hosp Care Lvl 3 Diagnoses Alcohol intoxication F10.929 Alcohol withdrawal F10.939 Feeling suicidal R45.851 Anemia D64.9 Hypertension I10 Substance Abuse F19.10 Neurogenic claudication due to lumbar spinal stenosis M48.062 Urinary retention R33.9 Bipolar depression F31.9 Peripheral arterial disease I73.9 Anxiety with depression F41.8 Hyperlipidemia E78.5 Cervical stenosis of spinal canal M48.02
[2022-06-12] MEDS: MAGNESIUM SULFATE / D5W 1 GM/100 ML BAG IV SCH ×2 (15:22→17:10)
--- NOTE | 2022-06-12 15:57 | Communication Note ---
Date of Service: June 12, 2022 Patient is interested in a trial of Abilify. #30 tabs of 10 mg was called to his [facility] pharmacy to determine cost to patient which is prohibitive. N was contacted to reschedule his appointment for later next week (can be rescheduled if not yet discharged). Nurse at [facility] confirmed that can get samples of Abilify maintenna if he is able to start the medication while hospitalized. Will review with patient. VS reviewed.
[2022-06-12] MEDS: TAMSULOSIN HCL 0.4 MG CAP PO SCH (20:21)
[2022-06-13] MEDS ORDERED: GABAPENTIN 600 MG TAB PO SCH (00:30)
[2022-06-13] MEDS: LORazepam 1 MG in SYRINGE 0.5 ML IV PRN ×4 (02:20→19:25)
[2022-06-13 06:29] LABS: Albumin Globulin Ratio 1.3 (0.9-2); Albumin Level 3.5 gm/dl (3.4-5.0); BUN Creatinine Ratio 13.9 (10-20); Bilirubin,Total 0.4 mg/dl (0.2-1.0); Calcium 8.6 mg/dl (8.5-10.1); Est GFR (African American) 117.2 ml/min; Est GFR (Non-African American) 101.1 ml/min; Globulin 2.8 gm/dl (2.5-4.0); Magnesium 1.7 mg/dl (1.7-2.4); Potassium 3.8 mmol/L (3.5-5.1); Total Protein 6.3 gm/dl (6.0-8.3)
[2022-06-13 06:31] LABS: Basophils # (auto) 0.05 K/uL (0-0.2); Basophils % (auto) 0.9 %; Eosinophils # (auto) 0.33 K/uL (0-0.50); Eosinophils % (auto) 6.1 %; Hematocrit (blood only) 36.9 % (40.1-51.0); Hemoglobin 12.5 g/dl (14.0-18.0); Immature Granulocytes # (auto) 0.01 K/uL (0.00-0.02); Immature Granulocytes % (auto) 0.2 %; Lymphocytes # (auto) 1.39 K/uL (1.2-3.4); Lymphocytes % (auto) 25.6 %; Mean Corpuscular Hemoglobin 31.3 pg (25.0-34.0); Mean Corpuscular Hgb Conc 33.9 g/dL (32.0-36.0); Mean Corpuscular Volume 92.3 fL (80.0-100.0); Mean Platelet Volume 9.6 fL (9.4-12.4); Monocytes # (auto) 0.42 K/uL (0.24-0.82); Monocytes % (auto) 7.7 %; Neutrophils # (auto) 3.22 K/uL (1.4-6.5); Neutrophils % (auto) 59.5 %; Platelet Count 228 K/uL (130-400); RDW Coefficient of Variation 13.2 % (11.5-14.5); RDW Standard Deviation 43.4 fL (36.4-46.3); White Blood Count 5.42 K/ul (4.8-10.8)
[2022-06-13] MEDS: ENOXAPARIN INJ 40 MG/0.4 ML SYR SQ SCH (08:16)
[2022-06-13] MEDS: THIAMINE HCL 100 MG TAB PO SCH (08:17)
[2022-06-13] MEDS: ROSUVASTATIN CALCIUM 20 MG TAB PO SCH (08:17)
[2022-06-13] MEDS: MULTIVITAMIN TAB PO SCH (08:17)
[2022-06-13] MEDS: OLMESARTAN MEDOXOMIL 20 MG TAB PO SCH (08:17)
[2022-06-13] MEDS: FOLIC ACID 1 MG TAB PO SCH (08:17)
[2022-06-13] MEDS: ASPIRIN 81 MG ECTAB PO SCH (08:17)
[2022-06-13] MEDS: amLODIPine BESYLATE 5 MG TAB PO SCH (08:17)
[2022-06-13] MEDS: ARIPiprazole 5 MG TAB PO SCH (09:11)
--- NOTE | 2022-06-13 10:29 | Hospitalist Progress Note ---
Date of Service June 13, 2022 Assessment & Plan (1) Alcohol intoxication: Plan: 56 yo M Hx substance use disorder, HLD, bipolar disorder, Hepatitis C, PAD admitted for acute alcohol intoxication with patient goal of alcohol cessation, as well as suicidal ideation. Alcohol intoxication/alcohol withdrawal: -Alcohol level 167.6 on admission. -Patient desires to quit using alcohol. He intends to follow up with counseling and with outpatient services. -AW protocol for alcohol withdrawal; patient's symptoms continue to improve and anticipate will no longer require Ativan tomorrow. -Encourage PO fluid intake. -Thiamine 100 mg p.o. daily. -Folic acid 1 mg p.o. daily. -Multivitamin tablet p.o. daily. (2) Alcohol withdrawal: Plan: See above (3) Feeling suicidal: Plan: -History of bipolar disorder, anxiety. -Presented with suicidal ideation on this admission. Behavioral Health liaison and Psychiatry following. -Patient has been unsuccessful with getting counseling, which he desires; he is on a waitlist at [facility]. He also follows through them for medications, but admits non-compliance for about a month. -Patient willing to start Abilify, so will start Abilify 5mg daily while admitted. -Psych will try to provide samples on discharge, with ultimate plan for long acting injectable medications for bipolar disorder. -Suicide precautions until cleared by Psych. (4) Anemia: Plan: -Chronic, with baseline Hgb ~12.5; normocytic anemia, stable. -Iron studies, B12, folate normal. No history of CKD. -Likely secondary to chronic alcohol use causing bone marrow suppression. No evidence of liver abnormality on RUQ US in December 2021. (5) Hypertension: Plan: -Continue amlodipine and olmesartan. -Lopressor 5 mg IV every 4 hours as needed systolic blood pressure greater than 160. (6) Substance Abuse: Plan: -UDS positive for marijuana, amphetamine-methamphetamine and MDMA ecstasy. (7) Neurogenic claudication due to lumbar spinal stenosis: Plan: -Status post L4-[address] Herron on 01/15/2022, during hospitalization from 01/10-01/17/2022. -Patient was readmitted from 03/15-03/22/2022 with neurogenic claudication, and was then transferred to [facility], where he stayed from 03/22-03/30/2022. -Mild back pain, otherwise no acute concerns. (8) Urinary retention: Plan: -Straight cath 3 times daily, or as needed. -Tamsulosin 0.4 mg daily at bedtime. (9) Bipolar depression: Plan: See above (10) Peripheral arterial disease: Plan: - Continue aspirin, statin. (11) Anxiety with depression: Plan: See above (12) Hyperlipidemia: Plan: -Continue rosuvastatin 40 mg daily. (13) Cervical stenosis of spinal canal: Plan: -S/p anterior cervical discectomy and fusion of C4-C7 with C5 corpectomy [place] [address] Herron. Plan Code Status: FULL CODE FEN: Heart healthy diet DVT ppx: Lovenox Dispo: Telemetry Admission and Anticipated Discharge Date Admission Date: June 11, 2022 Subjective No acute events overnight. Received one Ativan 1mg dose overnight and one 1mg dose this morning. Patient is willing to try Abilify but concerned about cost outpatient. Review of Systems Constitutional: no fever, no chills and no malaise Respiratory: no cough and no dyspnea Cardiovascular: no chest pain, no palpitations and no edema Gastrointestinal: no abdominal pain, no constipation and no diarrhea/loose stools Psychiatric: + depression Physical Exam Constitutional: well developed and well nourished; no acute distress Respiratory: normal respiratory effort, lungs clear to auscultation Cardiovascular: RRR, no murmur, no edema Gastrointestinal (Abdomen): normal bowel sounds, soft, nontender, no hepatosplenomegaly Skin: no rashes, warm and dry Psychiatric: Orientation: alert and oriented x 3 Affect: + depressed affect Results & Data Results & Data ([facility]) Vital Signs (Past 12 Hours) Vital Signs Temp Pulse Pulse Resp BP BP Pulse Ox 06/13/22 07:52 78 06/13/22 07:32 36.5 C 92 H 17 154/87 H 95 06/13/22 04:30 36.4 C L 88 16 150/94 H 96 06/13/22 03:57 82 06/12/22 23:23 36.3 C L 88 16 160/73 H 98 O2 Del Method 06/13/22 07:52 06/13/22 07:32 Room Air 06/13/22 04:30 Room Air 06/13/22 03:57 06/12/22 23:23 Room Air PG Care Time/CCT Total # of Minutes Spent Total Time Spent with Patient: Total time spent is greater than 50% in coordination of care (as documented) at patient's floor/unit and/or counseling patient: Coding Level of Care Code 40219 Subseq Hosp Care Lvl 3 Diagnoses Alcohol intoxication F10.929 Alcohol withdrawal F10.939 Feeling suicidal R45.851 Anemia D64.9 Hypertension I10 Substance Abuse F19.10 Neurogenic claudication due to lumbar spinal stenosis M48.062 Urinary retention R33.9 Bipolar depression F31.9 Peripheral arterial disease I73.9 Anxiety with depression F41.8 Hyperlipidemia E78.5 Cervical stenosis of spinal canal M48.02
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
[2022-06-13] MEDS: TAMSULOSIN HCL 0.4 MG CAP PO SCH (20:20)
[2022-06-14] MEDS: LORazepam 1 MG in SYRINGE 0.5 ML IV PRN ×4 (01:29→17:21)
--- NOTE | 2022-06-14 07:18 | Hospitalist Progress Note ---
Date of Service June 14, 2022 Assessment & Plan (1) Alcohol intoxication: Plan: 56 yo M Hx substance use disorder, HLD, bipolar disorder, Hepatitis C, PAD admitted for acute alcohol intoxication with patient goal of alcohol cessation, as well as suicidal ideation. Alcohol intoxication/alcohol withdrawal: -Alcohol level 167.6 on admission. -Patient desires to quit using alcohol. He intends to follow up with counseling and with outpatient services. -AW protocol for alcohol withdrawal; patient's symptoms continue to improve and anticipate will no longer require Ativan tomorrow. -Encourage PO fluid intake. -Thiamine 100 mg p.o. daily. -Folic acid 1 mg p.o. daily. -Multivitamin tablet p.o. daily. (2) Alcohol withdrawal: Plan: See above (3) Feeling suicidal: Plan: -History of bipolar disorder, anxiety. -Presented with suicidal ideation on this admission. Behavioral Health liaison and Psychiatry following. -Patient has been unsuccessful with getting counseling, which he desires; he is on a waitlist at [facility]. He also follows through them for medications, but admits non-compliance for about a month. -Continue Abilify 5mg daily while admitted. -Psych will provide samples on discharge, with ultimate plan for long acting injectable medications for bipolar disorder. -Suicide precautions discontinued today by Psych provider. Patient denies SI at this time. (4) Anemia: Plan: -Chronic, with baseline Hgb ~12.5; normocytic anemia, stable. -Iron studies, B12, folate normal. No history of CKD. -Likely secondary to chronic alcohol use causing bone marrow suppression. No evidence of liver abnormality on RUQ US in December 2021. (5) Hypertension: Plan: -Continue amlodipine and olmesartan. -Lopressor 5 mg IV every 4 hours as needed systolic blood pressure greater than 160. (6) Substance Abuse: Plan: -UDS positive for marijuana, amphetamine-methamphetamine and MDMA ecstasy. (7) Neurogenic claudication due to lumbar spinal stenosis: Plan: -Status post L4-[address] Herron on 01/15/2022, during hospitalization from 01/10-01/17/2022. -Patient was readmitted from 03/15-03/22/2022 with neurogenic claudication, and was then transferred to [facility], where he stayed from 03/22-03/30/2022. -Mild back pain, otherwise no acute concerns. (8) Urinary retention: Plan: -Straight cath 3 times daily, or as needed. -Tamsulosin 0.4 mg daily at bedtime. (9) Bipolar depression: Plan: See above (10) Peripheral arterial disease: Plan: - Continue aspirin, statin. (11) Anxiety with depression: Plan: See above (12) Hyperlipidemia: Plan: -Continue rosuvastatin 40 mg daily. (13) Cervical stenosis of spinal canal: Plan: -S/p anterior cervical discectomy and fusion of C4-C7 with C5 corpectomy [place] [address] Herron. Plan Code Status: FULL CODE FEN: Heart healthy diet DVT ppx: Lovenox Dispo: Telemetry Admission and Anticipated Discharge Date Admission Date: June 11, 2022 Subjective No acute events overnight. Received two doses of Ativan overnight. Patient reports feeling a bit less sweaty and tremulous today. Review of Systems Constitutional: no fever, no chills and no malaise Respiratory: no cough and no dyspnea Cardiovascular: no chest pain, no palpitations and no edema Gastrointestinal: no abdominal pain, no constipation and no diarrhea/loose stools Psychiatric: + depression Physical Exam Constitutional: well developed and well nourished; no acute distress Respiratory: normal respiratory effort, lungs clear to auscultation Cardiovascular: RRR, no murmur, no edema Gastrointestinal (Abdomen): normal bowel sounds, soft, nontender, no hepatosplenomegaly Skin: no rashes, warm and dry Psychiatric: Orientation: alert and oriented x 3 Affect: + depressed affect Results & Data Results & Data ([facility]) Vital Signs (Past 12 Hours) Vital Signs Temp Pulse Pulse Resp BP Pulse Ox O2 Del Method 06/14/22 03:59 36.4 C L 80 18 119/75 97 Room Air 06/14/22 01:45 73 06/13/22 23:02 36.7 C 86 18 117/71 97 Room Air PG Care Time/CCT Total # of Minutes Spent Total Time Spent with Patient: Total time spent is greater than 50% in coordination of care (as documented) at patient's floor/unit and/or counseling patient: Coding Level of Care Code 52775 Subseq Hosp Care Lvl 2 Diagnoses Alcohol intoxication F10.929 Alcohol withdrawal F10.939 Feeling suicidal R45.851 Anemia D64.9 Hypertension I10 Substance Abuse F19.10 Neurogenic claudication due to lumbar spinal stenosis M48.062 Urinary retention R33.9 Bipolar depression F31.9 Peripheral arterial disease I73.9 Anxiety with depression F41.8 Hyperlipidemia E78.5 Cervical stenosis of spinal canal M48.02
[2022-06-14] MEDS: OLMESARTAN MEDOXOMIL 20 MG TAB PO SCH (08:08)
[2022-06-14] MEDS: THIAMINE HCL 100 MG TAB PO SCH (08:08)
[2022-06-14] MEDS: ARIPiprazole 5 MG TAB PO SCH (08:08)
[2022-06-14] MEDS: ENOXAPARIN INJ 40 MG/0.4 ML SYR SQ SCH (08:08)
[2022-06-14] MEDS: FOLIC ACID 1 MG TAB PO SCH (08:08)
[2022-06-14] MEDS: amLODIPine BESYLATE 5 MG TAB PO SCH (08:08)
[2022-06-14] MEDS: ROSUVASTATIN CALCIUM 20 MG TAB PO SCH (08:08)
[2022-06-14] MEDS: MULTIVITAMIN TAB PO SCH (08:08)
[2022-06-14] MEDS: ASPIRIN 81 MG ECTAB PO SCH (08:08)
[2022-06-14] MEDS ORDERED: GABAPENTIN 600 MG TAB PO SCH (12:30)
--- NOTE | 2022-06-14 14:12 | Communication Note ---
Date of Service: June 14, 2022 patient is continuing to deny SI. Will titrate Abilify 10 mg starting tomorrow with plan for Abilify injection prior to discharge if tolerating. Dr. Hyman to oversee order as assuming clinical responsibility for service at 1700 hrs. Liaison rounding to continue. January d/c 1 -on-1 aide on med floor.
[2022-06-14] MEDS: ACETAMINOPHEN 325 MG TAB PO PRN (16:05)
[2022-06-14] MEDS ORDERED: LORazepam 1 MG in SYRINGE 0.5 ML IV STA (21:00)
[2022-06-14] MEDS: TAMSULOSIN HCL 0.4 MG CAP PO SCH (21:15)
[2022-06-15] MEDS: THIAMINE HCL 100 MG TAB PO SCH (08:26)
[2022-06-15] MEDS: OLMESARTAN MEDOXOMIL 20 MG TAB PO SCH (08:26)
[2022-06-15] MEDS: ASPIRIN 81 MG ECTAB PO SCH (08:27)
[2022-06-15] MEDS: ARIPiprazole 5 MG TAB PO SCH (08:27)
[2022-06-15] MEDS: FOLIC ACID 1 MG TAB PO SCH (08:27)
[2022-06-15] MEDS: ENOXAPARIN INJ 40 MG/0.4 ML SYR SQ SCH (08:27)
[2022-06-15] MEDS: MULTIVITAMIN TAB PO SCH (08:27)
[2022-06-15] MEDS: ROSUVASTATIN CALCIUM 20 MG TAB PO SCH (08:27)
[2022-06-15] MEDS: amLODIPine BESYLATE 5 MG TAB PO SCH (08:27)
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
[2022-06-15] MEDS ORDERED: ARIPiprazole 5 MG TAB PO ONE (10:29)
--- NOTE | 2022-06-15 10:37 | Discharge Summary ---
Discharge Summary Date of Service June 15, 2022 Admission HPI Per Admitting Provider The patient is a 56-year-old male with a past medical history including seroma of musculoskeletal structures, UTI, urinary retention with need for self cathing, suicidal ideation, carotid stenosis, bipolar depression, substance abuse, tobacco abuse, hepatitis C, hypertension, neurogenic claudication due to lumbar spinal stenosis, peripheral arterial disease, anxiety with depression and osteoarthritis. He presents as noted above. Admission Exam Per Admitting Provider The patient is awake, alert and oriented 3, well developed and well nourished, normocephalic and atraumatic, lying in bed and in no acute distress. HEENT--PERRL, EOMI, mucous membranes and oropharynx dry. Neck--supple. No JVD. No bruits. Thyroid normal, trachea midline, no adenopathy. Heart--normal S1 and S2. No murmurs, rubs or gallops. Lungs--clear bilaterally, no respiratory distress, no accessory muscle use. Abdomen--normal bowel sounds and soft. Nontender. Nondistended, no hernias or masses, no organomegaly. Extremities--no cyanosis or clubbing. No edema. There are good distal pulses b/l. Dermatologic--normal skin turgor, normal color, no abnormal lymph nodes, no rash. Neurologic--cranial nerves II through XII grossly intact. Rheumatologic--normal range of motion. Psychiatric--depressed Principal Dx & Hospital Course #1 = Principal Diagnosis (1) Alcohol intoxication: 56 yo M Hx substance use disorder, HLD, bipolar disorder, Hepatitis C, PAD admitted for acute alcohol intoxication with patient goal of alcohol cessation, as well as suicidal ideation. Alcohol intoxication/alcohol withdrawal: -Alcohol level 167.6 on admission. -Patient desires to quit using alcohol. He intends to follow up with counseling and with outpatient services. -AWSS protocol while admitted without need for Ativan overnight on day of dis charge. -Alcohol outpatient rehab resources given to patient. -Psych care as described below. (2) Alcohol withdrawal: See above (3) Feeling suicidal: -History of bipolar disorder, anxiety. -Presented with suicidal ideation on this admission. Behavioral Health liaison and Psychiatry consulted. -Patient has been unsuccessful with getting counseling, which he desires; he is on a waitlist at [facility]. -Patient started on Abilify while admitted; given long-acting injectable prior to discharge. -Has follow up scheduled with Psychiatry outpatient. (4) Anemia: -Chronic, with baseline Hgb ~12.5; normocytic anemia, stable. -Iron studies, B12, folate normal. No history of CKD. -Likely secondary to chronic alcohol use causing bone marrow suppression. No evidence of liver abnormality on RUQ US in December 2021. (5) Hypertension: -Continue amlodipine and olmesartan. (6) Substance Abuse: -UDS positive for marijuana, amphetamine-methamphetamine and MDMA ecstasy. -Psych care for bipolar disorder ongoing. (7) Neurogenic claudication due to lumbar spinal stenosis: -Status post L4-[address] Herron on 01/15/2022, during hospitalization from 01/10-01/17/2022. -Patient was readmitted from 03/15-03/22/2022 with neurogenic claudication, and was then transferred to [facility], where he stayed from 03/22-03/30/2022. -No acute concerns while admitted. (8) Urinary retention: -Straight cath at home as needed. -Tamsulosin 0.4 mg daily at bedtime. (9) Bipolar depression: See above (10) Peripheral arterial disease: - Continue aspirin, statin. (11) Anxiety with depression: See above (12) Hyperlipidemia: -Continue rosuvastatin 40 mg daily. (13) Cervical stenosis of spinal canal: -S/p anterior cervical discectomy and fusion of C4-C7 with C5 corpectomy [place] [address] Herron. Plan Dispo: Home Discharge Exam Constitutional well developed and well nourished; no acute distress Skin no rashes, warm and dry Psychiatric Orientation: alert and oriented x 3 Affect: + depressed affect Updated Medication List Medication Instructions Recorded Confirmed Type aspirin 81 mg tablet,delayed 81 mg PO DAILY #30 tabs 01/17/22 03/15/22 Rx release tamsulosin 0.4 mg capsule (Flomax) 0.4 mg PO DAILY #10 caps 02/01/22 03/15/22 Rx amlodipine 5 mg tablet (Norvasc) 10 mg PO QAM #180 tabs 02/14/22 03/15/22 Rx olmesartan 20 mg tablet 20 mg PO QAM #90 tabs 02/14/22 03/15/22 Rx folic acid 1 mg tablet 1 mg PO QAM #30 tabs 03/22/22 Rx hydroxyzine HCl 25 mg tablet 25 mg PO Q8H PRN anxiety #10 tabs 03/22/22 Rx multivitamin 1 tab PO DAILY #90 tabs 03/22/22 Rx polyethylene glycol 3350 17 gram 17 g PO DAILY #30 ea 03/22/22 Rx oral powder packet (Miralax) sennosides 8.6 mg capsule (senna) 17.2 mg PO DAILY #60 caps 03/22/22 Rx hydrocodone 7.5 mg-acetaminophen 1 tab PO Q6H PRN pain #30 tabs 04/05/22 Rx 325 mg tablet ampicillin 500 mg capsule 500 mg PO QID 7 days #28 caps 04/10/22 04/10/22 Rx rosuvastatin 40 mg tablet 40 mg PO QAM #90 tabs 05/07/22 Rx Hospital Stay Data Consultations 06/11/22 00:08 ED Decision to Admit Stat 06/11/22 02:16 Consult Behavioral Health Liaison Routine 06/11/22 04:15 Consult Psychiatry Routine Discharge Instructions Given to Patient (Per Discharging Provider) You were admitted to the hospital for help with alcohol withdrawal and due to having thoughts about harming yourself. You were given Ativan in order to help you through your alcohol withdrawal, and you did well. You were given Abilify, first in a pill, then an injectable, to help with mood stability. You will have follow up with Psychiatry after discharge from the hospital. You were felt to be safe home with the following recommendations: 1) Your labwork is starting to show signs of damage to your liver from alcohol. It is important for your overall health to stop drinking. Please let your Psychiatrist and primary care doctor know that you are quitting so that they can help you and provide any resources you might need. 2) Please keep your follow up appointment with Psychiatry so that you can start to feel better with regard to your mood. 3) None of your other medications for blood pressure or urinary troubles were changed; please continue these. You no longer have to take fluoxetine or Depakote. If you have any urgent concerns, chest pain, trouble breathing, please come to ER for evaluation. Total Time Total Time Spent Total Time Spent (In Minutes): 35 Coding Level of Care Code D/C DAY MANAGEMENT >30 MINS Diagnoses Alcohol intoxication F10.929 Alcohol withdrawal F10.939 Feeling suicidal R45.851 Anemia D64.9 Hypertension I10 Substance Abuse F19.10 Neurogenic claudication due to lumbar spinal stenosis M48.062 Urinary retention R33.9 Bipolar depression F31.9 Peripheral arterial disease I73.9 Anxiety with depression F41.8 Hyperlipidemia E78.5 Cervical stenosis of spinal canal M48.02
[2022-06-15 11:11] LABS: Chol HDL Ratio 2.9 (0-5)
[2022-06-15] MEDS ORDERED: MAGNESIUM OXIDE 400 MG TAB PO SCH (12:15)
[2022-06-15] MEDS ORDERED: ARIPiprazole 10 MG TAB PO ONE (12:51)
[2022-06-15] MEDS ORDERED: ARIPiprazole LAUROXIL 675 MG/2.4 ML SYR IM ONE (13:15)
[2022-06-15] MEDS ORDERED: ARIPiprazole LAUROXIL 882 MG/3.2 ML SYR IM ONE (13:15)
[2022-06-19 08:48] LABS: Amphetamine Urine, Confirm NEGATIVE ng/mL (<250); MDA negative; MDEA negative; MDMA (Ecstasy) Urine, Confirm negative; Marijuana Quant, GCMS Urine 48 ng/mL (<5); Methamphetamine, Ur Confirm >15000 ng/mL (<250)
== END 2022-06-15 15:27 | disposition home or self-care (01) | DRG 897 ==
LOC: ED 20:01 → SUATTDRO 06-11 00:48 → 2S 06-11 00:48

== ENCOUNTER 2022-12-09 15:59 | Observation (INO) ==
[2022-12-09 16:47] LABS: Basophils # (auto) 0.04 K/uL (0-0.2); Basophils % (auto) 0.5 %; Eosinophils # (auto) 0.08 K/uL (0-0.50); Eosinophils % (auto) 0.9 %; Hematocrit (blood only) 41.2 % (42.0-52.0); Hemoglobin 14.8 g/dl (14.0-18.0); Immature Granulocytes # (auto) 0.02 K/uL (0.01-0.20); Immature Granulocytes % (auto) 0.2 %; Lymphocytes # (auto) 0.96 K/uL (1.2-3.4); Lymphocytes % (auto) 11.2 %; Mean Corpuscular Hemoglobin 32.2 pg (25.0-34.0); Mean Corpuscular Hgb Conc 35.9 g/dL (32.0-36.0); Mean Corpuscular Volume 89.8 fL (80.0-100.0); Mean Platelet Volume 9.8 fL (9.4-12.4); Monocytes # (auto) 0.62 K/uL (0.11-0.59); Monocytes % (auto) 7.3 %; Neutrophils # (auto) 6.82 K/uL (1.40-6.50); Neutrophils % (auto) 79.9 %; Platelet Count 406 K/uL (130-400); RDW Coefficient of Variation 12.2 % (11.5-14.5); RDW Standard Deviation 40.2 fL (36.4-46.3); Red Blood Count 4.59 M/uL (4.70-6.10); White Blood Count 8.54 K/ul (4.8-10.8)
[2022-12-09] MEDS ORDERED: ONDANSETRON INJ 2 MG/ML 2 ML VIAL IV STA (16:58)
[2022-12-09] MEDS ORDERED: cefTRIAXone SODIUM 2,000 MG/70 ML BAG IV STA (16:58)
[2022-12-09] MEDS ORDERED: KETOROLAC TROMETHAMINE 15 MG/ML VIAL IV STA (16:58)
[2022-12-09] MEDS ORDERED: MoRPHine SULFATE 4 MG/ML 1 ML CARP\\VIAL IV STA (16:58)
--- NOTE | 2022-12-09 17:02 | Emergency Department Note ---
Impression & Plan Pain in right testicle, Acute orchitis, Failure of outpatient treatment ED Provider Note NAME: OMARI MORRIS Jr AGE: 57 SEX: M : 1965 ARRIVES VIA: Ambulance INFORMANT: [Patient] ED PROVIDER(S): [Ankit Ingram MD] CHIEF COMPLAINT: Testicular pain HISTORY OF PRESENT ILLNESS: The patient is a 57-year-old male who presents to the ER with right testicle pain. The patient was seen 3 days ago and diagnosed with epididymitis/orchitis. He was placed on cefdinir. The patient states that he is taking the antibiotics as prescribed. The pain has worsened, the swelling has worsened, he presents for evaluation. There has been no fever, no nausea or vomiting. He does self cath and has noticed that his urine seems clear. He has not had any abdominal pain but feels pain in the area of the right groin radiating from the right testicle. PMHx/PSHx: See Below SOCIAL HISTORY: See Below. PHYSICAL EXAM: GENERAL: Patient is in no acute distress. HEENT: No acute trauma, normocephalic atraumatic, mucous membranes moist, no nasal congestion. NECK: No stridor, no adenopathy, no meningismus, trachea is midline. LUNGS: Clear to auscultation bilaterally, no wheeze, no rhonchi, breath sounds equal. HEART: Without murmurs gallops or rubs, regular rate and rhythm. ABDOMEN: Soft, nontender, bowel sounds positive, no peritonitis. EXTREMITIES: No cyanosis or edema, full range of motion of all the joints without pain or difficulty, no signs for acute trauma. NEUROLOGIC: Oriented x 3, no acute motor or sensory deficits, no focal weakness. SKIN: No rash, no jaundice, no diaphoresis. Groin: He is circumcised. The right testicle is enlarged and quite firm and tender, there is right scrotal erythema. Left testicle is nontender and appears normal in size. DIFFERENTIAL DIAGNOSIS: Epididymitis, orchitis, abscess, torsion, UTI, renal or liver failure, electrolyte imbalance, failed outpatient management, among others. EMERGENCY DEPARTMENT COURSE/PROCEDURES: Prior/Outside records reviewed: Recent ED visit. MEDICAL DECISION MAKING: There is no leukocytosis or anemia. The patient's white count has improved compared to a few days ago. Platelet count slightly elevated but not in need of emergent correction/attention. No renal failure or significant electrolyte abnormality. No concerning liver enzyme elevation. Urinalysis shows some ketones, no obvious infection. Urine culture from a few days ago has grown gram-negative bacilli, no sensitivities were run. Today's testicular ultrasound shows similar findings to the findings from the other day. A fluid collection/possible abscess was seen, orchitis was seen. On exam, the patient had a firm, tender right testicle. The right testicle and hemiscrotum were enlarged. He was not febrile or toxic. I did speak with urology, Dr. Sosa. He recommended switching to IV Cipro for better urologic coverage. There was no need for emergent urologic intervention this evening. The patient was given IV ceftriaxone, IV Cipro. He was given IV Toradol, IV morphine and IV Zofran, he feels more comfortable. I did speak with the patient about his findings, I spoke with case management, the on-call hospitalist was consulted. DISPOSITION: Patient's presentation and findings warrant a hospital stay. Past Med/Surg History Medical History Anemia REASON FOR UPCOMING PROCEDURE Anxiety with depression Back problem FLARE UP/PREDNISONE TX MAY 2022 AND HELPED...CHIROPRACTER FOR Bipolar depression BIPOLAR 2 PER PT Carotid stenosis PT DENIES Degenerative joint disease (DJD) of lumbar spine Emphysema lung Hepatitis C History of COPD PT REPORTS PASSED HIS LAST PULMONARY TEST History of COVID-19 1 YR AGO History of gastric ulcer HX BORDERLINE / TEENAGE YRS History of seizures MOST RECENTLY 2 YR AGO (D/T LOW BLOOD SUGAR) /EVALUATED AT [facility]...UNDER EVAL ALSO DX WITH STROKE AT THAT TIME (NO RESIDUALS) FIRST SEIZURE WAS 5 YR AGO/UNKNOWN ETIOLOGY PT REPORTS A TOTAL OF 3-4 SEIZURES/NO NEURO DR History of stroke DX 2 YR AGO/NO RESIDUALS History of UTI MAY 2022/RESOLVED HX ABX TX AND COMPLETE/DENIES CURRENT S/S Hyperlipidemia Hypertension Peripheral arterial disease BLOCKAGE RIGHT LEG ARTERY / RECOMMENDED FOLLOW UP WITH VASCULAR SURGEON (NOT YET DONE) PT REPORTS HE WAS TOLD "MY BLOOD FOUND ANOTHER WAY TO FLOW" Smoker Urinary retention SELF CATH PRN Surgical History H/O neck surgery Dr. Herron - 2013 FULL ROM History of back surgery Dr. Herorn - Lower back surgery - January 18. History of back surgery lower back - to drain hematoma. History of cardiac cath FOR C/P & PLAQUE BUILD UP...X2 CATHS MOST RECENT AGE 40'S - NO STENT(S) [facility] 1ST CATH AGE 30'S - KARMA PATRICIA - NO STENT(S) History of endoscopy History of wisdom tooth extraction Family History Father Prostate cancer Denies family history of Ovarian cancer Myocardial infarction Breast cancer Colorectal cancer Social History Smoking Status: Former smoker Tobacco Type: Cigarettes Cigarettes Per Day: .5PPD/ADVISED NPO; Second Hand Exposure: No; Hx Alcohol Use: Yes (HX HEAVY (QUIT -2 MON AGO)) Alcohol type: hard liquor Hx Substance Use: Yes (NONE FOR OVER A 1 YR (MARIJUANA/PAIN PILLS/AMPHETAMINES)) Non-Prescribed Medications: Former Misuse of Non-Prescribed Rx, IV Drugs, Marijuana and Methamphetamines Last Used Substance: Days (ago) Last Used Substance Other:: Yesterday Preferred Language: Persian Communication Ability: Effective Visual Impairment: No Limitations Hearing Ability: Normal Pie Chef Required: No Beliefs That Will Affect Care: None marital status: Current Living Situation: Alone current occupational status: disabled Feels Safe at Home: Yes Childhood Exposure to Second-Hand Smoke: Yes caffeine: Yes (coffee - two cups per day) during the past year weight has: remained stable Dental Care, Regularly: No Physical Activity Frequency: Does not Exercise Seatbelt Use: always Sunscreen Use: Yes Assistive Devices: Walker Allergies Allergies Allergy/AdvReac Type Severity Reaction Status Date / Time risperidone Allergy Intermediate MAKES MY Verified 12/06/22 01:49 TONGUE SWELL, LETHARGIC AND SLUR WORDS paroxetine AdvReac Severe MAKES ME Verified 12/06/22 01:49 MANIC Influenza Virus Vaccines AdvReac Intermediate I GOT Verified 12/06/22 01:49 STREP THROAT EVERY TIME I HAD IT pneumococcal vaccine AdvReac Intermediate CELLULITIS Verified 12/06/22 01:49 AT INJECTION SITE Home Meds Home Medications Medication Instructions Recorded Confirmed aripiprazole 300 mg suspension, 0 mg IM MONTHLY 12/06/22 12/06/22 extended rel. intramuscular syringe (Corinna Zepeda) bupropion HCl 150 mg 24 hr tablet, 150 mg PO DAILY 12/06/22 12/06/22 extended release Previous Rx's Medication Instructions Recorded rosuvastatin 40 mg tablet 40 mg PO QAM #90 tabs 05/07/22 metoprolol tartrate 25 mg tablet 25 mg PO BID #180 tabs 07/18/22 cefdinir 300 mg capsule 300 mg PO BID 10 days #20 caps 12/06/22 doxycycline monohydrate 100 mg 100 mg PO BID 10 days #20 caps 12/06/22 capsule Results & Data (ED) Vital Signs Vital Signs - 24 hr 12/09/22 16:09 Temperature Source Temporal Artery Scan Pulse Rate 98 H Pulse Rhythm Regular Respiratory Rate 22 Respiratory Effort / Characteristics Non-Labored Spontaneous Respiratory Depth Normal Blood Pressure 160/100 H Blood Pressure Mean 120 Pulse Oximetry 97 Oxygen Delivery Method Room Air Sepsis Recent Fever Within 48 Hours No Sepsis New/Unexplained Change in Mental Status No Sepsis Action Taken by Nursing No Action Required Home Medications Current Medication List: was personally reviewed by me Laboratory Data Attestation: I reviewed the patient's lab results. 12/09/22 16:27 12/09/22 16:27 Lab Results 12/09/22 12/09/22 12/09/22 Range/Units 16:27 16:27 18:00 WBC 8.54 (4.8-10.8) K/ul RBC 4.59 L (4.70-6.10) M/uL Hgb 14.8 (14.0-18.0) g/dl Hct 41.2 L (42.0-52.0) % MCV 89.8 (80.0-100.0) fL MCH 32.2 (25.0-34.0) pg MCHC 35.9 (32.0-36.0) g/dL RDW Std Deviation 40.2 (36.4-46.3) fL RDW Coeff of Artemio 12.2 (11.5-14.5) % Plt Count 406 H (130-400) K/uL MPV 9.8 (9.4-12.4) fL Immature Gran % (Auto) 0.2 % Neut % (Auto) 79.9 % Lymph % (Auto) 11.2 % Story % (Auto) 7.3 % Eos % (Auto) 0.9 % Baso % (Auto) 0.5 % Neut # (Auto) 6.82 H (1.40-6.50) K/uL Lymph # (Auto) 0.96 L (1.2-3.4) K/uL Story # (Auto) 0.62 H (0.11-0.59) K/uL Eos # (Auto) 0.08 (0-0.50) K/uL Baso # (Auto) 0.04 (0-0.2) K/uL Immature Gran # (Auto) 0.02 (0.01-0.20) K/uL Sodium 138 (136-145) mmol/L Potassium 3.5 (3.5-5.1) mmol/L Chloride 103 (98-107) mmol/L Carbon Dioxide 29 (21-32) mmol/L Anion Gap 6 (3-11) BUN 10 (6-23) mg/dl Creatinine 0.88 (0.6-1.4) mg/dl Est Cr Clr Drug Dosing Not Reportable Est GFR ( Amer) 111.3 ml/min Est GFR (Non-Af Amer) 96.0 ml/min BUN/Creatinine Ratio 11.4 (10-20) Glucose 106 H (70-99(Fasting)) mg/dl Calcium 9.8 (8.5-10.1) mg/dl Total Bilirubin 0.4 (0.2-1.0) mg/dl AST 14 (13-39) U/L ALT 16 (7-52) U/L Alkaline Phosphatase 78 (34-104) U/L Total Protein 8.6 H (6.0-8.3) gm/dl Albumin 4.2 (3.4-5.0) gm/dl Globulin 4.4 H (2.5-4.0) gm/dl Albumin/Globulin Ratio 1.0 (0.9-2) Urine Color Dark Yellow Urine Appearance Clear (Clear) Urine pH 5.5 (4.5-7.5) Ur Specific [place] 1.018 (1.000-1.030) Urine Protein Trace H (Negative) Urine Glucose (UA) Negative (Negative) Urine Ketones Trace H (Negative) Urine Blood Negative (Negative) Urine Nitrite Negative (Negative) Urine Bilirubin Negative (Negative) Urine Urobilinogen Negative (Negative) Ur Leukocyte Esterase Negative (Negative) Urine WBC (Auto) 1-5 (0-5) /hpf Urine RBC (Auto) 0-4 (0-4) /hpf U Hyaline Cast (Auto) 1-5 (0-5) /lpf U Epithel Cells (Auto) 5-10 H (0-5) /lpf Urine Bacteria (Auto) Negative (Negative) Administered Medications Discontinued Medications Ceftriaxone Sodium (Rocephin) 2,000 mg in 70 mls @ 140 mls/hr IV NOW STA Stop: 12/09/22 17:27 Last Infusion: 12/09/22 18:25 Dose: 0 mls/hr Documented By: Admin: 12/09/22 17:46 Dose: 140 mls/hr Documented By: OL Ketorolac Tromethamine (Ketorolac Tromethamine 15 Mg/Ml Vial) 15 mg IV NOW STA Stop: 12/09/22 16:59 Last Admin: 12/09/22 17:46 Dose: 15 mg Documented By: OL Morphine Sulfate (Morphine Sulfate 4 Mg/Ml 1 Ml Carp\\Vial) 4 mg IV NOW STA Stop: 12/09/22 16:59 Last Admin: 12/09/22 17:02 Dose: 4 mg Documented By: OL Ondansetron HCl (Ondansetron Inj 2 Mg/Ml 2 Ml Vial) 4 mg IV NOW STA Stop: 12/09/22 16:59 Last Admin: 12/09/22 17:02 Dose: 4 mg Documented By: OL Imaging Data Radiologist's Impression: Scrotum Ultrasound 12/09/22 16:43 SCROTAL ULTRASOUND CLINICAL HISTORY: Right testicular edema COMPARISON STUDY: Scrotal ultrasound December 06, 2022. TECHNIQUE: Grayscale and color and duplex Doppler sonography of the scrotum was performed. FINDINGS: The right testis measures 4.6 x 3.3 x 2.7 cm and the left measures 4.9 x 2.3 x 2 cm. There is color flow within each testis. There is asymmetric increased flow within the right testis and right epididymis, as shown on previous MRI. A small left varicocele is noted. There is no testicular mass. The right epididymis is not well-defined but likely asymmetrically enlarged, heterogeneous and hypervascular. There is a complex collection within the right hemiscrotum. This favors a hydrocele. A developing abscess could appear similar. Scrotal wall edema is noted. IMPRESSION: 1. Findings suggestive of right-sided epididymoorchitis. Complex collection within the right hemiscrotum which favors a complex hydrocele. A developing multiloculated abscess could appear similar. 2. Scrotal soft tissue thickening and edema. ACT 112: Negative or not required by law. Electronically signed by: Keith Guzman M.D. 12/09/2022 6:01 PM Discharge Plan Visit Data Chief Complaint: Testicular Pain Stated Complaint: Swollen testicle ED Provider: Ankit Ingram Discharge Problem: Pain in right testicle, Acute orchitis, Failure of outpatient treatment Patient Disposition: Admitted As Inpatient Condition: Fair Forms Stand Alone Forms: [facility] [employer] Prescriptions Prescriptions: No Action rosuvastatin 40 mg tablet 40 mg PO QAM Qty: 90 3RF metoprolol tartrate 25 mg tablet 25 mg PO BID Qty: 180 1RF bupropion HCl 150 mg tablet extended release 24 hr 150 mg PO DAILY Abilify Maintena 300 mg Suspension,Extended Rel Syring 0 mg IM MONTHLY Rx Instructions: UNSURE OF STRENGTH, TAKES AT THE END OF THE MONTH. doxycycline monohydrate 100 mg capsule 100 mg PO BID 10 Days Qty: 20 0RF cefdinir 300 mg capsule 300 mg PO BID 10 Days Qty: 20 0RF Referrals Referrals: Cleveland Cortez CRNP [Primary Care Provider] -
[2022-12-09 17:08] LABS: Alanine Aminotransferase 16 U/L (7-52); Albumin Level 4.2 gm/dl (3.4-5.0); Alkaline Phosphatase 78 U/L (34-104); Anion Gap 6 (3-11); Aspartate Aminotransferase 14 U/L (13-39); BUN Creatinine Ratio 11.4 (10-20); Bilirubin,Total 0.4 mg/dl (0.2-1.0); Blood Urea Nitrogen 10 mg/dl (6-23); Calcium 9.8 mg/dl (8.5-10.1); Carbon Dioxide 29 mmol/L (21-32); Chloride 103 mmol/L (98-107); Est GFR (African American) 111.3 ml/min; Globulin 4.4 gm/dl (2.5-4.0); Glucose 106 mg/dl (70-99(Fasting)); Potassium 3.5 mmol/L (3.5-5.1); Sodium 138 mmol/L (136-145); Total Protein 8.6 gm/dl (6.0-8.3)
--- NOTE | 2022-12-09 18:03 | Ultrasound Report ---
SCROTAL ULTRASOUND CLINICAL HISTORY: Right testicular edema COMPARISON STUDY: Scrotal ultrasound December 06, 2022. TECHNIQUE: Grayscale and color and duplex Doppler sonography of the scrotum was performed. FINDINGS: The right testis measures 4.6 x 3.3 x 2.7 cm and the left measures 4.9 x 2.3 x 2 cm. There is color flow within each testis. There is asymmetric increased flow within the right testis and righ t epididymis, as shown on previous MRI. A small left varicocele is noted. There is no testicular mass . The right epididymis is not well-defined but likely asymmetrically enlarged, heterogeneous and hype rvascular. There is a complex collection within the right hemiscrotum. This favors a hydrocele. A dev eloping abscess could appear similar. Scrotal wall edema is noted. IMPRESSION: 1. Findings suggestive of right-sided epididymoorchitis. Complex collection within the right hemiscro jaime which favors a complex hydrocele. A developing multiloculated abscess could appear similar. 2. Scrotal soft tissue thickening and edema. ACT 112: Negative or not required by law. Electronically signed by: Keith Guzman M.D. 12/09/2022 6:01 PM
[2022-12-09] MEDS ORDERED: CIPROFLOXACIN / D5W 400 MG/200 ML BAG IV STA (18:19)
[2022-12-09 18:20] LABS: Appearance Urine Clear (Clear); Bacteria Urine Automated Negative (Negative); Bilirubin Urine Negative (Negative); Blood Urine Negative (Negative); Color Urine Dark Yellow; Glucose Urine UA Negative (Negative); Ketones Urine Trace (Negative); Leukocyte Esterase Urine Negative (Negative); Nitrite Urine Negative (Negative); Protein Urine Trace (Negative); RBC Urine Automated 0-4 /hpf (0-4); Specific Gravity Urine 1.018 (1.000-1.030); Urobilinogen Urine Negative (Negative); pH Urine 5.5 (4.5-7.5)
--- NOTE | 2022-12-09 19:52 | History & Physical Report ---
Date of Service December 09, 2022 Assessment & Plan (1) Acute epididymitis: (2) Acute orchitis: (3) Hydrocele: (4) Pain in right testicle: (5) Failure of outpatient treatment: (6) Cervical stenosis of spinal canal: (7) Osteoarthritis: (8) Urinary retention: (9) History of gastric ulcer: Plan Acute right-sided epididymoorchitis/urinary retention with straight cathing as needed- Urine culture and sensitivity from December 06 growing gram-negative bacilli Previous infections with Klebsiella oxytoca, Enterococcus faecalis x2, and coag negative staph Review of all cultures revealed sensitivity to ciprofloxacin, which she was started on in the ED, will continue 400 mg IV every 12 hours Failure of outpatient treatment, patient was on cefdinir and doxycycline and had worsening symptoms Hyperlipidemia- Continue rosuvastatin 40 mg daily Hypertension- Continue metoprolol tartrate with hold parameters Depression- Continue bupropion Patient is on monthly IM injections of Abilify Maintena History of Present Illness Chief Complaint: The patient presents to the emergency department with complaint of worsening right testicular pain and swelling despite starting antibiotics cefdinir and doxycycline 3 days ago. Primary Care Provider: BIJAN Berry The patient is a 57-year-old male with past medical history including hyperlipidemia, hypertension, osteoarthritis, cervical spine stenosis, neurogenic claudication due to lumbar spinal stenosis, UTI, substance abuse and alcohol abuse. He presents to the emergency department with concerns that his right testicular pain and swelling has continued to worsen in spite of taking antibiotics as directed. When asked he reports no previous urologic symptoms, however, history of urinary tract infections with Enterococcus faecalis, coag negative Staphylococcus, Enterococcus faecalis, Klebsiella oxytoca and urine from 12/06/2022 is growing gram-negative bacilli. He denies any penile discharge Allergies Allergy/AdvReac Type Severity Reaction Status Date / Time risperidone Allergy Intermediate MAKES MY Verified 12/09/22 18:56 TONGUE SWELL, LETHARGIC AND SLUR WORDS paroxetine AdvReac Severe MAKES ME Verified 12/09/22 18:56 MANIC Influenza Virus Vaccines AdvReac Intermediate I GOT Verified 12/09/22 18:56 STREP THROAT EVERY TIME I HAD IT pneumococcal vaccine AdvReac Intermediate CELLULITIS Verified 12/09/22 18:56 AT INJECTION SITE Home Medications Medication Instructions Recorded Confirmed Type rosuvastatin 40 mg tablet 40 mg PO QAM #90 tabs 05/07/22 12/09/22 Rx metoprolol tartrate 25 mg tablet 25 mg PO BID #180 tabs 07/18/22 12/09/22 Rx aripiprazole 300 mg suspension, 0 mg IM MONTHLY 12/06/22 12/09/22 History extended rel. intramuscular syringe (Corinna Zepeda) bupropion HCl 150 mg 24 hr tablet, 150 mg PO DAILY 12/06/22 12/09/22 History extended release cefdinir 300 mg capsule 300 mg PO BID 10 days #20 caps 12/06/22 12/09/22 Rx doxycycline monohydrate 100 mg 100 mg PO BID 10 days #20 caps 12/06/22 12/09/22 Rx capsule Past Med/Surg History Medical History (Updated 12/10/22 @ 03:48 by Beau Torres MD) Anemia REASON FOR UPCOMING PROCEDURE Anxiety with depression Back problem FLARE UP/PREDNISONE TX MAY 2022 AND HELPED...CHIROPRACTER FOR Bipolar depression BIPOLAR 2 PER PT Carotid stenosis PT DENIES Degenerative joint disease (DJD) of lumbar spine Emphysema lung Hepatitis C History of COPD PT REPORTS PASSED HIS LAST PULMONARY TEST History of COVID-19 1 YR AGO History of gastric ulcer HX BORDERLINE / TEENAGE YRS History of seizures MOST RECENTLY 2 YR AGO (D/T LOW BLOOD SUGAR) /EVALUATED AT [facility]...UNDER EVAL ALSO DX WITH STROKE AT THAT TIME (NO RESIDUALS) FIRST SEIZURE WAS 5 YR AGO/UNKNOWN ETIOLOGY PT REPORTS A TOTAL OF 3-4 SEIZURES/NO NEURO DR History of stroke DX 2 YR AGO/NO RESIDUALS History of UTI MAY 2022/RESOLVED HX ABX TX AND COMPLETE/DENIES CURRENT S/S Hyperlipidemia Hypertension Peripheral arterial disease BLOCKAGE RIGHT LEG ARTERY / RECOMMENDED FOLLOW UP WITH VASCULAR SURGEON (NOT YET DONE) PT REPORTS HE WAS TOLD "MY BLOOD FOUND ANOTHER WAY TO FLOW" Smoker Urinary retention SELF CATH PRN Surgical History H/O neck surgery Dr. Herron - 2013 FULL ROM History of back surgery Dr. Herron - Lower back surgery - January 18. History of back surgery lower back - to drain hematoma. History of cardiac cath FOR C/P & PLAQUE BUILD UP...X2 CATHS MOST RECENT AGE 40'S - NO STENT(S) [facility] 1ST CATH AGE 30'S - KARMA PATRICIA - NO STENT(S) History of endoscopy History of wisdom tooth extraction Family History Father Prostate cancer Denies family history of Ovarian cancer Myocardial infarction Breast cancer Colorectal cancer Social History Smoking Status: Current every day smoker Tobacco Type: Cigarettes Cigarettes Per Day: .5PPD/ADVISED NPO; Second Hand Exposure: No; Do You Dip or Chew Tobacco: No; Hx Alcohol Use: Yes Alcohol type: hard liquor Hx Substance Use: Yes Non-Prescribed Medications: Former Misuse of Non- Prescribed Rx, IV Drugs, Marijuana and Methamphetamines Last Used Substance: Days (ago) Last Used Substance Other:: patient states "I use meth very rarely because it is too expensive for me". Preferred Language: Gambian Communication Ability: Effective Visual Impairment: No Limitations Hearing Ability: Normal Slip Cover Maker Required: No Beliefs That Will Affect Care: None marital status: Current Living Situation: Alone current occupational status: disabled Other Information That Helps Us Care for You: No Feels Safe at Home: Yes Safety Concerns: Feels Safe At This Time Childhood Exposure to Second-Hand Smoke: Yes caffeine: Yes (coffee - two cups per day) during the past year weight has: remained stable Dental Care, Regularly: No Physical Activity Frequency: Does not Exercise Seatbelt Use: always Sunscreen Use: Yes Assistive Devices: Cane Review of Systems Review of Systems: The patient denies chest pain, palpitations, shortness of breath, dyspnea on exertion, cough, lower extremity swelling, sore throat, fevers, chills, sweats, weight change, fatigue, nausea, vomiting, diarrhea , constipation, abdominal pain, pelvic pain, blood in urine or stool, dysuria, lightheadedness, dizziness, headache, memory loss, loss of consciousness, rash, abnormal bruising or bleeding, imbalance, focal or generalized weakness, numbness or tingling in arms or legs, generalized arthralgias or myalgias, back or neck pain, or night sweats. The review of systems is otherwise negative other than for that already noted above, and at least 10 systems have been reviewed. Physical Exam Physical Exam: The patient is awake, alert and oriented 3, well developed and well nourished, normocephalic and atraumatic, lying in bed and in no acute distress. HEENT--PERRL, EOMI, mucous membranes and oropharynx dry. Neck--supple. No JVD. No bruits. Thyroid normal, trachea midline, no adenopathy. Heart--normal S1 and S2. No murmurs, rubs or gallops. Lungs--clear bilaterally, no respiratory distress, no accessory muscle use. Abdomen--normal bowel sounds and soft. Nontender. Nondistended, no hernias or masses, no organomegaly. Extremities--no cyanosis or clubbing. No edema. There are good distal pulses b/l. Dermatologic--normal skin turgor, normal color, no abnormal lymph nodes, no rash. Neurologic--cranial nerves II through XII grossly intact. Rheumatologic--normal range of motion. Psychiatric--normal affect. Testicular exam-right is enlarged, red, painful and swollen Results & Data Results & Data ([facility]) Vital Signs (Past 12 Hours) Vital Signs Pulse Pulse Resp BP BP Pulse Ox O2 Del Method 12/09/22 18:36 89 18 151/98 H 97 Room Air 12/09/22 16:09 98 H 22 160/100 H 97 Room Air Laboratory Results Laboratory Results WBC 8.54 K/ul (4.8-10.8) 12/09/22 16: RBC 4.59 M/uL (4.70-6.10) L 12/09/22 16: Hgb 14.8 g/dl (14.0-18.0) 12/09/22 16: Hct 41.2 % (42.0-52.0) L 12/09/22 16: MCV 89.8 fL (80.0-100.0) 12/09/22 16: MCH 32.2 pg (25.0-34.0) 12/09/22 16: MCHC 35.9 g/dL (32.0-36.0) 12/09/22 16: RDW Std Deviation 40.2 fL (36.4-46.3) 12/09/22 16: RDW Coeff of Artemio 12.2 % (11.5-14.5) 12/09/22 16: Plt Count 406 K/uL (130-400) H 12/09/22 16: MPV 9.8 fL (9.4-12.4) 12/09/22 16: Immature Gran % (Auto) 0.2 % 12/09/22 16: Neut % (Auto) 79.9 % 12/09/22 16: Lymph % (Auto) 11.2 % 12/09/22 16: [place] % (Auto) 7.3 % 12/09/22 16: Eos % (Auto) 0.9 % 12/09/22 16: Baso % (Auto) 0.5 % 12/09/22 16: Neut # (Auto) 6.82 K/uL (1.40-6.50) H 12/09/22 16: Lymph # (Auto) 0.96 K/uL (1.2-3.4) L 12/09/22 16: [place] # (Auto) 0.62 K/uL (0.11-0.59) H 12/09/22 16: Eos # (Auto) 0.08 K/uL (0-0.50) 12/09/22 16: Baso # (Auto) 0.04 K/uL (0-0.2) 12/09/22 16: Immature Gran # (Auto) 0.02 K/uL (0.01-0.20) 12/09/22 16: Sodium 138 mmol/L (136-145) 12/09/22 16: Potassium 3.5 mmol/L (3.5-5.1) 12/09/22 16: Chloride 103 mmol/L (98-107) 12/09/22 16: Carbon Dioxide 29 mmol/L (21-32) 12/09/22 16: Anion Gap 6 (3-11) 12/09/22 16: BUN 10 mg/dl (6-23) 12/09/22 16: Creatinine 0.88 mg/dl (0.6-1.4) 12/09/22 16: Est Cr Clr Drug Dosing Not Reportable 12/09/22 16: Est GFR ( Amer) 111.3 ml/min 12/09/22 16: Est GFR (Non-Af Amer) 96.0 ml/min 12/09/22 16:27 BUN/Creatinine Ratio 11.4 (10-20) 12/09/22 16:27 Glucose 106 mg/dl (70-99(Fasting)) H 12/09/22 16:27 Calcium 9.8 mg/dl (8.5-10.1) 12/09/22 16:27 Total Bilirubin 0.4 mg/dl (0.2-1.0) 12/09/22 16:27 AST 14 U/L (13-39) 12/09/22 16:27 ALT 16 U/L (7-52) 12/09/22 16:27 Alkaline Phosphatase 78 U/L (34-104) 12/09/22 16:27 Total Protein 8.6 gm/dl (6.0-8.3) H 12/09/22 16:27 Albumin 4.2 gm/dl (3.4-5.0) 12/09/22 16: Globulin 4.4 gm/dl (2.5-4.0) H 12/09/22 16:27 Albumin/Globulin Ratio 1.0 (0.9-2) 12/09/22 16:27 Urine Color Dark Yellow 12/09/22 18:00 Urine Appearance Clear (Clear) 12/09/22 18:00 Urine pH 5.5 (4.5-7.5) 12/09/22 18:00 Ur Specific [place] 1.018 (1.000-1.030) 12/09/22 18:00 Urine Protein Trace (Negative) H 12/09/22 18:00 Urine Glucose (UA) Negative (Negative) 12/09/22 18:00 Urine Ketones Trace (Negative) H 12/09/22 18:00 Urine Blood Negative (Negative) 12/09/22 18:00 Urine Nitrite Negative (Negative) 12/09/22 18:00 Urine Bilirubin Negative (Negative) 12/09/22 18:00 Urine Urobilinogen Negative (Negative) 12/09/22 18:00 Ur Leukocyte Esterase Negative (Negative) 12/09/22 18:00 Urine WBC (Auto) 1-5 /hpf (0-5) 12/09/22 18:00 Urine RBC (Auto) 0-4 /hpf (0-4) 12/09/22 18:00 U Hyaline Cast (Auto) 1-5 /lpf (0-5) 12/09/22 18:00 U Epithel Cells (Auto) 5-10 /lpf (0-5) H 12/09/22 18:00 Urine Bacteria (Auto) Negative (Negative) 12/09/22 18:00 SARS-CoV-2, RNA, NAAT NEGATIVE (NEGATIVE) 12/09/22 18:35 Impressions Scrotum Ultrasound 12/09/22 16:43 SCROTAL ULTRASOUND CLINICAL HISTORY: Right testicular edema COMPARISON STUDY: Scrotal ultrasound December 06, 2022. TECHNIQUE: Grayscale and color and duplex Doppler sonography of the scrotum was performed. FINDINGS: The right testis measures 4.6 x 3.3 x 2.7 cm and the left measures 4.9 x 2.3 x 2 cm. There is color flow within each testis. There is asymmetric increased flow within the right testis and right epididymis, as shown on previous MRI. A small left varicocele is noted. There is no testicular mass. The right epididymis is not well-defined but likely asymmetrically enlarged, heterogeneous and hypervascular. There is a complex collection within the right hemiscrotum. This favors a hydrocele. A developing abscess could appear similar. Scrotal wall edema is noted. IMPRESSION: 1. Findings suggestive of right-sided epididymoorchitis. Complex collection within the right hemiscrotum which favors a complex hydrocele. A developing multiloculated abscess could appear similar. 2. Scrotal soft tissue thickening and edema. ACT 112: Negative or not required by law. Electronically signed by: Keith Guzman M.D. 12/09/2022 6:01 PM Code Status & VTE Plan Code Status Full code VTE Prophylaxis Plan VTE Prophylaxis will be ordered: Yes PG Care Time/CCT Total # of Minutes Spent Total Time Spent with Patient: Total time spent is greater than 50% in coordination of care (as documented) at patient's floor/unit and/or counseling patient: Coding Level of Care Code 78754 INT INP/OBS CARE 2/55MIN Diagnoses Acute epididymitis N45.1 Acute orchitis N45.2 Hydrocele N43.1 Hydrocele type: infected Pain in right testicle N50.811 Failure of outpatient treatment Z78.9 Cervical stenosis of spinal canal M48.02 Osteoarthritis M19.90 Urinary retention R33.9 History of gastric ulcer Z87.11 (3) Hydrocele Hydrocele type: infected Qualified Code(s): N43.1 - Infected hydrocele
[2022-12-09] MEDS ORDERED: Patient's HEIGHT &/or WEIGHT Needed SCH (20:15)
[2022-12-09] MEDS ORDERED: ONDANSETRON INJ 2 MG/ML 2 ML VIAL IV PRN (20:52)
[2022-12-09] MEDS ORDERED: ACETAMINOPHEN 325 MG TAB PO PRN (20:52)
[2022-12-09] MEDS: MoRPHine SULFATE 4 MG/ML 1 ML CARP\\VIAL IV PRN (21:27)
[2022-12-09] MEDS: METOPROLOL TARTRATE 25 MG TAB PO SCH (21:27)
[2022-12-10] MEDS: KETOROLAC TROMETHAMINE 15 MG/ML VIAL IV PRN ×3 (00:12→19:49)
[2022-12-10] MEDS: MoRPHine SULFATE 4 MG/ML 1 ML CARP\\VIAL IV PRN ×3 (07:29→22:26)
[2022-12-10] MEDS: CIPROFLOXACIN / D5W 400 MG/200 ML BAG IV SCH ×2 (07:38→19:48)
[2022-12-10] MEDS ORDERED: cefTRIAXone SODIUM 2,000 MG in DEXTROSE 5% 50 ML IV SCH (08:00)
[2022-12-10 08:06] LABS: Basophils # (auto) 0.07 K/uL (0-0.2); Basophils % (auto) 1.1 %; Eosinophils # (auto) 0.23 K/uL (0-0.50); Eosinophils % (auto) 3.7 %; Hematocrit (blood only) 34.7 % (42.0-52.0); Hemoglobin 12.4 g/dl (14.0-18.0); Immature Granulocytes # (auto) 0.01 K/uL (0.01-0.20); Immature Granulocytes % (auto) 0.2 %; Lymphocytes # (auto) 1.67 K/uL (1.2-3.4); Lymphocytes % (auto) 26.9 %; Mean Corpuscular Hemoglobin 32.2 pg (25.0-34.0); Mean Corpuscular Hgb Conc 35.7 g/dL (32.0-36.0); Mean Corpuscular Volume 90.1 fL (80.0-100.0); Mean Platelet Volume 9.6 fL (9.4-12.4); Monocytes # (auto) 0.73 K/uL (0.11-0.59); Monocytes % (auto) 11.8 %; Neutrophils % (auto) 56.3 %; Platelet Count 333 K/uL (130-400); RDW Coefficient of Variation 11.9 % (11.5-14.5); RDW Standard Deviation 38.9 fL (36.4-46.3); Red Blood Count 3.85 M/uL (4.70-6.10); White Blood Count 6.21 K/ul (4.8-10.8)
[2022-12-10] MEDS: METOPROLOL TARTRATE 25 MG TAB PO SCH ×2 (08:41→20:56)
[2022-12-10] MEDS: ROSUVASTATIN CALCIUM 20 MG TAB PO SCH (08:41)
[2022-12-10] MEDS: buPROPion XL 150 MG TABCR PO SCH (08:41)
[2022-12-10 08:45] LABS: Albumin Level 3.5 gm/dl (3.4-5.0); BUN Creatinine Ratio 16.9 (10-20); Calcium 8.5 mg/dl (8.5-10.1); Creatinine Clr Calc Pharmacy 121.3 ml/min; Est GFR (Non-African American) 98.4 ml/min; Magnesium 1.6 mg/dl (1.7-2.4); Phosphorus 4.2 mg/dl (2.5-4.9); Potassium 3.8 mmol/L (3.5-5.1)
[2022-12-10] MEDS ORDERED: AZITHROMYCIN 500 MG in DEXTROSE 5% 250 ML IV SCH (09:00)
--- NOTE | 2022-12-10 10:27 | Urology Consultation ---
Date of Consultation December 10, 2022 Assessment & Plan (1) Acute epididymitis: (2) Acute orchitis: (3) Pain in right testicle: 57-year-old male with history of neurogenic claudication due to lumbar spinal stenosis s/p lumbar fusion in December 2021 and urinary retention managed with CIC who presented to the emergency department on 12/09/2022 with worsening right testicular pain and swelling secondary to right epididymal orchitis, failed outpatient treatment. Patient afebrile, hemodynamically stable. Lab work reviewedcreatinine 0.83, no leukocytosis. Scrotal ultrasound independently reviewed with Dr. Oglesby - consistent with right epididymoorchitis, no abscess noted. No acute intervention indicated at this time. Continue supportive care, antibiotics, and antiinflammatories. Recommend scrotal elevation when resting and supportive underwear with activity. Can try ice and/or heat on and off to area for comfort. Discussed with patient that pain and swelling may take several weeks to improve. Continue current CIC schedule for history of urinary retention. Previously seen by our office and was recommended to follow-up with cystoscopy to further evaluate whether retention was obstructive or neurogenic. Recommend outpatient follow-up with urology. will sign off. History of Present Illness Attending Physician: Ronald Summers History of Present Illness This is a 57-year-old male with past medical history of substance abuse, alcohol abuse, neurogenic claudication due to lumbar spinal stenosis s/p lumbar fusion in December 2021, and urinary retention managed with CIC who presented to the emergency department on 12/09/2022 with worsening right testicular pain and swelling secondary to right epididymal orchitis, failed outpatient treatment. Patient was seen initially in the emergency department on 12/06/2022 with right testicular discomfort and swelling. Scrotal ultrasound showed right-sided epididymitis/orchitis with question of complex hydrocele in the right. UA was suggestive of infection. He was treated with 2 g of ceftriaxone. He was discharged with doxycycline and cefdinir. Urine culture on 12/06 showed 6k CFU of gram-negative bacilli. He returned to the ED on 12/09/2022 with worsening testicular discomfort and swelling. He was afebrile on arrival. Lab work reviewedno leukocytosis, creatinine 0.88, hemoglobin 14.8. Urinalysis showed trace protein, trace ketones, 1-5 WBC, 0-4 RBC, 5-10 epithelials, negative for nitrates and bacteria. Scrotal ultrasound on 12/09/2022 showed findings suggestive of right-sided epididymal orchitis, complex collection within the right hemiscrotum which favors complex hydrocele, scrotal soft tissue thickening and edema. ED course included IV ceftriaxone, IV ciprofloxacin, ketorolac, morphine and Zofran. He was admitted to the hospital medicine service. Urology consulted for right testicular pain. Chart review: Afebrile. Labs -creatinine 0.83, WBC 6.21, hemoglobin 12.4. Currently on IV ceftriaxone. Patient seen and examined at bedside this morning. He is awake, alert and resting in bed. Currently comfortable. He reports intermittent right scrotal discomfort. He reports he performs CIC 4 times per day. He was seen by Dr. Guy in January 2022. He has not followed up due to transportation issues. He denies dysuria or hematuria. Mild nausea. He last moved bowels on 12/06, which he notes is normal for him. No fever or chills. He reports no additional concerns at this time. Allergies Allergy/AdvReac Type Severity Reaction Status Date / Time risperidone Allergy Intermediate MAKES MY Verified 12/09/22 18:56 TONGUE SWELL, LETHARGIC AND SLUR WORDS paroxetine AdvReac Severe MAKES ME Verified 12/09/22 18:56 MANIC Influenza Virus Vaccines AdvReac Intermediate I GOT Verified 12/09/22 18:56 STREP THROAT EVERY TIME I HAD IT pneumococcal vaccine AdvReac Intermediate CELLULITIS Verified 12/09/22 18:56 AT INJECTION SITE Home Medications Medication Instructions Recorded Confirmed Type rosuvastatin 40 mg tablet 40 mg PO QAM #90 tabs 05/07/22 12/09/22 Rx metoprolol tartrate 25 mg tablet 25 mg PO BID #180 tabs 07/18/22 12/09/22 Rx aripiprazole 300 mg suspension, 0 mg IM MONTHLY 12/06/22 12/09/22 History extended rel. intramuscular syringe (Corinna Zepeda) bupropion HCl 150 mg 24 hr tablet, 150 mg PO DAILY 12/06/22 12/09/22 History extended release cefdinir 300 mg capsule 300 mg PO BID 10 days #20 caps 12/06/22 12/09/22 Rx doxycycline monohydrate 100 mg 100 mg PO BID 10 days #20 caps 12/06/22 12/09/22 Rx capsule Patient History Medical History Anemia REASON FOR UPCOMING PROCEDURE Anxiety with depression Back problem FLARE UP/PREDNISONE TX MAY 2022 AND HELPED...CHIROPRACTER FOR Bipolar depression BIPOLAR 2 PER PT Carotid stenosis PT DENIES Degenerative joint disease (DJD) of lumbar spine Emphysema lung Hepatitis C History of COPD PT REPORTS PASSED HIS LAST PULMONARY TEST History of COVID-19 1 YR AGO History of gastric ulcer HX BORDERLINE / TEENAGE YRS History of seizures MOST RECENTLY 2 YR AGO (D/T LOW BLOOD SUGAR) /EVALUATED AT [facility]...UNDER EVAL ALSO DX WITH STROKE AT THAT TIME (NO RESIDUALS) FIRST SEIZURE WAS 5 YR AGO/UNKNOWN ETIOLOGY PT REPORTS A TOTAL OF 3-4 SEIZURES/NO NEURO DR History of stroke DX 2 YR AGO/NO RESIDUALS History of UTI MAY 2022/RESOLVED HX ABX TX AND COMPLETE/DENIES CURRENT S/S Hyperlipidemia Hypertension Peripheral arterial disease BLOCKAGE RIGHT LEG ARTERY / RECOMMENDED FOLLOW UP WITH VASCULAR SURGEON (NOT YET DONE) PT REPORTS HE WAS TOLD "MY BLOOD FOUND ANOTHER WAY TO FLOW" Smoker Urinary retention SELF CATH PRN Surgical History H/O neck surgery Dr. Herron - 2013 FULL ROM History of back surgery Dr. Herron - Lower back surgery - January 18. History of back surgery lower back - to drain hematoma. History of cardiac cath FOR C/P & PLAQUE BUILD UP...X2 CATHS MOST RECENT AGE 40'S - NO STENT(S) [facility] 1ST CATH AGE 30'S - KARMA PATRICIA - NO STENT(S) History of endoscopy History of wisdom tooth extraction Family History Father Prostate cancer Denies family history of Ovarian cancer Myocardial infarction Breast cancer Colorectal cancer Social History Smoking Status: Current every day smoker Tobacco Type: Cigarettes Cigarettes Per Day: .5PPD/ADVISED NPO; Second Hand Exposure: No; Do You Dip or Chew Tobacco: No; Hx Alcohol Use: Yes Alcohol type: hard liquor Hx Substance Use: Yes Non-Prescribed Medications: Former Misuse of Non- Prescribed Rx, IV Drugs, Marijuana and Methamphetamines Last Used Substance: Days (ago) Last Used Substance Other:: patient states "I use meth very rarely because it is too expensive for me". Preferred Language: Maltese Communication Ability: Effective Visual Impairment: No Limitations Hearing Ability: Normal Research And Development Scientist Required: No Beliefs That Will Affect Care: None marital status: Current Living Situation: Alone current occupational status: disabled Other Information That Helps Us Care for You: No Feels Safe at Home: Yes Safety Concerns: Feels Safe At This Time Childhood Exposure to Second-Hand Smoke: Yes caffeine: Yes (coffee - two cups per day) during the past year weight has: remained stable Dental Care, Regularly: No Physical Activity Frequency: Does not Exercise Seatbelt Use: always Sunscreen Use: Yes Assistive Devices: None Review of Systems Constitutional: as per Subjective / HPI Gastrointestinal: as per Subjective / HPI Genitourinary: + as per Subjective / HPI Physical Exam Constitutional: well developed and well nourished; no acute distress and not ill appearing Neck: normal visual inspection Respiratory: normal respiratory effort and able to speak in complete sentenc es; no respiratory distress and no labored breathing Cardiovascular: Extremities: no pedal edema Gastrointestinal (Abdomen): Inspection/Auscultation: abdomen normal to inspection; abdomen not distended Neurologic: moves all extremities and awake Psychiatric: Orientation: alert and oriented x 3 Genitourinary: Circumcised penis. Mild scrotal swelling on the right side, right epididymis slightly firm and prominent, no significant erythema or tenderness to palpation. Results & Data ([facility]) Vital Signs (Past 12 Hours) Vital Signs Temp Pulse Resp BP Pulse Ox O2 Del Method 12/10/22 07:30 Room Air 12/10/22 08:39 72 154/93 H 12/10/22 07:14 36.7 C 74 14 159/98 H 95 Room Air 12/09/22 22:34 167/96 H PG Care Time/CCT Total # of Minutes Spent Total Time Spent with Patient: Total time spent is greater than 50% in coordination of care (as documented) at patient's floor/unit and/or counseling patient: Coding Level of Care Code 94068 IN/OBS CONSULT LVL 3,45M Diagnoses Acute epididymitis N45.1 Acute orchitis N45.2 Pain in right testicle N50.811
[2022-12-10] MEDS ORDERED: VANCOMYCIN CONSULT ACTIVE PRN (10:51)
[2022-12-10] MEDS ORDERED: VANCOMYCIN HCL 2,000 MG in SODIUM CHLORIDE 0.9% 500 ML IV STA (11:02)
--- NOTE | 2022-12-10 12:51 | Pharmacy Report ---
Pharmacy PK ABX Note - Date of Service December 10, 2022 - Assessment and Plan Assessment 57 year old M receiving empiric vancomycin and ciprofloxacin for treatment of orchitis/epididymitis. Pertinent microbiologic data includes: 12/06 urine culture (indwelling cath) growing gram-negative bacilli. Patient has history of recurrent UTI (E. faecalis, K. oxytoca, S. aureus, etc.) Reportedly failed outpatient antibiotic regimen of cefdinir and doxycycline. Day # 1 of antimicrobial therapy. Plan Vancomycin * Loading dose: 2000 mg IV x 1 * Maintenance dose: 1500 mg IV every 12 hours * Regimen is predicted to achieve target AUC/OLEG of 400-600 mg/L.hr * Random level ordered for: 12/12/22 * Will start with aggressive regimen, but may need to scale back at some point to prevent accumulation Ciprofloxacin * 400 mg IV q12h - appropriate Pharmacy will continue to follow and will adjust dose/frequency as necessary. Thank you. Pharmacy has transitioned to AUC monitoring for vancomycin. AUC/OLEG is the preferred PK/PD target and is associated with decreased risk of nephrotoxicity compared to traditional trough targets.
[2022-12-10] MEDS ORDERED: MAGNESIUM SULFATE / D5W 1 GM/100 ML BAG IV ONE (16:30)
[2022-12-10] MEDS ORDERED: amLODIPine BESYLATE 5 MG TAB PO ONE (16:30)
[2022-12-10] MEDS: ADVANCED PROBIOTIC 1250 MG CAPSULE PO SCH (17:27)
--- NOTE | 2022-12-10 19:35 | Hospitalist Progress Note ---
Date of Service December 10, 2022 Assessment & Plan (1) Acute epididymitis: Plan: severe acute epididymitis and orchitis presumed 2nd to GNR as urine culture on 12/06 with such however, culprit pathogen could be a gram positive as well - he has had AUTOMATION QA LEAD, staph aureus, and enterococcal UTIs in the past he is at risk of all forms of pathogens given his intermittent self-cathing at home was placed on IV cipro upon admission add vanco for gram positive coverage scrotal support ice prn pain meds prn appreciate urology assistance - nothing surgical needed at this time (2) Acute orchitis: Plan: as above (3) Hydrocele: (4) Pain in right testicle: Plan: 2nd to #1, #2 as above (5) Failure of outpatient treatment: Plan: despite cefdinir + doxycycline he presented with worsening #1, #2 now on IV cipro + IV vanco (6) Cervical stenosis of spinal canal: (7) Osteoarthritis: (8) Urinary retention: Plan: cont intermittent self-cathing as he does at home f/u with [facility] for urodynamic studies (difficult to say if retention is neurogenic or obstructive) (9) History of gastric ulcer: Plan: noted add PPI while here (10) Bipolar depression: Plan: no issues at this time is on monthly Abilify injections (11) Alcohol abuse: Plan: previous h/o heavy etoh abuse but consumption now is mild at most remote h/o etoh withdrawal but none in years watch for signs/symptoms of etoh withdrawal (12) Tobacco abuse: Plan: 1/2 ppd of cigarettes but declines nicoderm patch at this time (13) HTN (hypertension): Plan: uncontrolled despite metoprolol 25mg BID HRs are low 60s on such add amlodipine 5mg daily (14) Hyperlipidemia: Plan: cont crestor Admission and Anticipated Discharge Date Admission Date: December 09, 2022 Subjective pt only complains of right testicular and right scrotal pain minimal pain in right groin region as well eating well no fevers denies h/o STD he is not currently sexually active continues to self straight cath - no issues Review of Systems Review of Systems: cv- no chest pain pulm- no dyspnea GI- no nausea or emesis - straight cathing w/o issue Physical Exam Physical Exam: gen - NAD mouth - MMM neck - no JVD heart - RRR, s1 s2, no murmur lungs - CTA b/l abd - soft NT ND BS+ - right testicle severely swollen, erythematous scrotum, and very tender over right testicle; +cremasteric reflex on right ext - no edema, pulses 2+ b/l Results & Data Results & Data ([facility]) Vital Signs (Past 12 Hours) Vital Signs Temp Pulse Resp BP BP Pulse Ox O2 Del Method 12/10/22 16:24 61 172/100 H 12/10/22 16:14 164/100 H 12/10/22 15:16 36.5 C 67 14 153/101 H 96 Room Air 12/10/22 08:39 72 154/93 H Laboratory Results Laboratory Results - last 24 hr 12/10/22 12/10/22 07:41 07:41 WBC 6.21 RBC 3.85 L Hgb 12.4 L Hct 34.7 L MCV 90.1 MCH 32.2 MCHC 35.7 RDW Std Deviation 38.9 RDW Coeff of Artemio 11.9 Plt Count 333 MPV 9.6 Immature Gran % (Auto) 0.2 Neut % (Auto) 56.3 Lymph % (Auto) 26.9 Wagoner % (Auto) 11.8 Eos % (Auto) 3.7 Baso % (Auto) 1.1 Neut # (Auto) 3.50 Lymph # (Auto) 1.67 Wagoner # (Auto) 0.73 H Eos # (Auto) 0.23 Baso # (Auto) 0.07 Immature Gran # (Auto) 0.01 Sodium 138 Potassium 3.8 Chloride 107 Carbon Dioxide 24 Anion Gap 7 BUN 14 Creatinine 0.83 Est Cr Clr Drug Dosing 121.3 Est GFR ( Amer) 114.0 Est GFR (Non-Af Amer) 98.4 BUN/Creatinine Ratio 16.9 Glucose 91 Calcium 8.5 Phosphorus 4.2 Magnesium 1.6 L Albumin 3.5 Diagnostic Findings recent urine cx - 6000 CFU of GNR only unable to speciate PG Care Time/CCT Total # of Minutes Spent Total Time Spent with Patient: Total time spent is greater than 50% in coordination of care (as documented) at patient's floor/unit and/or counseling patient: Coding Level of Care Code 20966 SUB INP/OBS CARE 2/35MIN Diagnoses Acute epididymitis N45.1 Acute orchitis N45.2 Hydrocele N43.1 Hydrocele type: infected Pain in right testicle N50.811 Failure of outpatient treatment Z78.9 Cervical stenosis of spinal canal M48.02 Osteoarthritis M19.90 Urinary retention R33.9 History of gastric ulcer Z87.11 Bipolar depression F31.9 Alcohol abuse F10.10 Tobacco abuse Z72.0 HTN (hypertension) I10 Hyperlipidemia E78.5 (3) Hydrocele Hydrocele type: infected Qualified Code(s): N43.1 - Infected hydrocele
[2022-12-10] MEDS: VANCOMYCIN HCL 1,500 MG in SODIUM CHLORIDE 0.9% 500 ML IV SCH (22:11)
[2022-12-11] MEDS: CIPROFLOXACIN / D5W 400 MG/200 ML BAG IV SCH ×2 (07:56→20:00)
[2022-12-11] MEDS: buPROPion XL 150 MG TABCR PO SCH (08:00)
[2022-12-11] MEDS: amLODIPine BESYLATE 5 MG TAB PO SCH (08:00)
[2022-12-11] MEDS: ADVANCED PROBIOTIC 1250 MG CAPSULE PO SCH (08:00)
[2022-12-11] MEDS: METOPROLOL TARTRATE 25 MG TAB PO SCH ×2 (08:00→20:02)
[2022-12-11] MEDS: ROSUVASTATIN CALCIUM 20 MG TAB PO SCH (08:00)
[2022-12-11] MEDS: KETOROLAC TROMETHAMINE 15 MG/ML VIAL IV PRN ×2 (08:03→15:27)
[2022-12-11] MEDS: VANCOMYCIN HCL 1,500 MG in SODIUM CHLORIDE 0.9% 500 ML IV SCH (09:23)
[2022-12-11] MEDS: MoRPHine SULFATE 4 MG/ML 1 ML CARP\\VIAL IV PRN ×2 (12:13→17:55)
[2022-12-11 12:40] LABS: Albumin Level 3.8 gm/dl (3.4-5.0); BUN Creatinine Ratio 13.7 (10-20); Calcium 8.9 mg/dl (8.5-10.1); Est GFR (African American) 103.3 ml/min; Est GFR (Non-African American) 89.1 ml/min; Phosphorus 3.1 mg/dl (2.5-4.9); Potassium 3.7 mmol/L (3.5-5.1)
--- NOTE | 2022-12-11 17:38 | Discharge Summary ---
Date of Service date of admission - December 09, 2022 date of discharge - December 12, 2022 Admission HPI Per Admitting Provider The patient is a 57-year-old male with past medical history including hyperlipidemia, hypertension, osteoarthritis, cervical spine stenosis, neurogenic claudication due to lumbar spinal stenosis, UTI, substance abuse and alcohol abuse. He presents to the emergency department with concerns that his right testicular pain and swelling has continued to worsen in spite of taking antibiotics as directed. When asked he reports no previous urologic symptoms, however, history of urinary tract infections with Enterococcus faecalis, coag negative Staphylococcus, Enterococcus faecalis, Klebsiella oxytoca and urine from 12/06/2022 is growing gram-negative bacilli. He denies any penile discharge Principal Diagnosis 1. right sided epididymitis/orchitis 2. right sided hydrocele Discharge Exam gen - NAD, looks well mouth - MMM neck - no JVD heart - RRR, s1 s2, no murmur lungs - CTA b/l abd - soft NT ND BS+ - right testicle with improvement in swelling, erythema, and tenderness; still swollen, but improved from admission; +cremasteric reflex on right; left testicle wnl ext - no edema, pulses 2+ b/l Discharge Data Allergies Allergy/AdvReac Type Severity Reaction Status Date / Time risperidone Allergy Intermediate MAKES MY Verified 12/09/22 18:56 TONGUE SWELL, LETHARGIC AND SLUR WORDS paroxetine AdvReac Severe MAKES ME Verified 12/09/22 18:56 MANIC Influenza Virus Vaccines AdvReac Intermediate I GOT Verified 12/09/22 18:56 STREP THROAT EVERY TIME I HAD IT pneumococcal vaccine AdvReac Intermediate CELLULITIS Verified 12/09/22 18:56 AT INJECTION SITE Consultations [facility] Ordered Studies Scrotum Ultrasound 12/09/22 16:43 SCROTAL ULTRASOUND CLINICAL HISTORY: Right testicular edema COMPARISON STUDY: Scrotal ultrasound December 06, 2022. TECHNIQUE: Grayscale and color and duplex Doppler sonography of the scrotum was performed. FINDINGS: The right testis measures 4.6 x 3.3 x 2.7 cm and the left measures 4.9 x 2.3 x 2 cm. There is color flow within each testis. There is asymmetric increased flow within the right testis and right epididymis, as shown on previous MRI. A small left varicocele is noted. There is no testicular mass. The right epididymis is not well-defined but likely asymmetrically enlarged, heterogeneous and hypervascular. There is a complex collection within the right hemiscrotum. This favors a hydrocele. A developing abscess could appear similar. Scrotal wall edema is noted. IMPRESSION: 1. Findings suggestive of right-sided epididymoorchitis. Complex collection within the right hemiscrotum which favors a complex hydrocele. A developing multiloculated abscess could appear similar. 2. Scrotal soft tissue thickening and edema. ACT 112: Negative or not required by law. Electronically signed by: Keith Guzman M.D. 12/09/2022 6:01 PM Hospital Course (1) Acute epididymitis: severe acute epididymitis and orchitis presumed 2nd to a gram negative freddie as urine culture on 12/06/22 grew such however, culprit pathogen could also be a gram positive as well - he has had coag negative staph, staph aureus, and enterococcal UTIs in the past he is at risk of all forms of pathogens given his intermittent self-cathing at home was placed on IV cipro upon admission added IV vancomycin for gram positive coverage as well given scrotal support ice / heat prn pain meds prn seen by [facility] - nothing surgical needed with the above his scrotal pain/swelling/tenderness/erythema improved at discharge was given a week of cipro and a week of amoxicillin to take at home he should continue scrotal support and ice/heat prn at home a small amount of hydrocodone was given for prn use at home he should have follow-up with [facility] post-discharge for this - within 1-2 weeks ideally (2) Acute orchitis: as above in #1 (3) Hydrocele: right-sided f/u with [facility] post-discharge (4) Pain in right testicle: 2nd to #1, #2 as above (5) Failure of outpatient treatment: despite cefdinir + doxycycline he presented with worsening #1, #2 improved during his hospitalization with IV cipro + IV vancomycin see #1 above (6) Cervical stenosis of spinal canal: (7) Osteoarthritis: (8) Urinary retention: continue intermittent self-cathing at home as previous f/u with [facility] for urodynamic studies (difficult to say if retention is neurogenic or obstructive in nature) (9) History of gastric ulcer: noted added a PPI while here (10) Bipolar depression: no issues at this time is on monthly Abilify injections (11) Alcohol abuse: previous h/o heavy etoh abuse but consumption now is mild at most remote h/o etoh withdrawal but none in years he had no signs/symptoms of etoh withdrawal while here (12) Tobacco abuse: uses 1/2 ppd of cigarettes but declined nicoderm patch while here (13) HTN (hypertension): uncontrolled despite metoprolol 25mg BID added amlodipine 5mg daily with improvement in BPs at discharge gave new prescription for the amlodipine 5mg daily (14) Hyperlipidemia: cont crestor Total Time Total Time Spent Total Time Spent (In Minutes): 35 Discharge Plan Discharge Items Patient Disposition: Home - Self-Care Reason For Visit: acute orchitis Discharge Diagnosis: 1. acute orchitis of right testicle (testicular infection) 2. acute epididymitis on right (infection of epididymis, a structure that sits on top of the testicle) 3. high blood pressure 4. tobacco use Condition on Discharge: Good Activity: As commented below Activity Comment: avoid any activity that worsens your scrotal pain (heavy lifting, etc) Lifting: No more than 10 pounds Driving/Machine Use: No driving if taking narcotic pain killer medication Non-emergency contact: Primary Care Provider and Urologist Call non-emergency contact if: you have any medication questions, your pain is not controlled, your pain is worsening and you have a fever Follow-up/Referrals: [facility] [Provider Group] (7-10 days ) Cleveland Cortez CRNP [Primary Care Provider] - 12/20/22 8:30 am (5-7 days ) Alejandra Villagomez CRNP [Nurse Practitioner] - 12/26/22 10:00 am (VIRTUAL VISIT WITH DR GUY) Diet: Heart Healthy Addtl Attending Provider Instructions: Mr Callaway, You were hospitalized for right-sided scrotal infection. Specifically, your ultrasound showed infection of the testicle ("Orchitis") as well as the epididymis ("epididymitis"). You responded well to IV antibiotics as well as scrotal support and pain medication. [facility] saw you in consult and recommended antibiotics. No surgery was advised. Recommendations - 1. Orchitis/epididymitis treatment - * Antibiotics - take each of the below antibiotics for 7 days * ciprofloxacin 500mg twice daily x 7 days, first dose TONIGHT * amoxicillin 500mg three times daily x 7 days, first dose TONIGHT * Probiotics - take 1 daily x 10 days; these may help prevent diarrhea from your antibiotics * Scrotal support - continue to use supportive underwear, an athletic supporter, or any other undergarment to help support the testicles; the more the scrotum is allowed to dangle the more pain you will likely have; scrotal support also helps with swelling * Cool compresses as needed/as desired to the scrotum Of note -- the previously prescribed antibiotics (2 of them were prescribed on 12/06/22 - cefdinir & doxycycline) should be discontinued. Do not take these 2 other antibiotics. Please throw them away 2. Your antibiotics can cause diarrhea. Again, please take the probiotic cordero pplement that I have called to your pharmacy for you. Also eat extra yogurt daily over the next 10 days. 3. For high blood pressure - * RESUME amlodipine but just take 5mg (1 tablet) once daily; start this TOMORROW, 12/13 * I have refilled this medication for you * continue your metoprolol twice a day as previous 4. I have given you a small number of narcotic pain killer medication for testicular/scrotal pain. This medication is called hydrocodone/acetaminophen. Take 1 tablet every 8 hours as needed for pain. * know that this medication can cause constipation * this medication - since it is narcotic - can impair your senses, make you tired/drowsy, etc. Thus, DO NOT DRIVE A CAR or DRINK ALCOHOL if you take this medication * this medication also contains tylenol in it; thus, do not take extra [id number]-[id number] tylenol if you decide to take the pain killer medication 5. Continue self-cathing as previous 3-4 times each day. 6. Follow-up with your family doctor within 5-7 days, and with [facility] within 7-10 days. Return to [facility] if - * you have fevers over 100 degrees * your scrotal pain, swelling, redness, or tenderness worsens despite taking antibiotics * you develop severe diarrhea * any other concerns Please continue to feel better! Dr Summers Pending Studies at Discharge: No Stand-Alone Forms: My [facility], Smoking Cessation Medications and DC Order Prescriptions: New amlodipine [Norvasc] 5 mg Tablet 5 mg PO QAM Qty: 30 2RF Rx Instructions: for high blood pressure Saccharomyces boulardii 250 mg capsule 250 mg PO DAILY 10 Days Qty: 10 0RF hydrocodone-acetaminophen 5-325 mg tablet 1 tab PO Q8H PRN (Reason: testicular/scrotal pain) Qty: 10 0RF Continued rosuvastatin 40 mg tablet 40 mg PO QAM Qty: 90 3RF metoprolol tartrate 25 mg tablet 25 mg PO BID Qty: 180 1RF bupropion HCl 150 mg tablet extended release 24 hr 150 mg PO DAILY Abilify Maintena 300 mg Suspension,Extended Rel Syring 0 mg IM MONTHLY Rx Instructions: UNSURE OF STRENGTH, TAKES AT THE END OF THE MONTH. Discontinued doxycycline monohydrate 100 mg capsule 100 mg PO BID 10 Days Qty: 20 0RF Rx Instructions: STARTED 12/06/22 FOR 10 DAYS. cefdinir 300 mg capsule 300 mg PO BID 10 Days Qty: 20 0RF Rx Instructions: STARTED 12/06/22 FOR 10 DAYS. Discharge Orders: Discharge Order (Routine); Ordered 12/12/22 Ordered By: Ronald Stewart/Other Patient Handouts: What are Epididymitis and Orchitis? Admission Data Admit Date/Time: 12/11/22 17:37 Attending Provider: Ronald Summers Admit Provider: Beau Torres Primary Care Provider: Cleveland Cortez Other Providers: Beau Torres ; Harish Browne ; Artie Mora Christopher T. ; Marlen Conley ; Samuel Sosa ; Alejandra Villagomez Melissa A. ; Jett Holbrook ; Anita Peters ; Kiara Brunson ; Benny Nieto ; Vickey Guy Other Interventions: Discharge Summary Assessment (RN) Last Done: 12/12/22 11:05 Coding Level of Care Code 92256 INP/OBS DISCH >30 MIN Diagnoses Acute epididymitis N45.1 Acute orchitis N45.2 Hydrocele N43.1 Hydrocele type: infected Pain in right testicle N50.811 Failure of outpatient treatment Z78.9 Cervical stenosis of spinal canal M48.02 Osteoarthritis M19.90 Urinary retention R33.9 History of gastric ulcer Z87.11 Bipolar depression F31.9 Alcohol abuse F10.10 Tobacco abuse Z72.0 HTN (hypertension) I10 Hyperlipidemia E78.5
--- NOTE | 2022-12-11 17:39 | Hospitalist Progress Note ---
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, and enterococcal UTIs in the past; staph and enterococcus have been ampicillin sensitive he is at risk of all forms of pathogens given his intermittent self-cathing cont IV cipro cont IV vanco for gram positive coverage scrotal support try heat packs since ice was not effective pain meds prn appreciate urology assistance - nothing surgical needed at this time (2) Acute orchitis: Plan: as above (3) Hydrocele: (4) Pain in right testicle: Plan: 2nd to #1, #2 as above (5) Failure of outpatient treatment: Plan: despite cefdinir + doxycycline he presented with worsening #1, #2 now on IV cipro + IV vanco at discharge will send on PO cipro + PO amox (for enterococcal and staph coverage) (6) Cervical stenosis of spinal canal: (7) Osteoarthritis: (8) Urinary retention: Plan: cont intermittent self-cathing as he does at home f/u with [facility] for urodynamic studies (difficult to say if retention is neurogenic or obstructive) (9) History of gastric ulcer: Plan: noted (10) Bipolar depression: Plan: no issues at this time is on monthly Abilify injections (11) Alcohol abuse: Plan: previous h/o heavy etoh abuse but consumption now is mild at most remote h/o etoh withdrawal but none in years watch for signs/symptoms of etoh withdrawal -- none at this time (12) Tobacco abuse: Plan: 1/2 ppd of cigarettes but declines nicoderm patch (13) HTN (hypertension): Plan: improved with addition of amlodipine to his usual metoprolol 25mg BID HRs are low 60s on such cont amlodipine 5mg daily (14) Hyperlipidemia: Plan: cont crestor Plan hopefully can d/c home tomorrow depending on his clinical response change OBS status to full admission status Admission and Anticipated Discharge Date Admission Date: December 09, 2022 Subjective no events overnight testicular pain right side about the same scrotal support has helped, however ice did NOT help continues to perform self-cathing 3-4x's/day Review of Systems Review of Systems: gen- no fevers or chills cv- no cp pulm- no dyspnea GI- no abd pain or nausea/emesis; no diarrhea Physical Exam Physical Exam: gen - NAD, looks good mouth - MMM neck - no JVD heart - RRR, s1 s2, no murmur lungs - CTA b/l abd - soft NT ND BS+ - right testicle with less swelling, less redness, and less tenderness to palpation; +cremasteric reflex on right; no fournie's ext - no edema, pulses 2+ b/l Results & Data Results & Data Vital Signs (Past 12 Hours) Vital Signs Temp Pulse Resp BP Pulse Ox O2 Del Method 12/11/22 15:07 36.6 C 64 17 130/80 96 Room Air 12/11/22 12:45 Room Air 12/11/22 07:10 36.5 C 84 16 166/106 H 97 Room Air Laboratory Results Laboratory Results - last 24 hr 12/11/22 09:39 Sodium 138 Potassium 3.7 Chloride 104 Carbon Dioxide 25 Anion Gap 9 BUN 13 Creatinine 0.95 Est Cr Clr Drug Dosing 106.0 Est GFR ( Amer) 103.3 Est GFR (Non-Af Amer) 89.1 BUN/Creatinine Ratio 13.7 Glucose 105 H Calcium 8.9 Phosphorus 3.1 D Magnesium 2.0 Albumin 3.8 Random Vancomycin PG Care Time/CCT Total # of Minutes Spent Total Time Spent with Patient: Total time spent is greater than 50% in coordination of care (as documented) at patient's floor/unit and/or counseling patient: Coding Level of Care Code 42309 SUB INP/OBS CARE 10/23MIN Diagnoses Acute epididymitis N45.1 Acute orchitis N45.2 Hydrocele N43.1 Hydrocele type: infected Pain in right testicle N50.811 Failure of outpatient treatment Z78.9 Cervical stenosis of spinal canal M48.02 Osteoarthritis M19.90 Urinary retention R33.9 History of gastric ulcer Z87.11 Bipolar depression F31.9 Alcohol abuse F10.10 Tobacco abuse Z72.0 HTN (hypertension) I10 Hyperlipidemia E78.5 (3) Hydrocele Hydrocele type: infected Qualified Code(s): N43.1 - Infected hydrocele
[2022-12-11] MEDS: VANCOMYCIN HCL 1,250 MG in SODIUM CHLORIDE 0.9% 250 ML IV SCH (21:16)
[2022-12-12] MEDS: KETOROLAC TROMETHAMINE 15 MG/ML VIAL IV PRN (06:13)
[2022-12-12] MEDS: CIPROFLOXACIN / D5W 400 MG/200 ML BAG IV SCH (08:20)
[2022-12-12] MEDS: amLODIPine BESYLATE 5 MG TAB PO SCH (08:21)
[2022-12-12] MEDS: ROSUVASTATIN CALCIUM 20 MG TAB PO SCH (08:21)
[2022-12-12] MEDS: ADVANCED PROBIOTIC 1250 MG CAPSULE PO SCH (08:21)
[2022-12-12] MEDS: METOPROLOL TARTRATE 25 MG TAB PO SCH (08:21)
[2022-12-12] MEDS: buPROPion XL 150 MG TABCR PO SCH (08:21)
[2022-12-12] MEDS: VANCOMYCIN HCL 1,250 MG in SODIUM CHLORIDE 0.9% 250 ML IV SCH (08:26)
[2022-12-12 08:50] LABS: Albumin Level 3.8 gm/dl (3.4-5.0); BUN Creatinine Ratio 15.7 (10-20); Calcium 8.8 mg/dl (8.5-10.1); Creatinine Clr Calc Pharmacy 98.7 ml/min; Est GFR (African American) 94.8 ml/min; Est GFR (Non-African American) 81.8 ml/min; Magnesium 1.9 mg/dl (1.7-2.4); Phosphorus 3.6 mg/dl (2.5-4.9)
== END 2022-12-12 14:50 | disposition home or self-care (01) | DRG 728 ==
LOC: ED 15:59 → 3W 15:59 → SUATTDRO 19:52 → 3W 20:35